=== PATIENT | female | born 1960 ===

== ENCOUNTER 2020-08-15 14:47 | Outpatient (REF) | payer MEDICAID, SELFPAY ==
--- NOTE | 2020-08-15 14:58 | XR_ITS ---
EXAMINATION: RIGHT HAND AND WRIST CLINICAL INFORMATION: Pain COMPARISON: Right wrist x-ray September 2017 TECHNIQUE: 4 views of the right hand and wrist FINDINGS: Bone alignment is normal. No fracture or dislocation is seen. The joint spaces are normal. Soft tissues are normal. IMPRESSION: Unremarkable exam.
== END 2020-08-15 14:48 | disposition home or self-care (01) ==
LOC: HO.XRAY 14:47
PROVIDERS: PCP Family Medicine; Visit Provider Emergency Medicine
DX: M25.531 Pain in right wrist (principal); M79.644 Pain in right finger(s)
CPT/HCPCS: 73110; 73130

== ENCOUNTER 2020-12-31 13:24 | Outpatient (REF) | payer MEDICAID, SELFPAY ==
--- NOTE | ~2020-12-31 | MM_ITS ---
EXAMINATION: MM DIAGNOSTIC DIGITAL BREAST TOMOSYNTHESIS, RIGHT US DIAGNOSTIC ULTRASOUND BREAST, RIGHT CLINICAL INFORMATION: Tenderness right breast for 3 weeks posterior upper outer breast and axilla. No redness, palpable mass, or discharge. The lifetime risk of breast cancer based on the Tyrer-Cuzick Model is 7%. COMPARISON: Mammography: 06/11/2020, 12/29/2018, 01/09/2017 TECHNIQUE: Digital breast tomosynthesis is performed in both the craniocaudal and mediolateral oblique views along with computer-aided detection (CAD). Synthesized 2D images are generated from the tomosynthesis. Ultrasound right breast is targeted to the area of symptoms posterior upper outer quadrant and axilla. Grayscale imaging and color Doppler are performed without and with harmonics. FINDINGS: There are scattered areas of fibroglandular density (ACR BI-RADS breast composition Category b). There are no significant masses, abnormal calcifications, or other abnormalities. Parenchymal pattern is similar to prior studies. There is no developing density. No skin thickening or coarsening of the Ike's ligaments. Ultrasound right breast is unremarkable. There is no cystic or solid mass, architectural abnormality, or focal duct ectasia. There is no lymphadenopathy. No skin thickening or edema tracking in soft tissue planes. Results are discussed with the patient at time of visit. MM/MM tomosynthesis diagnostic RT IMPRESSION: 1. No mammographic evidence of malignancy or inflammatory changes. 2. Unremarkable targeted right breast ultrasound. ASSESSMENT: BI-RADS 1: Negative RECOMMENDATION: 1. Patient's right breast pain should be managed based on the clinical impression. 2. Otherwise, routine annual screening mammography. This patient's information was entered into a reminder system with a target due date for their next mammogram.
== END 2020-12-31 13:25 | disposition home or self-care (01) ==
LOC: HO.MAMMO 13:24
PROVIDERS: Visit Provider Internal Medicine
DX: N64.4 Mastodynia (principal)
CPT/HCPCS: 76642; 77061; 77065

== ENCOUNTER 2021-06-02 13:14 | Outpatient (REF) | payer MEDICAID, SELFPAY ==
--- NOTE | ~2021-06-02 | MM_ITS ---
EXAMINATION: MM DIAGNOSTIC DIGITAL BREAST TOMOSYNTHESIS, BILATERAL US DIAGNOSTIC ULTRASOUND BREAST, BILATERAL CLINICAL INFORMATION: Focal rash right breast 1 x 1 cm 9:00 position and focal rash 0.5 x 0.5 cm 3:00 left breast. Pain. Patient currently on topical ointment and improving. The lifetime risk of breast cancer based on the Tyrer-Cuzick Model is 8%. COMPARISON: Mammography: 06/11/2020, 12/29/2018, 01/09/2017 TECHNIQUE: Digital breast tomosynthesis is performed in both the craniocaudal and mediolateral oblique views along with computer-aided detection (CAD). Synthesized 2D images are generated from the tomosynthesis. Ultrasound ultrasound of each breast is targeted to the areas of clinical concern as noted by patient at time of imaging. Patient is able to point to the areas of. Grayscale imaging and color Doppler are performed without and with harmonics. FINDINGS: There are scattered areas of fibroglandular density (ACR BI-RADS breast composition Category b). Parenchymal pattern is similar to prior studies. There is no developing density or interval mass or architectural abnormality or focal duct ectasia. No skin thickening or coarsening of the Ike's ligaments. No abnormal calcifications. The axilla and skin contours are unremarkable. Ultrasound of each breast demonstrates no cystic or solid mass, architectural abnormality, or focal duct ectasia. There is no skin thickening or edema tracking in the soft tissue planes. Results are discussed with the patient at time of visit. MM/MM tomosynthesis diagnostic BI IMPRESSION: No mammographic evidence of malignancy. ASSESSMENT: BI-RADS 1: Negative RECOMMENDATION: 1. Patient to continue with topical ointment and follow up with her PCP as directed. Patient should be managed based on the clinical impression. 2. Otherwise, routine annual screening mammography. This patient's information was entered into a reminder system with a target due date for their next mammogram.
== END 2021-06-02 13:15 | disposition home or self-care (01) ==
LOC: HO.MAMMO 13:14
PROVIDERS: Visit Provider Nurse Practitioner Family
DX: N64.4 Mastodynia (principal); I10 Essential (primary) hypertension
CPT/HCPCS: 76642; 77062; 77066

== ENCOUNTER 2021-10-07 15:36 | Outpatient (REF) | payer MEDICAID, SELFPAY ==
--- NOTE | ~2021-10-07 | US_ITS ---
EXAMINATION: US PELVIS CLINICAL INFORMATION: Postmenopausal bleeding. COMPARISON: CT abdomen and pelvis 11/30/2006 TECHNIQUE: Ultrasound of the pelvis is performed using both transabdominal and transvaginal transducers along with Doppler. Transvaginal imaging is performed due to inadequate visualization transabdominally. FINDINGS: Uterus: The uterus is anteverted and measures 8.9 x 4.8 x 6.3 cm. Total uterine volume 141 mL. Endometrial thickness 0.4 cm. There are 2 uterine fibroids present. Both are in the left side. There is a myometrial fibroid near the fundus measuring 2 x 2.1 x 2 cm. There is a subserosal fibroid. At the proximal body measuring 1.4 x 1.3 x 1.5 cm. Multiple nabothian cysts at the cervix. Adnexa: Both ovaries are visualized. There is normal color flow to the adnexa. There is no ovarian torsion. There is no pelvic ascites or fluid collection. Right ovary measures 3.1 x 2.3 x 2.2 cm. 8.2 Left ovary: Not visualized. Cul-de-sac: No fluid in the cul-de-sac. US/US pelvic and transvaginal IMPRESSION: 1. 2 left-sided uterine fibroids. 2. Normal thickness of the endometrium. Endometrial thickness 0.4 cm. 3. Left ovary is not visualized. Right ovary is normal.
--- NOTE | ~2021-10-07 | US_ITS ---
EXAMINATION: US RETROPERITONEAL COMPLETE (RENAL) CLINICAL INFORMATION: Microscopic hematuria. COMPARISON: Ultrasound abdomen complete dated 10/06/2017 and 10/27/2016. CT of abdomen without and with contrast dated 11/30/2006. TECHNIQUE: Real-time imaging of the kidneys and bladder. Color Doppler exam was used. FINDINGS: RIGHT KIDNEY: 12.0 x 4.6 x 5.4 cm (SAG x AP x TRV). The kidney is normal in size, contour, and echogenicity. Renal cortical thickness is normal. No calculi or focal parenchymal lesions. No hydronephrosis. LEFT KIDNEY: 12.8 x 5.6 x 5.0 cm (SAG x AP x TRV). The kidney is normal in size, contour, and echogenicity. Renal cortical thickness is normal. No focal parenchymal lesions or hydronephrosis. At the lower pole of the left kidney there is an echogenic focus with posterior trickle sign consistent with a stone measuring 0.5 cm. BLADDER: Well distended and normal. Bilateral ureteral jets are demonstrated. Prevoid bladder volume is 140 mL. Postvoid bladder volume is 23.2 mL. US/US retroperitoneal comp IMPRESSION: No hydronephrosis. 5 mm nonobstructive stone lower pole left kidney..
== END 2021-10-07 15:37 | disposition home or self-care (01) ==
LOC: HO.US 15:36
PROVIDERS: PCP Family Medicine; Visit Provider Family Medicine
DX: N95.0 Postmenopausal bleeding (principal); R31.29 Other microscopic hematuria
CPT/HCPCS: 76770; 76830; 76856

== ENCOUNTER 2022-01-26 15:52 | Outpatient (REF) | payer MEDICAID, SELFPAY ==
--- NOTE | ~2022-01-26 | MM_ITS ---
EXAMINATION: MM SCREENING DIGITAL BREAST TOMOSYNTHESIS, BILATERAL CLINICAL INFORMATION: Screening. Asymptomatic. The lifetime risk of breast cancer based on the Tyrer-Cuzick Model is 7.5%. COMPARISON: Mammography: June 02, 2021 and studies dating back to October 31, 2014 TECHNIQUE: Digital breast tomosynthesis is performed in both the craniocaudal and mediolateral oblique views along with computer-aided detection (CAD). Synthesized 2D images are generated from the tomosynthesis. FINDINGS: There are scattered areas of fibroglandular density (ACR BI-RADS breast composition Category b). There are no significant masses, abnormal calcifications, or other abnormalities. MM/MM tomosynthesis screening BI IMPRESSION: There are no significant changes from prior study. ASSESSMENT: BI-RADS 1: Negative RECOMMENDATION: Routine annual mammography screening. This patient's information was entered into a reminder system with a target due date for their next mammogram.
== END 2022-01-26 15:53 | disposition home or self-care (01) ==
LOC: HO.MAMMO 15:52
PROVIDERS: PCP Family Medicine; Visit Provider Family Medicine
DX: Z12.31 Encounter for screening mammogram for malignant neoplasm of breast (principal)
CPT/HCPCS: 77063; 77067

== ENCOUNTER 2022-06-30 11:51 | Outpatient (REF) | payer MEDICAID, SELFPAY ==
--- NOTE | ~2022-06-30 | XR_ITS ---
EXAMINATION: XR LUMBOSACRAL SPINE CLINICAL INFORMATION: Lower back pain. COMPARISON: Lumbar spine radiographs dated 01/19/2018. TECHNIQUE: AP and lateral views of the lumbar spine and lateral view of the lumbosacral junction. FINDINGS: There is bony demineralization. The vertebral bodies and posterior elements are normal. The disc spaces are preserved, and the vertebral alignment is normal. There is multi-level mild lumbar spondylosis. The paraspinal soft tissues are normal. XR/XR lumbar spine 2-3V IMPRESSION: 1. No acute fracture or spondylolisthesis is seen. 2. The lumbar disc spaces are well-maintained. 3. There is multi-level mild lumbar spondylosis.
[2022-06-30 13:02] LABS: Hematocrit 41.2 % (37.0-47.0); Hemoglobin 13.2 g/dl (12.0-16.0); Mean Corpuscular Volume 93.6 fL (80.0-98.0); Mean Platelet Volume 9.8 fL (9.4-12.3); Platelet Count 240 X10*3/uL (160-400); Red Cell Distribution Width 13.4 % (11.0-16.0); White Blood Count 6.7 X10*3/uL (4.8-10.8)
[2022-06-30 13:14] LABS: Estimated Average Glucose 128 mg/dL; Hemoglobin A1c % 6.1 %
[2022-06-30 13:32] LABS: Alanine Aminotransferase 15 U/L (0-31); Albumin Level 4.4 g/dL (3.5-5.0); Alkaline Phosphatase 94 U/L (39-117); Anion Gap 14 (12-20); Aspartate Amino Transferase 14 U/L (5-31); Bilirubin Direct 0.2 mg/dL (0.0-0.5); Bilirubin Total 0.4 mg/dL (0.0-1.0); Blood Urea Nitrogen 21 mg/dL (9-16); Calcium 9.2 mg/dL (8.4-10.2); Carbon Dioxide 23 mmol/L (22-29); Chloride 107 mmol/L (96-108); Cholesterol 189 mg/dL; Estimated Glomerular Filt Rate > 60; Glucose Random 119 mg/dL (60-115); HDL Cholesterol 44 mg/dL; LDL Cholesterol Calculated 123 mg/dl; Potassium 4.3 mmol/L (3.3-5.1); Sodium 140 mmol/L (135-145); Total Protein 7.3 g/dL (6.5-8.0); Triglycerides 111 mg/dL
[2022-06-30 13:53] LABS: Free T4 (Free Thyroxine) 0.91 ng/dL (0.71-1.85); Thyroid Stimulating Hormone 2.39 uIU/mL (0.32-4.0); Vitamin D 25-OH Total 36.6 ng/mL (>30)
[2022-07-01 07:36] LABS: HIV AB/AG Nonreactive (Nonreactive); HIV Num 1 0.06 S/CO (0.00-0.99)
[2022-07-01 07:39] LABS: ~HepC Num1 0.12 S/CO (0.00-0.79); ~Hepatitis C Antibody Nonreactive (Nonreactive)
[2022-07-02 11:51] LABS: Alpha Fetoprotein 3.6 ng/mL
== END 2022-06-30 11:52 | disposition home or self-care (01) ==
LOC: HO.LAB 11:51
PROVIDERS: PCP Family Medicine; Visit Provider Family Medicine
DX: M54.50 Low back pain, unspecified (principal); Z11.3 Encounter for screening for infections with a predominantly sexual mode of transmission; Z13.228 Encounter for screening for other metabolic disorders; Z13.220 Encounter for screening for lipoid disorders
CPT/HCPCS: 36415; 72100; 80048; 80061; 80076; 82105; 82306; 83036; 84439; 84443; 85027; 86803; 87389

== ENCOUNTER 2022-11-26 07:12 | Outpatient (REF) | payer MEDICAID, SELFPAY ==
--- NOTE | 2022-11-26 08:00 | EMG_ITS ---
Right tibial and peroneal motor studies were performed. Right superficial peroneal, sural, and lateral femoral cutaneous sensory studies were performed. Tibial H-reflex was obtained. Needle examination was performed. 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 Otherwise, no significant abnormality was noted. MD CLAUDETTE Serra/DAVID / [id number]
[2022-11-26 08:37] LABS: Free T4 (Free Thyroxine) 0.99 ng/dL (0.71-1.85); Insulin 15 uU/mL (2-29)
== END 2022-11-26 07:13 | disposition home or self-care (01) ==
LOC: HO.NEURO 07:12
PROVIDERS: Absent Provider Family Medicine; PCP Family Medicine; Visit Provider Family Medicine
DX: Z13.89 Encounter for screening for other disorder (principal); R20.2 Paresthesia of skin
CPT/HCPCS: 36415; 83525; 84439; 95886; 95909

== ENCOUNTER 2023-03-10 14:37 | Outpatient (REF) | payer MEDICAID, SELFPAY ==
--- NOTE | ~2023-03-10 | MM_ITS ---
EXAMINATION: MM DIAGNOSTIC DIGITAL BREAST TOMOSYNTHESIS, BILATERAL US DIAGNOSTIC ULTRASOUND BREAST, LEFT CLINICAL INFORMATION: Left areola skin changes. No palpable mass or discharge. Patient has upcoming appointment with dermatology. Due for yearly. The lifetime risk of breast cancer based on the Tyrer-Cuzick Model is 6%. COMPARISON: Multiple prior breast imaging exams including most recent mammography 01/26/2022 and bilateral breast ultrasound 06/02/2021. TECHNIQUE: Digital breast tomosynthesis is performed in both the craniocaudal and mediolateral oblique views along with computer-aided detection (CAD). Synthesized 2D images are generated from the tomosynthesis. Ultrasound left breast is targeted to the areolar and periareolar region using grayscale imaging and color Doppler without and with harmonics. FINDINGS: There are scattered areas of fibroglandular density (ACR BI-RADS breast composition Category b). There are no significant masses, abnormal calcifications, or other abnormalities. Parenchymal pattern is similar to prior studies. There is no developing density or architectural abnormality. The axilla and skin contours are unremarkable. No significant changes. Ultrasound demonstrates no cystic or solid mass, architectural abnormality, or focal duct ectasia. No skin thickening or intradermal lesion or edema tracking in soft tissue planes. No hyperemia. Results are discussed with the patient at time of visit. MM/MM tomosynthesis diagnostic BI IMPRESSION: -No mammographic evidence of malignancy or inflammatory changes. -Unremarkable targeted left breast ultrasound. ASSESSMENT: BI-RADS 1: Negative RECOMMENDATION: 1. Patient should be managed based on the clinical impression. Patient has upcoming appointment with dermatology. 2. Otherwise, routine annual screening mammography. This patient's information was entered into a reminder system with a target due date for their next mammogram.
== END 2023-03-10 14:38 | disposition home or self-care (01) ==
LOC: HO.MAMMO 14:37
PROVIDERS: PCP Family Medicine; Visit Provider Nurse Practitioner Primary Care
DX: R23.4 Changes in skin texture (principal)
CPT/HCPCS: 76642; 77062; 77066

== ENCOUNTER 2023-03-24 06:02 | Outpatient (REF) | payer MEDICAID, SELFPAY ==
[2023-03-24 06:24] LABS: MANUAL DIFF FLAG NO
[2023-03-24 07:22] LABS: Basophils Percent Auto 0.3 % (0-2); Eosinophils Absolute Auto 0.1 X10*3/uL (0.0-0.4); Eosinophils Percent Auto 1.2 % (0-4); Hematocrit 39.7 % (37.0-47.0); Hemoglobin 12.8 g/dl (12.0-16.0); Imm Gran Abs Auto 0.02 X10*3/uL (0.00-0.03); Imm Gran Pct Auto 0.3 % (0.0-0.4); Lymphocytes Absolute Auto 2.5 X10*3/uL (1.2-4.9); Mean Corpuscular HGB Conc 32.2 g/dl (31.0-35.0); Mean Corpuscular Volume 93.2 fL (80.0-98.0); Mean Platelet Volume 9.6 fL (9.4-12.3); Monocytes Absolute Auto 0.5 X10*3/uL (0.1-1.2); Monocytes Percent Auto 6.8 % (2-11); Neutrophils Absolute Auto 3.6 x10*3/uL (2.0-8.3); Neutrophils Percent Auto 53.4 % (45-73); Platelet Count 246 X10*3/uL (160-400); Red Blood Count 4.26 X10*6/uL (4.20-5.50); Red Cell Distribution Width 13.7 % (11.0-16.0); White Blood Count 6.7 X10*3/uL (4.8-10.8)
[2023-03-24 07:54] LABS: Estimated Average Glucose 131 mg/dL; Hemoglobin A1c % 6.2 %
[2023-03-24 08:10] LABS: Alanine Aminotransferase 17 U/L (0-31); Albumin Level 4.3 g/dL (3.5-5.0); Alkaline Phosphatase 88 U/L (39-117); Anion Gap 11 (12-20); Aspartate Amino Transferase 17 U/L (5-31); Bilirubin Direct 0.1 mg/dL (0.0-0.5); Bilirubin Total 0.6 mg/dL (0.0-1.0); Blood Urea Nitrogen 14 mg/dL (9-16); Calcium 9.3 mg/dL (8.4-10.2); Carbon Dioxide 26 mmol/L (22-29); Chloride 108 mmol/L (96-108); Cholesterol 176 mg/dL; Estimated Glomerular Filt Rate > 60; Glucose Random 130 mg/dL (60-115); HDL Cholesterol 44 mg/dL; LDL Cholesterol Calculated 103 mg/dl; Potassium 4.2 mmol/L (3.3-5.1); Sodium 141 mmol/L (135-145); Total Protein 7.1 g/dL (6.5-8.0); Triglycerides 145 mg/dL
[2023-03-24 08:22] LABS: HBS Num1 22.57 mIU/mL (0-7.99); HIV AB/AG Nonreactive (Nonreactive); HIV Num 1 0.06 S/CO (0.00-0.99); Hepatitis B Surface Antigen Negative (Negative); ~Hepatitis B Surface Antibody REACTIVE (Nonreactive)
[2023-03-24 08:23] LABS: Syphilis Screen Nonreactive (Nonreactive); ~HepC Num1 0.19 S/CO (0.00-0.79); ~Hepatitis C Antibody Nonreactive (Nonreactive)
[2023-03-24 08:25] LABS: Free T4 (Free Thyroxine) 0.94 ng/dL (0.71-1.85); Thyroid Stimulating Hormone 2.22 uIU/mL (0.32-4.0); Vitamin D 25-OH Total 37.3 ng/mL (>30)
[2023-03-24 10:28] LABS: CT PCR NOT DETECTED (Not Detect.); NG PCR NOT DETECTED (Not Detect.)
[2023-03-26 13:03] LABS: Alpha Fetoprotein 2.8 ng/mL
== END 2023-03-24 06:03 | disposition home or self-care (01) ==
LOC: HO.LAB 06:02
PROVIDERS: PCP Family Medicine; Visit Provider Family Medicine
DX: Z11.4 Encounter for screening for human immunodeficiency virus [HIV] (principal); R73.03 Prediabetes
CPT/HCPCS: 0353U; 80048; 80061; 80076; 82105; 82306; 83036; 84439; 84443; 85025; 86706; 86780; 86803; 87340; 87389

== ENCOUNTER → 2023-04-02 14:02 | Outpatient (BNVA) | payer OTHER, SELFPAY | PROVIDERS: PCP Family Medicine; Visit Provider Physician Assistant | DX: S50.11XA Contusion of right forearm, initial encounter (principal); W20.8XXA Other cause of strike by thrown, projected or falling object, initial encounter | CPT/HCPCS: 73090; 99204 ==

== ENCOUNTER 2023-04-06 08:49 | Outpatient (REF) | payer MEDICAID, SELFPAY ==
--- NOTE | ~2023-04-06 | US_ITS ---
EXAMINATION: US ABDOMEN COMPLETE CLINICAL INFORMATION: Rule out recurrent kidney stone. Fatty liver. COMPARISON: Ultrasound kidneys and bladder 10/07/2021. Ultrasound abdomen complete with elastography 04/03/2020. TECHNIQUE: Real-time imaging of the abdominal viscera. FINDINGS: PANCREAS: The visualized pancreatic head and body are unremarkable. The tail is obscured by gas. ABDOMINAL AORTA: The proximal, mid, and distal segments are normal in caliber. INFERIOR VENA CAVA: Visualized portions are normal. LIVER: The liver is normal in size. The liver contour is normal. There is diffuse increased liver parenchymal echogenicity, consistent with hepatic steatosis. No focal hepatic lesion. There is no intrahepatic biliary duct dilatation seen. GALLBLADDER: Surgically absent. COMMON BILE DUCT: Normal in caliber measuring 0.5 cm in diameter. RIGHT KIDNEY: Normal. No hydronephrosis. No renal calculi or focal parenchymal lesions. The kidney measures 12.3 cm in maximum dimension. LEFT KIDNEY: No hydronephrosis or focal parenchymal lesions. The kidney measures 12.9 cm in maximum dimension. Lower pole 0.4 cm calculus. SPLEEN: Normal. The spleen measures 8.7 cm in maximum dimension. FREE FLUID: None. US/US abdomen complete IMPRESSION: 1. Nonobstructing left lower pole 0.4 cm calculus. No hydronephrosis. 2. Hepatic steatosis.
== END 2023-04-06 08:50 | disposition home or self-care (01) ==
LOC: HO.US 08:49
PROVIDERS: PCP Family Medicine; Visit Provider Family Medicine
DX: N20.0 Calculus of kidney (principal); K76.0 Fatty (change of) liver, not elsewhere classified
CPT/HCPCS: 76700

== ENCOUNTER → 2023-04-07 09:39 | Outpatient (BNVA) | payer OTHER, SELFPAY | PROVIDERS: PCP Family Medicine; Visit Provider Physician Assistant | DX: S50.11XA Contusion of right forearm, initial encounter (principal); W20.8XXA Other cause of strike by thrown, projected or falling object, initial encounter | CPT/HCPCS: 99213 ==

== ENCOUNTER 2023-04-12 15:00 | Outpatient (RCR) | payer MEDICAID, SELFPAY | END 2023-05-19 15:13 | disposition home or self-care (01) | LOC: HO.PT 15:00 | PROVIDERS: PCP Family Medicine; Visit Provider Nurse Practitioner Primary Care | DX: M25.511 Pain in right shoulder (principal) | CPT/HCPCS: 97110; 97140; 97161 ==

== ENCOUNTER → 2023-04-28 15:05 | Outpatient (BNVA) | payer OTHER, SELFPAY | PROVIDERS: PCP Family Medicine; Visit Provider Physician Assistant | DX: S50.11XD Contusion of right forearm, subsequent encounter (principal); W20.8XXD Other cause of strike by thrown, projected or falling object, subsequent encounter | CPT/HCPCS: 99213 ==

== ENCOUNTER 2023-06-14 14:30 | Outpatient (RCR) | payer OTHER, SELFPAY ==
--- NOTE | 2023-06-09 15:01 | MHC.OT.EP ---
[address] [phone] Occupational Therapy Plan of Care Patient Name: Ele Adan Date of Evaluation: 06/09/23 Diagnosis: Right forearm crush injury with hematoma Pain Location: 0-8 right proximal forearm Pain Score: 7 Pain Scale Used: Numeric (0 - 10) Aggravating Factors: Holding objects in hand, carrying, straight elbow Alleviating Factors: Motrin 800 mg, icy hot. Avoiding straightening elbow Assessment: Pt is a 62 yo female 9 wks , 2 days s/p right proximal forearm crush injury. There has been a 9 wk lapse in treatment due to pt putting on hold during PT appointments for unrelated shoulder pain and a 1 month vacation in [place] Today patient presents with complaint of high proximal forearm pain with right non dominant hand use with lifting , carrying, holding her cell phone, dressing , housework and full elbow extension. ROM is WNL , tender to light palpation at proximal forearm. 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 Pt is scheduled for CTR next week. Pt will benefit from OT to reduce right forearm pain for improved upper extremity function. I anticipate slow improvement in UE function due to unrelated shoulder pain and upcoming right CTR. Frequency and Duration: The patient will be seen 2 x wk x 3 wks Short Term Goals: Demo indep in use of thermal modalities and self massage to reduce forearm pain with daily activities Demo indep with HEP Demo indep with activity modification and AD with homemaking tasks as needed Dec right proximal forearm pain to low with light and occasional moderate heavy daily activities Retirement Goals: Same as above Treatment Plan: Therapeutic Exercise Therapeutic Activity Home Exercise Program Patient Education Desensitization/Sensory Re-ed ADL Training MHP Cold Packs Soft Tissue Mobilization Kinesiotaping Electronically Signed By: Lindsey Briggs OT CHT CLT Please Sign and return to therapist. Thank you once again for your referral.
--- NOTE | 2023-08-11 11:23 | MHC.OT.DC ---
[address] [phone] F: [phone] Occupational Therapy Discharge Note Patient Name: Ele Adan Provider: Serena Sharma Diagnosis: Right forearm crush injury with hematoma Date of Surgery: Date of Evaluation: 06/09/23 Date of Discharge: 08/11/23 Treatments to Date: 2 Cancellations to Date: No Shows to Date: Discharge Status: Patient Elected to Stop Physician Discontinued Tx Discharge Summary: Con't complaint of pain at distal forearm with light palpation and gentle ROM Pt scheduled for CTR and has not rescheduled OT Pt reports some improvement in night pain and paresthesia with custom wrist orthosis She is indep with AROM , tendon glides and median nerve glides Electronically Signed By: Lindsey Briggs OT CHT CLT Reviewed/agree with student documentation: Therapist: Please Sign and return to therapist, thank you for your referral.
== END 2023-08-11 11:23 | disposition home or self-care (01) ==
LOC: HO.OT 14:30
PROVIDERS: PCP Family Medicine; Visit Provider Physician Assistant
DX: S50.11XD Contusion of right forearm, subsequent encounter (principal)
CPT/HCPCS: 97110; 97140; 97166

== ENCOUNTER 2023-07-05 11:11 | Emergency (ER) | payer MEDICAID, SELFPAY ==
--- NOTE | ~2023-07-05 | XR_ITS ---
EXAMINATION: XR CHEST CLINICAL INFORMATION: Chest pain COMPARISON: 04/06/2019 TECHNIQUE: Frontal view of the chest was obtained. FINDINGS: No significant abnormality is noted involving the heart, lungs, mediastinum, bony thorax or soft tissues. XR/XR chest 1V IMPRESSION: Unremarkable examination, without interval change.
--- NOTE | 2023-07-05 11:12 | ECG_ITS ---
Test Reason : chest pain Blood Pressure : / mmHG Vent. Rate : 077 BPM Atrial Rate : 077 BPM P-R Int : 152 ms QRS Dur : 090 ms QT Int : 414 ms P-R-T Axes : 045 009 006 degrees QTc Int : 468 ms Normal sinus rhythm T wave abnormality, consider anterior ischemia Prolonged QT Abnormal ECG When compared with ECG of 18-APR-2009 08:46, Non-specific change in ST segment in Anterior leads T wave inversion now evident in Anterior leads Referred By: Emmanuel Bolivar Electronically Signed By:KELIN HANNA
--- NOTE | 2023-07-05 11:15 | ED.GENADULT ---
HPI - General Adult General Chief complaint: Chest Pain Stated complaint: Chest Pain Time Seen by Provider: 07/05/23 13:00 Source: patient Mode of arrival: ambulatory History of Present Illness HPI narrative: 62-year-old female who has complaints of dysuria, back pain and some mild nausea with chills and was evaluated at urgent care. Patient states that she was started on Macrobid and Pyridium but is not had any improvement then complains of epigastric discomfort without dizziness/diaphoresis. Related Data Previous Rx's Medication Instructions Recorded cefdinir 300 mg capsule 300 mg PO BID 7 days #14 caps 07/05/23 ondansetron 4 mg disintegrating 4 mg PO Q8H PRN nausea and 07/05/23 tablet vomiting #7 tabs Allergies Allergy/AdvReac Type Severity Reaction Status Date / Time No Known Allergies Allergy Unverified 07/05/23 11:18 Review of Systems Review of Systems: Pertinent positives and negatives as stated in HPI PMF Past Medical History Source: nursing notes reviewed Social History Social History Advance Directives: Yes Advance Directives Information Provided: No Advance Directives on File: No Physical Exam ED Vital Signs: Vital Signs - 24 hr 07/05/23 11:18 Temperature 97.9 F Pulse Rate 80 Respiratory Rate 16 Blood Pressure 149/80 H Pulse Oximetry 98 Oxygen Delivery Method Room Air BMI result Body Mass Index 35.8 VITAL SIGNS: Reviewed. GENERAL: Elevated BMI, Well developed, well nourished, in no acute distress. HEAD: Normocephalic/atraumatic EYES: PERRLA, EOMI EARS: Ext canals without abnormality NOSE: Nares patent bilateral OROPHARYNX: no oral lesions noted, posterior pharynx clear NECK: Supple, no adenopathy LUNGS: Normal breath sounds. No adventitious sounds or accessory muscle use. SpO2<98> CARDIOVASCULAR: Regular rate and rhythm without noted murmurs ABDOMEN: Soft, non-tender, non-distended with bowel sounds, CVA tenderness+ MUSCULOSKELETAL: No tenderness, deformities, or effusions noted on gross inspection. EXTREMITIES: No cyanosis, clubbing or edema. SKIN: Inspection of the skin reveals no rashes, NEUROLOGIC: Alert and oriented x 4. Strength and sensation to light touch were grossly intact x 4. Course Course Course Narrative: This is an RME: Additional HPI, ROS, PE not included below will be deferred to primary provider. Patient is a 62 year old female presenting from [facility] for substernal non radiating chest pain that started Wednesday. She received aspirin from the [facility] and was told to be seen at the ED for an ECHO. Patient denies shortness of breath but notes she has some difficulty with breathing. Medical Decision Making Medical Decision Making [facility] Narrative: 62-year-old female with history and clinical presentation after review of all investigations highly suspicious for a pyelonephritis as opposed to any pneumonia, renal colic. I reviewed all investigations which is negative for systemic evidence of infection, there is no leukocytosis or left shift, no anemia or thrombocytopenia and patient has remained afebrile. Chemistry indices are negative for acute electrolyte or liver enzyme abnormalities and there is no GELACIO, troponin is undetectable and was ordered due to patient's atypical chest pain and in conjunction with EKG there is no suspicion for for cardiac etiology. Chest x-ray is without infiltrate and otherwise my interpretation is in agreement with radiology's impression. On the other hand, urinalysis is grossly indicative of UTI and given remaining symptoms of back pain and CVA tenderness with nausea and chills clinically my interpretation is patient has pyelonephritis. All results and findings were discussed with patient at bedside, she was instructed to stop taking the Macrobid and she has been prescribed a week-long course of cefdinir and was informed that she could continue to take the pyridium as well as increasing water intake and using [id number] analgesics. Differential Diagnosis Differential Diagnoses: The differential diagnosis associated with the presentation includes Please see the discussion above Admission/Observation Consideration of admission/observation: Escalation of care including admission/observation considered Please see the discussion above Lab Data [facility] Lab Attestation statement: I reviewed the patient's lab results. Please see the discussion above 07/05/23 11:45 07/05/23 11:45 Labs: Lab Results 07/05/23 07/05/23 07/05/23 Range/Units 11:45 11:45 11:45 WBC 7.7 (4.8-10.8) X10*3/uL RBC 4.19 L (4.20-5.50) X10*6/uL Hgb 12.9 (12.0-16.0) g/dl Hct 38.9 (37.0-47.0) % MCV 92.8 (80.0-98.0) fL MCH 30.8 (27.0-33.0) pg MCHC 33.2 (31.0-35.0) g/dl RDW 13.2 (11.0-16.0) % Plt Count 233 (160-400) X10*3/uL MPV 9.6 (9.4-12.3) fL Immature Gran % (Auto) 0.3 (0.0-0.4) % Neut % (Auto) 64.5 (45-73) % Lymph % (Auto) 28.4 (20-40) % Jones % (Auto) 5.5 (2-11) % Eos % (Auto) 1.0 (0-4) % Baso % (Auto) 0.3 (0-2) % Lymph # (Auto) 2.2 (1.2-4.9) X10*3/uL Jones # (Auto) 0.4 (0.1-1.2) X10*3/uL Eos # (Auto) 0.1 (0.0-0.4) X10*3/uL Baso # (Auto) 0.0 (0.0-0.2) X10*3/uL Abs Immat Gran (auto) 0.02 (0.00-0.03) X10*3/uL Absolute Neuts (auto) 5.0 (2.0-8.3) x10*3/uL Absolute Nucleated RBC 0.000 (0.0-0.012) X10*3/uL Nucleated RBC % (auto) 0.0 (0.0-0.2) /100WBC Sodium 138 (135-145) mmol/L Potassium 3.6 (3.3-5.1) mmol/L Chloride 106 (96-108) mmol/L Carbon Dioxide 23 (22-29) mmol/L Anion Gap 13 (12-20) BUN 13 (9-16) mg/dL Creatinine 0.76 (0.5-1.4) mg/dL Estim Creat Clear Calc 87.7 Estimated GFR > 60 Random Glucose 247 H (60-115) mg/dL Calcium 9.2 (8.4-10.2) mg/dL Magnesium 2.0 (1.6-2.6) mg/dL Total Bilirubin 0.6 (0.0-1.0) mg/dL AST 17 (5-31) U/L ALT 14 (0-31) U/L Alkaline Phosphatase 81 (39-117) U/L Troponin I High Sens < 2.7 (<3.5-17.0) ng/L B-Natriuretic Peptide (<100) pg/mL Total Protein 7.2 (6.5-8.0) g/dL Albumin 4.1 (3.5-5.0) g/dL Urine Color Urine Appearance Urine pH (5.0-9.0) Ur Specific [place] (1.005-1.025) Urine Protein (Neg-Trace) mg/dL Urine Glucose (UA) (Negative) mg/dL Urine Ketones (Negative) mg/dL Urine Blood (Negative) Urine Nitrite (Negative) Ur Leukocyte Esterase (Negative) Urine RBC (0-2) /HPF Urine WBC (0-5) /HPF Ur Squamous Epith Cells (0-2) /HPF Urine Bacteria (None Seen) Hyaline Casts (0-2) /LPF 07/05/23 07/05/23 Range/Units 11:45 12:18 WBC (4.8-10.8) X10*3/uL RBC (4.20-5.50) X10*6/uL Hgb (12.0-16.0) g/dl Hct (37.0-47.0) % MCV (80.0-98.0) fL MCH (27.0-33.0) pg MCHC (31.0-35.0) g/dl RDW (11.0-16.0) % Plt Count (160-400) X10*3/uL MPV (9.4-12.3) fL Immature Gran % (Auto) (0.0-0.4) % Neut % (Auto) (45-73) % Lymph % (Auto) (20-40) % Jones % (Auto) (2-11) % Eos % (Auto) (0-4) % Baso % (Auto) (0-2) % Lymph # (Auto) (1.2-4.9) X10*3/uL Jones # (Auto) (0.1-1.2) X10*3/uL Eos # (Auto) (0.0-0.4) X10*3/uL Baso # (Auto) (0.0-0.2) X10*3/uL Abs Immat Gran (auto) (0.00-0.03) X10*3/uL Absolute Neuts (auto) (2.0-8.3) x10*3/uL Absolute Nucleated RBC (0.0-0.012) X10*3/uL Nucleated RBC % (auto) (0.0-0.2) /100WBC Sodium (135-145) mmol/L Potassium (3.3-5.1) mmol/L Chloride (96-108) mmol/L Carbon Dioxide (22-29) mmol/L Anion Gap (12-20) BUN (9-16) mg/dL Creatinine (0.5-1.4) mg/dL Estim Creat Clear Calc Estimated GFR Random Glucose (60-115) mg/dL Calcium (8.4-10.2) mg/dL Magnesium (1.6-2.6) mg/dL Total Bilirubin (0.0-1.0) mg/dL AST (5-31) U/L ALT (0-31) U/L Alkaline Phosphatase (39-117) U/L Troponin I High Sens (<3.5-17.0) ng/L B-Natriuretic Peptide 20 (<100) pg/mL Total Protein (6.5-8.0) g/dL Albumin (3.5-5.0) g/dL Urine Color Dark Yellow Urine Appearance Clear Urine pH 5.5 (5.0-9.0) Ur Specific [place] 1.015 (1.005-1.025) Urine Protein Negative (Neg-Trace) mg/dL Urine Glucose (UA) 500 H (Negative) mg/dL Urine Ketones Negative (Negative) mg/dL Urine Blood Small (1+) H (Negative) Urine Nitrite Positive H (Negative) Ur Leukocyte Esterase Moderate (2+) H (Negative) Urine RBC 11-20 H (0-2) /HPF Urine WBC >50 H (0-5) /HPF Ur Squamous Epith Cells 0-2 (0-2) /HPF Urine Bacteria 2+ (None Seen) Hyaline Casts 0-2 (0-2) /LPF Independent Interpretation I performed an independent interpretation of an: EKG Interpretation: Normal sinus rhythm, HR-77, no STEMI, [place]/QRS/QTC is within normal limits. Radiology Impression Radiologist Impression: Please see the discussion above External Record Review External record reviewed: Outpatient record, Prior outpatient labs and Prior outpatient radiology Discharge Plan Discharge Clinical Impression: Atypical chest pain, Pyelonephritis Patient Disposition: Home, Self-Care Instructions: Kidney Infection (ED) Additional Instructions: 1. Resume all home medications as prescribed except the nitrofurantoin (Macrobid). A different antibiotic has been sent to your pharmacy you should take the 1st dose as soon as you pick it up this afternoon. 2. I recommend [id number] Tylenol/ibuprofen as needed for pain control, increase the amount of water that you are drinking. Return to the ER for any worsening symptoms. Prescriptions: New cefdinir 300 mg capsule 300 mg PO BID 7 Days Qty: 14 0RF ondansetron 4 mg tablet,disintegrating 4 mg PO Q8H PRN (Reason: nausea and vomiting) Qty: 7 0RF Referrals: Lorrie Reyes DO [Primary Care Provider] -
[2023-07-05 11:18] VITALS: BP 149/80; PULSE 80; RESP 16; TEMP 36.6; O2SAT 98; BMI 35.8
[2023-07-05 11:50] LABS: MANUAL DIFF FLAG NO
[2023-07-05 11:57] LABS: Basophils Percent Auto 0.3 % (0-2); Eosinophils Absolute Auto 0.1 X10*3/uL (0.0-0.4); Hematocrit 38.9 % (37.0-47.0); Hemoglobin 12.9 g/dl (12.0-16.0); Imm Gran Abs Auto 0.02 X10*3/uL (0.00-0.03); Imm Gran Pct Auto 0.3 % (0.0-0.4); Lymphocytes Absolute Auto 2.2 X10*3/uL (1.2-4.9); Lymphocytes Percent Auto 28.4 % (20-40); Mean Corpuscular HGB Conc 33.2 g/dl (31.0-35.0); Mean Corpuscular Hemoglobin 30.8 pg (27.0-33.0); Mean Corpuscular Volume 92.8 fL (80.0-98.0); Mean Platelet Volume 9.6 fL (9.4-12.3); Monocytes Absolute Auto 0.4 X10*3/uL (0.1-1.2); Monocytes Percent Auto 5.5 % (2-11); Neutrophils Percent Auto 64.5 % (45-73); Platelet Count 233 X10*3/uL (160-400); Red Blood Count 4.19 X10*6/uL (4.20-5.50); Red Cell Distribution Width 13.2 % (11.0-16.0); White Blood Count 7.7 X10*3/uL (4.8-10.8)
[2023-07-05 12:12] LABS: Alanine Aminotransferase 14 U/L (0-31); Albumin Level 4.1 g/dL (3.5-5.0); Alkaline Phosphatase 81 U/L (39-117); Anion Gap 13 (12-20); Aspartate Amino Transferase 17 U/L (5-31); Bilirubin Total 0.6 mg/dL (0.0-1.0); Blood Urea Nitrogen 13 mg/dL (9-16); Calcium 9.2 mg/dL (8.4-10.2); Carbon Dioxide 23 mmol/L (22-29); Chloride 106 mmol/L (96-108); Creatinine Clr Calc Pharmacy 87.7; Estimated Glomerular Filt Rate > 60; Glucose Random 247 mg/dL (60-115); Potassium 3.6 mmol/L (3.3-5.1); Sodium 138 mmol/L (135-145); Total Protein 7.2 g/dL (6.5-8.0)
[2023-07-05 12:17] LABS: B Type Natriuretic Peptide 20 pg/mL (<100)
[2023-07-05 12:25] LABS: Troponin-I High Sensitivity < 2.7 ng/L (<3.5-17.0)
[2023-07-05 12:27] LABS: Appearance Urine Clear; Color Urine Dark Yellow; Glucose Urine UA 500 mg/dL (Negative); Leukocyte Esterase Urine Moderate (2+) (Negative); Nitrite Urine Positive (Negative); PH 5.5 (5.0-9.0); Specific Gravity - Urine 1.015 (1.005-1.025); UMIC TRIGGER UACC YES; Urine Blood Small (1+) (Negative); Urine Ketones Negative (Negative); Urine Protein Negative (Neg-Trace)
[2023-07-05 12:29] LABS: Bacteria Urine 2+ (None Seen); Hyaline Casts Urine 0-2 /LPF (0-2); Squamous Epithelial Cell Urine 0-2 /HPF (0-2); UACC Culture Trigger YES; WBC Urine >50 /HPF (0-5)
== END 2023-07-05 13:41 | disposition home or self-care (01) ==
PROVIDERS: Physician Assistant; Emergency Provider Student in an Organized Health Care Education/Training Program; PCP Family Medicine
DX: R07.89 Other chest pain (principal); N12 Tubulo-interstitial nephritis, not specified as acute or chronic; B96.20 Unspecified Escherichia coli [E. coli] as the cause of diseases classified elsewhere; R06.00 Dyspnea, unspecified
CPT/HCPCS: 36415; 71045; 80053; 81001; 83735; 83880; 84484; 85025; 87086; 87088; 87186; 93005; 99284

== ENCOUNTER 2023-07-09 18:09 | Outpatient (REF) | payer MEDICAID, SELFPAY | END 2023-07-09 18:10 | disposition home or self-care (01) | LOC: HO.LNP 18:09 | PROVIDERS: Visit Provider General Practice | DX: R30.9 Painful micturition, unspecified (principal) | CPT/HCPCS: 87086 ==

== ENCOUNTER 2023-08-04 09:20 | Emergency (ER) | payer MEDICAID, SELFPAY ==
--- NOTE | ~2023-08-04 | XR_ITS ---
EXAMINATION: XR LUMBOSACRAL SPINE CLINICAL INFORMATION: Fall. Pain. COMPARISON: None available. TECHNIQUE: Three views of the lumbosacral spine. FINDINGS: Normal vertebral body alignment. The lumbar lordosis is maintained. No acute fracture or subluxation. No loss of vertebral body height. Mild multilevel loss of intervertebral disc height with tiny anterior endplate osteophytes. Mild bilateral facet arthropathy at L5-S1. No concerning lytic or blastic osseous lesion. Right upper quadrant surgical clips. XR/XR lumbar spine 2-3V IMPRESSION: Mild multilevel degenerative disc disease. Mild bilateral facet arthropathy at L5-S1.
--- NOTE | ~2023-08-04 | XR_ITS ---
EXAMINATION: XR ELBOW, LEFT CLINICAL INFORMATION: Left elbow pain. Fall. COMPARISON: None available. TECHNIQUE: AP, lateral, and bilateral oblique views of the left elbow. FINDINGS: No acute fracture or dislocation. Mild ulnotrochlear joint space narrowing with tiny marginal osteophytes. Mild enthesopathic spurring at the medial epicondyle. No significant joint effusion. XR/XR elbow LT min 3V IMPRESSION: 1. No acute fracture or dislocation. 2. Mild ulnotrochlear osteoarthritis. 3. Mild enthesopathic spurring at the medial epicondyle.
--- NOTE | ~2023-08-04 | XR_ITS ---
EXAMINATION: XR FOOT, LEFT CLINICAL INFORMATION: Left foot pain. Fall. COMPARISON: None available. TECHNIQUE: AP, lateral, and oblique views of the left foot. FINDINGS: No acute fracture or dislocation. No joint space narrowing or marginal osteophytes. No osseous erosion. Plantar and dorsal calcaneal spurs. XR/XR foot LT min 3V IMPRESSION: 1. No acute fracture or dislocation. 2. Plantar and dorsal calcaneal spurs.
[2023-08-04 09:45] VITALS: BP 135/78; PULSE 68; RESP 16; TEMP 37; O2SAT 97; BMI 34.3
--- NOTE | 2023-08-04 10:08 | ED_ITS ---
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 Patient states that her left foot got caught under her while she was walking down some steps and fell down the last 2 stairs. Patient denies hitting her head or having any loss of consciousness. Patient denies any dizziness, lightheadedness, abdominal pain, nausea, vomiting, fever, chills, blurry vision, double vision, loss of vision, c hest pain, difficulty breathing, shortness of breath, night sweats, pain with urination, increased urinary frequency, increased urinary urgency, blood in her urine or stool, syncope or a near syncopal episode, bowel incontinence, bladder incontinence, bowel retention, bladder retention, or any other complaints at this time. Onset (ago): hour(s) Location: back and left (foot, elbow) Severity: mild Severity scale (1-10): 4 Quality: aching and dull Pain Consistency: constant Relieving factors: none Exacerbating factors: none Associated symptoms: denies other symptoms Treatments prior to arrival: none Related Data Previous Rx's Medication Instructions Recorded cefdinir 300 mg capsule 300 mg PO BID 7 days #14 caps 07/05/23 ondansetron 4 mg disintegrating 4 mg PO Q8H PRN nausea and 07/05/23 tablet vomiting #7 tabs Allergies Allergy/AdvReac Type Severity Reaction Status Date / Time No Known Allergies Allergy Unverified 07/05/23 11:18 Review of Systems Constitutional: Constitutional: Reports no additional constitutional complaints, Denies chills, Denies fever(s) and Denies night sweats Eyes: Eyes: Reports no additional eye complaints, Denies blurry vision, Denies change in vision, Denies diplopia, Denies eye discharge, Denies loss of vision and Denies eye pain ENT: Denies dizziness Cardiovascular: Cardiovascular: Reports no additional cardiovascular complaints, Denies chest pain, Denies lightheadedness, Denies Loss of Consciousness and Denies dyspnea Respiratory: Respiratory: Reports no additional respiratory complaints and Denies dyspnea Gastrointestinal: Gastrointestinal: Reports no additional gastrointestinal complaints, Denies abdominal pain, Denies melena, Denies hematochezia, Denies change in bowel habits and Denies change in stool character Genitourinary: Genitourinary: Denies hematuria, Denies urinary frequency, Denies dysuria, Denies urinary incontinence, Denies urinary hesitancy and Denies urinary urgency Musculoskeletal: Musculoskeletal: Reports no additional musculoskeletal complaints, Reports back pain, Denies numbness and Denies tingling Comments: left elbow pain, left foot pain Neurologic: Denies dizziness, Denies loss of vision, Denies numbness and Denies tingling Psychiatric: Psychiatric: Reports no additional psychiatric complaints Endocrine: Endocrine: Reports no additional endocrine complaints Hematologic/Lymphatic: Hematologic/Lymphatic: Reports no additional hematologic/lymphatic complaints Allergic/Immunologic: Allergic/Immunologic: Reports no additional allergic/immunologic complaints [facility] Past Medical History Attestation statement: The following information was validated with the patient. Source: old records reviewed and nursing notes reviewed Social History Social History Advance Directives: No Advance Directives Information Provided: Yes Physical Exam ED Vital Signs: Vital Signs - 24 hr 08/04/23 09:45 08/04/23 11:21 Temperature 98.6 F Pulse Rate 68 63 Respiratory Rate 16 18 Blood Pressure 135/78 127/67 Pulse Oximetry 97 97 Oxygen Delivery Method Room Air Room Air BMI result Body Mass Index 34.3 Medical Decision Making Medical Decision Making MDM Narrative: Patient is a 62 year old assigned female at with no reported medical history presenting to the emergency department today with left elbow pain, left foot pain, and low back pain after a fall. Patient's physical exam was unremarkable. Patient's left foot, left elbow, and lumbar spine x-rays showed no acute process. I explained my physical exam findings as well as all test results to the patient. I answered all questions asked by the patient. I stressed the importance of the patient taking her medication as prescribed. I stressed the importance of the patient following up with her primary care provider. I stressed the importance of the patient returning to the emergency department immediately if her symptoms were to worsen or if she were to develop any dizziness, shortness of breath, difficulty breathing, chest pain, blurry vision, loss of vision, nausea, vomiting, abdominal pain, fever, chills, back pain, or any other complaints. Patient verbalized agreement and understanding with this treatment plan and discharge. Differential Diagnosis Differential Diagnoses: The differential diagnosis associated with the presentation includes Left elbow pain Left foot pain Lumbar spine pain Mechanical fall Left elbow contusion Left foot contusion Independent Interpretation I performed an independent interpretation of an: Plain X-Ray Interpretation: My interpretation is in agreement with the radiologist's impression of these imaging studies. EXAMINATION: XR ELBOW, LEFT CLINICAL INFORMATION: Left elbow pain. Fall. COMPARISON: None available. TECHNIQUE: AP, lateral, and bilateral oblique views of the left elbow. FINDINGS: No acute fracture or dislocation. Mild ulnotrochlear joint space narrowing with tiny marginal osteophytes. Mild enthesopathic spurring at the medial epicondyle. No significant joint effusion. XR/XR elbow LT min 3V IMPRESSION: 1. No acute fracture or dislocation. 2. Mild ulnotrochlear osteoarthritis. 3. Mild enthesopathic spurring at the medial epicondyle. Dictated By: Ildefonso Rose MD Signed By: Electronically signed by Ildefonso Rose MD 08/04/23 1205 EXAMINATION: XR FOOT, LEFT CLINICAL INFORMATION: Left foot pain. Fall. COMPARISON: None available. TECHNIQUE: AP, lateral, and oblique views of the left foot. FINDINGS: No acute fracture or dislocation. No joint space narrowing or marginal osteophytes. No osseous erosion. Plantar and dorsal calcaneal spurs. XR/XR foot LT min 3V IMPRESSION: 1. No acute fracture or dislocation. 2. Plantar and dorsal calcaneal spurs. Dictated By: Ildefonso Rose MD Signed By: Electronically signed by Ildefonso Rose MD 08/04/23 1158 EXAMINATION: XR LUMBOSACRAL SPINE CLINICAL INFORMATION: Fall. Pain. COMPARISON: None available. TECHNIQUE: Three views of the lumbosacral spine. FINDINGS: Normal vertebral body alignment. The lumbar lordosis is maintained. No acute fracture or subluxation. No loss of vertebral body height. Mild multilevel loss of intervertebral disc height with tiny anterior endplate osteophytes. Mild bilateral facet arthropathy at L5-S1. No concerning lytic or blastic osseous lesion. Right upper quadrant surgical clips. XR/XR lumbar spine 2-3V IMPRESSION: Mild multilevel degenerative disc disease. Mild bilateral facet arthropathy at L5-S1. Dictated By: Ildefonso Rose MD Signed By: Electronically signed by Ildefonso Rose MD 08/04/23 1200 Radiology Impression Discussion of test interpretation with radiology: I have reviewed the radiologist's reading. Discharge Plan Discharge Clinical Impression: Fall, Back pain, Acute foot pain, Elbow pain Patient Disposition: Home, Self-Care Instructions: Back Pain (ED), Fall Prevention (ED) Additional Instructions: Follow up with your primary care provider. Return to the emergency department immediately if your symptoms worsen or if you develop any dizziness, shortness of breath, difficulty breathing, chest pain, blurry vision, loss of vision, nausea, vomiting, abdominal pain, fever, chills, back pain, or any other complaints. Justin un seguimiento con guzman proveedor de atenci?n primaria. Regrese al departamento de emergencias inmediatamente si howard s?ntomas empeoran o si presenta mareos, dificultad para respirar, dificultad para respirar, dolor en el pecho, visi?n borrosa, p?rdida de la visi?n, n?useas, v?mitos, dolor abdominal, fiebre, escalofr?os, dolor de espalda o cualquier otras quejas. Prescriptions: No Action cefdinir 300 mg capsule 300 mg PO BID 7 Days Qty: 14 0RF ondansetron 4 mg tablet,disintegrating 4 mg PO Q8H PRN (Reason: nausea and vomiting) Qty: 7 0RF Referrals: Lorrie Reyes DO [Primary Care Provider] - Stand Alone Forms: Work/School Release Interventions: ED Discharge Assessment Last Done: 08/04/23 12:13 Print Language: Lithuanian
[2023-08-04 11:21] VITALS: BP 127/67; PULSE 63; RESP 18; O2SAT 97
== END 2023-08-04 12:14 | disposition home or self-care (01) ==
PROVIDERS: Emergency Provider Emergency Medicine; PCP Family Medicine
DX: M54.50 Low back pain, unspecified (principal); M79.672 Pain in left foot; M25.522 Pain in left elbow; Z91.81 History of falling
CPT/HCPCS: 72100; 73080; 73630; 99283

== ENCOUNTER 2023-10-08 13:59 | Outpatient (REF) | payer MEDICAID, SELFPAY ==
[2023-10-08 14:48] LABS: Influenza A PCR NEGATIVE (Negative); Influenza B PCR NEGATIVE (Negative); Resp Syncy Virus RNA Qual PCR NEGATIVE (Negative); SARS COV2 PCR INHOUSE NEGATIVE (Negative)
[2023-10-09 13:58] LABS: C. trachomatis RNA TMA NOT DETECTED (NOT DETECTED); N. gonorrhoeae RNA TMA NOT DETECTED (NOT DETECTED)
== END 2023-10-08 14:00 | disposition home or self-care (01) ==
LOC: HO.HHCLNP 13:59
PROVIDERS: Visit Provider Emergency Medicine
DX: Z11.52 Encounter for screening for COVID-19 (principal); Z11.3 Encounter for screening for infections with a predominantly sexual mode of transmission; J02.9 Acute pharyngitis, unspecified; R30.0 Dysuria
CPT/HCPCS: 0241U; 81513; 87070; 87086; 87491; 87591

== ENCOUNTER 2023-11-08 14:13 | Emergency (ER) | payer MEDICAID, SELFPAY ==
--- NOTE | ~2023-11-08 | XR_ITS ---
EXAMINATION: XR CHEST CLINICAL INFORMATION: Cough. Chest discomfort with coughing. COMPARISON: Chest x-ray of 07/05/2023, 04/06/2019, 11/29/2018 TECHNIQUE: 2 views of the chest were obtained. FINDINGS: Cardiac mediastinal silhouette is stable and normal. No abnormal tracheal deviation. Lungs are symmetrically well expanded. No focal consolidation, changes of congestion, pleural effusions or pneumothorax are seen. No evidence of displaced rib fractures. Regional skeleton appears intact. Visualized upper abdomen is unremarkable. XR/XR chest 2V IMPRESSION: No radiographic evidence of pneumonia. No acute pulmonary process.
--- NOTE | 2023-11-08 14:33 | ED_ITS ---
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 Patient states that since 10/27/23 she has been coughing with a headache and fatigue. Patient states that she was on prednisone which helped but now isn't. Patient denies any dizziness, lightheadedness, abdominal pain, nausea, vomiting, fever, chills, blurry vision, double vision, loss of vision, chest pain, difficulty breathing, shortness of breath, back pain, night sweats, pain with urination, increased urinary frequency, increased urinary urgency, blood in her urine or stool, syncope or a near syncopal episode, recent trauma or falls, bowel incontinence, bladder incontinence, bowel retention, bladder retention, or any other complaints at this time. MD elicited complaint: cough Onset (ago): day(s) () Consistency: constant Severity: mild Associated symptoms: headache and cough Treatments prior to arrival: other (prednisone but has been off awhile ) Related Data Previous Rx's Medication Instructions Recorded cefdinir 300 mg capsule 300 mg PO BID 7 days #14 caps 07/05/23 ondansetron 4 mg disintegrating 4 mg PO Q8H PRN nausea and 07/05/23 tablet vomiting #7 tabs benzonatate 100 mg capsule 100 mg PO BID PRN cough 7 days #14 11/08/23 caps doxycycline hyclate 100 mg tablet 100 mg PO BID 7 days #14 tabs 11/08/23 prednisone 20 mg tablet 20 mg PO DAILY 7 days #7 tabs 11/08/23 Allergies Allergy/AdvReac Type Severity Reaction Status Date / Time No Known Allergies Allergy Verified 11/08/23 14:34 Review of Systems Constitutional: Constitutional: Reports no additional constitutional complaints, Denies chills, Denies fever(s), Reports headache(s) and Denies night sweats Eyes: Eyes: Reports no additional eye complaints, Denies blurry vision, Denies change in vision, Denies diplopia, Denies eye discharge, Denies loss of vision and Denies eye pain ENT: Denies dizziness and Reports headache(s) Cardiovascular: Cardiovascular: Reports no additional cardiovascular complaints, Denies chest pain, Denies lightheadedness, Denies Loss of Consciousness and Denies dyspnea Respiratory: Respiratory: Reports no additional respiratory complaints, Reports cough and Denies dyspnea Gastrointestinal: Gastrointestinal: Reports no additional gastrointestinal c omplaints, Denies abdominal pain, Denies melena, Denies hematochezia, Denies change in bowel habits and Denies change in stool character Genitourinary: Genitourinary: Denies hematuria, Denies urinary frequency, Denies dysuria, Denies urinary incontinence, Denies urinary hesitancy and Denies urinary urgency Musculoskeletal: Musculoskeletal: Reports no additional musculoskeletal complaints, Denies numbness and Denies tingling Neurologic: Denies dizziness, Reports headache(s), Denies loss of vision, Denies numbness and Denies tingling Psychiatric: Psychiatric: Reports no additional psychiatric complaints Endocrine: Endocrine: Reports no additional endocrine complaints Hematologic/Lymphatic: Hematologic/Lymphatic: Reports no additional hematologic/lymphatic complaints Allergic/Immunologic: Allergic/Immunologic: Reports no additional aller gic/immunologic complaints PMFSH Past Medical History Attestation statement: The following information was validated with the patient. Source: old records reviewed and nursing notes reviewed Onset Date is defined in the Problem List Problems that require an onset date and time if occurred within 24 hrs of arrival to the ED Aortic Dissection and Rupture; Neurologic impairment; Cardiopulmonary Arrest; Endotracheal Intubation; Insertion or Replacement of Mechanical Circulatory Assist Device Social History Social History Advance Directives: No Advance Directives Information Provided: No Physical Exam Vital Signs: Vital Signs: Last Vital Signs Temp 98.3 F 11/08/23 17:56 Pulse 98 11/08/23 18:18 Resp 20 11/08/23 18:18 BP 142/73 H 11/08/23 17:56 Pulse Ox 97 11/08/23 17:56 O2 Del Method Room Air 11/08/23 17:56 BMI result Body Mass Index 34.3 Const: General: cooperative, no acute distress, alert and awake Nutritional Appearance: well nourished Orientation/consciousness: patient oriented x3 Limitations: no limitations HEENT: Head: Yes normal to inspection and Yes atraumatic Ears: hearing grossly normal bilaterally and external ears normal General nose exam: Normal external nose present, no nasal discharge noted and no epistaxis Face and sinus: Yes normal facial exam, No abrasion and No laceration Mouth: Normal oral and palatal mucosa present, no drooling and no muffled voice Eyes: General: appearance normal, both eyes and all related structures Periorbital: periorbital findings normal Eyelids: Yes eyelids normal Conjunctivae: conjunctivae normal Pupils: Equal, round and reactive pupils present EOM: EOMs intact bilaterally Neck: Neck: Yes normal visual inspection, Yes full ROM and Yes no lymphadenopathy Chest: Chest palpation & inspection: normal inspection of the chest Resp: Effort & Inspection: normal respiratory effort and able to speak in complete sentences Auscultation: clear to auscultation bilaterally GI: Inspection: Yes normal to inspection Neuro: General: patient oriented x3 and moves all extremities Cranial nerves: Yes Equal, round and reactive pupils present Cognition (Neuro): normal cognition Motor exam (neuro): 5/5 motor strength present throughout Sensory Exam: Normal double simultaneous stimulation for sensation Coordination: [id number] test normal Extrem: General: Yes normal to inspection, Yes full ROM and Yes capillary refill normal Psych: Appearance: grossly normal Mental Status: mental status grossly normal Affect: normal affect Attitude: cooperative Thought process: Normal thought process present Thought content: Normal thought content present Insight: Good insight present (Psych) Course Course Course Narrative: This is a rapid medical exam. Deferred additional HPI, ROS, PE to primary provider. 62 yo female with no known medical history here with complaints of cough, chest discomfort with coughing, MARSH since 10/27 Took zofran, prednisone, albuterol with continued symptoms. Will obtain CXR, viral testing VSS Medications Administered Discontinued Medications Generic Name Dose Route Start Last Admin Trade Name Freq PRN Reason Stop Dose Admin Albuterol Sulfate 2.5 mg/ 5 mg 11/08/23 18:09 11/08/23 18:13 Albuterol Sulfate 2.5 mg INHALE 11/08/23 18:10 Not Given ONCE ONE Albuterol Sulfate 2.5 mg 11/08/23 18:09 11/08/23 18:13 Albuterol Sulfate (0.083%) 2.5 Mg/3 Ml Vial.Neb INHALE 11/08/23 18:10 Not Given ONCE ONE Albuterol/Ipratropium 3 ml 11/08/23 18:13 11/08/23 18:17 Albuterol/Iprat 2.5/0.5mg 3 Ml Ampul.Neb INHALE 11/08/23 18:14 3 ml ONCE ONE Administration Medical Decision Making Medical Decision Making [facility] Narrative: Patient is a 62 year old assigned female at with no reported medical history presenting to the emergency department today with a cough, headache, and fatigue. Patient's physical exam was unremarkable. Patient's COVID-19, influenza, and RSV test was negative. Patient's chest x-ray showed no acute process. I explained my physical exam findings as well as all test results to the patient. I answered all questions asked by the patient. I stressed the importance of the patient taking her medication as prescribed. I stressed the importance of the patient following up with her primary care provider. I stressed the importance of the patient returning to the emergency department immediately if her symptoms were to worsen or if she were to develop any dizziness, shortness of breath, difficulty breathing, chest pain, blurry vision, loss of vision, nausea, vomiting, abdominal pain, fever, chills, back pain, or any other complaints. Patient verbalized agreement and understanding with this treatment plan and discharge. Differential Diagnosis Differential Diagnoses: The differential diagnosis associated with the presentation includes Bronchitis COVID-19 Influenza RSV PNA Admission/Observation Consideration of admission/observation: Escalation of care including admission/observation considered Patient would have been admitted to the hospital had her work up had any findings where hospital admission was appropriate and her clinical presentation warranted hospital admission. Lab Data MDM Lab Attestation statement: I reviewed the patient's lab results. My interpretation of these studies and their corresponding values is that they are grossly normal. Labs: Lab Results 11/08/23 Range/Units 14:53 Influenza Type A (PCR) NEGATIVE (Negative) Influenza Type B (PCR) NEGATIVE (Negative) RSV RNA Qual (PCR) NEGATIVE (Negative) SARS-CoV-2 RNA (RT-PCR) NEGATIVE (Negative) Independent Interpretation I performed an independent interpretation of an: Plain X-Ray Interpretation: My interpretation is in agreement with the radiologist's impression of this imaging study. EXAMINATION: XR CHEST CLINICAL INFORMATION: Cough. Chest discomfort with coughing. COMPARISON: Chest x-ray of 07/05/2023, 04/06/2019, 11/29/2018 TECHNIQUE: 2 views of the chest were obtained. FINDINGS: Cardiac mediastinal silhouette is stable and normal. No abnormal tracheal deviation. Lungs are symmetrically well expanded. No focal consolidation, changes of congestion, pleural effusions or pneumothorax are seen. No evidence of displaced rib fractures. Regional skeleton appears intact. Visualized upper abdomen is unremarkable. XR/XR chest 2V IMPRESSION: No radiographic evidence of pneumonia. No acute pulmonary process. Dictated By: Heydi Umana MD Signed By: Electronically signed by Heydi Umana MD 11/08/23 6507 Radiology Impression Discussion of test interpretation with radiology: I have reviewed the radiologist's reading. Prescription Management I considered prescription management with: Antibiotic (given length of patient's symptoms, patient prescribed an antibiotic.) Discharge Plan Discharge Clinical Impression: Bronchitis Patient Disposition: Home, Self-Care Instructions: Acute Bronchitis (ED) Additional Instructions: Follow up with your primary care provider. Return to the emergency department immediately if your symptoms worsen or if you develop any dizziness, shortness of breath, difficulty breathing, chest pain, blurry vision, loss of vision, nausea, vomiting, abdominal pain, fever, chills, back pain, or any other complaints. Justin un seguimiento con guzman proveedor de atenci?n primaria. Regrese al departamento de emergencias inmediatamente si howard s?ntomas empeoran o si presenta mareos, dificultad para respirar, dificultad para respirar, dolor en el pecho, visi?n borrosa, p?rdida de la visi?n, n?useas, v?mitos, dolor abdominal, fiebre, escalofr?os, dolor de espalda o cualquier otras quejas. Prescriptions: New prednisone 20 mg tablet 20 mg PO DAILY 7 Days Qty: 7 0RF benzonatate 100 mg capsule 100 mg PO BID PRN (Reason: cough) 7 Days Qty: 14 0RF doxycycline hyclate 100 mg tablet 100 mg PO BID 7 Days Qty: 14 0RF No Action cefdinir 300 mg capsule 300 mg PO BID 7 Days Qty: 14 0RF ondansetron 4 mg tablet,disintegrating 4 mg PO Q8H PRN (Reason: nausea and vomiting) Qty: 7 0RF Referrals: Lorrie Reyes DO [Primary Care Provider] - Stand Alone Forms: Work/School Release Print Language: Tristanian
[2023-11-08 14:34] VITALS: BP 168/72; PULSE 74; RESP 16; TEMP 36.2; O2SAT 97; BMI 34.3
[2023-11-08 16:04] LABS: Influenza A PCR NEGATIVE (Negative); Influenza B PCR NEGATIVE (Negative); Resp Syncy Virus RNA Qual PCR NEGATIVE (Negative); SARS COV2 PCR INHOUSE NEGATIVE (Negative)
[2023-11-08 17:56] VITALS: BP 142/73; PULSE 71; RESP 16; TEMP 36.8; O2SAT 97
[2023-11-08] MEDS: Albuterol/Iprat 2.5/0.5MG 3 ML AMPUL.NEB INHALE (18:17)
[2023-11-08 18:18] VITALS: PULSE 98; RESP 20; O2SAT 97
--- NOTE | 2023-11-08 19:24 | PC.NURSE ---
This RN took over pt assignment @ 1911. Pt already set for d/c.
== END 2023-11-08 19:27 | disposition home or self-care (01) ==
PROVIDERS: Nurse Practitioner Family; Emergency Provider Emergency Medicine; PCP Family Medicine
DX: J40 Bronchitis, not specified as acute or chronic (principal); Z20.822 Contact with and (suspected) exposure to COVID-19; Z20.828 Contact with and (suspected) exposure to other viral communicable diseases
CPT/HCPCS: 0241U; 71046; 94640; 94664; 99284

== ENCOUNTER 2023-11-23 13:22 | Outpatient (REF) | payer MEDICAID, SELFPAY ==
[2023-11-23 16:03] LABS: Hematocrit 44.1 % (37.0-47.0); Hemoglobin 14.4 g/dl (12.0-16.0); Mean Corpuscular HGB Conc 32.7 g/dl (31.0-35.0); Mean Corpuscular Hemoglobin 30.6 pg (27.0-33.0); Mean Corpuscular Volume 93.8 fL (80.0-98.0); Mean Platelet Volume 9.9 fL (9.4-12.3); Platelet Count 289 X10*3/uL (160-400); Red Cell Distribution Width 14.4 % (11.0-16.0); White Blood Count 12.5 X10*3/uL (4.8-10.8)
[2023-11-23 16:28] LABS: Alanine Aminotransferase 21 U/L (0-31); Albumin Level 4.3 g/dL (3.5-5.0); Alkaline Phosphatase 78 U/L (39-117); Anion Gap 14 (12-20); Aspartate Amino Transferase 15 U/L (5-31); Bilirubin Direct 0.2 mg/dL (0.0-0.5); Bilirubin Total 0.7 mg/dL (0.0-1.0); Blood Urea Nitrogen 19 mg/dL (9-16); Calcium 9.5 mg/dL (8.4-10.2); Carbon Dioxide 23 mmol/L (22-29); Chloride 105 mmol/L (96-108); Cholesterol 187 mg/dL (<200); Estimated Glomerular Filt Rate > 60; Glucose Random 85 mg/dL (60-115); HDL Cholesterol 67 mg/dL (>40); LDL Cholesterol Calculated 90 mg/dL (<100); Potassium 3.5 mmol/L (3.3-5.1); Sodium 138 mmol/L (135-145); Total Protein 7.4 g/dL (6.5-8.0); Triglycerides 154 mg/dL (<150)
[2023-11-23 16:38] LABS: Estimated Average Glucose 140 mg/dL; Hemoglobin A1c % 6.5 % (<6.0)
[2023-11-23 16:47] LABS: Free T4 (Free Thyroxine) 0.99 ng/dL (0.71-1.85); Thyroid Stimulating Hormone 1.52 uIU/mL (0.32-4.0); Vitamin D 25-OH Total 98.3 ng/mL (>30)
[2023-11-23 17:28] LABS: Creatinine Urine 214.71 mg/dL; Microalbum/Creatinine Ratio Ur 6.9 ug/mg cr (<30)
[2023-11-23 17:35] LABS: CT PCR NOT DETECTED (Not Detect.); NG PCR NOT DETECTED (Not Detect.)
[2023-11-24 08:26] LABS: HBS Num1 24.78 mIU/mL (0-7.99); HBsAGNum1 0.35 S/CO (0.00-0.99); HIV AB/AG Nonreactive (Nonreactive); HIV Num 1 0.05 S/CO (0.00-0.99); Hepatitis B Surface Antigen Negative (Negative); ~HepC Num1 0.15 S/CO (0.00-0.79); ~Hepatitis B Surface Antibody REACTIVE (Nonreactive); ~Hepatitis C Antibody Nonreactive (Nonreactive)
[2023-11-24 10:23] LABS: RPR Rapid Plasma Reagin NON-REACTIVE (NON-REACTIVE)
[2023-11-24 13:38] LABS: Alpha Fetoprotein 2.6 ng/mL
== END 2023-11-23 13:23 | disposition home or self-care (01) ==
LOC: HO.HHCL 13:22
PROVIDERS: Visit Provider Family Medicine
DX: Z00.00 Encounter for general adult medical examination without abnormal findings (principal); Z11.4 Encounter for screening for human immunodeficiency virus [HIV]; K76.0 Fatty (change of) liver, not elsewhere classified; R73.03 Prediabetes; G47.33 Obstructive sleep apnea (adult) (pediatric); N20.0 Calculus of kidney; J45.20 Mild intermittent asthma, uncomplicated; J30.9 Allergic rhinitis, unspecified; R31.29 Other microscopic hematuria; K21.9 Gastro-esophageal reflux disease without esophagitis; J40 Bronchitis, not specified as acute or chronic; R30.9 Painful micturition, unspecified
CPT/HCPCS: 0353U; 36415; 80048; 80061; 80076; 82043; 82105; 82306; 82570; 83036; 84439; 84443; 85027; 86592; 86706; 86803; 87086; 87340; 87389

== ENCOUNTER 2024-01-24 18:35 | Outpatient (REF) | payer MEDICAID, SELFPAY | END 2024-01-24 18:36 | disposition home or self-care (01) | LOC: HO.CHCLNP 18:35 | PROVIDERS: Visit Provider Internal Medicine | DX: R10.2 Pelvic and perineal pain (principal) | CPT/HCPCS: 87086 ==

== ENCOUNTER 2024-01-28 13:19 | Outpatient (REF) | payer MEDICAID, SELFPAY ==
[2024-01-28 16:15] LABS: Hematocrit 39.8 % (37.0-47.0); Hemoglobin 13.1 g/dl (12.0-16.0); Mean Corpuscular HGB Conc 32.9 g/dl (31.0-35.0); Mean Corpuscular Hemoglobin 31.3 pg (27.0-33.0); Mean Platelet Volume 10.2 fL (9.4-12.3); Platelet Count 245 X10*3/uL (160-400); Red Blood Count 4.19 X10*6/uL (4.20-5.50); Red Cell Distribution Width 13.7 % (11.0-16.0); White Blood Count 6.4 X10*3/uL (4.8-10.8)
[2024-01-28 16:34] LABS: Estimated Average Glucose 128 mg/dL; Hemoglobin A1c % 6.1 % (<6.0)
[2024-01-28 16:40] LABS: Alanine Aminotransferase 22 U/L (0-31); Albumin Level 4.4 g/dL (3.5-5.0); Alkaline Phosphatase 90 U/L (39-117); Anion Gap 14 (12-20); Aspartate Amino Transferase 21 U/L (5-31); Bilirubin Direct 0.1 mg/dL (0.0-0.5); Bilirubin Total 0.7 mg/dL (0.0-1.0); Blood Urea Nitrogen 10 mg/dL (9-16); Calcium 9.3 mg/dL (8.4-10.2); Carbon Dioxide 22 mmol/L (22-29); Chloride 108 mmol/L (96-108); Cholesterol 156 mg/dL (<200); Estimated Glomerular Filt Rate > 60; Glucose Random 90 mg/dL (60-115); HDL Cholesterol 42 mg/dL (>40); LDL Cholesterol Calculated 91 mg/dL (<100); Potassium 3.7 mmol/L (3.3-5.1); Sodium 140 mmol/L (135-145); Total Protein 7.5 g/dL (6.5-8.0); Triglycerides 119 mg/dL (<150)
[2024-01-28 16:48] LABS: Free T4 (Free Thyroxine) 0.89 ng/dL (0.71-1.85); Thyroid Stimulating Hormone 0.07 uIU/mL (0.32-4.0); Vitamin D 25-OH Total 80.3 ng/mL (>30)
[2024-01-28 17:08] LABS: Creatinine Urine 106.88 mg/dL; Microalbum/Creatinine Ratio Ur 9.3 ug/mg cr (<30)
== END 2024-01-28 13:20 | disposition home or self-care (01) ==
LOC: HO.HHCL 13:19
PROVIDERS: Visit Provider Family Medicine
DX: R73.03 Prediabetes (principal)
CPT/HCPCS: 36415; 80048; 80061; 80076; 82043; 82306; 82570; 83036; 84439; 84443; 85027

== ENCOUNTER 2024-02-04 14:37 | Outpatient (REF) | payer MEDICAID, SELFPAY ==
--- NOTE | ~2024-02-04 | CT_ITS ---
EXAMINATION: CT CHEST WITHOUT CONTRAST CLINICAL INFORMATION: Persistent cough, 3 months after bronchitis COMPARISON: 11/08/2023 chest radiograph TECHNIQUE: Multidetector volumetric CT imaging of the chest was done. Axial MIP volume rendering provided. Sagittal and coronal reformatted images were obtained. This CT examination was performed using dose optimization techniques as appropriate, variously including the following: *Automated exposure control *Adjustment of mA and/or kV according to patient size (this includes techniques or standardized protocols for targeted exams where dose is matched to indication/reason for exam; i.e. 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 LUNGS: Trachea and bronchi are patent. Mild mosaic attenuation right upper lobe. Scattered atelectasis. No consolidations, groundglass opacities or lung nodules. MEDIASTINUM: Unremarkable thyroid. No pathologic lymphadenopathy. Borderline heart size. No pericardial effusion. Minimal atherosclerotic calcifications nonaneurysmal aorta. Nonenlarged pulmonary arteries. CORONARY ARTERY CALCIFICATION: None visualized on this study. PLEURA: There is no pleural effusion. No pleural mass or thickening. AXILLA: Soft tissue stranding right axilla with multiple mildly prominent lymph nodes. 1.6 cm left axillary lymph node is seen without axillary soft tissue stranding. UPPER ABDOMEN: Unremarkable. OSSEOUS STRUCTURES: Unremarkable. CT/CT chest wo IV con IMPRESSION: Question mild mosaic attenuation right upper lobe which may indicate underlying small airway disease, otherwise no intrathoracic pathology. Abnormal right axilla with stranding Fleischner guidelines were followed.
== END 2024-02-04 14:38 | disposition home or self-care (01) ==
LOC: HO.CT 14:37
PROVIDERS: PCP Family Medicine; Visit Provider Family Medicine
DX: R05.3 Chronic cough (principal)
CPT/HCPCS: 71250

== ENCOUNTER 2024-03-15 13:15 | Outpatient (REF) | payer MEDICAID, SELFPAY ==
--- NOTE | ~2024-03-15 | MM_ITS ---
EXAMINATION: MM DIAGNOSTIC DIGITAL BREAST TOMOSYNTHESIS, BILATERAL US BREAST LIMITED, RIGHT MAMMOGRAPHY: CLINICAL INFORMATION: Patient due for routine bilateral screening. Also, somewhat hazy nonenlarged lymph nodes noted on recent CT chest examination from 02/04/2024. Patient does report a recent RSV vaccine 3 months prior to today's exam. COMPARISON: Multiple prior breast imaging exams including most recent mammography 03/10/2023, 01/26/2022 and bilateral breast ultrasound 06/02/2021. Exams dating back to 2015. CT chest examination 02/04/2024. TECHNIQUE: Digital breast tomosynthesis is performed in both the craniocaudal and mediolateral oblique views along with computer-aided detection (CAD). Synthesized 2D images are generated from the tomosynthesis. This was followed by targeted ultrasound of the right axilla. FINDINGS: There are scattered areas of fibroglandular density (ACR BI-RADS breast composition Category b). There are no suspicious masses, suspicious grouped calcifications, or areas of architectural distortion in either breast. The parenchymal pattern is stable from prior exams. No skin or axillary abnormalities. Imaged axillary lymph nodes appear normal. ULTRASOUND: CLINICAL INFORMATION: As above. COMPARISON: 03/10/2023 left, 06/02/2021 bilateral, 12/31/[address] examination chest 02/04/2024. TECHNIQUE: Targeted sonographic evaluation was performed using a high frequency linear transducer. The right axillary region was targeted to evaluate the hazy lymph nodes seen on the recent CT examination. Selected archived documentation. FINDINGS: RIGHT AXILLA: -No abnormal right axillary lymph nodes are identified. There are several normal-appearing lymph nodes present in the right axilla, all demonstrating normal cortex, normal fatty yuri, and normal morphology. No hyperemia on color Doppler imaging. Findings are normal. No additional abnormality identified. MM/MM tomosynthesis diagnostic BI IMPRESSION: There are no findings in either breast suspicious for malignancy. There are no findings of abnormal lymphadenopathy in the right axilla on sonography. Only normal lymph nodes are imaged. Recommend the patient return to routine annual screening. OVERALL ASSESSMENT: Mammography: BI-RADS 2 - Benign Findings Ultrasound: BI-RADS 2 - Benign Findings RECOMMENDATION: 1 year F/U This patient's information was entered into a reminder system with a target due date for their next mammogram.
== END 2024-03-15 13:16 | disposition home or self-care (01) ==
LOC: HO.MAMMO 13:15
PROVIDERS: PCP Family Medicine; Visit Provider Family Medicine
DX: N64.89 Other specified disorders of breast (principal); R93.89 Abnormal findings on diagnostic imaging of other specified body structures
CPT/HCPCS: 76642; 77062; 77066

== ENCOUNTER → 2024-03-15 13:30 | Outpatient (BNV) | payer MEDICAID, SELFPAY | PROVIDERS: PCP Family Medicine; Visit Provider Radiology Diagnostic Radiology | DX: R92.8 Other abnormal and inconclusive findings on diagnostic imaging of breast (principal) | CPT/HCPCS: 76642; 77062; 77066 ==

== ENCOUNTER 2024-04-18 18:57 | Outpatient (REF) | payer MEDICAID, SELFPAY | END 2024-04-18 18:58 | disposition home or self-care (01) | LOC: HO.HHCLNP 18:57 | PROVIDERS: Visit Provider Emergency Medicine | DX: R30.0 Dysuria (principal) | CPT/HCPCS: 87086 ==

== ENCOUNTER 2024-05-01 09:20 | Outpatient (REF) | payer MEDICAID, SELFPAY ==
--- NOTE | ~2024-05-01 | XR_ITS ---
EXAMINATION: XR LUMBOSACRAL SPINE CLINICAL INFORMATION: Reason for Exam M53.3 - Sacrococcygeal disorders, not elsewhere classified COMPARISON: Lumbar spine radiographs 08/04/2023 TECHNIQUE: 5 views of the lumbar spine FINDINGS: 5 nonrib-bearing lumbar-type vertebral bodies. Vertebral body heights are maintained. Alignment is maintained. No pars defects. Mild multilevel degenerative disc disease with mild loss of disc space height at L5-S1, small disc osteophyte complexes and facet arthropathy. Surgical clips in the upper abdomen. Sacroiliac joint spaces are maintained. XR/XR lumbar spine 4V min IMPRESSION: Mild multilevel degenerative disc disease.
== END 2024-05-01 09:21 | disposition home or self-care (01) ==
LOC: HO.XRAY 09:20
PROVIDERS: PCP Family Medicine; Referring Provider Family Medicine; Visit Provider Nurse Practitioner Family
DX: M53.3 Sacrococcygeal disorders, not elsewhere classified (principal); M47.817 Spondylosis without myelopathy or radiculopathy, lumbosacral region; M54.16 Radiculopathy, lumbar region
CPT/HCPCS: 72110; 99212

== ENCOUNTER 2024-05-01 09:20 | Outpatient (AMB) | payer MEDICAID, SELFPAY ==
--- NOTE | 2024-05-01 09:22 | A.OFFVIS_ITS ---
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 Accompanied by: Self / Same As Patient Allergies No Known Allergies Allergy (Verified 11/08/23 14:34) Medication List - Last Reconciled 05/01/24 by EDMUNDO Jeffers baclofen 10 mg PO DAILY cholecalciferol (vitamin D3) (Vitamin D3) 50 mcg PO QAM citalopram 10 mg PO DAILY diclofenac sodium 1% 2 grams topical DAILY PRN dulaglutide (Trulicity) 0.75 mg subcut QWEEK estradiol 0.01%(0.1mg/gram) 1 g vaginal 3XW fexofenadine 180 mg PO QAM lidocaine 5% 1 patch topical DAILY loratadine 10 mg PO QAM mirabegron ER (Myrbetriq) 50 mg PO DAILY mometasone 200 mcg/actuation (Asmanex HFA) 1 puff inhalation BID HPI HPI left sided low back pain w/bilateral sciatica: Details: Patient is a pleasant 63-year-old female with prior history of lumbar degenerative disc disease, obesity, osteoarthritis, diabetes (A1C=6.1 on Trulicity), chronic back pain, presents today with acute on chronic left-sided low back pain with bilateral sciatica. Patient reports she woke up in significant left sided low back and left leg pain in 1st week of April. The day before symptoms started, she was cleaning and completing house chores which aggravated her chronic low back symptoms. Pain since then has been constant and gradually worsening. Pain is localized to low back, extending to both sacral areas, worse on the right, and bilateral posterior thighs and lateral hips. Movements, bending, standing, prolonging walking, pulling or lifting exacerbate her symptoms. She also reports chronic neck and bilateral knee pain. She receives regular cortisone injections at [facility] with short term pain relief. Pain affects her daily activities, mobility, mood, sleep and social interactions. 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 To this point, she has not tried any dedicated conservative treatment in the forms of physical therapy, chiropractic, acupuncture or injections. She is planning to go for massage for neck and low back muscle spasms. Reports remote history of chiropractic adjustments for hips with good results. Denies any fever, chills, abdominal or groin pain, headache, dizziness, chest pain, shortness of breaths, bladder or bowel dysfunction or saddle anesthesia. Location: Lower back pain radiates down bilateral thighs and hips, knee and neck pain Duration: Chronic pain for many years, worse for the last 3-4 weeks Characteristics of symptom or complaint: Aching, tightness, squeezing, radiating, cramping Aggravating or associated factors: Standing, bending, movements, walking, lifting, pulling, house chores Relieving factors: Rest, sitting, activity modifications, heat/ice therapy Treatment: Ibuprofen, baclofen, lidocaine patch, diclofenac topical, knee injections [facility] Medical History (Updated 05/01/24 @ 10:14 by EDMUNDO Jeffers) Bilateral knee pain Acute left-sided low back pain with bilateral sciatica Frequent UTI Chronic cough Microscopic hematuria Mild intermittent asthma Chronic back pain Chronic GERD Fatty liver Nephrolithiasis Osteoarthritis Prediabetes Obstructive sleep apnea Degenerative disc disease, lumbar Chronic allergic rhinitis Surgical History (Updated 05/01/24 @ 10:14 by EDMUNDO Jeffers) History of carpal tunnel release History of cholecystectomy Social History Alcohol intake: current Alcohol intake frequency: holidays/special occasions only Patient Tobacco Use Status: Former Tobacco user Tobacco use type: Cigarette Review of Systems Const All systems reviewed & are unremarkable except as noted in HPI and below Physical Exam General: Appears afebrile. Alert and oriented. Mood and affect appropriate. Follows and participates in conversation appropriately. Respiratory effort is unlabored. No cough. Able to transition from sit to stand unassisted. Ambulates with bilaterally normal heel strike and toe off. General: Yes no CVA tenderness Back/Spine/Pelvis Other: Patient is able to walk and stand on heels and tip toes with mild difficulty on the left due to pain otherwise demonstrating good motor tone. Normal gait, no limping. Can flex forward to 65-70 degrees and extend to 5-10 degrees before experiencing lumbar pain. Demonstrates 5/5 strength of quadriceps bilaterally as well as flexion/dorsiflexion of bilateral feet against resistance. 2+ pedal pulses bilaterally. Seated straight leg rise with dorsiflexion negative bilaterally. +2 right +1 left patellar and +1 achilles reflexes bilaterally. F acet loading test positive bilaterally. Richard sign, Aamir?s, Pelvic compression and Stinchfield tests are positive bilaterally, right>left. No groin pain with I/E hip rotations. Significant paraspinals tenderness neck and lower back bilaterally. Valsalva maneuver negative. Back: no CVA tenderness Cervical Spine: cervical ROM normal, cervical muscular tenderness, pain with cervical ROM, cervical spasm and No Cervical spine tenderness Thoracic/Lumbar Spine: thoracic and lumbar spine normal to inspection, No T horacic/lumbar spine scar(s), Lasegue's sign negative, straight leg raise negative bilaterally, pain with thoraco-lumbar ROM, paraspinal muscle tenderness, thoraco-lumbar ROM limited, No thoracic spinal tenderness, lumbar spinal tenderness (L4-S1) and No straight leg raise positive Pelvis: buttock tenderness on the left Sacroiliac joints: bilaterally Extrem General: Yes capillary refill normal, Yes no clubbing, cyanosis or edema and Yes no calf tenderness Right lower extremity: knee Details: normal to inspection, tenderness Location: of the medial joint line and of the lateral joint line, normal ROM and crepitus; no swelling, no ecchymosis, no deformity and no unusual warmth Left lower extremity: knee Details: normal to inspection, tenderness Location: of the lateral joint line and of the infrapatellar area, normal ROM and crepitus; no swelling, no ecchymosis, no deformity and no unusual warmth Results Reviewed Results Reviewed: XR LUMBOSACRAL SPINE 08/04/23 CLINICAL INFORMATION: Fall. Pain. COMPARISON: None available. TECHNIQUE: Three views of the lumbosacral spine. FINDINGS: Normal vertebral body alignment. The lumbar lordosis is maintained. No acute fracture or subluxation. No loss of vertebral body height. Mild multilevel loss of intervertebral disc height with tiny anterior endplate osteophytes. Mild bilateral facet arthropathy at L5-S1. No concerning lytic or blastic osseous lesion. Right upper quadrant surgical clips. IMPRESSION: Mild multilevel degenerative disc disease. Mild bilateral facet arthropathy at L5-S1. Assessment & Plan Assessment & Plan (1) Sacroiliac joint pain: Code(s): M53.3 - Sacrococcygeal disorders, not elsewhere classified Category: Medical (2) Lumbosacral spondylosis: Code(s): M47.817 - Spondylosis without myelopathy or radiculopathy, lumbosacral region Category: Medical (3) Lumbar radiculopathy: Code(s): M54.16 - Radiculopathy, lumbar region Category: Medical (4) Bilateral knee pain: Code(s): M25.561 - Pain in right knee; M25.562 - Pain in left knee Category: Medical (5) Cervicalgia: Code(s): M54.2 - Cervicalgia Category: Medical (6) Muscle spasm: Code(s): M62.838 - Other muscle spasm Category: Medical (7) Degenerative disc disease, lumbar: Code(s): M51.36 - Other intervertebral disc degeneration, lumbar region Category: Medical Plan Recommend patient to start formal physical therapy and establish home exercise program for neck, low back and knee pain. Script provided for PT at [facility] per patient's request. She has previously underwent PT for carpal tunnel syndrome and would like to continue care with established PT provider. Lumbar spine imaging to assess degree of degenerative changes, any subluxation, listhesis, compression fractures or pars defects. Script provided for celecoxib for low back and knee pain. Side effects and precautions were discussed with patient. She will stop Ibuprofen. Continue baclofen prn for muscle spasms. Continues daily physical activity as tolerated, avoid pain producing activities, adequate daily hydration, weight optimization and good posture. All questions and concerns have been answered and patient agreed with the plan. Follow up after PT/xray results and sooner as needed. Orders: Orders PT Evaluation and Treatment Today M25.561 - Pain in right knee, M25.562 - Pain in left knee, M47.817 - Spondylosis without myelopathy or radiculopathy, lumbosacral region, M53.3 - Sacrococcygeal disorders, not elsewhere classified, M54.16 - Radiculopathy, lumbar region, M54.2 - Cervicalgia, M62.838 - Other muscle spasm XR lumbar spine 4V min Today M47.817 - Spondylosis without myelopathy or radiculopathy, lumbosacral region, M53.3 - Sacrococcygeal disorders, not elsewhere classified, M54.16 - Radiculopathy, lumbar region Medications: New celecoxib Take it with food and full glass of water. 200 mg PO BID PRN 60 caps 0RF pain M25.561 - Pain in right knee, M25.562 - Pain in left knee, M47.817 - Spondylosis without myelopathy or radiculopathy, lumbosacral region, M53.3 - Sacrococcygeal disorders, not elsewhere classified Coding Level of Care Code New Pt Level 4 (50799) Diagnoses Sacroiliac joint pain M53.3 Lumbosacral spondylosis M47.817 Lumbar radiculopathy M54.16 Bilateral knee pain M25.561; M25.562 Cervicalgia M54.2 Muscle spasm M62.838 Degenerative disc disease, lumbar M51.36
[2024-05-01 09:28] VITALS: BP 130/72; PULSE 72; O2SAT 98; BMI 34.3
== END 2024-05-01 09:50 | disposition home or self-care (01) ==
PROVIDERS: PCP Family Medicine; Referring Provider Family Medicine; Visit Provider Nurse Practitioner Family
DX: M53.3 Sacrococcygeal disorders, not elsewhere classified (principal); M47.817 Spondylosis without myelopathy or radiculopathy, lumbosacral region; M54.16 Radiculopathy, lumbar region; M25.561 Pain in right knee; M25.562 Pain in left knee; M54.2 Cervicalgia; M62.838 Other muscle spasm; M51.36 Other intervertebral disc degeneration, lumbar region
CPT/HCPCS: 99204

== ENCOUNTER 2024-05-02 13:31 | Outpatient (AMB) | payer MEDICAID, SELFPAY ==
[2024-05-02 13:38] VITALS: BP 109/67; PULSE 87; O2SAT 96; BMI 34.7
--- NOTE | 2024-05-02 13:38 | A.OFFVIS_ITS ---
Vital Signs 05/02/24 13:38 Height 5 ft 4 in Weight 202 lb BMI 34.7 BP 109/67 Blood Pressure Location Lt brachial Position Sitting Pulse 87 Pulse Source Doppler Pulse Oximetry (%) 96 Oxygen Delivery Method Room Air Intake Visit Reasons: chronic cough Information Services Tech Required: Yes Information Services Tech Name: Lorrie Byrnes Allergies No Known Allergies Allergy (Verified 05/02/24 13:46) HPI HPI chronic cough: Details: 63-year-old lady, nonsmoker with underlying obesity and KIMMY on CPAP referred after recent urgent care clinic visit where patient was diagnosed with asthma and started on Asmanex. She has been using it intermittently with suboptimal sy mptom control. Patient does have recent pulmonary function test at [facility] from February of 2024 showing underlying asthma with bronchodilator response. She does complain of significant nasal congestion when using her CPAP. She denies family history of lung disease. Patient also has recent allergy testing at [facility]. [facility] Medical History (Updated 05/02/24 @ 15:12 by Maciel Izaguirre MD) Bilateral knee pain Acute left-sided low back pain with bilateral sciatica Frequent UTI Chronic cough Microscopic hematuria Mild intermittent asthma Chronic back pain Chronic GERD Fatty liver Nephrolithiasis Osteoarthritis Prediabetes Obstructive sleep apnea Degenerative disc disease, lumbar Chronic allergic rhinitis Surgical History (Updated 05/01/24 @ 10:14 by EDMUNDO Jeffers) History of carpal tunnel release History of cholecystectomy Social History Alcohol intake: current Alcohol intake frequency: holidays/special occasions only Patient Tobacco Use Status: Former Tobacco user Tobacco use type: Cigarette Review of Systems Const Denies daytime sleepiness, Denies excessive sweating, Denies fatigue, Denies fever(s), Denies lethargy, Denies malaise, Denies night sweats, Denies snoring and Denies weight loss Eyes Denies blurry vision and Denies itchy eyes ENT Denies nasal congestion, Denies post nasal drip, Denies sinus pain, Denies sinus pressure and Denies other ( Thrush) Card Denies chest pain, Denies pedal edema, Denies dyspnea, Denies orthopnea and Denies paroxysmal nocturnal dyspnea Resp Denies cough, Denies hemoptysis, Denies excessive phlegm production, Denies dyspnea, Denies snoring and Reports wheezing GI Denies abdominal pain and Denies heartburn Musc Denies myalgias, Denies arthralgias and Denies joint swelling Skin/Breast Denies rash Neuro Denies memory loss and Denies seizure-like activity Psych Denies abnormal sleep pattern, Denies anxiety and Denies memory loss Endo Denies excessive sweating, Denies fatigue and Denies heat intolerance Simone/Lymph Denies easy bruising Aller/Immun Denies itchy eyes, Denies seasonal rhinorrhea and Reports wheezing Physical Exam Vital Signs: Last Vital Signs Pulse 87 05/02/24 13:38 BP 109/67 05/02/24 13:38 Pulse Ox 96 05/02/24 13:38 Oxygen Delivery Method Room Air 05/02/24 13:38 BMI result Body Mass Index 34.7 Const General: no acute distress and alert Nutritional Appearance: obese Orientation/consciousness: Other orientation findings ( oriented) HEENT Head: Yes atraumatic Eyes General: appearance normal, both eyes and all related structures Sclerae: sclerae normal EOM: EOMs intact bilaterally Neck Neck: Yes supple Lymphatic: no lymphadenopathy noted Resp Effort & Inspection: normal respiratory effort and no use of accessory muscles Auscultation: clear to auscultation bilaterally Cardio Rate: regular rate Rhythm: regular rhythm Heart sounds: no gallops, no murmurs and no rubs Skin General skin exam: other ( warm) Extrem General: No clubbing, No cyanosis and No edema Assessment & Plan Assessment & Plan (1) Asthma: Code(s): J45.909 - Unspecified asthma, uncomplicated Category: Medical Plan: Results of pulmonary function test reviewed. Underlying asthma suboptimally controlled on Asmanex at as patient has not been using it consistently. Patient has been advised to use her Asmanex consistently. Continue albuterol MDI. Symptom checking 3-4 weeks. (2) Obstructive sleep apnea: Code(s): G47.33 - Obstructive sleep apnea (adult) (pediatric) Category: Medical Plan: Therapy and compliance report reviewed - patient is benefitting from and is compliant with noninvasive positive pressure ventilation treatment, using it greater than 70% of the time, more than 4 hours per night. (3) Rhinitis: Code(s): J31.0 - Chronic rhinitis Category: Medical Plan: Will start on nasal ipratropium. Medications: New ipratropium bromide administer into each nostril 2 sprays intranasal TID-QID PRN 15 mL 2RF allergy symptoms Coding Level of Care Code New Pt Level 4 (60942) Diagnoses Asthma J45.909 Obstructive sleep apnea G47.33 Rhinitis J31.0
== END 2024-05-02 14:09 | disposition home or self-care (01) ==
PROVIDERS: PCP Family Medicine; Referring Provider Family Medicine; Visit Provider Internal Medicine Pulmonary Disease
DX: J45.909 Unspecified asthma, uncomplicated (principal); G47.33 Obstructive sleep apnea (adult) (pediatric); J31.0 Chronic rhinitis
CPT/HCPCS: 99204

== ENCOUNTER → 2024-05-02 13:31 | Outpatient (BNVA) | payer MEDICAID, SELFPAY | PROVIDERS: PCP Family Medicine; Referring Provider Family Medicine; Visit Provider Internal Medicine Pulmonary Disease | DX: J45.909 Unspecified asthma, uncomplicated (principal); J31.0 Chronic rhinitis; G47.33 Obstructive sleep apnea (adult) (pediatric); Z99.89 Dependence on other enabling machines and devices | CPT/HCPCS: 99202 ==

== ENCOUNTER 2024-05-08 09:45 | Outpatient (REF) | payer MEDICAID, SELFPAY ==
[2024-05-08 09:57] LABS: MANUAL DIFF FLAG NO
[2024-05-08 10:30] LABS: Basophils Percent Auto 0.5 % (0-2); Eosinophils Absolute Auto 0.1 X10*3/uL (0.0-0.4); Eosinophils Percent Auto 1.4 % (0-4); Hematocrit 40.1 % (37.0-47.0); Imm Gran Abs Auto 0.01 X10*3/uL (0.00-0.03); Imm Gran Pct Auto 0.2 % (0.0-0.4); Lymphocytes Absolute Auto 2.4 X10*3/uL (1.2-4.9); Lymphocytes Percent Auto 37.3 % (20-40); Mean Corpuscular HGB Conc 32.4 g/dl (31.0-35.0); Mean Corpuscular Hemoglobin 30.3 pg (27.0-33.0); Mean Corpuscular Volume 93.5 fL (80.0-98.0); Mean Platelet Volume 9.8 fL (9.4-12.3); Monocytes Absolute Auto 0.4 X10*3/uL (0.1-1.2); Monocytes Percent Auto 6.1 % (2-11); Neutrophils Absolute Auto 3.5 x10*3/uL (2.0-8.3); Neutrophils Percent Auto 54.5 % (45-73); Platelet Count 250 X10*3/uL (160-400); Red Blood Count 4.29 X10*6/uL (4.20-5.50); Red Cell Distribution Width 13.8 % (11.0-16.0); White Blood Count 6.4 X10*3/uL (4.8-10.8)
[2024-05-09 23:08] LABS: Class Alternaria alternata 0; Class Aspergillus fumigatus 0; Class Bermuda Grass 0; Class Birch 0; Class Cat Dander 0; Class Cladosporium herbarum 0; Class Cockroach 0; Class Common Ragweed 0; Class Cottonwood 0; Class Derm. pterony 0; Class Dermatophagoides farinae 0; Class Dog Dander 0; Class Elm 0; Class Maple Box Elder 0; Class Mountain Cedar 0; Class Mouse Urine Protein 0; Class Mugwort 0; Class Oak 0; Class Penicillium crysogenum 0; Class Rough Pigweed 0; Class Sheep Sorrel 0; Class Sycamore 0; Class Timothy Grass 0; Class Walnut Tree 0; Class White Ash 0; Class White Mulberry 0; D001 IgE D pteronyssinus <0.10 kU/L; D002 - IgE D farinae <0.10 kU/L; E001 - IgE Cat Dander <0.10 kU/L; E005 - IgE Dog Dander <0.10 kU/L; E072-IgE Mouse Urine <0.10 kU/L; G002 IgE Bermuda Grass <0.10 kU/L; G006 - IgE Timothy Grass <0.10 kU/L; I006-IgE Cockroach, German <0.10 kU/L; Immunoglobulin E <2 kU/L (<OR=114); M001 IgE Penicillium chrysogen <0.10 kU/L; M002 - IgE Cladosporium herbar <0.10 kU/L; M003 - IgE Aspergillus fumigat <0.10 kU/L; M006 - IgE Alternaria alternat <0.10 kU/L; T001 IgE Maple/Box Elder <0.10 kU/L; T003 IgE Common Silver Birch <0.10 kU/L; T006 - IgE Cedar, Mountain <0.10 kU/L; T007 - IgE Oak, White <0.10 kU/L; T008 IgE Elm, American <0.10 kU/L; T010 - IgE Walnut <0.10 kU/L; T011 - IgE Maple Leaf Sycamore <0.10 kU/L; T014 - IgE Cottonwood <0.10 kU/L; T015 - IgE Ash, White <0.10 kU/L; T070 - IgE White Mulberry <0.10 kU/L; W001 - IgE Ragweed, Short <0.10 kU/L; W006 - IgE Mugwort <0.10 kU/L; W014 IgE Pigweed, Common <0.10 kU/L; W018 IgE Sheep Sorrel <0.10 kU/L
== END 2024-05-08 09:46 | disposition home or self-care (01) ==
LOC: HO.LAB 09:45
PROVIDERS: PCP Family Medicine; Visit Provider Internal Medicine Pulmonary Disease
DX: J45.909 Unspecified asthma, uncomplicated (principal)
CPT/HCPCS: 36415; 82785; 85025; 86003

== ENCOUNTER 2024-05-16 16:33 | Outpatient (REF) | payer MEDICAID, SELFPAY | END 2024-05-16 16:34 | disposition home or self-care (01) | LOC: HO.HHCLNP 16:33 | PROVIDERS: Visit Provider Family Medicine | DX: R39.9 Unspecified symptoms and signs involving the genitourinary system (principal) | CPT/HCPCS: 87086 ==

== ENCOUNTER 2024-05-17 13:59 | Outpatient (AMB) | payer MEDICAID, SELFPAY ==
[2024-05-17 14:02] VITALS: BP 118/68; PULSE 89; O2SAT 97; BMI 34.5
--- NOTE | 2024-05-17 14:02 | MHC.OFFVIS ---
Vital Signs 05/17/24 14:02 Height 5 ft 4 in Weight 201 lb BMI 34.5 BP 118/68 Blood Pressure Location Rt brachial Position Sitting Pulse 89 Pulse Source Doppler Pulse Oximetry (%) 97 Oxygen Delivery Method Room Air Intake Visit Reasons: Cough Supervisor Chlorine Liquefaction Required: Yes Supervisor Chlorine Liquefaction Name: Lorrie Gian Byrnes Allergies No Known Allergies Allergy (Verified 05/17/24 14:14) HPI HPI Cough: Details: 63-year-old lady, nonsmoker with underlying obesity and KIMMY on CPAP referred after recent urgent care clinic visit where patient was diagnosed with asthma and started on Asmanex. She has been using it intermittently with suboptimal symptom control. Patient does have recent pulmonary function test at [facility] from February of 2024 showing underlying asthma with bronchodilator response. She does complain of significant nasal congestion when using her CPAP. She denies family history of lung disease. Patient also has recent allergy testing at [facility]. After the last office visit patient has been using her Asmanex more regularly with improved, however still with suboptimal control of her symptoms. She is also continue on CPAP with reasonable control of her underlying sleep apnea. She denies recent exacerbations. [facility] Medical History (Updated 05/02/24 @ 15:12 by Maciel Izaguirre MD) Bilateral knee pain Acute left-sided low back pain with bilateral sciatica Frequent UTI Chronic cough Microscopic hematuria Mild intermittent asthma Chronic back pain Chronic GERD Fatty liver Nephrolithiasis Osteoarthritis Prediabetes Obstructive sleep apnea Degenerative disc disease, lumbar Chronic allergic rhinitis Surgical History (Updated 05/01/24 @ 10:14 by EDMUNDO Jeffers) History of carpal tunnel release History of cholecystectomy Social History (Reviewed 05/02/24 @ 13:47 by Lorrie Teixeira COUNT INCLUDES THE [facility]) Alcohol intake: current Alcohol intake frequency: holidays/special occasions only Patient Tobacco Use Status: Former Tobacco user Tobacco use type: Cigarette Review of Systems Const Denies daytime sleepiness, Denies excessive sweating, Denies fatigue, Denies fever(s), Denies lethargy, Denies malaise, Denies night sweats, Denies snoring and Denies weight loss Eyes Denies blurry vision and Denies itchy eyes ENT Denies nasal congestion, Denies post nasal drip, Denies sinus pain, Denies sinus pressure and Denies other ( Thrush) Card Denies chest pain, Denies pedal edema, Denies dyspnea, Denies orthopnea and Denies paroxysmal nocturnal dyspnea Resp Denies cough, Denies hemoptysis, Denies excessive phlegm production, Denies dyspnea, Denies snoring and Denies wheezing GI Denies abdominal pain and Denies heartburn Musc Denies myalgias, Denies arthralgias and Denies joint swelling Skin/Breast Denies rash Neuro Denies memory loss and Denies seizure-like activity Psych Denies abnormal sleep pattern, Denies anxiety and Denies memory loss Endo Denies excessive sweating, Denies fatigue and Denies heat intolerance Simone/Lymph Denies easy bruising Aller/Immun Denies itchy eyes, Denies seasonal rhinorrhea and Denies wheezing Physical Exam Vital Signs: Last Vital Signs Pulse 89 05/17/24 14:02 BP 118/68 05/17/24 14:02 Pulse Ox 97 05/17/24 14:02 Oxygen Delivery Method Room Air 05/17/24 14:02 BMI result Body Mass Index 34.5 Const General: no acute distress and alert Nutritional Appearance: not obese Orientation/consciousness: Other orientation findings ( oriented) HEENT Head: Yes atraumatic Eyes General: appearance normal, both eyes and all related structures Sclerae: sclerae normal EOM: EOMs intact bilaterally Neck Neck: Yes supple Lymphatic: no lymphadenopathy noted Resp Effort & Inspection: normal respiratory effort and no use of accessory muscles Auscultation: clear to auscultation bilaterally Cardio Rate: regular rate Rhythm: regular rhythm Heart sounds: no gallops, no murmurs and no rubs Skin General skin exam: other ( warm) Extrem General: No clubbing, No cyanosis and No edema Assessment & Plan Assessment & Plan (1) Asthma: Code(s): J45.909 - Unspecified asthma, uncomplicated Category: Medical Plan: Improved, but still suboptimal control on scheduled use of Asmanex. Will change Asmanex to Breo. Continue albuterol MDI. (2) Obstructive sleep apnea: Code(s): G47.33 - Obstructive sleep apnea (adult) (pediatric) Category: Medical Plan: Well controlled on current CPAP therapy. Continue CPAP therapy. Medications: New fluticasone furoate-vilanterol 200-25 mcg/dose (Breo Ellipta) 1 inh inhalation DAILY 1 ea 6RF Coding Level of Care Code Est Pt Level 4 (78138) Diagnoses Asthma J45.909 Obstructive sleep apnea G47.33
== END 2024-05-17 14:39 | disposition home or self-care (01) ==
PROVIDERS: PCP Family Medicine; Referring Provider Family Medicine; Visit Provider Internal Medicine Pulmonary Disease
DX: J45.909 Unspecified asthma, uncomplicated (principal); G47.33 Obstructive sleep apnea (adult) (pediatric)
CPT/HCPCS: 99214

== ENCOUNTER → 2024-05-17 13:59 | Outpatient (BNVA) | payer MEDICAID, SELFPAY | PROVIDERS: PCP Family Medicine; Visit Provider Internal Medicine Pulmonary Disease | DX: J45.909 Unspecified asthma, uncomplicated (principal); G47.33 Obstructive sleep apnea (adult) (pediatric); Z99.89 Dependence on other enabling machines and devices | CPT/HCPCS: 99212 ==

== ENCOUNTER 2024-06-20 13:06 | Outpatient (AMB) | payer MEDICAID, SELFPAY ==
--- NOTE | 2024-06-20 13:09 | MHC.OFFVIS ---
Vital Signs 06/20/24 13:13 Height 5 ft 4 in Weight 189 lb BMI 32.4 BP 135/65 Blood Pressure Location Lt brachial Position Sitting Pulse 75 Pulse Source Pulse Oximeter Pulse Oximetry (%) 100 Oxygen Delivery Method Room Air Intake Visit Reasons: Follow up xray results Intake Note: Pain today 3/10 Lapel Padder Blindstitch Required: Yes Lapel Padder Blindstitch Language: Food Service Services: Lapel Padder Blindstitch Present Lapel Padder Blindstitch Name: Keyon Accompanied by: Self / Same As Patient Allergies No Known Allergies Allergy (Verified 06/20/24 13:13) HPI Comments Details: Patient presents today for follow-up to review recent lumbar spine x-ray results. Patient reports her pain has been mild and she was not able to [facility] due to work obligations. She continues to endorse axial low back pain without significant radicular symptoms today. She reports increased symptoms with house cleaning and bending. Today she rates her pain 3/10. Patient has tried Celebrex but reports Ibuprofen is providing her better pain relief. She takes it on as needed basis. Denies any recent cough, cold, infection, fever, any significant changes in her medical history, medications or recent hospitalizations. PRIOR: Patient is a pleasant 63-year-old female with prior history of lumbar degenerative disc disease, obesity, osteoarthritis, diabetes (A1C=6.1 on Trulicity), chronic back pain, presents today with acute on chronic left-sided low back pain with bilateral sciatica. Patient reports she woke up in significant left sided low back and left leg pain in 1st week of April. The day before symptoms started, she was cleaning and completing house chores which aggravated her chronic low back symptoms. Pain since then has been constant and gradually worsening. Pain is localized to low back, extending to both sacral areas, worse on the right, and bilateral posterior thighs and lateral hips. Movements, bending, standing, prolonging walking, pulling or lifting exacerbate her symptoms. She also reports chronic neck and bilateral knee pain. She receives regular cortisone injections at [facility] with short term pain relief. Pain affects her daily activities, mobility, mood, sleep and social interactions. 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 To this point, she has not tried any dedicated conservative treatment in the forms of physical therapy, chiropractic, acupuncture or injections. She is planning to go for massage for neck and low back muscle spasms. Reports remote history of chiropractic adjustments for hips with good results. Denies any fever, chills, abdominal or groin pain, headache, dizziness, chest pain, shortness of breaths, bladder or bowel dysfunction or saddle anesthesia. Location: Lower back pain radiates down bilateral thighs and hips, knee and neck pain Duration: Chronic pain for many years, worse for the last 3-4 weeks Characteristics of symptom or complaint: Aching, tightness, squeezing, radiating, cramping Aggravating or associated factors: Standing, bending, movements, walking, lifting, pulling, house chores Relieving factors: Rest, sitting, activity modifications, heat/ice therapy Treatment: Ibuprofen, baclofen, lidocaine patch, diclofenac topical, knee injections [facility] Medical History Bilateral knee pain Acute left-sided low back pain with bilateral sciatica Frequent UTI Chronic cough Microscopic hematuria Mild intermittent asthma Chronic back pain Chronic GERD Fatty liver Nephrolithiasis Osteoarthritis Prediabetes Obstructive sleep apnea Degenerative disc disease, lumbar Chronic allergic rhinitis Surgical History History of carpal tunnel release History of cholecystectomy Social History Alcohol intake: current Alcohol intake frequency: holidays/special occasions only Patient Tobacco Use Status: Former Tobacco user Tobacco use type: Cigarette Review of Systems Const All systems reviewed & are unremarkable except as noted in HPI and below Physical Exam Vital Signs: Last Vital Signs Pulse 75 06/20/24 13:13 BP 135/65 06/20/24 13:13 Pulse Ox 100 06/20/24 13:13 Oxygen Delivery Method Room Air 06/20/24 13:13 BMI result Body Mass Index 32.4 General: Appears afebrile. Alert and oriented. Mood and affect appropriate. Follows and participates in conversation appropriately. Respiratory effort is unlabored. No cough. Able to transition from sit to stand unassisted. Ambulates with bilaterally normal heel strike and toe off. Back/Spine/Pelvis Cervical Spine: cervical ROM normal, cervical muscular tenderness, pain with cervical ROM, cervical spasm and No Cervical spine tenderness Thoracic/Lumbar Spine: thoracic and lumbar spine normal to inspection, No Thoracic/lumbar spine scar(s), Lasegue's sign negative, straight leg raise negative bilaterally, pain with thoraco-lumbar ROM, paraspinal muscle tenderness, thoraco-lumbar ROM limited, No thoracic spinal tenderness and lumbar spinal tenderness (L4-S1) Pelvis: buttock tenderness on the left (+Aamir's) Sacroiliac joints: bilaterally Extrem General: Yes capillary refill normal, Yes no clubbing, cyanosis or edema and Yes no calf tenderness Results Reviewed Results Reviewed: XR LUMBOSACRAL SPINE 05/01/24 CLINICAL INFORMATION: Reason for Exam M53.3 - Sacrococcygeal disorders, not elsewhere classified COMPARISON: Lumbar spine radiographs 08/04/2023 FINDINGS: 5 nonrib-bearing lumbar-type vertebral bodies. Vertebral body heights are maintained. Alignment is maintained. No pars defects. Mild multilevel degenerative disc disease with mild loss of disc space height at L5-S1, small disc osteophyte complexes and facet arthropathy. Surgical clips in the upper abdomen. Sacroiliac joint spaces are maintained. IMPRESSION: Mild multilevel degenerative disc disease. Assessment & Plan Assessment & Plan (1) Sacroiliac joint pain: Code(s): M53.3 - Sacrococcygeal disorders, not elsewhere classified Category: Medical (2) Lumbosacral spondylosis: Code(s): M47.817 - Spondylosis without myelopathy or radiculopathy, lumbosacral region Category: Medical (3) Cervicalgia: Code(s): M54.2 - Cervicalgia Category: Medical (4) Muscle spasm: Code(s): M62.838 - Other muscle spasm Category: Medical (5) Degenerative disc disease, lumbar: Code(s): M51.36 - Other intervertebral disc degeneration, lumbar region Category: Medical Plan Lumbar spine x-ray results were reviewed with patient today. Discussed interventional treatments for axial low back pain. However, I really encourage patient to start dedicated formal PT for low back pain as well as her current pain generators of neck and bilateral knees. Patient will start PT in early July. Script was provided to patient for PT again today. She would like to complete [facility] per patient's request. Continues daily physical activity as tolerated, avoid pain producing activities, adequate daily hydration, weight optimization and good posture. All questions and concerns have been answered and patient agreed with the plan. Follow up after PT and sooner as needed. Medications: Discontinued celecoxib Discontinued Reason: Patient no longer taking 200 mg PO BID PRN 60 caps 0RF for pain M25.561 - Pain in right knee, M25.562 - Pain in left knee, M47.817 - Spondylosis without myelopathy or radiculopathy, lumbosacral region, M53.3 - Sacrococcygeal disorders, not elsewhere classified Coding Level of Care Code Est Pt Level 4 (92247) Diagnoses Sacroiliac joint pain M53.3 Lumbosacral spondylosis M47.817 Cervicalgia M54.2 Muscle spasm M62.838 Degenerative disc disease, lumbar M51.36
[2024-06-20 13:13] VITALS: BP 135/65; PULSE 75; O2SAT 100; BMI 32.4
== END 2024-06-20 13:28 | disposition home or self-care (01) ==
PROVIDERS: PCP Family Medicine; Visit Provider Nurse Practitioner Family
DX: M53.3 Sacrococcygeal disorders, not elsewhere classified (principal); M47.817 Spondylosis without myelopathy or radiculopathy, lumbosacral region; M54.2 Cervicalgia; M62.838 Other muscle spasm; M51.36 Other intervertebral disc degeneration, lumbar region
CPT/HCPCS: 99214

== ENCOUNTER → 2024-06-20 13:06 | Outpatient (BNVA) | payer MEDICAID, SELFPAY | PROVIDERS: PCP Family Medicine; Visit Provider Nurse Practitioner Family | DX: M51.36 Other intervertebral disc degeneration, lumbar region (principal); M47.817 Spondylosis without myelopathy or radiculopathy, lumbosacral region; M53.3 Sacrococcygeal disorders, not elsewhere classified; M54.2 Cervicalgia; M62.838 Other muscle spasm | CPT/HCPCS: 99212 ==

== ENCOUNTER 2024-08-16 09:48 | Outpatient (REF) | payer MEDICAID, SELFPAY ==
[2024-08-16 11:55] LABS: Hematocrit 41.6 % (37.0-47.0); Hemoglobin 13.3 g/dl (12.0-16.0); Mean Corpuscular Hemoglobin 30.4 pg (27.0-33.0); Mean Corpuscular Volume 95.2 fL (80.0-98.0); Mean Platelet Volume 10.1 fL (9.4-12.3); Platelet Count 253 X10*3/uL (160-400); Red Blood Count 4.37 X10*6/uL (4.20-5.50); Red Cell Distribution Width 13.8 % (11.0-16.0)
[2024-08-16 12:13] LABS: Estimated Average Glucose 117 mg/dL; Hemoglobin A1C 123.8506 umol/L; Hemoglobin A1c % 5.7 % (<6.0)
[2024-08-16 12:27] LABS: Alanine Aminotransferase 17 U/L (0-31); Albumin Level 4.3 g/dL (3.5-5.0); Alkaline Phosphatase 80 U/L (39-117); Anion Gap 13 (12-20); Aspartate Amino Transferase 17 U/L (5-31); Bilirubin Direct 0.1 mg/dL (0.0-0.5); Bilirubin Total 0.4 mg/dL (0.0-1.0); Blood Urea Nitrogen 18 mg/dL (9-16); Calcium 9.6 mg/dL (8.4-10.2); Carbon Dioxide 23 mmol/L (22-29); Chloride 110 mmol/L (96-108); Cholesterol 168 mg/dL (<200); Estimated Glomerular Filt Rate > 60; Glucose Random 91 mg/dL (60-115); HDL Cholesterol 50 mg/dL (>40); LDL Cholesterol Calculated 99 mg/dL (<100); Potassium 3.8 mmol/L (3.3-5.1); Sodium 142 mmol/L (135-145); Total Protein 7.5 g/dL (6.5-8.0); Triglycerides 99 mg/dL (<150)
[2024-08-16 12:50] LABS: Free T4 (Free Thyroxine) 0.96 ng/dL (0.71-1.85); Thyroid Stimulating Hormone 2.36 uIU/mL (0.32-4.0); Vitamin D 25-OH Total 45.9 ng/mL (>30)
[2024-08-18 13:13] LABS: Alpha Fetoprotein 2.5 ng/mL
== END 2024-08-16 09:49 | disposition home or self-care (01) ==
LOC: HO.HHCL 09:48
PROVIDERS: PCP Family Medicine; Visit Provider Family Medicine
DX: R79.89 Other specified abnormal findings of blood chemistry (principal); K76.0 Fatty (change of) liver, not elsewhere classified; R73.03 Prediabetes; R07.89 Other chest pain
CPT/HCPCS: 36415; 71120; 80048; 80061; 80076; 82105; 82306; 83036; 84439; 84443; 85027

== ENCOUNTER 2024-10-12 13:50 | Outpatient (AMB) | payer MEDICAID, SELFPAY ==
--- NOTE | 2024-10-12 13:52 | MHC.OFFVIS ---
Vital Signs 10/12/24 14:03 Height 5 ft 4 in Weight 198 lb 2 oz BMI 34.0 BP 142/69 H Blood Pressure Location Lt brachial Position Sitting Pulse 77 Intake Visit Reasons: subcutaneous nodule Intake Note: Patient is seen in office for evaluation of a subcutaneous nodule behind the neck. Pt c/o: onset yrs has a lump behind the neck, foul odor when squeezing, liquid and white discharge, has another lesion behind the left knee that would like to have evaluated ref Dr Reyes Freelance Court Reporter Required: Yes Freelance Court Reporter Language: Machine Quilt Stuffer Services: Freelance Court Reporter Present Freelance Court Reporter Name: Brea PORTER Information Interpreted: non-clinical & clinical Accompanied by: Self / Same As Patient Allergies No Known Allergies Allergy (Verified 10/12/24 14:04) Medication List - Last Reconciled 10/12/24 by Bryan Danielle MD baclofen 10 mg PO DAILY cholecalciferol (vitamin D3) (Vitamin D3) 50 mcg PO QAM citalopram 10 mg PO DAILY diclofenac sodium 1% 2 grams topical DAILY PRN dulaglutide (Trulicity) 0.75 mg subcut QWEEK fexofenadine 180 mg PO QAM ipratropium bromide 2 sprays intranasal TID-QID PRN lidocaine 5% 1 patch topical DAILY loratadine 10 mg PO QAM mirabegron ER (Myrbetriq) 50 mg PO DAILY HPI Comments Details: 63-year-old female patient presenting for evaluation of a subcutaneous cyst located at the back of her neck. This was gradually increasing in size and occasionally produces some white thick fluid which has a foul smell. She is requesting excision. She denies a previous history of excisions in this location. She also has a hard skin lesion located behind the left calf on the posterolateral surface which also is increasing in size and occasionally causes bleeding. She would also like to have this skin lesion removed. [facility] Medical History Bilateral knee pain Acute left-sided low back pain with bilateral sciatica Frequent UTI Chronic cough Microscopic hematuria Mild intermittent asthma Chronic back pain Chronic GERD Fatty liver Nephrolithiasis Osteoarthritis Prediabetes Obstructive sleep apnea Degenerative disc disease, lumbar Chronic allergic rhinitis Surgical History History of carpal tunnel release History of cholecystectomy Social History Alcohol intake: current Alcohol intake frequency: holidays/special occasions only Patient Tobacco Use Status: Former Tobacco user Tobacco use type: Cigarette Review of Systems Const All systems reviewed & are unremarkable except as noted in HPI and below Denies chills, Denies fever(s), Denies headache(s), Denies poor appetite and Denies weakness ENT Denies headache(s) Card Denies chest pain, Denies irregular heart rhythm, Denies palpitations and Denies dyspnea Resp Denies cough, Denies excessive phlegm production and Denies dyspnea GI Denies abdominal pain, Denies bloating, Denies change in bowel habits, Denies constipation, Denies heartburn, Denies diarrhea, Denies nausea and Denies vomiting Denies urinary frequency Musc Denies back pain, Denies muscle weakness and Denies numbness Skin/Breast Denies changing lesions and Denies unusual bruising Neuro Denies headache(s), Denies numbness, Denies paresthesias and Denies weakness Psych Denies anxiety and Denies depression Endo Denies palpitations Simone/Lymph Denies lymphadenopathy Physical Exam Vital Signs: Last Vital Signs Pulse 77 10/12/24 14:03 BP 142/69 H 10/12/24 14:03 BMI result Body Mass Index 34.0 Const General: cooperative and no acute distress Nutritional Appearance: well nourished Orientation/consciousness: patient oriented x3 Limitations: no limitations HEENT Head: Yes normocephalic and Yes atraumatic Ears: hearing grossly normal bilaterally Neck Neck images: 1. 5 mm subcutaneous epidermal inclusion cyst with no evidence of infection and no tenderness to palpation. Resp Effort & Inspection: normal respiratory effort, no audible wheezes, no cough and no respiratory distress Cardio Jugular venous distension: no JVD GI Inspection: Yes normal to inspection Skin Other: Warm, dry, no rash Neuro General: patient oriented x3 Extrem General: Yes no clubbing, cyanosis or edema Knee images: 1. 2-3 mm round hard crusted lesion, possible skin neoplasm located below the knee over the calf. Assessment & Plan Assessment & Plan (1) Epidermal inclusion cyst: Code(s): L72.0 - Epidermal cyst Category: Medical (2) Skin lesion of left leg: Code(s): L98.9 - Disorder of the skin and subcutaneous tissue, unspecified Category: Medical Plan 63-year-old female patient presenting with an epidermal inclusion cyst of the posterior neck and skin lesion in the left leg which are causing irritation to the patient. Patient has requested excision of both lesions. I recommended an excision under local anesthesia as an office based procedure. After discussion of the procedure, risks, and alternatives, she consents to the procedure. Coding Level of Care Code New Pt Level 4 (42633) Diagnoses Epidermal inclusion cyst L72.0 Skin lesion of left leg L98.9
[2024-10-12 14:03] VITALS: BP 142/69; PULSE 77; BMI 34.0
== END 2024-10-12 14:16 | disposition home or self-care (01) ==
PROVIDERS: PCP Family Medicine; Visit Provider Surgery
DX: L72.0 Epidermal cyst (principal); L98.9 Disorder of the skin and subcutaneous tissue, unspecified
CPT/HCPCS: 99204

== ENCOUNTER → 2024-10-12 13:50 | Outpatient (BNVA) | payer MEDICAID, SELFPAY | PROVIDERS: PCP Family Medicine; Visit Provider Surgery | DX: L72.0 Epidermal cyst (principal); L98.9 Disorder of the skin and subcutaneous tissue, unspecified | CPT/HCPCS: 99202 ==

== ENCOUNTER 2024-10-24 10:07 | Outpatient (REF) | payer MEDICAID, SELFPAY | END 2024-10-24 10:08 | disposition home or self-care (01) | LOC: HO.LNP 10:07 | PROVIDERS: PCP Family Medicine; Visit Provider Surgery | DX: L72.0 Epidermal cyst (principal); L98.9 Disorder of the skin and subcutaneous tissue, unspecified | CPT/HCPCS: 11400; 11421; 88304; 88305 ==

== ENCOUNTER 2024-10-24 10:07 | Outpatient (AMB) | payer MEDICAID, SELFPAY ==
--- NOTE | 2024-10-24 10:24 | A.OFFVIS_ITS ---
Vital Signs 10/24/24 10:31 Height 54 ft Weight 200 lb 8 oz BMI 0.3 BP 149/67 H Blood Pressure Location Lt brachial Position Sitting Pulse 69 Intake Visit Reasons: excision Epidermal inclusion cyst Intake Note: Patient is seen for office procedure, excision of epidermal inclusion cyst of the posterior neck and the left leg. Pt c/o: here for office proc, denies any changes s/p: 10/31/24 @ 9:45 am Animal Hospital Clerk Required: Yes Animal Hospital Clerk Language: Flamer After Lasting Services: Animal Hospital Clerk Present Animal Hospital Clerk Name: Brea GERMAN Information Interpreted: non-clinical & clinical Desulphurizer Operator: Desulphurizer Operator Present Accompanied by: Self / Same As Patient Allergies No Known Allergies Allergy (Verified 10/24/24 10:24) HPI Comments Details: Patient returns today for excision of a an epidermal inclusion cyst of the posterior neck and skin lesion of the posterior left lateral calf as previously noted. [facility] Medical History Bilateral knee pain Acute left-sided low back pain with bilateral sciatica Frequent UTI Chronic cough Microscopic hematuria Mild intermittent asthma Chronic back pain Chronic GERD Fatty liver Nephrolithiasis Osteoarthritis Prediabetes Obstructive sleep apnea Degenerative disc disease, lumbar Chronic allergic rhinitis Surgical History History of carpal tunnel release History of cholecystectomy Social History Alcohol intake: current Alcohol intake frequency: holidays/special occasions only Patient Tobacco Use Status: Former Tobacco user Tobacco use type: Cigarette Physical Exam Vital Signs: Last Vital Signs Pulse 69 10/24/24 10:31 BP 149/67 H 10/24/24 10:31 BMI result Body Mass Index 0.3 Office Procedures Excision [id number] scalp/neck/hands/feet/genitalia 0.6cm-1cm Details: Preoperative diagnosis: Epidermal inclusion cyst posterior neck, skin lesion left posterior calf Postoperative diagnosis: Same Procedure: Excision of epidermal inclusion cyst posterior neck and skin lesion posterior left calf Surgeon: Bryan Danielle MD Newspaper Correspondent: None Anesthesia: Lidocaine 1% with epinephrine Indications for procedure: 63-year-old female patient presenting with a previously infected epidermal inclusion cyst of the posterior neck which occasionally produces discharge. The cyst measures approximately 1 cm in diameter. A 2nd skin lesion is noted in the posterior left calf measuring approximately 3 mm in diameter. Operative findings: Epidermal inclusion cyst posterior neck, skin lesion posterior left calf Specimen:Epidermal inclusion cyst posterior neck, skin lesion posterior left calf Estimated blood loss: 1 mL Complications: None Procedure details: Patient was brought to the procedure room and placed in a supine position. After assuring informed consent and confirming the site of surgery in the left posterior calf and posterior neck patient was placed in a right lateral decubitus position. Beginning in the left leg the skin was prepped with Betadine and draped in a sterile fashion. A 4 mm punch biopsy was then performed of the lesion down into the subcutaneous tissue. This was then excised with the Metzenbaum scissors. The specimen was passed off the table and sent to pathology for further examination. Skin was closed using a 3-0 nylon suture. Attention was then directed to the posterior neck. The skin was also prepped with Betadine and draped in a sterile fashion. Local anesthesia was infiltrated around the lesion. An elliptical incision was then created with a scalpel carried out through subcutaneous tissue and around the cyst wall. Hemostasis was assured using light pressure. Skin was then closed using interrupted 3-0 nylon sutures. Sterile dressings were then applied including 2 x 2 gauze and Tegaderm. The patient tolerated the procedure well. She was discharged in stable condition. [id number]/arms/legs < 0.5cm Procedure code (CPT) selection complete Assessment & Plan Assessment & Plan (1) Epidermal inclusion cyst: Code(s): L72.0 - Epidermal cyst Category: Medical (2) Skin lesion of left leg: Code(s): L98.9 - Disorder of the skin and subcutaneous tissue, unspecified Category: Medical Plan Patient will return in 1 week for suture removal Orders: Orders Surgical Today L72.0 - Epidermal cyst, L98.9 - Disorder of the skin and subcutaneous tissue, unspecified Coding Level of Care Code Procedure Only Diagnoses Epidermal inclusion cyst L72.0 Skin lesion of left leg L98.9 CPT Codes Trunk/Arms/Legs - CPT: 96300-hvhdy/arms/legs < 0.5cm ([id number]) Scalp/Neck/Hands/Feet/Genetalia - CPT: 46479-Hdhyofke scalp/neck/hands/feet/genitalia 0.6cm-1cm ([id number])
[2024-10-24 10:31] VITALS: BP 149/67; PULSE 69
== END 2024-10-24 11:02 | disposition home or self-care (01) ==
PROVIDERS: PCP Family Medicine; Visit Provider Surgery
DX: L72.0 Epidermal cyst (principal); L82.0 Inflamed seborrheic keratosis
CPT/HCPCS: 11400; 11421

== ENCOUNTER 2024-10-31 09:21 | Outpatient (AMB) | payer MEDICAID, SELFPAY ==
--- NOTE | 2024-10-31 09:31 | A.OFFVIS_ITS ---
Vital Signs 10/31/24 09:37 Height 5 ft 4 in Weight 198 lb 6.656 oz BMI 34.1 BP 120/82 Blood Pressure Location Lt brachial Position Sitting Intake Visit Reasons: s/p excision Epidermal inclusion cyst Intake Note: Patient is seen in office for post op assessment post excision of epidermal inclusion cyst. Pt c/o: denies any concerns at the time of visit, sutures removed at visit off proc Summer School Coordinator Required: No Accompanied by: Self / Same As Patient Allergies No Known Allergies Allergy (Verified 10/24/24 10:24) HPI Comments Details: Patient returns 1 week following excision of a skin cyst of the posterior neck and skin lesion of the left posterior calf. She tolerated the procedure well returns today for suture removal. She reports that the suture in the posterior calf lesion fell out several days after the surgery. She denies any problems in either incision. [facility], [facility] Medical History Bilateral knee pain Acute left-sided low back pain with bilateral sciatica Frequent UTI Chronic cough Microscopic hematuria Mild intermittent asthma Chronic back pain Chronic GERD Fatty liver Nephrolithiasis Osteoarthritis Prediabetes Obstructive sleep apnea Degenerative disc disease, lumbar Chronic allergic rhinitis Surgical History History of carpal tunnel release History of cholecystectomy Social History Alcohol intake: current Alcohol intake frequency: holidays/special occasions only Patient Tobacco Use Status: Former Tobacco user Tobacco use type: Cigarette Physical Exam Neck Other: Posterior neck incision show some redness were the sutures are placed otherwise the wounds are well healed. Sutures removed and the wounds found to be well healed. Extrem Other: Wounds in the left posterior calf is clean, dry and intact. Assessment & Plan Assessment & Plan (1) Epidermal inclusion cyst: Code(s): L72.0 - Epidermal cyst Category: Medical (2) Skin lesion of left leg: Code(s): L98.9 - Disorder of the skin and subcutaneous tissue, unspecified Category: Medical Plan Patient is status post excision of an epidermal inclusion cyst of the posterior neck and keratosis of the posterior left calf. She tolerated the procedure well the wounds are healing nicely. She should follow up as needed. Coding Level of Care Code Global (20653) Diagnoses Epidermal inclusion cyst L72.0 Skin lesion of left leg L98.9
[2024-10-31 09:37] VITALS: BP 120/82; BMI 34.1
== END 2024-10-31 09:41 | disposition home or self-care (01) ==
PROVIDERS: PCP Family Medicine; Visit Provider Surgery
DX: L72.0 Epidermal cyst (principal); L98.9 Disorder of the skin and subcutaneous tissue, unspecified
CPT/HCPCS: 99024

== ENCOUNTER → 2024-10-31 09:21 | Outpatient (BNVA) | payer MEDICAID, SELFPAY | PROVIDERS: PCP Family Medicine; Visit Provider Surgery | DX: Z48.817 Encounter for surgical aftercare following surgery on the skin and subcutaneous tissue (principal); Z98.890 Other specified postprocedural states | CPT/HCPCS: 99212 ==

== ENCOUNTER 2024-11-14 13:40 | Outpatient (AMB) | payer MEDICAID, SELFPAY ==
[2024-11-14 13:46] VITALS: BP 126/70; PULSE 84; O2SAT 98
--- NOTE | 2024-11-14 13:46 | A.OFFVIS_ITS ---
Vital Signs 11/14/24 13:46 Weight 200 lb 9.93 oz BP 126/70 Blood Pressure Location Lt brachial Position Sitting Pulse 84 Pulse Source Pulse Oximeter Pulse Oximetry (%) 98 Oxygen Delivery Method Room Air Intake Visit Reasons: Cough Allergies No Known Allergies Allergy (Verified 11/14/24 13:50) Medication List - Last Reconciled 11/14/24 by Nicky Fry LPN baclofen 10 mg PO DAILY cholecalciferol (vitamin D3) (Vitamin D3) 50 mcg PO QAM citalopram 10 mg PO DAILY diclofenac sodium 1% 2 grams topical DAILY PRN dulaglutide (Trulicity) 0.75 mg subcut QWEEK fexofenadine 180 mg PO QAM ipratropium bromide 2 sprays intranasal TID-QID PRN lidocaine 5% 1 patch topical DAILY loratadine 10 mg PO QAM mirabegron ER (Myrbetriq) 50 mg PO DAILY HPI HPI Cough: Details: 3-year-old lady, nonsmoker with underlying obesity and KIMMY on CPAP referred after recent urgent care clinic visit where patient was diagnosed with asthma and started on Asmanex. She has been using it intermittently with suboptimal symptom control. Patient does have recent pulmonary function test at [facility] from February of 2024 showing underlying asthma with bronchodilator response. She does complain of significant nasal congestion when using her CPAP. She denies family history of lung disease. Patient also has recent allergy testing at [facility]. After the last office visit patient was switched from Asmanex to Breo, however she was not able to tolerate powder inhaler and was switched to Symbicort by her primary care provider, now with improved symptom control. [facility] Medical History Bilateral knee pain Acute left-sided low back pain with bilateral sciatica Frequent UTI Chronic cough Microscopic hematuria Mild intermittent asthma Chronic back pain Chronic GERD Fatty liver Nephrolithiasis Osteoarthritis Prediabetes Obstructive sleep apnea Degenerative disc disease, lumbar Chronic allergic rhinitis Surgical History History of carpal tunnel release History of cholecystectomy Social History Alcohol intake: current Alcohol intake frequency: holidays/special occasions only Patient Tobacco Use Status: Former Tobacco user Tobacco use type: Cigarette Review of Systems Const Denies daytime sleepiness, Denies excessive sweating, Denies fatigue, Denies fever(s), Denies lethargy, Denies malaise, Denies night sweats, Denies snoring and Denies weight loss Eyes Denies blurry vision and Denies itchy eyes ENT Denies nasal congestion, Denies post nasal drip, Denies sinus pain, Denies sinus pressure and Denies other ( Thrush) Card Denies chest pain, Denies pedal edema, Denies dyspnea, Denies orthopnea and Denies paroxysmal nocturnal dyspnea Resp Denies cough, Denies hemoptysis, Denies excessive phlegm production, Denies dyspnea, Denies snoring and Denies wheezing GI Denies abdominal pain and Denies heartburn Musc Denies myalgias, Denies arthralgias and Denies joint swelling Skin/Breast Denies rash Neuro Denies memory loss and Denies seizure-like activity Psych Denies abnormal sleep pattern, Denies anxiety and Denies memory loss Endo Denies excessive sweating, Denies fatigue and Denies heat intolerance Simone/Lymph Denies easy bruising Aller/Immun Denies itchy eyes, Denies seasonal rhinorrhea and Denies wheezing Physical Exam Vital Signs: Last Vital Signs Pulse 84 11/14/24 13:46 BP 126/70 11/14/24 13:46 Pulse Ox 98 11/14/24 13:46 Oxygen Delivery Method Room Air 11/14/24 13:46 Const General: no acute distress and alert Nutritional Appearance: not obese Orientation/consciousness: Other orientation findings ( oriented) HEENT Head: Yes atraumatic Eyes General: appearance normal, both eyes and all related structures Sclerae: sclerae normal EOM: EOMs intact bilaterally Neck Neck: Yes supple Lymphatic: no lymphadenopathy noted Resp Effort & Inspection: normal respiratory effort and no use of accessory muscles Auscultation: clear to auscultation bilaterally Cardio Rate: regular rate Rhythm: regular rhythm Heart sounds: no gallops, no murmurs and no rubs Skin General skin exam: other ( warm) Extrem General: No clubbing, No cyanosis and No edema Assessment & Plan Assessment & Plan (1) Asthma: Code(s): J45.909 - Unspecified asthma, uncomplicated Category: Medical Plan: Well controlled on current regimen of Symbicort 116 albuterol MDI. Continue current regimen. (2) Obstructive sleep apnea: Code(s): G47.33 - Obstructive sleep apnea (adult) (pediatric) Category: Medical Plan: Well controlled on CPAP therapy. Continue CPAP therapy. Coding Level of Care Code Est Pt Level 4 (45391) Diagnoses Asthma J45.909 Obstructive sleep apnea G47.33
== END 2024-11-14 14:13 | disposition home or self-care (01) ==
PROVIDERS: PCP Family Medicine; Visit Provider Internal Medicine Pulmonary Disease
DX: J45.909 Unspecified asthma, uncomplicated (principal); G47.33 Obstructive sleep apnea (adult) (pediatric)
CPT/HCPCS: 99214

== ENCOUNTER → 2024-11-14 13:40 | Outpatient (BNVA) | payer MEDICAID, SELFPAY | PROVIDERS: PCP Family Medicine; Visit Provider Internal Medicine Pulmonary Disease | DX: J45.909 Unspecified asthma, uncomplicated (principal); G47.33 Obstructive sleep apnea (adult) (pediatric) | CPT/HCPCS: 99212 ==

== ENCOUNTER 2024-12-12 13:50 | Outpatient (REF) | payer MEDICAID, SELFPAY ==
--- NOTE | ~2024-12-12 | MM_ITS ---
EXAMINATION: MM DIAGNOSTIC DIGITAL BREAST TOMOSYNTHESIS, BILATERAL Limited left breast ultrasound. CLINICAL INFORMATION: Right breast fracture which is improving with cream. Bilateral itchy and burning nipples. COMPARISON: Mammography: Comparison is made with relevant prior exams. TECHNIQUE: Digital breast mammography with tomosynthesis is performed in both the craniocaudal and mediolateral oblique views along with computer-aided detection (CAD). Limited left breast ultrasound. FINDINGS: There are scattered areas of fibroglandular density (ACR BI-RADS breast composition Category b). There are no significant masses, abnormal calcifications, or other abnormalities. Targeted color Doppler ultrasound scanning in the bilateral retroareolar regions demonstrates normal fibronodular breast tissue. There is no sonographic abnormality. Results are provided to the patient at time of visit by the technologist. MM/MM tomosynthesis diagnostic BI IMPRESSION: No mammographic or sonographic abnormality to account for the bilateral retroareolar pain and symptoms. Recommend clinical evaluation and follow-up. Patient describes a right breast rash. If rash does not resolve recommend breast surgical consultation for further evaluation and potential punch biopsy. ASSESSMENT: BI-RADS BI-RADS 1 - Negative RECOMMENDATION: 1 year F/U This patient's information was entered into a reminder system with a target due date for their next mammogram. Electronically signed by: Latasha Julio DO 12/12/2024 03:21 PM DEB
--- OUTSIDE RECORDS SUMMARY | 2024-12-12 13:57 | XMS_ITS | Encounter Summary ---
Author Organization [employer] Address [address] [facility] [address] [place] [address] Care Team Providers Care Fish Rod Maker Name Role Phone Lorrie Reyes DO Primary Care Provider + [phone] Reason for Visit * Reason Onset Date Comments Durable Medical Equipment 11/15/2024 Encounter Details Date Type Department Care Team ([facility] st Contact Info) Description 11/15/2024 Telephone [facility] MEDICINE [address] [place] [address] Lorrie Reyes DO [address] [place], [place] [phone] Durable Medical Equipment Social History Tobacco Use Types Packs/Day Years Used Date Smoking Tobacco: Never Passive Smoke Exposure: Never Smokeless Tobacco: Never Alcohol Use Standard Drinks/Week Comments Never 0 (1 standard drink = 0.6 oz pur e alcohol) Alcohol Answer Date Recorded Frequency of Alcohol Consumption Not on file 01/28/2024 Average Number of Drinks Not on file 024 Frequency of Binge Drinking Not on file 01/07 Score 0 01/28/2024 Depression Answer Date Recorded Patient Health Questionnaire-9 Score 0 11/12/2023 Patient Health Questionnaire-9 Score 0 11/12/2023 Last PHQ-9: Questionnaire Data Not on file 0 11/12/2023 Housing Stability Answer Date Recorded What is your housing situation today? I have [employer] 08/23/[address] you li ve. Do you have problems with any of the following? None of the above 08/23/2023 Food Insecurity Answer Date Recorded Within the past 12 months, y ou worried that your food would run out before you got money to buy more: Never True 08/23/2023 Within the past 12 months,th e food you bought just didn't last and you didn't have enough money to get more: Never True Transportation Answer Date Recorded In the past 12 months, has l ack of transportation kept you from medical appts, meetings, work or from getting things needed for daily living? No 02/11/2024 Utilities Answer Date Recorded In the past 12 months, has t he [employer], gas, oil or water [employer] threatened to shut off services in your home? No 08/23/2023 Depression Answer Date Recorded Patient Health Questionnaire-2 Score 0 11/12/2023 Comments Unknown Sex and Gender Information Value Date Recorded Sex Assigned at Female 09/07/2022 10:14 AM EDT Legal Sex Female 10:14 AM EDT Gender Identity Female 09/07/2022 10:14 AM EDT Sexual Orientation Straight 09/07/2022 10 :14 AM EDT documented as of this encounter Miscellaneous Notes * Telephone Encounter - Vincent Allen - 11/22/2024 12:03 PM EST Tc from pt requesting C PAP machine. Order can be placed. * Telephone Encounter - Dixon Hannah - 11/15/2024 2:48 PM EST Tc from pt stating she has been having issues with C PAP machine and due to it being 5 years since she received prescription pt was advised to request a new script. Please contact pt at [phone]. (Estonian Speaker) documented in this encounter Plan of Treatment Not on file documented as of this encounter Visit Diagnoses Not on filedocumented in this encounter Additional Health Concerns Assessment Noted Time PHQ-9 Depression Total Score: 0 11/12/19 24 11:26 AM EST documented as of this encounter Care Teams Fish Rod Maker Relationship Specialty Start Date End Date Lorrie Reyes DO [address] [place] [address] PCP - General Family Medicine 07/19/15 Michi Mahan Asset Protection ManagerIntegration Lead 04/17/24 documented as of this encounter
--- OUTSIDE RECORDS SUMMARY | 2024-12-12 13:57 | XMS_ITS | Encounter Summary ---
Author Organization [employer] Address [address] [facility] [address] [place] [address] Care Team Providers Care Film Maker Name Role Phone Lorrie Reyes DO Primary Care Provider + [phone] Encounter Details Date Type Department Care Team (Late st Contact Info) Description 08/30/2023 Abstract [facility] MEDICINE [address] [place] [address] Lorrie Reyes DO [address] [place] [address] Social History Tobacco Use Types Packs/Day Years Used Date Smoking Tobacco: Never Passive Smoke Exposure: Never Smokeless Tobacco: Never Alcohol Use Standard Drinks/Week Comments Never 0 (1 standard drink = 0.6 oz pur e alcohol) Housing Stability Answer Date Recorded What is [...] getting things needed for daily living? No 08/23/2023 Utilities Answer Date Recorded In the past 12 months, has t he [employer], oil or water company threatened to shut off services in your home? No 08/23/2023 Comments Unknown Sex and Gender Information Value Date Recorded Sex Assigned at Female 09/07/2022 10:14 AM EDT Legal Sex Female 10:14 AM EDT Gender Identity Female 09/07/2022 10:14 AM EDT Sexual Orientation Straight 09/07/2022 10 :14 AM EDT documented as of this encounter Plan of Treatment Not on file documented as of this encounter Visit Diagnoses Not on filedocumented in this encounter Care Teams Film Maker Relationship Specialty Start Date End Date Lorrie Reyes DO [address] [place] [id number] PCP - General Family Medicine 07/19/15 Michi Mahan Foundation Stage TeacherConservation Officer 04/17/24 documented as of this encounter
--- OUTSIDE RECORDS SUMMARY | 2024-12-12 13:57 | XMS_ITS | Encounter Summary ---
Author Organization [employer] Address [address] [facility] [address] [place] [address] Care Team Providers Care Stereo Equipment Installer Name Role Phone Lorrie Reyes DO Primary Care Provider + [phone] Reason for Visit * Reason Onset Date Comments Nurse Triage 11/22/2024 Encounter Details Date Type Department Care Team ([facility] st Contact Info) Description 11/22/2024 Telephone [facility] MEDICINE [address] [place] [address] Lorrie Reyes DO [address] [place], [place] [phone] Nurse Triage (/) Social History Tobacco Use Types Packs/Day Years [...] the past 12 months, has t he [employer], gas, oil or water [employer] threatened to shut off services in your [...] encounter Miscellaneous Notes * Telephone Encounter - Margo Lagos RN - 11/22/2024 12:43 PM EST RN discussed below with PCP. Patient should be re-evaluated at clinic to determine best POC for continued back pain. TC placed to patient [phone] in regards to below message. Patient advised of PCP recommendation. Patient agreed to appointment with COMPUTER APPLICATIONS ENGINEER on 11/24/24 at 9:15am. Patient to f/u PRN. * Telephone Encounter - Jonelle Mendoza RN - 11/22/2024 12:15 PM EST Pt seen at [facility] on 11/20/24 by Jessica worthington NP Low back pain, unspecified back pain laterality, unspecified chronicity, unspecified whether sciatica present UA had some trace blood. Recommend she push fluids, take ibuprofen 800 mg 3 times daily for the next 5 days and use baclofen if needed. Patient follows with urology though I am not sure when her lastvisit was. Suspect today's back pain is related to musculoskeletal cause and not kidney stones. Patient has small amount of blood on urine dip here but has history of microscopic hematuria. - POCT urinalysis dipstick manually resulted Breast pain Left inner lower quadrant Other orders - ibuprofen 800 MG tablet; TOME LAYO TABLETA KALEB VECES AL NEREIDA CON ALIMENTO CUANDO SEA NECESARIO PARA EL DOLOR Pt using ibuprofen and diclofenac as instructed. Pt states pain is not any worse. Pt just looking for follow up appt. No OV slots with PCP within 3 weeks. Unable to book into sick on site slots > 24-48 hours in advance. Pt advised will forward note to PCP to review and further advise RED Team primary care team nurses for any other plan of care for acute on chronic back pain. Reviewed [facility] operating hours and that wait times vary. Reviewed home care advise, ER precautions and reasons to call back. Protocol Used: Back Pain (Adult) Protocol-Based Disposition: See in Office or Video Visit within 3 Days Override (Final) Disposition: Discuss with PCP and Callback by Nurse Today Override Reason: Already seen and questions Video visit offer not recorded Positive Triage Question: * Moderate back pain (e.g., interferes with normal activities) and present > 3 days * All higher-acuity triage questions were negative Care Advice Discussed: * Reasons To Call Back - Numbness or weakness occurs - Severe pain not better after taking pain medicines - You become worse * Telephone Encounter - Vincent Allen - 11/22/2024 12:08 PM EST Symptom: Back Pain - Not From Injury Outcome: Transfer to a nurse or provider NOW! Reason: Age over 30: sudden AND severe upper back pain The caller accepted this outcome. documented in this encounter Plan of Treatment Not on file documented as of this encounter Visit Diagnoses Not on filedocumented in this encounter Additional Health Concerns Assessment Noted Time PHQ-9 Depression Total Score: 0 11/12/19 24 11:26 AM EST documented as of this encounter Care Teams Stereo Equipment Installer Relationship Specialty Start Date End Date Lorrie Reyes DO [address] [place] [address] PCP - General Family Medicine 07/19/15 Michi Mahan Manager FireTrip Motor Operator 04/17/24 documented as of this encounter
--- OUTSIDE RECORDS SUMMARY | 2024-12-12 13:57 | XMS_ITS | Encounter Summary ---
Author Organization [employer] Address [address] [facility] [address], [place] [address] Care Team Providers Care Senior Auditor Name Role Phone Lorrie Reyes DO Primary Care Provider + [phone] Reason for Visit * Reason Onset Date Comments Chart Prep 11/23/2024 Encounter Details Date Type Department Care Team ([facility] st Contact Info) Description 11/23/2024 Telephone [facility] MEDICINE [address] [place] [address] Lorrie Reyes DO [address] [place], [place] [phone] Chart Prep Social History Tobacco Use Types Packs/Day Years [...] the past 12 months, has t he [employer], gas, oil or water company threatened to shut [...] encounter Miscellaneous Notes * Telephone Encounter - Jarret Springer MA - 11/23/2024 9:11 AM EST Chart Prep Labs: done Images: not done Vaccines due: yes Covid Flu Referrals: pending appt Screenings: colonoscopy Cervical Cancer Depression Overdue care gaps: PHQ-9 documented in this encounter Plan of Treatment Not on file documented as of this encounter Visit Diagnoses Not on filedocumented in this encounter Additional Health Concerns Assessment Noted Time PHQ-9 Depression Total Score: 0 11/12/19 24 11:26 AM EST documented as of this encounter Care Teams Senior Auditor Relationship Specialty Start Date End Date Lorrie Reyes DO [address] [place] [address] PCP - General Family Medicine 07/19/15 Michi Mahan Grants And Contracts AssistantTherapy Technician 04/17/24 documented as of this encounter
--- OUTSIDE RECORDS SUMMARY | 2024-12-12 13:57 | XMS_ITS | Encounter Summary ---
Author Organization [employer] Address [address] [facility] 7t [place] [address] Care Team Providers Care Zinc Miner Blasting Name Role Phone Lorrie Reyes DO Primary Care Provider + [phone] Encounter Details Date Type Department Care Team ([facility] st Contact Info) Description 02/18/2024 Orders Only [facility] MEDICINE [address] [place] [address] ProviderAbraham MD Social History Tobacco Use Types Packs/Day Years [...] the past 12 months, has t he electric, gas, oil or water company threatened to [...] on file documented as of this encounter Procedures Procedure Name Priority Date/Time Associated Diagnosis Comments HM COLONOSCOPY Routine 02/23/2017 9:54 AM EDT documented in this encounter Results * Hm Colonoscopy (02/23/2017 9:54 AM EDT) Historical Provider HEALTH MAINTENANCE Final Result documented in this encounter Visit Diagnoses Not on filedocumented in this encounter Additional Health Concerns Assessment Noted Time PHQ-9 Depression Total Score: 0 11/12/19 24 11:26 AM EST documented as of this encounter Care Teams Zinc Miner Blasting Relationship Specialty Start Date End Date Lorrie Reyes DO [address] [place] [address] PCP - General Family Medicine 07/19/15 Michi Mahan Service Desk Team LeadElectric Train Driver 04/17/24 documented as of this encounter
--- OUTSIDE RECORDS SUMMARY | 2024-12-12 13:58 | XMS_ITS | Clinical Summary ---
Author Organization [employer] Address [address] [place] [address] 7 [place] [address] Care Team Providers Care Frame Operator Name Role Phone AmyMarisolLorrie Primary Care Provider + [phone] Allergies Active Allergy Reactions Criticality Noted Date Comments Gramineae Pollens 11/11/2022 Other reaction(s): congestion Medications Elastic Bandages & Supports (Wrist Splint) misc UAD-LEFT 017 Active Elastic Bandages & Supports (Wrist Splint) misc UAD-RIGHT 017 Active melatonin 5 MG tablet TAKE 1-2 TABLETS BY ORAL ROUTE AT BEDTIME PRN INSOMNIA Active Denta 5000 Plus 1.1 % cream BRUSH KALEB VECES AL D A DO NOT RINSE 023 Active Blood Glucose Monitoring Suppl (FreeStyle Lite) w/Device kit 1 each 2 times daily. 1 kit 023 Active Alcohol Swabs (Alcohol Prep) pads 1 each 2 times daily. 60 each 1 023 Active Lancets Ultra Thin 30G misc 1 each 3 times daily. 100 each 1 023 Active glucose blood (FREESTYLE LITE) test strip Use 2x/day 100 strip 1 023 Active albuterol (Ventolin HFA) 108 (90 Base) MCG/ACT inhalerIndicati ons:Mild intermittent asthma, unspecified whether complicated INHALE 2 PUFFS EVERY 4 TO 6 HOURS NEEDED FOR COUGH, WHEEZE, SHORTNESS OF BREATH 18 g 1 023 Active albuterol (2.5 MG/3ML) 0.083% nebulizer solution Take 3 mL (2.5 mg) by nebulization every 4 (four) hours if needed for wheezing or shortness of breath. 75 mL 1 Active Asmanex HFA 200 MCG/ACT aerosol INHALE 1 PUFF POR VIA ORAL 2 TIMES DAILY 13 g 11 Active estradiol (Estrace) 0.1 MG/GM vaginal cream Insert 1 g into the vagina 3 (three) times a week. 42.5 g 024 2024 Active citalopram (CeleXA) 10 MG tablet TAKE 1 TABLET BY ORAL ROUTE EVERY DAY 90 tablet 1 Active D3 50 MCG (2000 UT) tablet TAKE 1 TABLET BY MOUTH IN THE MORNING 90 tablet 3 Active lidocaine (Lidoderm) 5 % patchIndication s:Acute left-sided low back pain with bilateral sciatica Apply 1 patch topically Once per day. Remove & discard patch within 12 hours or as directed by MD. 30 patch 2 Active loratadine (Claritin) 10 MG tabletIndicatio ns:Seasonal allergic rhinitis, unspecified trigger TOME LAYO TABLETA TODOS LOS HALE EN LA DYERSBURGANA 90 tablet 3 Active Diclofenac Sodium 1 % gelIndications: Acute left-sided low back pain with bilateral sciatica Apply 2 g topically if needed in the morning, at noon, in the evening, and at bedtime (pain). 100 g 3 024 2024 Active dulaglutide (Trulicity) 1.5 MG/0.5ML solution pen-injector Inject 1.5 mg under the skin 1 (one) time per week. 4 each 11 Active Myrbetriq 50 MG 24 hr tablet TOME 1 TABLETA POR V A ORAL TODOS LOS D ONCE A DAY, SAME TIME DAILY Active omeprazole (PriLOSEC) [address] capsule Take 1 capsule (20 mg) by mouth before breakfast. TAKE 1 CAPSULE BY ORAL ROUTE DAILY BEFORE A MEAL 90 capsule 3 024 2024 Active budesonide-form oterol (Symbicort) 160-4.5 MCG/ACT inhaler Inhale 2 puffs in the morning and at bedtime. Rinse mouth with water after use to reduce aftertaste and incidence of candidiasis. Do not swallow. 1 each 11 024 2024 Active baclofen (Lioresal) 10 MG tablet TAKE 1 TABLET BY MOUTH TWICE A DAY NEEDED MM SPASM/PAIN 60 tablet 3 024 Active pseudoephedrine (Sudafed) 30 MG tabletIndicatio ns:Nasal congestion Take 1 tablet (30 mg) by mouth every 4 (four) hours if needed for congestion for up to 10 days. 30 tablet 024 Active ibuprofen 800 MG tablet TOME LAYO TABLETA KALEB VECES AL NEREIDA CON ALIMENTO CUANDO SEA NECESARIO PARA EL DOLOR 60 tablet 1 025 Active triamcinolone (Kenalog) 0.1 % creamIndication s:Rash Apply topically if needed in the morning and at bedtime for rash. 45 g 025 Active ibuprofen 800 MG tablet TOME LAYO TABLETA KALEB VECES AL NEREIDA CON ALIMENTO CUANDO SEA NECESARIO PARA EL DOLOR 30 tablet 1 023 2024 Discontinued(R eorder (will not trigger notification to Pharmacy)) Active Problems Problem Noted Date Diagnosed Date Seasonal allergic rhinitis 04/18/2024 Assessment & Plan (04/18/2024 12:15 PM EDT): -medication refilled per patient request -ENT referral placed for chronic congestion and anosmia Frequent UTI 01/28/2024 Assessment & Plan (01/28/2024 1:43 PM EDT): -encouraged re-trial vaginal estrogen cream -encouraged schedule f/u with urology Chronic back pain 11/12/2023 11/12/2023 Mild persistent asthma 11/12/2023 Assessment & Plan (04/18/2024 12:16 PM EDT): -mild inspiratory wheezing noted on auscultation -patient advised to use prescribed inhalers when she arrives home Microscopic hematuria 11/12/2023 Nephrolithiasis 02/08/2023 Chronic gastroesophageal reflux disease 04/03/20 23 Obstructive sleep apnea 11/04/2022 Prediabetes 11/04/2022 Assessment & Plan (01/28/2024 1:42 PM EDT): -continue trulicity weekly -repeat A1c with fasting labs Fatty liver 11/06/2016 History of cholecystectomy 10/23/2016 Chronic allergic rhinitis 10/28/2015 Assessment & Plan (01/28/2024 1:42 PM EDT): Sx uncontrolled -encouraged sirena daily -change flonase to nasacort daily -continue azelastine prn -consider addition of singulair -consider re-eval with die tester if no improvement Degenerative disc disease, lumbar 10/28/2015 BMI 33.0-33.9,adult 10/28/2015 Osteoarthritis 10/28/2015 Resolved Problems Problem Noted Date Diagnosed Date Resolved Date Acute left-sided low back pa in with bilateral sciatica 04/18/2024 05/16/2024 Assessment & Plan (04/18/2024 12:18 PM EDT): -likely a muscle strain -POCT urinalysis with trace leukocyte. Will send out for culture to rule out UTI -advised to take baclofen and apply diclofenac gel previously prescribed by PCP -lidocaine patch prescription sent to pharmacy -referral to pain management placed for imaging and further management -ED precautions reviewed -return to clinic if symptoms persist or worsen Chronic cough 11/23/2023 05/16/2024 Assessment & Plan (01/28/2024 1:42 PM EDT): Persistent sx with SOB, wheezing, and frequent albuterol use since bronchitis Dx, ?worsening asthma vs COPD -change asmanex twisthaler to asmanex HFA BID -continue albuterol prn -referred for PFTs -referred for CT chest -referred to pulm for eval as requested Assessment & Plan (11/23/2023 2:27 PM EST): Drink fluids and rest F/u with PCP UTI symptoms 11/23/2023 01/28/2024 Assessment & Plan (11/23/2023 2:28 PM EST): Drink plenty of water, do not hold urine UA and culture Acute foot pain 11/12/2023 11/12/2023 11/12/2023 Bronchitis 11/12/2023 11/12/2023 01/28/2024 Elbow pain 11/12/2023 11/12/2023 11/12/2023 Fall 11/12/2023 11/12/2023 11/12/2023 Respiratory infection 09/28/20232023 Assessment & Plan (09/28/2023 7:20 AM EST): Pt w 1 week of respiratory symptoms and dry cough and mild associated dyspnea Denies hx of asthma but states when has resp infection has similar symptoms for has albuterol pump that helps w symptoms Likely viral infection possible RSV? Here neg COVID/flu rapid tests Possible reactive BP here -albuterol prn -may need PFT if recurrent symptoms -states has w infec posisble reactive airway -benzonate -cepacol -[place] nasal spray -tylenol prn -Rest 48 h or longer if not feeling better ,advised mask use,hand hygiene -advised to f up w PCP elevated BP today ,likely reactive to infection but will need to monitor Dysuria 09/28/2023 11/12/2023 Assessment & Plan (09/28/2023 7:21 AM EST): Reports today dysuria w no other symptoms -urine dipstick nitr neg,LE small -urine U w reflex cx--- will call result Pyelonephritis 07/12/2023 11/12/2023 Assessment & Plan (07/12/2023 1:39 PM EDT): Unresolved dysuria despite appropriate antibiotic therapy (third generation cephalosporin to which the culture demonstrates sensitivity) - UA negative for blood, nitrites, LE today - will add pyridium 100mg up to TID - switch to Levofloxacin 250mg daily x 3-5 days, until resolution of symptoms - increase hydration, SG 1.030 Atypical chest pain 07/12/2023 01/28/20 24 Urination pain 07/12/2023 08/13/2023 Upper respiratory tract infe ction due to influenza 11/04/2022 02/08/2023 Encounters Date Type Department Care Team Description 12/06/[address] [address] Kaela Austin, LEE 11/23/[address] [address] Lorrie Reyes DO Chart Prep 11/22/[address] [address] Lorrie Reyes DO Nurse Triage (/) 11/20/2024 3:00 PM EST Office Visit [facility] [address] [address] Jessica Ortega ANP Rash (Primary Dx); Low back pain, unspecified back pain laterality, unspecified chronicity, unspecified whether sciatica present; Breast pain 11/15/[address] [address] Lorrie Reyes DO Durable Medical Equipment 11/03/2024 2:40 PM EST [facility] [address] [address] Alcira Hammond NP Nasal congestion (Primary Dx); Viral URI 10/25/[address] [address] Lorrie Reyse DO Stable Imaging Letter 10/24/2024 Orders Only GENERIC EXTERNAL DATA DEPARTMENT Provider, Generic External Data 10/09/[address] [address] William Ohara MA DME from Nebulizer 09/22/2024 Orders Only [address] [address] Lorrie Reyes DO Subcutaneous nodule (Primary Dx) 09/21/[address] [address] Lorrie Reyes DO callback requested 09/18/[address] [address] Lorrie Reeys DO from Last 3 Months Immunizations Name Administration Dates Next Due Hep A, Adult 09/17/2017,03/08/2017 Hep B, adult 07/27/1998,02/24/1998,01/24/1998 Influenza Injectable Quadriv alant Preservative Free IIV4 MDCK 08/04/2022,08/05/2021,07/19/2020 Influenza injectable quadriv alent IIV4 with preservative 07/24/2019,10/04/2018,07/30/2017,2015 Influenza injectable quadriv alent preservative free 07/29/2023,08/05/2015 Influenza, IIV3, injectable 09/04/2014 Influenza, Split (incl. giovanna fied surface antigen) 07/31/2013,11/21/2012 MMR 08/10/2003 Pneumococcal Conjugate PCV 20 02/03/2024 RSV Bivalent 02/03/2024 TD (adult), 2 Lf tetanus tox oid, preservative free, adsorbed 11/12/2023,04/08/1998 Tdap 05/03/2012 Zoster, Recombinant 03/18/2022,01/07/2022 Social History Tobacco Use Types Packs/Day Years Used Date Smoking Tobacco: Never Passive Smoke Exposure: Never Smokeless Tobacco: Never Tobacco Cessation:Counseling Given: Not Answered Alcohol Use Standard Drinks/Week Comments Never 0 [...] Orientation Straight 09/07/2022 10 :14 AM EDT Last Filed Vital Signs Vital Sign Reading Time Taken Comments Blood Pressure 130/72 11/20/2024 3:27 PM EST Pulse 80 11/20/2024 3:27 PM EST Temperature 36.7 ??C (98 ??F) 11/20/2024 3:27 PM EST Respiratory Rate 16 11/20/2024 3:27 PM EST Oxygen Saturation 100% 11/20/2024 3:27 PM EST Inhaled Oxygen Concentration - - Weight 90.7 kg (200 lb) 11/20/2024 3:27 PM EST Height 162.6 cm (5' 4 ) 08/16/2024 9:07 AM EDT Body Mass Index 34.33 08/16/2024 9:07 AM EDT Plan of Treatment Health Maintenance Due Date Last Done Comments CT Colonography 1960 FIT DNA/Cologuard 1960 FIT 1960 FOBT 1960 Sigmoidoscopy 1960 Pap Smear 1983 Colonoscopy 02/23/2022 02/23/2017 Colorectal Cancer Screening 02/23/2022 COVID-19 Vaccine ( season) 2024 11/28/2022 Influenza Vaccine (#1) 2024 3, 08/04/2022, 08/05/2021, Additional history exists Cervical Cancer Screening 07/24/2024 HPV/Cotest 07/24/2024 07/24/2019 Depression Screening 11/12/2024 11/12/2023, 11/12/19 24 Alcohol/Substance Use Screening 01/27/2025 01/28/2024 SDOH Screening 02/10/2025 02/11/2024 Diabetes: Hemoglobin A1C 08/16/2025 024, 01/28/2024, 11/23/2023, Additional history exists Tobacco Screening 11/20/2025 11/20/2024 Mammogram 03/15/2026 03/15/2024, 05/06/2024, 03/10/2023, Additional history exists DTaP/Tdap/Td Vaccines (3 - Td or Tdap) 11/12/2033 11/12/2023, 05/03/2012, 04/08/1998 Hepatitis B Vaccines Completed 07/27/1998, 02/24/1998, 01/24/1998 Hepatitis A Vaccines Completed 09/17/2017, 03/08/20 17 Zoster Vaccines Completed 03/18/2022, 01/07/2022 HIV Screening Completed 11/23/2023, 03/08, 06/30/2022, Additional history exists Hepatitis C Screening Completed 11/23/2023 , 03/24/2023, 06/30/2022, Additional history exists Pneumococcal Vaccine: 50+ Years Completed 02/03/2024 RSV Patients and Patients Aged 60 years or older Completed 02/03/2024 HIB Vaccines Aged Out No longer eligi ble based on patient's age to complete this topic HPV Vaccines Aged Out No longer eligi ble based on patient's age to complete this topic IPV Vaccines Aged Out No longer eligi ble based on patient's age to complete this topic Meningococcal Vaccine Aged Out No tiera celi eligible based on patient's age to complete this topic RSV under 20 months Aged Out No longe r eligible based on patient's age to complete this topic Rotavirus Vaccines Aged Out No longer eligible based on patient's age to complete this topic Procedures Procedure Name Priority Date/Time Associated Diagnosis Comments POCT URINALYSIS DIPSTICK Routine 11/20/2024 3:40 PM EST Low back pain, unspecified back pain laterality, unspecified chronicity, unspecified whether sciatica present POCT INFLUENZA B (ID NOW RAPID MOLECULAR) Routine 11/03/2024 2:36 PM EST Viral URI POCT INFLUENZA A (ID NOW RAPID MOLECULAR) Routine 11/03/2024 2:36 PM EST Viral URI POCT RAPID COVID ANTIGEN Routine 11/03/2024 2:36 PM EST Viral URI GROSS AND MICROSCOPIC LEVEL 3 Routine 10/24/2024 10:59 AM EST HEMOGLOBIN A1C Routine 08/16/2024 9:49 AM EDT Fatty liver Prediabetes BI MAMMOGRAM DIAGNOSTIC TOMOSYNTHESIS BILATERAL Routine 03/15/2024 1:[address] of the chest HEPATITIS C AB W/REFL TO HCV RNA, QN, PCR Routine 11/23/2023 1:26 PM EST Fatty liver Prediabetes Obstructive sleep apnea Nephrolithiasis Mild intermittent asthma, unspecified whether complicated Chronic allergic rhinitis Microscopic hematuria Chronic GERD Healthcare maintenance Bronchitis HIV 1/2 ANTIGEN/ANTIBODY, FOURTH GENERATION W/RFL Routine 11/23/2023 1:26 PM EST Fatty liver Prediabetes Obstructive sleep apnea Nephrolithiasis Mild intermittent asthma, unspecified whether complicated Chronic allergic rhinitis Microscopic hematuria Chronic GERD Healthcare maintenance Bronchitis ZZZ HISTORICAL HPV E6/E7 RFLX DARA 16 Routine 07/24/2019 10:55 AM EDT HM COLONOSCOPY Routine 02/23/2017 9:54 AM EDT from Last 3 Months or Most Recently Relevant to Health Maintenance Results * (ABNORMAL) POCT urinalysis dipstick manually resulted (11/20/2024 3:40 PM EST) Color, UA Yellow Clarity, UA Clear Glucose, UA Negative Bilirubin, UA Negative Ketones, UA Negative Spec Grav, UA 1.030 Blood, UA Positive(A) Negative, None Detected Comment:Trace pH, UA 5.5 Protein, UA Negative Urobilinogen, UA 0.2 Leukocytes, UA Negative Negative, Rare, Trace Nitrite, UA Negative Negative, None Detected Appearance, UA OK Urine 11/20/2024 3:40 PM EST [facility] ANP POINT OF CARE TEST ENTER/EDIT OR DERABLES Final Result * Influenza B (ID NOW Rapid Molecular) (11/03/2024 2:36 PM EST) Influenza B Negative Negative, Indeterminate [facility] Swab 11/03/2024 2:36 PM EST Alcira Hammond SALES DEVELOPMENT SPECIALIST POINT OF CARE TEST ENTER/EDIT O RDERABLES Final Result Performing Organization Address [facility]/ZIP Co de Phone Number [facility] [address] [place] [phone] * Influenza A (ID NOW Rapid Molecular) (11/03/2024 2:36 PM EST) Influenza A Negative Negative, Indeterminate [facility] Swab 11/03/2024 2:36 PM EST Alcira Blanco SALES DEVELOPMENT SPECIALIST POINT OF CARE TEST ENTER/EDIT O RDERABLES Final Result Performing Organization Address City/[facility]/ZIP Co de Phone Number [facility] [address] [place] [phone] * POCT Rapid COVID Ag (11/03/2024 2:36 PM EST) Rapid COVID Ag Negative [facility] Swab 11/03/2024 2:36 PM EST Alcira Blanco SALES DEVELOPMENT SPECIALIST POINT OF CARE TEST ENTER/EDIT O RDERABLES Final Result Performing Organization Address City/[facility]/ZIP Co de Phone Number [facility] [address] [place] [address] [phone] * Gross and Microscopic Level 3 (10/24/2024 10:59 AM EST) 10/24/2024 10:5 9 AM EST 10/24/2024 1:10 PM EST Narrative [facility] - 10/26/2024 10:29 AM EST ----- ------- Name: Ele Adan ?Age/Sex: 63/F ? : 1960 Unit#: [id number] ?? Attend Dr: Bryan Danielle MD ?Re10/24/24 ?Status: DEP REF ? Location: HO.LNP ?Disch: ? ----- ------- SPEC : [id number] ? RECD: 10/24/24-0 ? STATUS: ??SOUT ? REQ NUM: [id number] ? DANYELL: 10/24/24-1059 ? SUBM DR: Bryan Danielle MD ? ENTERED: ??10/24/24-1342 ?SP TYPE: Surgical ? OTHR DR: Lorrie Reyes DO ? ORDERED: ??Gross Micro L3/2 ? Diagnosis ?? A. ??Skin, posterior neck, excision: ??Epidermal inclusion cyst. ? B. ??Skin, left leg, excision: ??Hyperkeratotic seborrheic keratosis. ?Clinical History Epidermal inclusion cyst posterior neck, left leg ?Microscopic Description A, B. ??Microscopic sections reviewed. ? Material Received ?? A. Epidermal inclusion cyst posterior neck ?? B. Skin lesion left leg ? Gross Description Received in two parts. Part A: ??Received in formalin labeled ?epidermal inclusion cyst posterior neck? is a 1.0 x 0.4 cm ellipse of puckered and retracted campos skin and nodular subjacent fibrous dermal tissue excised to a maximum depth of 1.1 cm. ??The margins are inked and the specimen is serially sectioned to reveal a 0.6 x 0.5 x 0.4 cm campos-white cyst within the fibrous dermal tissue, entirely submitted in a cassette labeled A. Part B: ??Received in formalin labeled ?epidermal cyst (sic) posterior left leg? is a 0.4 cm in diameter campos papule of skin and subjacent fibrous dermal tissue excised to a maximum depth of 0.2 cm. ??The margins are inked and the specimen is bisected to reveal homogeneous gustafson-white fibrous dermal tissue, entirely submitted in a cassette labeled B. CEDS Copies To: ?? Lorrie Reyes DO ?? [facility] ?? [address] ?? [place] [address] ?? [phone] ? CONTINUED ON NEXT PAGE ----- ------- Name: Ele Adan ?Age/Sex: 63/F ? : 1960 Unit#: [id number] ?? Attend Dr: Bryan Danielle MD ?Re10/24/24 ?Status: DEP REF ? Location: HO.LNP ?Disch: ? ----- ------- SPEC : [id number] ? RECD: 10/24/24-1309 ? STATUS: ??SOUT ? REQ NUM: [id number] ? DANYELL: 10/24/24-105 ? SUBM DR: Bryan Danielle MD ? ENTERED: ??10/24/24-1341 ?SP TYPE: Surgical ? OTHR DR: Lorrie Reyes DO ? ORDERED: ??Gross Micro L3/2 ? Copies To: ??(Continued) ?? Bryan Danielle MD ?? [facility] [place] [place] [facility] ?? [address] ?? [place] [address] ?? [phone] ----- ------- Signed (signature on file) Flaco Amador MD 10/26/24 3453 ? ----- ------- ? END OF REPORT ? us Generic External Data Provider LAB CYTOLOGY ORDE RABLES Final Result Performing Organization Address [facility] Co de Phone Number [facility] [address] [place] [address] [phone] * Hemoglobin A1c (08/16/2024 9:49 AM EDT) Hemoglobin A1c 5.7 <6.0 % [facility] Comment:Hemoglobin A1C Refer ence Range Adults: 4.8 - 6.0 % Non diabetic: < 6.0 % Goal: < 7.0 %Additional Action Suggested: > 8.0 %Note: Hemoglobin A1c results are invalid for patients with abnormal amounts of HbF. Blood transfusions may impact the HbA1c concentration in the patient sample. Estimated Average Glucose 117 mg/dL [facility] Comment:eAG = Estimated ave rage glucose which is %A1C expressed asaverage glucose, using the formula of the [id number] Glucose study (ADAG), Diabetes Care, Vol.31,#8,Jun. 2007 Blood Venous blood specimen / Unknown 08/16/2024 9:49 AM EDT 08/16/2024 11:31 AM EDT Lorrie Reyes DO LAB BLOOD ORDERABLES Final R esult Performing Organization Address City/[facility]/ZIP Co de Phone Number [facility] [address] [place] [address] [phone] * BI Mammogram Diagnostic Tomosynthesis Bilateral (03/15/2024 1:45 PM EDT) Anatomical Region Laterality Modality Breast Bilateral Mammography 03/15/2024 1:45 PM EDT Narrative 03/15/2024 2:47 PM EDT ? [facility] [place] ? [address] ?[place] [address] ? Mammography Report ? Signed ? Patient: Adan,Ele ?MR#: [id number] ?? [id number] ? : 1960 ?Acct:[id number] ? Age/Sex: 63 / F ?ADM Date: 05/08/24 ? Loc: HO.MAMMO ? Attending Dr: Lorrie Reyes DO ? Ordering Physician: Lorrie Reyes DO ?Results: 1N ?? egative ? Date of Service: 03/15/24 ?Follow Up: 1 Year From Orig ?? inal Mammogram ? Procedure(s): MM tomosynthesis diagnostic BI ?? Accession Number(s): [id number] ? cc: Lorrie Reyes DO ? EXAMINATION: ?? MM DIAGNOSTIC DIGITAL BREAST TOMOSYNTHESIS, BILATERAL ?? US BREAST LIMITED, RIGHT ? MAMMOGRAPHY: ?? CLINICAL INFORMATION: ? Patient due for routine bilateral screening. Also, somewhat hazy ?? nonenlarged lymph nodes noted on recent CT chest examination from ?? 02/04/2024. Patient does report a recent RSV vaccine 3 months prior to ?? today's exam. ? COMPARISON: ?? Multiple prior breast imaging exams including most recent mammography ?? 03/10/2023, 01/26/2022 and bilateral breast ultrasound 06/02/2021. ?? Exams dating back to 2016. ?? CT chest examination 02/04/2024. ? TECHNIQUE: ?? Digital breast tomosynthesis is performed in both the craniocaudal and ?? mediolateral oblique views along with computer-aided detection (CAD). ?? Synthesized 2D images are generated from the tomosynthesis. This was ?? followed by targeted ultrasound of the right axilla. ? FINDINGS: ?? There are scattered areas of fibroglandular density (ACR BI-RADS breast ?? composition Category b). ? There are no suspicious masses, suspicious grouped calcifications, or ?? areas of architectural distortion in either breast. The parenchymal ?? pattern is stable from prior exams. ??No skin or axillary abnormalities. ?? Imaged axillary lymph nodes appear normal. ? ULTRASOUND: ?? CLINICAL INFORMATION: ?? As above. ? COMPARISON: ?? 03/10/2023 left, 06/02/2021 bilateral, 12/31/2020 right. ?? CT examination chest 02/04/2024. ? TECHNIQUE: ?? Targeted sonographic evaluation was performed using a high frequency ?? linear transducer. The right axillary region was targeted to evaluate ?? the hazy lymph nodes seen on the recent CT examination. Selected ?? archived documentation. ? FINDINGS: ? RIGHT AXILLA: ?? -No abnormal right axillary lymph nodes are identified. There are ?? several normal-appearing lymph nodes present in the right axilla, all ?? demonstrating normal cortex, normal fatty yuri, and normal morphology. ?? No hyperemia on color Doppler imaging. Findings are normal. ? No additional abnormality identified. ? MM/MM tomosynthesis diagnostic BI ?? IMPRESSION: ?? There are no findings in either breast suspicious for malignancy. ? There are no findings of abnormal lymphadenopathy in the right axilla ?? on sonography. Only normal lymph nodes are imaged. ? Recommend the patient return to routine annual screening. ? OVERALL ASSESSMENT: ?? Mammography: BI-RADS 2 - Benign Findings ?? Ultrasound: BI-RADS 2 - Benign Findings ? RECOMMENDATION: ?? 1 year F/U ? This patient's information was entered into a reminder system with a ?? target due date for their next mammogram. ? Dictated By: ?Hector Espinoza MD ? Signed By: ?<Electronically signed by Hector Espinoza MD in OV> ?03/15/24 1443 ? DD/ 1345 ? TD/TT: ? Senior Materials Planner: ? Procedure Note Kiran, Eduardo - 03/15/2024 [facility] [address] [place] [address] Dr. [place], [place] [address] Mammography Report Signed Patient: Ele AdanMR#: [id number] : 1960Acct:[id number] Age/Sex: 63 / FADM Date: 03/15/24 Loc: HO.MAMMO Attending Dr: Lorrie Reyes DO Ordering Physician: Lorrie Reyesults: 1N egative Date of Service: 03/15/24Follow Up: 1 Year From [facility] ina Mammogram Procedure(s): MM tomosynthesis diagnostic BI Accession Number(s): [id number] cc: Lorrie Reyes DO EXAMINATION: MM DIAGNOSTIC DIGITAL BREAST TOMOSYNTHESIS, BILATERAL US BREAST LIMITED, RIGHT MAMMOGRAPHY: CLINICAL INFORMATION: Patient due for routine bilateral screening. Also, somewhat hazy nonenlarged lymph nodes noted on recent CT chest examination from 02/04/2024. Patient does report a recent RSV vaccine 3 months prior to today's exam. COMPARISON: Multiple prior breast imaging exams including most recent mammography 03/10/2023, 01/26/2022 and bilateral breast ultrasound 06/02/2021. Exams dating back to 2015. CT chest examination 02/04/2024. TECHNIQUE: Digital breast tomosynthesis is performed in both the craniocaudal and mediolateral oblique views along with computer-aided detection (CAD). Synthesized 2D images are generated from the tomosynthesis. This was followed by targeted ultrasound of the right axilla. FINDINGS: There are scattered areas of fibroglandular density (ACR BI-RADS breast composition Category b). There are no suspicious masses, suspicious grouped calcifications, or areas of architectural distortion in either breast. The parenchymal pattern is stable from prior exams. No skin or axillary abnormalities. Imaged axillary lymph nodes appear normal. ULTRASOUND: CLINICAL INFORMATION: As above. COMPARISON: 03/10/2023 left, 06/02/2021 bilateral, 12/31/[address] examination chest 02/04/2024. TECHNIQUE: Targeted sonographic evaluation was performed using a high frequency linear transducer. The right axillary region was targeted to evaluate the hazy lymph nodes seen on the recent CT examination. Selected archived documentation. FINDINGS: RIGHT AXILLA: -No abnormal right axillary lymph nodes are identified. There are several normal-appearing lymph nodes present in the right axilla, all demonstrating normal cortex, normal fatty yuri, and normal morphology. No hyperemia on color Doppler imaging. Findings are normal. No additional abnormality identified. MM/MM tomosynthesis diagnostic BI IMPRESSION: There are no findings in either breast suspicious for malignancy. There are no findings of abnormal lymphadenopathy in the right axilla on sonography. Only normal lymph nodes are imaged. Recommend the patient return to routine annual screening. OVERALL ASSESSMENT: Mammography: BI-RADS 2 - Benign Findings Ultrasound: BI-RADS 2 - Benign Findings RECOMMENDATION: 1 year F/U This patient's information was entered into a reminder system with a target due date for their next mammogram. Dictated By: Hector Espinoza MD Signed By: <Electronically signed by Hector Espinoza MD in OV> 03/15/24 1443 DD/ 1345 TD/TT: Senior Materials Planner: Lorrie Reyes DO IMG BI PROCEDURES Final Resu lt * Hepatitis C Antibody with Reflex to HCV, RNA, Quantitative, Real-Time PCR (11/23/2023 1:26 PM EST) Hepatitis C Antibody Nonreactive Nonreactive [facility] Comment:Antibodies to HCV no t detected; does not exclude early acuteHCV infection. Blood Venous blood specimen / Unknown 11/23/2023 1:26 PM EST 11/23/2023 3:54 PM EST Lorire Reyes DO LAB BLOOD ORDERABLES Final R esult [facility] [address] [place] [phone] [phone] * HIV-1/2 Antigen and Antibodies, Fourth Generation, with Reflexes (11/23/2023 1:26 PM EST) HIV AB/AG Nonreactive Nonreactive [facility] Comment:HIV-1 p24 Ag and/or HIV-1/HIV-2 Ab not detected.A test result that is nonreactive does not exclude thepossibility of exposure to or infection with HIV-1 and/orHIV-2. Nonreactive results in this assay for individualswith prior exposure to HIV-1 and/or HIV-2 may be due toantigen and antibody levels that are below the limit ofdetection of this assay.The ieCrowdniFlash Valet HIV Ag/Ab Combo assay result andsupplemental assay results should be interpreted inconjunction with the patient's clinical presentation,history and other laboratory results. If the results areinconsistent with clinical evidence, additional testing issuggested to confirm the result. Blood Venous blood specimen / Unknown 11/23/2023 1:26 PM EST 11/23/2023 3:54 PM EST us Lorrie Reyes DO LAB BLOOD ORDERABLES Final R esult [facility] [address] [place] [phone] * HPV E6/E7 RFLX DARA 16 18/45 (07/24/2019 10:55 AM EDT) HPV mRNA E6/E7 Not Detected NOT DETECTED [facility] Comment: This test was performed using the APTIMA(R) HPV Assay ([employer] This assay detects E6/E7 viral messenger RNA (mRNA) from 14 high-risk HPV types (16,18,31,33,35,39,45,51, 52,56,58,59,66,68). For additional information please refer to: http://education.Pocket Video.VLinks Media/faq/BCI916w7 (This link is being provided for informational/ educational purposes only.) The analytical performance characteristics of this assay have been determined by [employer] [place], [place]. The modifications have not been cleared or approved by the FDA. This assay has been validated pursuant to the CLIA regulations and is used for clinical purposes. Please note: ??Effective 07/20/2016, HPV testing will be performed using [employer]'s APTIMA test which targets mRNA. Detecting mRNA instead of DNA, as in older methods, offers significant improvements in specificity. ADDITIONAL TESTING Not indicated () [facility] Comment: Test Performed by [employer], [employer] [facility], [address] [place] [address] Aamir Lerner M.D., Ph.D., Director of Laboratories , DOUGIA [id number] HPV 16 RNA Test not performed [facility] HPV 18/45 RNA Test not performed [facility] 07/24/2019 10:5 5 AM EDT Lorrie Reyes DO HISTORICAL/NON ORDERABLE LAB S Final Result [facility] [address] [place] [address], * Hm Colonoscopy (02/23/2017 9:54 AM EDT) Historical Provider MD HEALTH MAINTENANCE Final Result from Last 3 Months or Most Recently Relevant to Health Maintenance Insurance [address] [place], [place] [address] C3 Care Teams Frame Operator Relationship Specialty Start Date End Date Lorrie Reyes DO [address] [place] [phone] PCP - General Family Medicine 07/19/15 Michi Mahan River Transportation WorkerLehr Cutter 04/17/24
--- OUTSIDE RECORDS SUMMARY | 2024-12-12 13:58 | XMS_ITS | Encounter Summary ---
Author Organization [employer] Address [address] [place] [address], [place] [address] Care Team Providers Care Appliance Assembler Name Role Phone Lorrie Reyes DO Primary Care Provider [phone] Reason for Referral * Consultation (Urgent) - Authorized Specialty Diagnoses / Procedures Referred By Vic t Referred To Contact Dermatology Diagnoses Girish Brown ANP [address] [place] [address] Phone: tel: fax: Referral ID Status Reason Start Date Expiration Date Visits Requested Visits Authorized [id number] Authorized Specialty Services Required 12/04/2024 12/04/2025 1 1 * Imaging (Routine) - Authorized Specialty Diagnoses / Procedures Referred By Vci t Referred To Contact Radiology Diagnoses Breast pain Procedures BI US Breast Limited Left Girish Washburn ANP [address] [place] [address] Phone: tel: fax: [address] Phone: tel: fax: Referral ID Status Reason Start Date Expiration Date V isits Requested Visits Authorized [id number] Authorized 11/20/2024 11/20/2025 1 1 * Imaging (Routine) - Authorized Specialty Diagnoses / Procedures Referred By Vic t Referred To Contact Radiology Diagnoses Rash Breast pain Procedures BI DIG DIAGNOSTIC MAMMO BILATERAL Girish Washburn ANP [address] [place] [address] Phone: tel: fax: [address] Phone: tel: fax: Referral ID Status Reason Start Date Expiration Date V isits Requested Visits Authorized [id number] Authorized 11/20/2024 11/20/2025 1 1 Reason for Visit * Reason Comments Back Pain Encounter Details Date Type Department Care Team (Late st Contact Info) Description 11/20/2024 3:00 PM EST Office Visit [facility] [address] [place] [phone] Girish Washburn ANP [address] [place] [address] Rash (Primary Dx); Low back pain, unspecified back pain laterality, unspecified chronicity, unspecified whether sciatica present; Breast pain Social History Tobacco Use Types Packs/Day Years [...] AM EDT documented as of this encounter Last Filed Vital Signs Vital Sign Reading Time Taken Comments Blood Pressure 130/72 11/20/2024 3:27 PM EST Pulse 80 11/20/2024 3:27 PM EST Temperature 36.7 ??C (98 ??F) 11/20/2024 3:27 PM EST Respiratory Rate 16 11/20/2024 3:27 PM EST Oxygen Saturation 100% 11/20/2024 3:27 PM EST Inhaled Oxygen Concentration - - Weight 90.7 kg (200 lb) 11/20/2024 3:27 PM EST Height - - Body Mass Index 34.33 08/16/2024 9:07 AM EDT documented in this encounter Progress Notes * RAHUL Caldwell - 11/20/2024 3:00 PM EST Images from the original note were not included. Ele Adan is 63 y.o. patient here today for sick visit. HPI PMH incl chronic back pain, nephrolithiasis, KIMMY, preDM, fatty liver, microscopic hematuria, OA XR 04/2024 XR/XR lumbar spine 4V min IMPRESSION: Mild multilevel degenerative disc disease. On med list are diclofenac gel and lidocaine patch Ibu 800mg Baclofen 10mg Here today for evaluation of back pain as well as rash on her right breast. Symptoms started a few days ago. Rash is associated with burning and itching. Has used calendula topically with some reliefof the itching. Denies new lotions, soaps, detergents. Last mammo was in March: BI-RADS 2. Mammo was diagnostic - patient was due for routine screening and (from note on mammo from radiology) Also, somewhat hazy nonenlarged lymph nodes noted on recent CT chest examination from 02/04/2024. Patient does report a recent RSV vaccine 3 months prior to today's exam Acute on chronic right lower back pain radiates to her right lower extremity. Ibuprofen helped but the pain returned. She denies urinary symptoms, fever, chills. On exam she has no CVAT. There is paraspinal tenderness low back. Pain is reproducible with knee raise and when lying down. For her breast exam there are no masses palpable in either breast. Right breast has many small excoriated pinpoint lesions, macular, no surrounding erythema. Rash extends from top of right breast to just over the superior border of the areola. There is left breast tenderness inner lower quadrant with palpation. Turkmen interpretation by Homa Fierro, medical assistant cardiology. Review of Systems Constitutional: Negative for chills and fever. HENT: Negative for sore throat. Eyes: Negative for visual disturbance. Respiratory: Negative for cough and shortness of breath. Cardiovascular: Negative for chest pain. Gastrointestinal: Negative for constipation. Genitourinary: Negative for dysuria, flank pain, pelvic pain and urgency. Musculoskeletal: Positive for back pain. Skin: Positive for rash. Neurological: Negative for weakness. Patient Active Problem List Diagnosis Chronic allergic rhinitis Degenerative disc disease, lumbar History of cholecystectomy BMI 33.0-33.9,adult Obstructive sleep apnea Osteoarthritis Prediabetes Fatty liver Nephrolithiasis Chronic gastroesophageal reflux disease Chronic back pain Mild persistent asthma Microscopic hematuria Frequent UTI Seasonal allergic rhinitis Objective BP 130/72 (BP Location: Right arm, Patient Position: Sitting, BP Cuff Size: Adult) Pulse 80 Temp 98 ??F (36.7 ??C) (Temporal) Resp 16 Wt 200 lb (90.7 kg) SpO2 100% BMI 34.33 kg/m?? Physical Exam Constitutional: General: She is not in acute distress. Appearance: Normal appearance. She is not ill-appearing. HENT: Head: Normocephalic and atraumatic. Eyes: Extraocular Movements: Extraocular movements intact. Cardiovascular: Rate and Rhythm: Normal rate and regular rhythm. Pulmonary: Effort: Pulmonary effort is normal. No accessory muscle usage or respiratory distress. Chest: Comments: For her breast exam there are no masses palpable in either breast. Right breast has many small excoriated pinpoint lesions, macular, no surrounding erythema or distinct border to area. Rashextends from top of right breast to just over the superior border of the areola. There is left breast tenderness inner lower quadrant with palpation. Musculoskeletal: Right lower leg: No edema. Left lower leg: No edema. Comments: no CVAT. There is paraspinal tenderness low back. Pain is reproducible with knee raise and when lying down. Neurological: Mental Status: She is alert and oriented to person, place, and time. Psychiatric: Mood and Affect: Mood normal. Behavior: Behavior normal. Diagnoses and all orders for this visit: Rash ?etiology -eczema versus inflammatory malig (exam does not appear consistent with this), cellulitis, herpes zoster vs ? No erythematous base and no papules or vesicles to suggest VZV, no patches or plaques, does not appear consistent with atopic Derm. No erythema to suggest cellulitis. Recommend she use cool compresses. I will order mammo and inquire with PCP as to what she would recommend next. Low back pain, unspecified back pain laterality, [...] ALIMENTO CUANDO SEA NECESARIO PARA EL DOLOR documented in this encounter Miscellaneous Notes * Addendum Note - RAHUL Caldwell - 11/20/2024 3:00 PM ESTAddended by: GIRISH WASHBURN on: 12/04/2024 05:45 PM Modules accepted: Orders documented in this encounter Plan of Treatment Scheduled Orders Name Type Priority Associated Diagnoses Orde r Schedule BI DIG DIAGNOSTIC MAMMO BILATERAL Imaging Routine Rash Breast pain Expected: 11/20/2024, Expires: 01/18/2026 BI US Breast Limited Left Imaging Routine Breast pain Expected: 11/20/2024, Expires: 01/18/2026 Scheduled Referrals Name Type Priority Associated Diagnoses Order Schedule Referral to Dermatology Outpatient Referral Urgent Rash Expected: 12/04/2024 (Approximate), Expires: 12/04/2025 documented as of this encounter Procedures Procedure Name Priority Date/Time Associated Diagnosis Comments POCT URINALYSIS DIPSTICK Routine 11/20/2024 3:40 PM EST Low back pain, unspecified back pain laterality, unspecified chronicity, unspecified whether sciatica present documented in this encounter Results * (ABNORMAL) POCT urinalysis dipstick manually [...] UA OK Urine 11/20/2024 3:40 PM EST us Girish KAY POINT OF CARE TEST ENTER/EDIT OR DERABLES Final Result documented in this encounter Visit Diagnoses Diagnosis Rash- Primary Rash and other nonspecific skin eruption Low back pain, unspecified back pain laterality, unspecified chronicity, unspecified whether sciatica present Breast pain Mastodynia documented in this encounter Additional Health Concerns Assessment Noted Time PHQ-9 Depression Total Score: 0 11/12/19 24 11:26 AM EST documented as of this encounter Care Teams Appliance Assembler Relationship Specialty Start Date End Date Lorrie Reyes DO [address] [place] [phone] PCP - General Family Medicine 07/19/15 Michi Mahan Covering Machine OperatorManager Administrative Services 04/17/24 documented as of this encounter
--- OUTSIDE RECORDS SUMMARY | 2024-12-12 13:58 | XMS_ITS | Encounter Summary ---
Author Organization [employer] Address [address] [facility] [address] [place] [address] Care Team Providers Care Auto Damage Estimator Name Role Phone Lorrie Reyes DO Primary Care Provider + [phone] Encounter Details Date Type Department Care Team ([facility] st Contact Info) Description 12/06/2024 Telephone [facility] [address] [place] [address] Kaela Austin RN Social History Tobacco Use Types Packs/Day Years [...] encounter Miscellaneous Notes * Telephone Encounter - Kaela Austin RN - 12/06/2024 4:11 PM EST Tc to pt via bls id: [id number] to let them know per covering provider Please let patient know,I spoke with PCP as well as nurse potato chip frier regarding plan of care. I have sent her a cream to help with the pain and itching and I have placed a referral for dermatology. Hopefully by now she is gotten her mammogram scheduled but please assist if not. Pt verbalized understanding and reports they are scheduled to have their mammogram done on 12/12/24. Pt denies any further questions or concerns at this time. Pt advised to f/u with PCP as needed. documented in this encounter Plan of Treatment Not on file documented as of this encounter Visit Diagnoses Not on filedocumented in this encounter Additional Health Concerns Assessment Noted Time PHQ-9 Depression Total Score: 0 11/12/19 24 11:26 AM EST documented as of this encounter Care Teams Auto Damage Estimator Relationship Specialty Start Date End Date Lorrie Reyes DO [address] [place] [address] PCP - General Family Medicine 07/19/15 Michi Mahan Monument InstallerCarburetor Repairer 04/17/24 documented as of this encounter
== END 2024-12-12 13:51 | disposition home or self-care (01) ==
LOC: HO.MAMMO 13:50
PROVIDERS: PCP Family Medicine; Visit Provider Nurse Practitioner Primary Care
DX: R21 Rash and other nonspecific skin eruption (principal); N64.4 Mastodynia
CPT/HCPCS: 76642; 77062; 77066

== ENCOUNTER → 2024-12-12 14:15 | Outpatient (BNV) | payer MEDICAID, SELFPAY | PROVIDERS: PCP Family Medicine; Visit Provider Internal Medicine | DX: N64.59 Other signs and symptoms in breast (principal) | CPT/HCPCS: 76642; 77062; 77066 ==

== ENCOUNTER 2025-02-23 11:57 | Outpatient (REF) | payer MEDICAID, SELFPAY ==
--- OUTSIDE RECORDS SUMMARY | 2025-02-23 12:53 | XMS_ITS | Encounter Summary ---
Author Organization [email or web address] Address [address] [facility] 7[address] [place] [address] Care Team Providers Care School Cafeteria Cook Name Role Phone Lorrie Reyes DO Primary Care Provider + [phone] Encounter Details Date Type Department Care Team ([facility] st Contact Info) Description 02/18/2024 Orders Only [facility] [address] [place] [address] ProviderAbraham MD Social History Tobacco Use Types [...] documented as of this encounter Care Teams School Cafeteria Cook Relationship Specialty Start Date End Date Lorrie Reyes DO [address] [place] [address] PCP - General Family Medicine 07/19/15 Michi Mahan DehornerClinic Office Assistant 04/17/24 documented as of this encounter
--- OUTSIDE RECORDS SUMMARY | 2025-02-23 12:53 | XMS_ITS | Encounter Summary ---
Author Organization [employer] Address [address] [facility] [address] [place] [address] Care Team Providers Care Shoe Stainer Name Role Phone Amy Lorrie Primary Care Provider + [phone] Encounter Details Date Type Department Care Team (Latest Contact Info) Description 02/23/2025 Travel Social History Tobacco Use Types Packs/Day Years [...] Date Recorded Patient Health Questionnaire-9 Score 0 02/23/2025 Patient Health Questionnaire-9 Score 0 02/23/2025 Last PHQ-9: Questionnaire Data Not on file 0 02/23/2025 Housing Stability Answer Date Recorded What is your housing situation today? I have [employer] 02/23/[address] you li ve. Do you have problems with any of the following? None of the above 02/23/2025 Food Insecurity Answer Date Recorded Within the past 12 months, y ou worried that your food would run out before you got money to buy more: Never True 02/23/2025 Within the past 12 months,th e food you bought just didn't last and you didn't have enough money to get more: Never True Transportation Answer Date Recorded In the past 12 months, has l ack of transportation kept you from medical appts, meetings, work or from getting things needed for daily living? No 02/23/2025 Utilities Answer Date Recorded In the past 12 months, has t he electric, gas, oil or water company threatened to shut off services in your home? No 02/23/2025 Depression Answer Date Recorded Patient Health Questionnaire-2 Score 0 02/23/2025 Internet Access Answer Date Recorded Internet Access Q1 No 02/23/2025 Internet Access Q2 I do not want or need it 02/06 Comments Unknown Sex and Gender Information Value [...] Noted Time PHQ-9 Depression Total Score: 0 02/24/20 25 11:21 AM EDT documented as of this encounter Care Teams Shoe Stainer Relationship Specialty Start Date End Date Lorrie Reyes DO [address] [place] [address] PCP - General Family Medicine 07/19/15 Michi Mahan Mover HelperDisability Program Navigator 04/17/24 documented as of this encounter
--- OUTSIDE RECORDS SUMMARY | 2025-02-23 12:53 | XMS_ITS | Clinical Summary ---
Author Organization [employer] Address [address] [place] [address] 7 [place] [address] Care Team Providers Care Container Finishing Inspector Name Role Phone Amy Lorrie Primary Care Provider + [phone] Allergies Active Allergy Reactions Criticality Noted Date [...] D A DO NOT RINSE 023 Active Alcohol Swabs (Alcohol Prep) pads 1 each 2 times daily. 60 each 1 023 Active Lancets Ultra Thin 30G misc 1 each 3 times daily. 100 each 1 023 Active glucose blood (FREESTYLE LITE) test strip Use 2x/day 100 strip 1 023 Active albuterol (2.5 MG/3ML) 0.083% nebulizer solution Take 3 mL (2.5 mg) by nebulization every 4 (four) hours if needed for wheezing or shortness of breath. 75 mL 1 024 Active Asmanex HFA 200 MCG/ACT aerosol INHALE 1 PUFF POR VIA ORAL 2 TIMES DAILY 13 g 11 024 Active citalopram (CeleXA) 10 MG tablet TAKE 1 TABLET BY ORAL ROUTE EVERY DAY 90 tablet 1 Active D3 50 MCG (1999 UT) tablet TAKE 1 TABLET BY MOUTH [...] LAYO TABLETA TODOS [facility] 90 tablet 3 Active Diclofenac Sodium 1 % gelIndications: Acute left-sided low back pain with bilateral sciatica Apply 2 g topically if needed in the morning, at noon, in the evening, and at bedtime (pain). 100 g 3 024 2024 Active Myrbetriq 50 MG 24 hr tablet [...] of candidiasis. Do not swallow. 1 each 024 2024 Active baclofen (Lioresal) 10 MG [...] bedtime for rash. 45 g 025 Active Blood Glucose Monitoring Suppl (Dynamics ResearchStyle Lite) w/Device kit 1 each by Other route 2 times daily. USE TO TEST BLOOD SUGAR TWICE A DAY 1 kit 025 Active albuterol (Ventolin HFA) 108 (90 Base) MCG/ACT inhalerIndicati ons:Mild intermittent asthma, unspecified whether complicated INHALE 2 PUFFS EVERY 4 TO 6 HOURS NEEDED FOR COUGH, WHEEZE, SHORTNESS OF BREATH 18 g 1 025 Active Dulaglutide (Trulicity) 3 MG/0.5ML solution auto-injector Inject 3 mg under the skin 1 (one) time per week. 2 mL 3 025 Active mupirocin (Bactroban) 2 % ointment Apply topically 3 times daily for 10 days. 22 g 025 2024 Active estradiol (Estrace) 0.1 MG/GM vaginal cream Insert 1 g into the vagina 3 (three) times a week. 42.5 g 024 2024 dulaglutide (Trulicity) 1.5 MG/0.5ML solution pen-injector Inject 1.5 mg under the skin 1 (one) time per week. 4 each 11 024 2024 Discontinued(D ose adjustment) albuterol (Ventolin HFA) 108 (90 Base) MCG/ACT inhalerIndicati ons:Mild intermittent asthma, unspecified whether complicated INHALE 2 PUFFS EVERY 4 TO 6 HOURS NEEDED FOR COUGH, WHEEZE, SHORTNESS OF BREATH 18 g 1 025 2024 Discontinued Active Problems Problem Noted Date Diagnosed Date [...] 11/12/2023 Nephrolithiasis 02/08/2023 Chronic gastroesophageal reflux disease 02/09/20 23 Obstructive sleep apnea 11/04/2022 Prediabetes 11/04/2022 Assessment & Plan (01/28/2024 1:42 PM EDT): -continue trulicity weekly -repeat A1c with fasting labs Fatty liver 11/06/2016 History of cholecystectomy 10/23/2016 Chronic allergic rhinitis 10/28/2015 Assessment & Plan (01/28/2024 1:42 PM EDT): Sx uncontrolled -encouraged sirena daily -change flonase to nasacort daily -continue azelastine prn -consider addition of singulair -consider re-eval with assembler dc field ring if no improvement Degenerative disc disease, lumbar [...] w infec posisble reactive airway -benzonate -cepacol -[place] nasal spray -tylenol prn -Rest 48 h [...] Encounters Date Type Department Care Team Description 02/23/2025 11:00 AM EDT Office Visit [facility] [address] [place] [address] Lorrie Reyes DO Fatty liver (Primary Dx); Prediabetes; Moderate persistent asthma without complication; Chronic allergic rhinitis; Obstructive sleep apnea; Nephrolithiasis; Microscopic hematuria; Chronic GERD; Chronic bilateral low back pain without sciatica; Subcutaneous nodule; Sternum pain; Folliculitis; Healthcare maintenance 02/23/2025 Travel 02/13/2025 Refill [facility] [address] [place] [address] Lorrie Reyes DO Mild intermittent asthma, unspecified whether complicated 01/19/2025 Population Health Risk Score [facility] (C[facility]) Department [address] [place] [address] [phone] Provider, Population Health Generic 12/27/2024 Telephone [facility] [address] [place] [address] Lorrie Reyes DO Recall Appt. 12/27/2024 Travel 12/20/2024 Refill [facility] [address] [place] [address] Lorrie Reyes DO Mild intermittent asthma, unspecified whether complicated 12/12/2024 Telephone [facility] [address] [place] [address] Kaela Austin, LEE 12/12/2024 Orders Only [facility] [address] [place] [address] Girish Washburn ANP 12/06/2024 Telephone [facility] [address] [place] [address] Kaela Austin RN from Last 3 Months Immunizations Name Administration [...] Sign Reading Time Taken Comments Blood Pressure 141/79 02/23/2025 11:19 AM EDT Pulse 71 02/23/2025 11:19 AM EDT Temperature 36.4 ??C (97.6 ??F) 02/23/2025 11:19 AM E DT Respiratory Rate 16 02/23/2025 11:19 AM EDT Oxygen Saturation 96% 02/23/2025 11:19 AM EDT Inhaled Oxygen Concentration - - Weight 94 kg (207 lb 3.2 oz) 02/23/2025 11:19 AM EDT Height 162.6 cm (5' 4 ) 02/23/2025 11:19 AM EDT Body Mass Index 35.57 02/23/2025 11:19 AM EDT Plan of Treatment Health Maintenance Due Date Last Done Comments CT Colonography 1962 FIT DNA/Cologuard 1962 FIT 1962 FOBT 1960 Sigmoidoscopy 1962 Pap Smear 1983 Colonoscopy 02/23/2022 02/23/2017 Colorectal Cancer Screening 02/23/2022 COVID-19 Vaccine ( season) 2024 11/28/2022 Influenza Vaccine (#1) 2024 , 08/04/2022, 08/05/2021, Additional history exists Cervical Cancer Screening 07/24/2024 HPV/Cotest 07/24/2024 07/24/2019 Diabetes: Hemoglobin A1C 08/16/2025 024, 01/28/2024, 11/23/2023, Additional history exists Mammogram 12/12/2025 12/12/2024, 0202/2025, 03/15/2024, Additional history exists Alcohol/Substance Use Screening 02/23/2026 02/23/2025 Depression Screening 02/23/2026 02/23/2025, 02/24/20 25 SDOH Screening 02/23/2026 02/23/2025 Tobacco Screening 02/23/2026 02/23/2025 DTaP/Tdap/Td Vaccines (3 - Td or Tdap) [...] Procedure Name Priority Date/Time Associated Diagnosis Comments BI US BREAST LIMITED BILATERAL Routine 12/12/2024 2:45 PM EST BI MAMMOGRAM DIAGNOSTIC TOMOSYNTHESIS BILATERAL Routine 12/12/2024 2:00 PM EST HEMOGLOBIN A1C Routine 08/16/2024 9:49 AM EDT Fatty liver Prediabetes HEPATITIS C AB W/REFL TO HCV RNA, [...] ZZZ HISTORICAL HPV E6/E7 RFLX DARA 16 18/45 Routine 07/24/2019 10:55 AM EDT HM COLONOSCOPY Routine 02/23/2017 9:54 AM EDT from Last 3 Months or Most Recently Relevant to Health Maintenance Results * BI US Breast Limited Bilateral (12/12/2024 2:45 PM EST) Anatomical Region Laterality Modality Breast Bilateral Ultrasound 12/12/2024 2:45 PM EST Narrative 12/12/2024 3:24 PM EST ? [facility] [place] ? [address] ?[place] [address] ? Ultrasound Report ? Signed ? Patient: Adan,Ele ?MR#: [id number] ?? [id number] ? : 1960 ?Acct:[id number] ? Age/Sex: 63 / F ?ADM Date: 02/04/25 ? Loc: HO.MAMMO ? Attending Dr: Girish Washburn TELEVISION MAINTENANCE WORKER ? Ordering Physician: GIRISH WASHBURN NP ?? Date of Service: 12/12/24 ?? Procedure(s): US breast BI limited mamm only ?? Accession Number(s): [id number] ? cc: Lorrie Reyes DO; GIRISH WASHBURN NP ? EXAMINATION: ?? MM DIAGNOSTIC DIGITAL BREAST TOMOSYNTHESIS, BILATERAL ? Limited left breast ultrasound. ? CLINICAL INFORMATION: ? Right breast fracture which is improving with cream. ?? Bilateral itchy and burning nipples. ? COMPARISON: ?? Mammography: Comparison is made with relevant prior exams. ? TECHNIQUE: ?? Digital breast mammography with tomosynthesis is performed in both the ?? craniocaudal and mediolateral oblique views along with computer-aided ?? detection (CAD). ?? Limited left breast ultrasound. ? FINDINGS: ?? There are scattered areas of fibroglandular density (ACR BI-RADS breast ?? composition Category b). ? There are no significant masses, abnormal calcifications, or other ?? abnormalities. ? Targeted color Doppler ultrasound scanning in the bilateral ?? retroareolar regions demonstrates normal fibronodular breast tissue. ?? There is no sonographic abnormality. ? Results are provided to the patient at time of visit by the ?? technologist. ? US/US breast BI limited mamm only ?? IMPRESSION: ?? No mammographic or sonographic abnormality to account for the bilateral ?? retroareolar pain and symptoms. ?? Recommend clinical evaluation and follow-up. ? Patient describes a right breast rash. If rash does not resolve ?? recommend breast surgical consultation for further evaluation and ?? potential punch biopsy. ? ASSESSMENT: ? BI-RADS BI-RADS 1 - Negative ? RECOMMENDATION: ?? 1 year F/U ? This patient's information was entered into a reminder system with a ?? target due date for their next mammogram. ? Electronically signed by: ??Latasha Janetqueenie DO ??12/12/2024 03:21 PM EST ?? RP ? Dictated By: ?Latasha Julio DO ? Signed By: ?<Electronically signed by Latasha Julio, DO in OV> ? 12/12/24 1521 ? DD/ 1445 ? TD/TT: 12/12/24 1516 ? Factory Laborer: ? Procedure Note Kiran, Image - 12/12/2024 [place] [address] [place] [address] Ultrasound Report Signed Patient: Ele AdanMR#: [id number] : 1960Acct:[id number] Age/Sex: 63 / FADM Date: 12/12/24 Loc: HO.MAMMO Attending Dr: Girish Washburn NP Ordering Physician: GIRISH WASHBURN NP Date of Service: 12/12/24 Procedure(s): US breast BI limited mamm only Accession Number(s): [id number] cc: Lorrie Reyes DO; GIRISH WASHBURN NP EXAMINATION: MM DIAGNOSTIC DIGITAL BREAST TOMOSYNTHESIS, BILATERAL Limited left breast ultrasound. CLINICAL INFORMATION: Right breast fracture which is improving with cream. Bilateral itchy and burning nipples. COMPARISON: Mammography: Comparison is made with relevant prior exams. TECHNIQUE: Digital breast mammography with tomosynthesis is performed in both the craniocaudal and mediolateral oblique views along with computer-aided detection (CAD). Limited left breast ultrasound. FINDINGS: There are scattered areas of fibroglandular density (ACR BI-RADS breast composition Category b). There are no significant masses, abnormal calcifications, or other abnormalities. Targeted color Doppler ultrasound scanning in the bilateral retroareolar regions demonstrates normal fibronodular breast tissue. There is no sonographic abnormality. Results are provided to the patient at time of visit by the technologist. US/US breast BI limited mamm only IMPRESSION: No mammographic or sonographic abnormality to account for the bilateral retroareolar pain and symptoms. Recommend clinical evaluation and follow-up. Patient describes a right breast rash. If rash does not resolve recommend breast surgical consultation for further evaluation and potential punch biopsy. ASSESSMENT: BI-RADS BI-RADS 1 - Negative RECOMMENDATION: 1 year F/U This patient's information was entered into a reminder system with a target due date for their next mammogram. Electronically signed by: Latasha Julio DO 12/12/2024 03:21 PM [facility] [place] [place] Dictated By: Latasha Julio DO Signed By: <Electronically signed by Latasha Julio DO in OV> 12/12/24 1521 DD/ 1445 TD/TT: 12/12/24 1516 Factory Laborer: us Girish Washburn ANP IMG US PROCEDURES Final Result * BI Mammogram Diagnostic Tomosynthesis Bilateral (12/12/2024 2:00 PM EST) Anatomical Region Laterality Modality Breast Bilateral Mammography 12/12/2024 2:00 PM EST Narrative 12/12/2024 3:24 PM EST ? [facility] [place] ? [address] ?[place], [place] [address] ? Mammography Report ? Signed ? Patient: Adan,Ele ?MR#: [id number] ?? [id number] ? : 1960 ?Acct:[id number] ? Age/Sex: 63 / F ?ADM Date: 12/12/24 ? Loc: HO.MAMMO ? Attending Dr: Girish Washburn TELEVISION MAINTENANCE WORKER ? Ordering Physician: GIRISH WASHBURN NP ?Results: 1Negative ? Date of Service: 12/12/24 ?Follow Up: 1 Year From Orig ?? inal Mammogram ? Procedure(s): MM tomosynthesis diagnostic BI ?? Accession Number(s): [id number] ? cc: Lorrie Reyes DO; GIRISH WASHBURN NP ? EXAMINATION: ?? MM DIAGNOSTIC DIGITAL BREAST TOMOSYNTHESIS, BILATERAL ? Limited left breast ultrasound. ? CLINICAL INFORMATION: ? Right breast fracture which is improving with cream. ?? Bilateral itchy and burning nipples. ? COMPARISON: ?? Mammography: Comparison is made with relevant prior exams. ? TECHNIQUE: ?? Digital breast mammography with tomosynthesis is performed in both the ?? craniocaudal and mediolateral oblique views along with computer-aided ?? detection (CAD). ?? Limited left breast ultrasound. ? FINDINGS: ?? There are scattered areas of fibroglandular density (ACR BI-RADS breast ?? composition Category b). ? There are no significant masses, abnormal calcifications, or other ?? abnormalities. ? Targeted color Doppler ultrasound scanning in the bilateral ?? retroareolar regions demonstrates normal fibronodular breast tissue. ?? There is no sonographic abnormality. ? Results are provided to the patient at time of visit by the ?? technologist. ? MM/MM tomosynthesis diagnostic BI ?? IMPRESSION: ?? No mammographic or sonographic abnormality to account for the bilateral ?? retroareolar pain and symptoms. ?? Recommend clinical evaluation and follow-up. ? Patient describes a right breast rash. If rash does not resolve ?? recommend breast surgical consultation for further evaluation and ?? potential punch biopsy. ? ASSESSMENT: ? BI-RADS BI-RADS 1 - Negative ? RECOMMENDATION: ?? 1 year F/U ? This patient's information was entered into a reminder system with a ?? target due date for their next mammogram. ? Electronically signed by: ??Latasha Julio DO ??12/12/2024 03:21 PM EST ?? RP ? Dictated By: ?Sumanth,Latasha DO ? Signed By: ?<Electronically signed by Latasha Julio, DO in OV> ? 12/12/24 1521 ? DD/ 1400 ? TD/TT: 12/12/24 1420 ? Factory Laborer: ? Procedure Note Eduardo Beck - 12/12/2024 [facility] [address] [place], [place] [address] Mammography Report Signed Patient: Jaguar Adantess#: [id number] : 1960Acct:[id number] Age/Sex: 63 / FADM Date: 12/12/24 Loc: HO.MAMMO Attending Dr: Girish Washburn TELEVISION MAINTENANCE WORKER Ordering Physician: GIRISH WASHBURN NPResults: 1Negative Date of Service: 12/12/24Follow Up: 1 Year From Orig ina Mammogram Procedure(s): MM tomosynthesis diagnostic BI Accession Number(s): [id number] cc: Lorrie Reyes DO; GIRISH WASHBURN NP EXAMINATION: MM DIAGNOSTIC DIGITAL BREAST TOMOSYNTHESIS, BILATERAL Limited left breast ultrasound. CLINICAL INFORMATION: Right breast fracture which is improving with cream. Bilateral itchy and burning nipples. COMPARISON: Mammography: Comparison is made with relevant prior exams. TECHNIQUE: Digital breast mammography with tomosynthesis is performed in both the craniocaudal and mediolateral oblique views along with computer-aided detection (CAD). Limited left breast ultrasound. FINDINGS: There are scattered areas of fibroglandular density (ACR BI-RADS breast composition Category b). There are no significant masses, abnormal calcifications, or other abnormalities. Targeted color Doppler ultrasound scanning in the bilateral retroareolar regions demonstrates normal fibronodular breast tissue. There is no sonographic abnormality. Results are provided to the patient at time of visit by the technologist. MM/MM tomosynthesis diagnostic BI IMPRESSION: No mammographic or sonographic abnormality to account for the bilateral retroareolar pain and symptoms. Recommend clinical evaluation and follow-up. Patient describes a right breast rash. If rash does not resolve recommend breast surgical consultation for further evaluation and potential punch biopsy. ASSESSMENT: BI-RADS BI-RADS 1 - Negative RECOMMENDATION: 1 year F/U This patient's information was entered into a reminder system with a target due date for their next mammogram. Electronically signed by: Latasha Julio DO 12/12/2024 03:21 PM [facility] [place] [place] Dictated By: Latasha Julio DO Signed By: <Electronically signed by Latasha Julio DO in OV> 12/12/24 1521 DD/ 1400 TD/TT: 12/12/24 1420 Factory Laborer: Girish Washburn ANP IMG BI PROCEDURES Final Result * Hemoglobin A1c (08/16/2024 9:49 AM EDT) Hemoglobin A1c 5.7 <6.0 % [facility] Comment:Hemoglobin A1C Refer ence Range Adults: 4.8 - 6.0 % Non diabetic: < 6.0 % Goal: < 7.0 %Additional Action Suggested: > 8.0 %Note: Hemoglobin A1c results are invalid for patients with abnormal amounts of HbF. Blood transfusions may impact the HbA1c concentration in the patient sample. Estimated Average Glucose 117 mg/dL [facility] Comment:eAG = Estimated ave rage glucose which is %A1C expressed asaverage glucose, using the formula of the [id number] Glucose study (ADAG), Diabetes Care, Vol.31,#8,Jun. 2007 Blood Venous blood specimen / Unknown 08/16/2024 9:49 AM EDT 08/16/2024 11:31 AM EDT Lorrie Reyes LAB BLOOD ORDERABLES Final R esult Performing Organization Address City/[facility] Co de Phone Number [facility] [address] [place] [phone] * Hepatitis C Antibody with Reflex to HCV, RNA, Quantitative, Real-Time PCR (11/23/2023 1:26 PM EST) Pathologist [facility] Hepatitis C Antibody Nonreactive Nonreactive [facility] Comment:Antibodies to HCV no t detected; does not exclude early acuteHCV infection. Blood Venous blood specimen / Unknown 11/23/2023 1:26 PM EST 11/23/2023 3:54 PM EST Lorrie Reyes [employer] LAB BLOOD ORDERABLES Final R esult Performing Organization Address City/[facility] Co de Phone Number [facility] [address] [place] [phone] * HIV-1/2 Antigen and Antibodies, Fourth Generation, with Reflexes (11/23/2023 1:26 PM EST) Pathologist [facility] HIV AB/AG Nonreactive Nonreactive [facility] Comment:HIV-1 p24 Ag and/or HIV-1/HIV-2 Ab not detected.A test result that is nonreactive does not exclude thepossibility of exposure to or infection with HIV-1 and/orHIV-2. Nonreactive results in this assay for individualswith prior exposure to HIV-1 and/or HIV-2 may be due toantigen and antibody levels that are below the limit ofdetection of this assay.The [employer] HIV Ag/Ab Combo assay result andsupplemental assay results should be interpreted inconjunction with the patient's clinical presentation,history and other laboratory results. If the results areinconsistent with clinical evidence, additional testing issuggested to confirm the result. Blood Venous blood specimen / Unknown 11/23/2023 1:26 PM EST 11/23/2023 3:54 PM EST us Lorrie Reyes DO LAB BLOOD ORDERABLES Final R esult [facility] [address] [place] [phone] * HPV E6/E7 RFLX DARA 16 18/45 (07/24/2019 10:55 AM EDT) HPV mRNA E6/E7 Not Detected NOT DETECTED [facility] Comment: This test was performed using the APTIMA(R) HPV Assay ([employer] This assay detects E6/E7 viral messenger RNA (mRNA) from 14 high-risk HPV types (16,18,31,33,35,39,45,51, 52,56,58,59,66,68). For additional information please refer to: http://education.NetVision.CogniTens/faq/HVO201x1 (This link is being provided for informational/ educational purposes only.) The analytical performance characteristics of this assay have been determined by [employer] [place], [place]. The modifications have not been cleared or approved by the FDA. This assay has been validated pursuant to the CLIA regulations and is used for clinical purposes. Please note: ??Effective 07/20/2016, HPV testing will be performed using [employer]'s APTIMA test which targets mRNA. Detecting mRNA instead of DNA, as in older methods, offers significant improvements in specificity. ADDITIONAL TESTING Not indicated () [facility] Comment: Test Performed by Jaleesa Martin, [employer] [facility] [facility], [address] [place], [place] Aamir Lerner M.D., Ph.D., Director of Laboratories , [facility] [id number] HPV 16 RNA Test not performed [facility] HPV 18/45 RNA Test not performed [facility] 07/24/2019 10:5 5 AM EDT Lorrie Reyes DO HISTORICAL/NON ORDERABLE LAB S Final Result [facility] [address] [place] [address], * Hm Colonoscopy (02/23/2017 9:54 AM EDT) Historical Provider HEALTH MAINTENANCE Final Result from Last 3 Months or Most Recently Relevant to Health Maintenance Insurance [facility] C3 Care Teams Container Finishing Inspector Relationship Specialty Start Date End Date Lorrie Reyes DO [address] [place] [phone] PCP - General Family Medicine 07/19/15 Michi Mahan Rehabilitation SupervisorCaul Dresser 04/17/24
--- OUTSIDE RECORDS SUMMARY | 2025-02-23 12:53 | XMS_ITS | Encounter Summary ---
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
--- OUTSIDE RECORDS SUMMARY | 2025-02-23 12:53 | XMS_ITS | Data Portability ---
Author Organization [place] [facility], Allergy Address [address] [place] [id number] Care Team Providers Care Country Singer Name Role Phone ZHANNA MEZA Primary Care Provider [phone] Assessment Encounter Date Assessment Date Assessment LastModified by Organization Details LastModified Time 10/27/2024 10/27/2024 Hx of allergy an d sinus congestion. Hx of asthma on symbicort, Atrovent, loratadine and pseudoephedrine. Previously on Asmanex, Trouble with her CPAP machine. Sensitive to smells and perfumes Chronic eye and nasal irritation. Significant allergy hx.--grasses and dust No hx of ASA or NSAID allergy Examination shows moderate turbinate hypertrophy with polypoid degeneration of the middle turbinates. She has allergic rhinitis and moderate asthma. Suggest she stop the ipratropium and pseudoephedrine preparations and instead use topical eyedrops, Astelin and fluticasone. I will also add montelukast. Will arrange for IgE level, RAST panel and CBC with differential Consider CT scan if sx persist jacinda Not available 10/27/2024 13:38:33 Plan of Treatment Reminders Order Date Submit Date Provider Last Modified By Organization Details Last Modified Time Details Appointments None record ed. Lab unlist ed lab - allerg ens, zone 1 2023 024 FABIAN [facility] (Centralized Electronic Ordering - All Locations), Patient Can Go To The Location Of Their Choice, [id number] 18:16:16 nettle IgE Ab, serum 2023 024 [email or web address] [facility] (Centralized Electronic Ordering - All Locations), Patient Can Go To The Location Of Their Choice, 5 15:38:24 bahia grass IgE Ab, quanti tative , serum 2023 [address] [facility] ([facility] - All Locations), Patient Can Go To The Location Of Their Choice, 5 15:38:24 bermud a grass ige, serum 2023 024 [facility] - [facility]ations), Patient Can Go To The Location Of Their Choice, 5 15:38:24 englis h planta in ige, serum 2023 024 [facility] - [facility] Locations), Patient Can Go To The Location Of Their Choice, 5 15:38:24 ige, total, serum 2023 FABIAN [facility] (Centralized Electronic Ordering - All Locations), Patient Can Go To The Location Of Their Choice, [id number] 4 18:16:17 CBC w/ auto diff 2023 FABIAN [facility] (Centralized Electronic Ordering - All Locations), Patient Can Go To The Location Of Their Choice, [address] 18:16:16 Referral None record ed. Procedures None record ed. Surgeries None record ed. Imaging CT, sinuse s, w/o contra st 2024 025 ab[facility]kjohn [facility], [address] [place] [address], [phone], 5 15:15:31 Medication Orders olopat adine 0.2 % eye drops 2023 024 [facility]/Pharmacy #[id number], [address] [place], [address], 4 13:38:07 azelas roberto 137 mcg (0.1 %) nasal spray 2023 024 [facility]/Pharmacy #[id number], [address] [place], [address], 4 13:38:07 flutic asone propio tash 50 mcg/ac tuatio n nasal spray, suspen ho 2023 024 [facility]/Pharmacy #[id number], [address] [place], [address], 4 13:38:06 lazara ukast 10 mg tablet 2023 024 [facility]/Pharmacy #[id number], [address] [place], [address], 4 13:38:07 Patient TargetsNo targets recorded. Patient Instructions Encounter Date Encounter Id Patient Instructions Last Modified By Organization Details Last Modified Time 02/07/2025 [id number] Patient with diagnosis of allergic rhinitis, moderate persistent asthma and turbinate hypertrophy. RAST panel and IgE level were normal. However she seems to respond to nasal steroids and topical antihistamines. Nasal endoscopy unchanged. Suggest CT of sinuses to rule out chronic sinusitis. No evidence of sinusitis on CT scan. She can hold off on the loratadine but use the azelastine and fluticasone. Follow-up in 6 months. We can consider turbinate reduction at some point in the future if she has persistent obstruction [email or web address] Not available 02/07/2025 13:32:25 Reason for Referral None Reported. Results Created Date Observation Date Name Description Value Unit Range Abnormal Flag Note LastModifiedBy Organization Detail LastModifiedTime 10/27/20 24 10/28/2024 CBC WITH DIFFE RENTI AL/PL ATELE T WBC 7.4 x10e3 /uL 3.4-10 .8 normal Not Available [facility] ([facility]) [address] [facility], [place], [address], 10/29/2024 18:16:15 10/27/20 24 10/28/2024 CBC WITH DIFFE RENTI AL/PL ATELE T RBC 4.46 x10e6 /uL 3.77-5 .28 normal Not Available [facility] ([facility]) [address] [facility], [place], [address], 10/29/2024 18:16:15 10/27/20 24 10/28/2024 CBC WITH DIFFE RENTI AL/PL ATELE T hemoglobin 13.8 g/dL 11.1-1 5.9 normal Not Available [facility] ([facility]) [address] [facility], [place], [address], 10/29/2024 18:16:15 10/27/20 24 10/28/2024 CBC WITH DIFFE RENTI AL/PL ATELE T hematocrit 42.2 % 34.0-4 6.6 normal Not Available [facility] ([facility]) [address] [facility], [place], [address], 10/29/2024 18:16:15 10/27/20 24 10/28/2024 CBC WITH DIFFE RENTI AL/PL ATELE T MCV 95 fL 79-97 normal Not Available [facility] ([facility]) [address] [place], [address], 10/29/2024 18:16:15 10/27/20 24 10/28/2024 CBC WITH DIFFE RENTI AL/PL ATELE T MCH 30.9 pg 26.6-3 3.0 normal Not Available [facility] ([facility]) [address] [place], [address], 10/29/2024 18:16:15 10/27/20 24 10/28/2024 CBC WITH DIFFE RENTI AL/PL ATELE T MCHC 32.7 g/dL 31.5-3 5.7 normal Not Available [facility] ([facility]) [address] [place], [address], 10/29/2024 18:16:15 10/27/20 24 10/28/2024 CBC WITH DIFFE RENTI AL/PL ATELE T RDW 13.1 % 11.7-1 5.4 Not Available [facility] ([facility]) [address] [facility], [place], [address], 10/29/2024 18:16:15 10/27/20 24 10/28/2024 CBC WITH DIFFE RENTI AL/PL ATELE T platelets 262 x10e3 /uL 150-45 0 normal Not Available [facility] ([facility]) [address] [facility], [place], [address], 10/29/2024 18:16:15 10/27/20 24 10/28/2024 CBC WITH DIFFE RENTI AL/PL ATELE T neutrophils 58 % not estab. normal Not Available [facility] ([facility]) [address] [facility], [place], [address], 10/29/2024 18:16:15 10/27/20 24 10/28/2024 CBC WITH DIFFE RENTI AL/PL ATELE T lymphs 37 % not estab. normal Not Available [facility] ([facility]) [address] [facility], [place], [address], 10/29/2024 18:16:15 10/27/20 24 10/28/2024 CBC WITH DIFFE RENTI AL/PL ATELE T monocytes 4 % not estab. normal Not Available [facility] ([facility]) [address] [facility], [place], [address], 10/29/2024 18:16:15 10/27/20 24 10/28/2024 CBC WITH DIFFE RENTI AL/PL ATELE T eos 1 % not estab. normal Not Available [facility] ([facility]) [address] [facility], [place], [address], 10/29/2024 18:16:15 10/27/20 24 10/28/2024 CBC WITH DIFFE RENTI AL/PL ATELE T basos 0 % not estab. normal Not Available [facility] ([facility]) [address] [facility], [place], [address], 10/29/2024 18:16:15 10/27/20 24 10/28/2024 CBC WITH DIFFE RENTI AL/PL ATELE T immature cells SECURITY TEAM LEAD Not Available [facility] ([facility]) [address] [place], [address], 10/29/2024 18:16:15 10/27/20 24 10/28/2024 CBC WITH DIFFE RENTI AL/PL ATELE T neutrophils (absolute) 4.3 x10e3 /uL 1.4-7. 0 normal Not Available [facility] ([facility]) [address] [place], [address], 10/29/2024 18:16:15 10/27/20 24 10/28/2024 CBC WITH DIFFE RENTI AL/PL ATELE T lymphs (absolute) 2.7 x10e3 /uL 0.7-3. 1 normal Not Available [facility] ([facility]) [address] [place], [address], 10/29/2024 18:16:15 10/27/20 24 10/28/2024 CBC WITH DIFFE RENTI AL/PL ATELE T monocytes(ab solute) 0.3 x10e3 /uL 0.1-0. 9 normal Not Available [facility] ([facility]) [address] [place], [address], 10/29/2024 18:16:15 10/27/20 24 10/28/2024 CBC WITH DIFFE RENTI AL/PL ATELE T eos (absolute) 0.1 x10e3 /uL 0.0-0. 4 normal Not Available [facility] ([facility]) [address] [place], [address], 10/29/2024 18:16:15 10/27/20 24 10/28/2024 CBC WITH DIFFE RENTI AL/PL ATELE T baso (absolute) 0.0 x10e3 /uL 0.0-0. 2 normal Not Available [facility] ([facility]) [address] [facility], [place], [address], 10/29/2024 18:16:15 10/27/20 24 10/28/2024 CBC WITH DIFFE RENTI AL/PL ATELE T immature granulocytes 0 % not estab. Not Available [facility] ([facility]) [address] [facility], [place], [address], 10/29/2024 18:16:15 10/27/20 24 10/28/2024 CBC WITH DIFFE RENTI AL/PL ATELE T immature grans (abs) 0.0 x10e3 /uL 0.0-0. 1 Not Available [facility] ([facility]) [address] [facility], [place], [address], 10/29/2024 18:16:15 10/27/20 24 10/28/2024 CBC WITH DIFFE RENTI AL/PL ATELE T NRBC SECURITY TEAM LEAD Not Available [facility] ([facility]) [address] [facility], [place], [address], 10/29/2024 18:16:15 10/27/20 24 10/28/2024 CBC WITH DIFFE RENTI AL/PL ATELE T hematology comments: SECURITY TEAM LEAD Not Available [facility] ([facility]) [address] [facility], [place], [address], 10/29/2024 18:16:15 10/27/20 24 10/27/2024 ALLER GENS, ZONE 1 class description Commen t Level s of Speci fic IgE Class Descr iptio n of Class ----- ----- ----- ----- ----- -- ----- ----- ----- ----- ----- < 0.10 0 Negat dylon 0.10 - 0.31 0/I Equiv ocal/ Low 0.32 - 0.55 I Low 0.56 - 1.40 II Moder ate 1.41 - 3.90 III High 3.91 - 19.00 IV Very High 19.01 - 100.0 0 V Very High >100. 00 Very High Not Available [facility] ([facility]) [address] [place], [address], 10/29/2024 18:16:16 10/27/20 24 10/29/2024 ALLER GENS, ZONE 1 J701-VgN D pteronyssinu s <0.10 kU/L class 0 Not Available [facility] ([facility]) [address] [place], [address], 10/29/2024 18:16:16 10/27/20 24 10/29/2024 ALLER GENS, ZONE 1 E746-SlF D farinae <0.10 kU/L class 0 Not Available [facility] ([facility]) [address] [place], [address], 10/29/2024 18:16:16 10/27/20 24 10/29/2024 ALLER GENS, ZONE 1 O193-XaL CAT dander <0.10 kU/L class 0 Not Available [facility] ([facility]) [address] [place], [address], 10/29/2024 18:16:16 10/27/20 24 10/29/2024 ALLER GENS, ZONE 1 J594-AmY dog dander <0.10 kU/L class 0 Not Available [facility] ([facility]) [address] [place], [address], 10/29/2024 18:16:16 10/27/20 24 10/29/2024 ALLER GENS, ZONE 1 f548-WyW bermuda grass <0.10 kU/L class 0 Not Available [facility] ([facility]) [address] [place], [address], 10/29/2024 18:16:16 10/27/20 24 10/29/2024 ALLER GENS, ZONE 1 z270-HqI bluegrass, [place] <0.10 kU/L class 0 Not Available [facility] ([facility]) [address] [place], [address], 10/29/2024 18:16:16 10/27/20 24 10/29/2024 ALLER GENS, ZONE 1 v500-KnZ bahia grass <0.10 kU/L class 0 Not Available [facility] ([facility]) [address] [place], [address], 10/29/2024 18:16:16 10/27/20 24 10/29/2024 ALLER GENS, ZONE 1 Z763-RkZ cockroach, prydeinig <0.10 kU/L class 0 Not Available [facility] ([facility]) [address] [facility], [place], [address], 10/29/2024 18:16:16 10/27/20 24 10/29/2024 ALLER GENS, ZONE 1 C727-UeU penicillium chrysogen <0.10 kU/L class 0 Not Available [facility] ([facility]) [address] [place], [address], 10/29/2024 18:16:16 10/27/20 24 10/29/2024 ALLER GENS, ZONE 1 W432-ZtH cladosporium herbarum <0.10 kU/L class 0 Not Available [facility] ([facility]) [address] [place], [address], 10/29/2024 18:16:16 10/27/20 24 10/29/2024 ALLER GENS, ZONE 1 V553-HvW aspergillus fumigatus <0.10 kU/L class 0 Not Available [facility] ([facility]) [address] [place], [address], 10/29/2024 18:16:16 10/27/20 24 10/29/2024 ALLER GENS, ZONE 1 A319-QiY mucor racemosus <0.10 kU/L class 0 Not Available [facility] ([facility]) [address] [place], [address], 10/29/2024 18:16:16 10/27/20 24 10/29/2024 ALLER GENS, ZONE 1 K826-PpA alternaria alternata <0.10 kU/L class 0 Not Available [facility] ([facility]) [address] [place], [address], 10/29/2024 18:16:16 10/27/20 24 10/29/2024 ALLER GENS, ZONE 1 E780-ToV stemphylium herbarum <0.10 kU/L class 0 Not Available [facility] ([facility]) [address] [place], [address], 10/29/2024 18:16:16 10/27/20 24 10/29/2024 ALLER GENS, ZONE 1 N807-YoU common silver birch <0.10 kU/L class 0 Not Available [facility] ([facility]) [address] [place], [address], 10/29/2024 18:16:16 10/27/20 24 10/29/2024 ALLER GENS, ZONE 1 K947-JuJ oak, white <0.10 kU/L class 0 Not Available [facility] ([facility]) [address] [place], [address], 10/29/2024 18:16:16 10/27/20 24 10/29/2024 ALLER GENS, ZONE 1 L289-AhT elm, prydeinig <0.10 kU/L class 0 Not Available [facility] ([facility]) [address] [place], [address], 10/29/2024 18:16:16 10/27/20 24 10/29/2024 ALLER GENS, ZONE 1 M939-AcO steph, white <0.10 kU/L class 0 Not Available [facility] [address] [facility] [place], [address], 10/29/2024 18:16:16 10/27/20 24 10/29/2024 ALLER GENS, ZONE 1 Y458-NyD maple/box elder <0.10 kU/L class 0 Not Available [facility] ([facility]) [address] [facility], [place], [address], 10/29/2024 18:16:16 10/27/20 24 10/29/2024 ALLER GENS, ZONE 1 B305-JcV hazelnut tree <0.10 kU/L class 0 Not Available [facility] ([facility]) [address] [facility], [place], [address], 10/29/2024 18:16:16 10/27/20 24 10/29/2024 ALLER GENS, ZONE 1 O402-PrG hickory, white <0.10 kU/L class 0 Not Available [facility] ([facility]) [address] [facility], [place], [address], 10/29/2024 18:16:16 10/27/20 24 10/29/2024 ALLER GENS, ZONE 1 W869-HyL white mulberry <0.10 kU/L class 0 Not Available [facility] ([facility]) [address] [facility], [place], [address], 10/29/2024 18:16:16 10/27/20 24 10/29/2024 ALLER GENS, ZONE 1 C768-NyQ cedar, mountain <0.10 kU/L class 0 Not Available [facility] ([facility]) [address] [facility], [place], [address], 10/29/2024 18:16:16 10/27/20 24 10/29/2024 ALLER GENS, ZONE 1 L440-GeQ ragweed, short <0.10 kU/L class 0 Not Available [facility] ([facility]) [address] [facility], [place], [address], 10/29/2024 18:16:16 10/27/20 24 10/29/2024 ALLER GENS, ZONE 1 P403-CoR mugwort <0.10 kU/L class 0 Not Available [facility] ([place]) [address], [place], [address], 10/29/2024 18:16:16 10/27/20 24 10/29/2024 ALLER GENS, ZONE 1 F276-UxM plantain, macedonian <0.10 kU/L class 0 Not Available [facility] ([place]) [address] [facility], [place], [address], 10/29/2024 18:16:16 10/27/20 24 10/29/2024 ALLER GENS, ZONE 1 C594-RgB pigweed, common <0.10 kU/L class 0 Not Available [facility] ([facility]) [address] [facility], [place], [address], 10/29/2024 18:16:16 10/27/20 24 10/29/2024 ALLER GENS, ZONE 1 N773-SnQ sheep sorrel <0.10 kU/L class 0 Not Available [facility] ([facility]) [address] [facility], [place], [address], 10/29/2024 18:16:16 10/27/20 24 10/29/2024 ALLER GENS, ZONE 1 V543-XuD nettle <0.10 kU/L class 0 Not Available [facility] ([facility]) [address] [facility], [place], [address], 10/29/2024 18:16:16 10/27/20 24 10/29/2024 IMMUN OGLOB ULIN E, TOTAL immunoglobul in E, total <2 IU/mL 6-495 below low normal Not Available [facility] ([facility]) [address] [facility], [place], [address], 10/29/2024 18:16:17 04/02/[address], sinus es, w/o contr ast No observ ation record ed. [email or web address] [facility] Of [address], [address], 02/07/2025 13:30:53 Result Notes None recorded. Problems Name Problem SNOMED Code Status Onset Date Resolution Date Notes Provider Name and Address Organization Details Recorded Time Allergic rhinitis 66838022 Active 2023 TERESA JEFFERS MD [address] [place] [address], [facility], [place], [address], [facility] 4 13:34:20 Seasonal allergic rhinitis 358489522 Active 2023 TERESA JEFFERS MD [address] [place] [address], [place], [address], [facility] [place] 4 13:34:20 Hypertrophy of nasal turbinates 12009725 Active 2023 TERESA JEFFERS MD [address] [place] [address], [place], [address], [place] [facility] 4 13:34:38 Moderate persistent asthma 397007897 Active 2023 TERESA JEFFERS MD [address] [place] [address], [place], [address], [facility] 4 13:35:21 Polypoid sinus degeneration 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 Procedures Surgical History Date Name Laterality Status Provider Name and Address Organization Details Recorded Time 5 JMSNasal/Sinus Endoscopy completed TERESA TERRELL MD [address] [place] [address], [phone], [facility] [place] 02/07/2025 13:13:07 JMSNasal/Sinus Endoscopy completed TERESA TERRELL MD [address] [place] [address], [phone], [facility] 10/27/2024 13:36:16 Imaging Results Imaging Date Name Status LastModified by Organiz ation Details LastModified Time 02/07/2025 CT, sinuses, w/o contrast completed jacinda Ents [address], [address], 02/07/2025 13:30:53 Procedure Notes None recorded. Medical Equipment None Reported. Allergies No known drug allergies Medications Name Sig Start Date Stop Date Status Note LastModified by Organization Details LastModified Time celecoxib 200 mg capsule TOME 1 C PSULA POR V A ORAL 2 TIMES A DAY NEEDED FOR PAIN TAKE IT WITH FOOD + FULL GLASS OF WATER 10/27 completed Not Available Not Available Not Available albuterol sulfate 2.5 mg/3 mL (0.083 %) solution for nebulizatio n PLEASE SEE ATTACHED FOR DETAILED DIRECTION S 10/27 completed Not Available Not Available Not Available ibuprofen 800 mg tablet TOME LAYO TABLETA KALEB VECES AL NEREIDA CON ALIMENTO CUANDO SEA NECESARIO PARA EL DOLOR active Not Available Not Available No t Available citalopram 10 mg tablet TOME 1 TABLETA POR V A ORAL TODOS LOS D 10/27 completed Not Available Not Available Not Available phenazopyri dine 200 mg tablet PLEASE SEE ATTACHED FOR DETAILED DIRECTION S 10/27 completed Not Available Not Available Not Available ondansetron HCl 4 mg tablet CADA OCHO HORAS CUANDO SEA NECESARIO NAUSEA AND VOMITING UP TO 7 DAYS 10/27 completed Not Available Not Available Not Available prednisone 20 mg tablet TAKE 3 TABS X 3 DAYS,2 TABS X 3 DAYS,1 TABLET X 3 DAYS THEN TAKE 1/2 TAB X 2 DAYS 10/27 completed Not Available Not Available Not Available fexofenadin e 180 mg tablet TOME LAYO TABLETA (180 MG) POR V A ORAL EN LA MA JER 10/27 completed Not Available Not Available Not Available triamcinolo ne acetonide 0.1 % topical cream APPLY TOPICALLY IF NEEDED IN THE MORNING AND AT BEDTIME FOR RASH. active Not Available Not Available No t Available baclofen 10 mg tablet TAKE 1 TABLET BY MOUTH TWICE A DAY NEEDED MM SPASM/EDILIA N 10/27 completed Not Available Not Available Not Available benzonatate 100 mg capsule TAKE 1 CAPSULE BY MOUTH IF NEEDED IN THE MORNING, AT NOON, & AT BEDTIME FOR COUGH. DO NOT CRUSH/YUKI W 10/27 completed Not Available Not Available Not Available lidocaine 5 % topical patch APPLY 1 PATCH TOPICALLY ONCE PER DAY. REMOVE & DISCARD PATCH WITHIN 12 HOURS OR DIRECTED BY MD. 10/27 completed Not Available Not Available Not Available betamethaso ne, augmented 0.05 % topical ointment APPLY TOPICALLY IF NEEDED IN THE MORNING AND AT BEDTIME (EAR ECZEMA). 10/27 completed Not Available Not Available Not Available omeprazole 20 mg capsule,del ayed release TOME 1 C PSULA POR V A ORAL CADA MA JER BEFORE BREAKFAST 10/27 completed Not Available Not Available Not Available montelukast 10 mg tablet TOME 1 TABLETA POR VIA ORAL TODOS LOS HALE 2024 active Not Available Not Available Not Avai lable azelastine 137 mcg (0.1 %) nasal spray ROCIAR 2 VECES BY INTRANASA L ROUTE DOS VECES AL D A active Not Available Not Available No t Available estradiol 0.01% (0.1 mg/gram) vaginal cream INSERT 1 GRAM INTO THE VAGINA 3 (THREE) TIMES A WEEK. 10/27 completed Not Available Not Available Not Available ipratropium bromide 42 mcg (0.06 %) nasal spray USE 2 SPRAYS IN EACH NOSTRIL 3 TO 4 TIMES A DAY NEEDED FOR ALLERGY SYMPTOMS 10/27 completed Not Available Not Available Not Available bromphenira mine-pseudo ephedrine-D M 2 mg-30 mg-10 mg/5 mL oral syrup PLEASE SEE ATTACHED FOR DETAILED DIRECTION S 10/27 completed Not Available Not Available Not Available fluticasone propionate 50 mcg/actuati on nasal spray,suspe nsion Alexander 1 spray every day by intranasa l route. 2023 active Not Available Not Available Not Avai lable doxycycline hyclate 100 mg tablet 100 MG ORALLY 2 TIMES A DAY FOR 7 DAYS 10/27 completed Not Available Not Available Not Available loratadine 10 mg tablet TOME 1 TABLETA POR V A ORAL TODOS LOS D EN LA MA JER active Not Available Not Available No t Available Ventolin HFA 90 mcg/actuati on aerosol inhaler INHALE 2 PUFFS EVERY 4 TO 6 HOURS NEEDED FOR COUGH, WHEEZE, SHORTNESS OF BREATH active Not Available Not Available No t Available nitrofurant oin monohydrate /macrocryst als 100 mg capsule TOME 1 C PSULA POR V A ORAL DOS VECES AL D A FOR 7 DAYS 10/27 completed Not Available Not Available Not Available Asmanex Twisthaler 220 mcg/actuati on(120 doses) breath activated inhlr INHALE UN SOPLIDO POR V A ORAL DOS VECES AL D A 10/27 completed Not Available Not Available Not Available olopatadine 0.2 % eye drops INSTILL 1 DROP INTO AFFECTED EYE(S) BY OPHTHALMI C ROUTE ONCE DAILY 2023 active Not Available Not Available Not Avai lable Symbicort 160 mcg-4.5 mcg/actuati on HFA aerosol inhaler INHALE 2 PUFFS BY MOUTH TWICE DAILY- RINSE MOUTH AFTER USE DO NOT SWALLOW active Not Available Not Available No t Available diclofenac 1 % topical gel APPLY 2 G TOPICALLY IF NEEDED IN THE MORNING, AT NOON, IN THE EVENING, AND AT BEDTIME (PAIN). active Not Available Not Available No t Available Vitamin D3 50 mcg (2,000 unit) tablet TAKE 1 TABLET BY MOUTH IN THE MORNING active Not Available Not Available No t Available Myrbetriq 25 mg tablet,exte nded release TOME LAYO TABLETA TODOS LOS D 02/07 completed Not Available Not Available Not Available Myrbetriq 50 mg tablet,exte nded release TOME 1 TABLETA POR V A ORAL TODOS LOS D ONCE A DAY, SAME TIME DAILY active Not Available Not Available No t Available Trulicity 1.5 mg/0.5 mL subcutaneou s pen injector INJECT 1.5 MG UNDER THE SKIN 1 (ONE) TIME PER WEEK. 10/27 completed Not Available Not Available Not Available Trulicity 0.75 mg/0.5 mL subcutaneou s pen injector INJECT 0.75 MG UNDER THE SKIN 1 (ONE) TIME PER WEEK. 10/27 completed Not Available Not Available Not Available Asmanex HFA 200 mcg/actuati on aerosol inhaler INHALE 1 PUFF TWICE DAILY. RINSE MOUTH AFTER USING. 10/27 completed Not Available Not Available Not Available Asmanex HFA 100 mcg/actuati on aerosol inhaler INHALE 1 PUFF POR V A ORAL 2 TIMES A DAY 10/27 completed Not Available Not Available Not Available Breo Ellipta 200 mcg-25 mcg/dose powder for inhalation INHALE UN SOPLIDO A DIARIO 10/27 completed Not Available Not Available Not Available Vitals Date Recorded Body height Body mass index (BMI) Body weight Provider Name and Address Organization Details Last Updated DateTime 02/07/2025 162.56 cm 34 kg/m2 39661.29 g Franchesca Pritchard [facility] 02/07/2025 12:54:46 Date Recorded Body height Body mass index (BMI) Body weight Provider Name and Address Organization Details Last Updated DateTime 10/27/2024 162.56 cm 34 kg/m2 74572.29 g Zachary Pritchard [facility] 10/27/2024 13:03:44 Social History None recorded. Functional Status None recorded. Mental Status None recorded. Family History Nothing Reported. Medical History Condition Response Arthritis Y Asthma Y Gynecological HistoryNo gynecological history recorded. Obstetrics History GPAL:G 0 P 0 0 0 0 Past Encounters Encounter ID Performer Location Encounter Start Date Encounter Closed Date Diagnosis/Indication Diagnosis SNOMED-CT Code Diagnosis ICD10 Code Diagnosis Note [id number] TERESA WEEKS MD [facility] [address] [address] 10/27/2024 12:39:39 10/27/2024 14:34:22 Allergic rhinitis 66024719 J30.9 Hypertroph y of nasal turbinates 26063659 J34.3 Moderate p ersistent asthma 767234855 J45.40 [id number] TERESA WEEKS MD [facility] [address] [address] 02/07/2025 12:49:25 02/07/2025 15:15:31 Allergic rhinitis 39204917 J30.9 Polypoid s inus degeneration 33540623 J33.1 Moderate p ersistent asthma 348744293 J45.40 Health Concerns Section Related Observation LastModified by Organization Detai ls LastModified Time None Recorded Concern Status LastModified by Organization Details LastModified Time None Recorded Advance Directives Directive None Recorded Payers Encounter Date Sequence Insurance Name Policy Number Policy [place] Covered Member ID [place] Member ID Guarantor Name 10/27/2024 1 [place] Ele Adan [id number] Justin Adan 02/07/2025 1 [place] Ele Adan [id number] Justin Adan Notes Date Note Type Note Provider Name and Address Organization Details Recorded Time 10/27/2024 text/html Hx of allergy an d sinus congestion. Hx of asthma on symbicort, Atrovent, loratadine and pseudoephedrine. Previously on Asmanex,Trouble with her CPAP machine. Sensitive to smells and perfumesChronic eye and nasal irritation.Significan t allergy hx.--grasses and dustNo hx of ASA or NSAID allergy TERESA TERRELL MD [address] [place] [address], [phone], [facility] 10/27/2024 13:39:28 02/07/2025 text/html Hx of allergy an d sinus congestion. Hx of asthma on symbicort, Atrovent, loratadine and pseudoephedrine. Previously on Asmanex,Trouble with her CPAP machine. Sensitive to smells and perfumesChronic eye and nasal irritation.Significan t allergy hx.--grasses and dustNo hx of ASA or NSAID allergyIgE level and RAST panel were normal she tried the montelukast but felt she had some bad dreams. 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 Feels symptoms controlled with azelastine and fluticasone but still has some congestion TERESA TERRELL MD [address] [place] [address],[address], [phone], [facility] 02/07/2025 13:32:47 OBGyn Episode No OBEpisode recorded.
--- OUTSIDE RECORDS SUMMARY | 2025-02-23 12:53 | XMS_ITS | Encounter Summary ---
Author Organization [employer] Address [address] [facility] [address]t [place] [address] Care Team Providers Care Mud Plant Operator Name Role Phone Lorrie Reyes DO Primary Care Provider [phone] Encounter Details Date Type Department Care Team (Late st Contact Info) Description 02/23/2025 11:00 AM EDT Office Visit [facility] MED[facility] [address] [place] [address] Lorrie Reyes DO [address] [place] [address] Fatty liver (Primary Dx); Prediabetes; Moderate persistent asthma without complication; Chronic allergic rhinitis; Obstructive sleep apnea; Nephrolithiasis; Microscopic hematuria; Chronic GERD; Chronic bilateral low back pain without sciatica; Subcutaneous nodule; Sternum pain; Folliculitis; Healthcare maintenance Social History Tobacco Use Types Packs/Day Years [...] Mass Index 35.57 02/23/2025 11:19 AM EDT documented in this encounter Plan of Treatment Scheduled Orders Name Type Priority Associated Diagnoses Orde r Schedule T4, Free Lab Routine Fatty liver Prediabetes Moderate persistent asthma without complication Chronic allergic rhinitis Obstructive sleep apnea Nephrolithiasis Microscopic hematuria Chronic GERD Chronic bilateral low back pain without sciatica Subcutaneous nodule Sternum pain Healthcare maintenance Expected: 02/23/2025 (Approximate), Expires: 02/23/2026 Lipid Panel, Standard Lab Routine Fatty liver Prediabetes Moderate persistent asthma without complication Chronic allergic rhinitis Obstructive sleep apnea Nephrolithiasis Microscopic hematuria Chronic GERD Chronic bilateral low back pain without sciatica Subcutaneous nodule Sternum pain Healthcare maintenance Expected: 02/23/2025 (Approximate), Expires: 02/23/2026 TSH Lab Routine Fatty liver Prediabetes Moderate persistent asthma without complication Chronic allergic rhinitis Obstructive sleep apnea Nephrolithiasis Microscopic hematuria Chronic GERD Chronic bilateral low back pain without sciatica Subcutaneous nodule Sternum pain Healthcare maintenance Expected: 02/23/2025 (Approximate), Expires: 02/23/2026 Vitamin D, 25-Hydroxy, Total, Immunoassay Lab Routine Fatty liver Prediabetes Moderate persistent asthma without complication Chronic allergic rhinitis Obstructive sleep apnea Nephrolithiasis Microscopic hematuria Chronic GERD Chronic bilateral low back pain without sciatica Subcutaneous nodule Sternum pain Healthcare maintenance Expected: 02/23/2025 (Approximate), Expires: 02/23/2026 Hepatic Function Panel Lab Routine Fatty liver Prediabetes Moderate persistent asthma without complication Chronic allergic rhinitis Obstructive sleep apnea Nephrolithiasis Microscopic hematuria Chronic GERD Chronic bilateral low back pain without sciatica Subcutaneous nodule Sternum pain Healthcare maintenance Expected: 02/23/2025 (Approximate), Expires: 02/23/2026 Hemoglobin A1c Lab Routine Fatty liver Prediabetes Moderate persistent asthma without complication Chronic allergic rhinitis Obstructive sleep apnea Nephrolithiasis Microscopic hematuria Chronic GERD Chronic bilateral low back pain without sciatica Subcutaneous nodule Sternum pain Healthcare maintenance Expected: 02/23/2025 (Approximate), Expires: 02/23/2026 CBC Lab Routine Fatty liver Prediabetes Moderate persistent asthma without complication Chronic allergic rhinitis Obstructive sleep apnea Nephrolithiasis Microscopic hematuria Chronic GERD Chronic bilateral low back pain without sciatica Subcutaneous nodule Sternum pain Healthcare maintenance Expected: 02/23/2025, Expires: 02/23/2026 Basic Metabolic Panel Lab Routine Fatty liver Prediabetes Moderate persistent asthma without complication Chronic allergic rhinitis Obstructive sleep apnea Nephrolithiasis Microscopic hematuria Chronic GERD Chronic bilateral low back pain without sciatica Subcutaneous nodule Sternum pain Healthcare maintenance Expected: 02/23/2025 (Approximate), Expires: 02/23/2026 Alpha-Fetoprotein, Tumor Marker Lab Routine Fatty liver Prediabetes Moderate persistent asthma without complication Chronic allergic rhinitis Obstructive sleep apnea Nephrolithiasis Microscopic hematuria Chronic GERD Chronic bilateral low back pain without sciatica Subcutaneous nodule Sternum pain Healthcare maintenance Expected: 02/23/2025 (Approximate), Expires: 02/23/2026 documented as of this encounter Visit Diagnoses Diagnosis Fatty liver- Primary Other chronic nonalcoholic liver disease Prediabetes Other abnormal glucose Moderate persistent asthma without complication Chronic allergic rhinitis Obstructive sleep apnea Obstructive sleep apnea (adult) (pediatric) Nephrolithiasis Calculus of kidney Microscopic hematuria Chronic GERD Chronic bilateral low back pain without sciatica Subcutaneous nodule Sternum pain Folliculitis Other specified disease of hair and hair follicles Healthcare maintenance documented in this encounter Additional Health Concerns Assessment Noted Time PHQ-9 Depression Total Score: 0 02/24/20 25 11:21 AM EDT documented as of this encounter Care Teams Mud Plant Operator Relationship Specialty Start Date End Date Lorrie Reyes DO [address] [place] [id number] PCP - General Family Medicine 07/19/15 Michi Mahan Corporation OfficerManager Plumbing 04/17/24 documented as of this encounter
[2025-02-23 13:31] LABS: Hematocrit 41.2 % (37.0-47.0); Hemoglobin 13.4 g/dl (12.0-16.0); Mean Corpuscular HGB Conc 32.5 g/dl (31.0-35.0); Mean Corpuscular Hemoglobin 30.8 pg (27.0-33.0); Mean Corpuscular Volume 94.7 fL (80.0-98.0); Mean Platelet Volume 9.9 fL (9.4-12.3); Platelet Count 231 X10*3/uL (160-400); Red Blood Count 4.35 X10*6/uL (4.20-5.50); Red Cell Distribution Width 13.7 % (11.0-16.0); White Blood Count 6.3 X10*3/uL (4.8-10.8)
[2025-02-23 13:41] LABS: Estimated Average Glucose 128 mg/dL; Hemoglobin A1C 147.5669 umol/L; Hemoglobin A1c % 6.1 % (<6.0); Total Hemoglobin (HGBA1C) 3447.9232 umol/L
[2025-02-23 14:25] LABS: Alanine Aminotransferase 19 U/L (0-31); Albumin Level 4.2 g/dL (3.5-5.0); Anion Gap 10 (12-20); Aspartate Amino Transferase 22 U/L (5-31); Bilirubin Direct 0.2 mg/dL (0.0-0.5); Bilirubin Total 0.7 mg/dL (0.0-1.0); Blood Urea Nitrogen 15 mg/dL (9-16); Calcium 9.3 mg/dL (8.4-10.2); Carbon Dioxide 25 mmol/L (22-29); Chloride 109 mmol/L (96-108); Cholesterol 181 mg/dL (<200); Estimated Glomerular Filt Rate > 60; Glucose Random 106 mg/dL (60-115); HDL Cholesterol 45 mg/dL (>40); LDL Cholesterol Calculated 112 mg/dL (<100); Potassium 3.8 mmol/L (3.3-5.1); Sodium 140 mmol/L (135-145); Total Protein 7.2 g/dL (6.5-8.0); Triglycerides 123 mg/dL (<150)
[2025-02-23 14:42] LABS: Free T4 (Free Thyroxine) 0.91 ng/dL (0.71-1.85); Thyroid Stimulating Hormone 0.98 uIU/mL (0.32-4.0); Vitamin D 25-OH Total 58.7 ng/mL (>30)
[2025-02-23 19:08] LABS: Alkaline Phosphatase 84 U/L (39-117)
[2025-02-27 13:19] LABS: Alpha Fetoprotein 2.4 ng/mL
== END 2025-02-23 11:58 | disposition home or self-care (01) ==
LOC: HO.HHCL 11:57
PROVIDERS: Visit Provider Family Medicine
DX: Z00.00 Encounter for general adult medical examination without abnormal findings (principal); R07.89 Other chest pain; R22.9 Localized swelling, mass and lump, unspecified; G89.29 Other chronic pain; M54.50 Low back pain, unspecified; K21.9 Gastro-esophageal reflux disease without esophagitis; R31.29 Other microscopic hematuria; N20.0 Calculus of kidney; G47.33 Obstructive sleep apnea (adult) (pediatric); J30.9 Allergic rhinitis, unspecified; J45.40 Moderate persistent asthma, uncomplicated; R73.03 Prediabetes; K76.0 Fatty (change of) liver, not elsewhere classified
CPT/HCPCS: 36415; 80048; 80061; 80076; 82105; 82306; 83036; 84439; 84443; 85027

== ENCOUNTER 2025-03-26 11:57 | Outpatient (REF) | payer MEDICAID, SELFPAY ==
--- NOTE | ~2025-03-26 | XR_ITS ---
EXAMINATION: XR CHEST CLINICAL INFORMATION: Cough, wheezing and fever x 1 week COMPARISON: 11/08/2023. TECHNIQUE: 2 views of the chest were obtained. FINDINGS: The cardiac, hilar, and mediastinal contours are normal. The lungs are clear bilaterally. There is no pneumothorax or pleural effusion. There is no focal osseous or soft tissue abnormality. XR/XR chest 2V IMPRESSION: No active pulmonary disease. Electronically signed by: Hector Espinoza MD 03/26/2025 01:12 PM EDT
--- OUTSIDE RECORDS SUMMARY | 2025-03-26 12:32 | XMS_ITS | Encounter Summary ---
Author Organization [employer] Address [address] [facility] 7t [place] [address] Care Team Providers Care Sorting Machine Operator Name Role Phone Lorrie Reyes DO Primary Care Provider + [phone] Encounter Details Date Type Department Care Team (Late st Contact Info) Description 02/28/2025 Orders Only [facility] [address] [place] [address] ProviderAbraham MD Social History Tobacco Use Types [...] as of this encounter Plan of Treatment Upcoming Encounters Date Type Department Care Team (Late st Contact Info) Description 05/25/2025 11:45 AM EDT Office Visit [facility] MEDICINE [address] [place] [address] Trenton Aguirre MD [address] [place] [address] documented as of this encounter Procedures Procedure Name Priority Date/Time Associated Diagnosis Comments CT ABDOMEN PELVIS WO CONTRAST Routine 02/26/2025 12:42 PM EDT documented in this encounter Results * CT Abdomen Pelvis w/o Contrast (02/26/2025 12:42 PM EDT) Anatomical Region Laterality Modality Body, Pelvis, Abdomen Computed T omography us Historical Provider MD MARTELL CT PROCEDURES Final R esult documented in this encounter Visit Diagnoses Not on filedocumented in this encounter Additional Health Concerns Assessment Noted Time PHQ-9 Depression Total Score: 0 02/24/20 25 11:21 AM EDT documented as of this encounter Care Teams Sorting Machine Operator Relationship Specialty Start Date End Date Lorrie Reyes DO [address] [place] [address] PCP - General Family Medicine 07/19/15 Michi Mahan Senior Physical TherapistProject Production Engineer 04/17/24 documented as of this encounter
--- OUTSIDE RECORDS SUMMARY | 2025-03-26 12:32 | XMS_ITS | Encounter Summary ---
Author Organization [employer] Address [address] [place] [address] [address]t [address] [address] Care Team Providers Care Social Problems Specialist Name Role Phone Lorrie Reyes DO Primary Care Provider + [phone] Reason for Visit * Reason Comments Cough UTI Encounter Details Date Type Department Care Team ([facility] st Contact Info) Description 03/22/2025 1:20 PM EDT Office Visit [facility] [address] [place] [address] Alcira Hammond NP [address] [place] [address] Acute cough (Primary Dx); Urinary tract infection symptoms Social History Tobacco Use Types Packs/Day Years [...] Sign Reading Time Taken Comments Blood Pressure 122/76 03/22/2025 1:45 PM EDT Man ual Pulse 92 03/22/2025 1:26 PM EDT Temperature 36.9 ??C (98.4 ??F) 03/22/2025 1:26 PM ED T Respiratory Rate 18 03/22/2025 1:26 PM EDT Oxygen Saturation 97% 03/22/2025 1:26 PM EDT Inhaled Oxygen Concentration - - Weight 93.1 kg (205 lb 3.2 oz) 03/22/2025 1:26 P M EDT Height 162.6 cm (5' 4 ) 03/22/2025 1:26 PM EDT Body Mass Index 35.22 03/22/2025 1:26 PM EDT documented in this encounter Progress Notes * Alcira Hammond NP - 03/22/2025 1:20 PM EDT SUBJECTIVE: Ele Adan is a 64 y.o. female who [facility]. Denies recent illness, injury, or hospitalization. Cough Associated symptoms include rhinorrhea and shortness of breath. Pertinent negatives include no chest pain, chills, fever, headaches, myalgias or rash. UTI Associated symptoms: cough, rhinorrhea and shortness of breath Associated symptoms: no abdominal pain, no chest pain, no diarrhea, no fever, no headaches, no myalgias, no nausea and no rash Complains of tickle in throat and cough that started on Wednesday started cough and has progressed. She also reports some shortness of breath, chest tightness, runny nose and watery eyes. States as of this morning, cough is productive of yellowish phlegm. For her symptoms, she's tried robitussin, benzonatate pills tid for 2 days, and home remedies. Also uses symbicort as needed, claritin daily, flonase nightly, and another nasal spray in the mornings which she does not recall the name of at this time. She is out of albuterol neb solution and was not able to use it. Denies fever, but felt cold last night. Noticed slight burning with urination this am only. No other symptoms Review of Systems Constitutional: Negative. Negative for chills and fever. HENT: Positive for rhinorrhea. Eyes: Positive for discharge. Respiratory: Positive for cough, chest tightness and shortness of breath. Cardiovascular: Negative for chest pain. Gastrointestinal: Negative for abdominal pain, constipation, diarrhea and nausea. Genitourinary: Positive for dysuria. Musculoskeletal: Negative for arthralgias, back pain, myalgias and neck pain. Skin: Negative. Negative for rash and wound. Neurological: Negative for weakness, light-headedness and headaches. Psychiatric/Behavioral: Negative for behavioral problems, confusion, decreased concentration and suicidal ideas. OBJECTIVE: Vitals: 03/22/25 1326 03/22/25 1345 BP: (!) 149/85 122/76 BP Location: Left arm Left arm Patient Position: Sitting Sitting BP Cuff Size: Adult Adult Pulse: 92 Resp: 18 Temp: 98.4 ??F (36.9 ??C) TempSrc: Oral SpO2: 97% Weight: 205 lb 3.2 oz (93.1 kg) Height: 5' 4 (1.626 m) Office Visit on 03/22/2025 Component Date Value Ref Range Status Influenza B 03/22/2025 Negative Negative, Indeterminate Final Influenza A 03/22/2025 Negative Negative, Indeterminate Final Rapid COVID Ag 03/22/2025 Negative Final Color, UA 03/22/2025 Yellow Final Clarity, UA 03/22/2025 Clear Final Glucose, UA 03/22/2025 Negative Final Bilirubin, UA 03/22/2025 Negative Final Ketones, UA 03/22/2025 Negative Final Spec Grav, UA 03/22/2025 1.030 Final Blood, UA 03/22/2025 Negative Negative, None Detected Final pH, UA 03/22/2025 5.5 Final Protein, UA 03/22/2025 Negative Final Urobilinogen, UA 03/22/2025 0.2 Final Leukocytes, UA 03/22/2025 Negative Negative, Rare, Trace Final Nitrite, UA 03/22/2025 Negative Negative, None Detected Final Rapid Strep A Screen 03/22/2025 Negative Negative, None Detected Final Physical Exam Vitals reviewed. Constitutional: General: She is not in acute distress. Appearance: Normal appearance. She is not ill-appearing. HENT: Head: Normocephalic and atraumatic. Right Ear: External ear normal. Left Ear: External ear normal. Nose: Nose normal. Eyes: General: No scleral icterus. Extraocular Movements: Extraocular movements intact. Cardiovascular: Rate and Rhythm: Normal rate and regular rhythm. Pulses: Normal pulses. Heart sounds: Normal heart sounds. Pulmonary: Effort: Pulmonary effort is normal. No respiratory distress. Breath sounds: Decreased breath sounds present. No wheezing. Musculoskeletal: General: Normal range of motion. Cervical back: Normal range of motion. Neurological: General: No focal deficit present. Mental Status: She is alert and oriented to person, place, and time. Gait: Gait normal. Psychiatric: Mood and Affect: Mood normal. Behavior: Behavior normal. Assessment/Plan Diagnoses and all orders for this visit: Acute cough Comments: -symptoms suggestive of acute asthma exacerbation alfredito r/t seasonal allergies -POCT viral tests negative -advised BID maintenance use of symbicort inhaler and can take additional 8 puffs as rescue; albuterol neb solution refilled -trial decongestant cough syrup -continue supportive management and allergy treatment -return precautions reviewed Orders: - Influenza B (ID NOW Rapid Molecular) - Influenza A (ID NOW Rapid Molecular) - POCT Rapid COVID Ag - POCT rapid strep A manually resulted - albuterol (2.5 MG/3ML) 0.083% nebulizer solution; Take 3 mL (2.5 mg) by nebulization every 4 (four) hours if needed for wheezing or shortness of breath. - guaiFENesin-dextromethorphan (Robitussin DM) 100-10 MG/5ML syrup; Take 5 mL by mouth every 4 (four) hours if needed for cough for up to 10 days. Urinary tract infection symptoms Comments: -POCT negative for infection -advised increase fluids -feminine hygiene reviewed Orders: - POCT urinalysis dipstick manually resulted Slovenian Translation: Provided by [facility] staff member GERMAN Cazares documented in this encounter Plan of Treatment Upcoming Encounters Date Type Department Care Team (Late st Contact Info) Description 05/25/2025 11:45 AM EDT Office Visit [facility] MEDICINE [address] [place] [address] Trenton Aguirre MD [address] [place] [address] documented as of this encounter Procedures Procedure Name Priority Date/Time Associated Diagnosis Comments POCT INFLUENZA B (ID NOW RAPID MOLECULAR) Routine 03/22/2025 1:32 PM EDT Acute cough POCT INFLUENZA A (ID NOW RAPID MOLECULAR) Routine 03/22/2025 1:32 PM EDT Acute cough POCT RAPID COVID ANTIGEN Routine 03/22/2025 1:32 PM EDT Acute cough POCT RAPID STREP A Routine 03/22/2025 1: 32 PM EDT Acute cough POCT URINALYSIS DIPSTICK Routine 03/22/2025 1:28 PM EDT Urinary tract infection symptoms documented in this encounter Results * POCT rapid strep A manually resulted (03/22/2025 1:32 PM EDT) [facility] Rapid Strep A Screen Negative Negative, None Detected Swab 03/22/2025 1:32 PM EDT us Alcira Appram TEAM LEADER SURGERY POINT OF CARE TEST ENTER/EDIT O RDERABLES Final Result * POCT Rapid COVID Ag (03/22/2025 1:32 PM EDT) [facility] Rapid COVID Ag Negative Swab 03/22/2025 1:32 PM EDT us Eli Appram TEAM LEADER SURGERY POINT OF CARE TEST ENTER/EDIT O RDERABLES Final Result * Influenza A (ID NOW Rapid Molecular) (03/22/2025 1:32 PM EDT) [facility] Influenza A Negative Negative, Indeterminate [facility] Swab 03/22/2025 1:32 PM EDT us Eli Appram TEAM LEADER SURGERY POINT OF CARE TEST ENTER/EDIT O RDERABLES Final Result Performing Organization Address [facility]/ZIP Co de Phone Number [facility] [address] [place] [phone] * Influenza B (ID NOW Rapid Molecular) (03/22/2025 1:32 PM EDT) [facility] Influenza B Negative Negative, Indeterminate [facility] Swab 03/22/2025 1:32 PM EDT us Alcira Blancom TEAM LEADER SURGERY POINT OF CARE TEST ENTER/EDIT O RDERABLES Final Result Performing Organization Address [facility] Co de Phone Number [facility] [address] [place] [phone] * POCT urinalysis dipstick manually resulted (03/22/2025 1:28 PM EDT) Color, UA Yellow Clarity, UA Clear Glucose, UA Negative Bilirubin, UA Negative Ketones, UA Negative Spec Grav, UA 1.030 Blood, UA Negative Negative, None Detected pH, UA 5.5 Protein, UA Negative Urobilinogen, UA 0.2 Leukocytes, UA Negative Negative, Rare, Trace Nitrite, UA Negative Negative, None Detected Urine 03/22/2025 1:[address] [facility] TEAM LEADER SURGERY POINT OF CARE TEST ENTER/EDIT O RDERABLES Final Result documented in this encounter Visit Diagnoses Diagnosis Acute cough- Primary Urinary tract infection symptoms documented in this encounter Additional Health Concerns Assessment Noted Time PHQ-9 Depression Total Score: 0 02/24/20 25 11:21 AM EDT documented as of this encounter Care Teams Social Problems Specialist Relationship Specialty Start Date End Date Lorrie Reyes DO [address] [place] [id number] PCP - General Family Medicine 07/19/15 Michi Mahan Battery LoaderHand Fretted Instrument Maker 04/17/24 documented as of this encounter
--- OUTSIDE RECORDS SUMMARY | 2025-03-26 12:32 | XMS_ITS | Encounter Summary ---
Author Organization [employer] Address [address] [place] [address] 7t [place] [address] Care Team Providers Care Flower Planter Name Role Phone Lorrie Reyes DO Primary Care Provider + [phone] Reason for Visit * Reason Comments Cough Encounter Details Date Type Department Care Team ([facility] Contact Info) Description 03/26/2025 10:20 AM EDT Office Visit [facility] [address] [place] [address] Cough in adult patient Social History Tobacco Use Types Packs/Day Years [...] Sign Reading Time Taken Comments Blood Pressure 133/77 03/26/2025 10:28 AM EDT Pulse 75 03/26/2025 10:28 AM EDT Temperature 36.6 ??C (97.9 ??F) 03/26/2025 10:28 AM E DT Respiratory Rate 18 03/26/2025 10:28 AM EDT Oxygen Saturation 96% 03/26/2025 10:28 AM EDT Inhaled Oxygen Concentration - - Weight 92.1 kg (203 lb) 03/26/2025 10:28 AM EDT Height - - Body Mass Index 34.84 03/22/2025 1:26 PM EDT documented in this encounter Plan of Treatment Upcoming Encounters Date Type Department Care Team (Late st Contact Info) Description 05/25/2025 11:45 AM EDT Office Visit [facility] MEDICINE [address] [place], [place] [phone] Trenton Aguirre MD [address] [place] [address] Scheduled Orders Name Type Priority Associated Diagnoses Orde r Schedule XR Chest 2 Views Imaging STAT Cough in adult patient Expected: 03/26/2025, Expires: 03/26/2026 documented as of this encounter Procedures Procedure Name Priority Date/Time Associated Diagnosis Comments POCT INFLUENZA A (ID NOW RAPID MOLECULAR) Routine 03/26/2025 10:30 AM EDT Cough in adult patient POCT INFLUENZA B (ID NOW RAPID MOLECULAR) Routine 03/26/2025 10:29 AM EDT Cough in adult patient POCT RAPID COVID ANTIGEN Routine 03/26/2025 10:29 AM EDT Cough in adult patient documented in this encounter Results * Influenza A (ID NOW Rapid Molecular) (03/26/2025 10:30 AM EDT) [facility] Influenza A Negative Negative, Indeterminate [facility] Swab 03/26/2025 10:3 0 AM EDT Shannan Guy MD POINT OF CARE TEST ENTER/EDIT ORDERABLES Final Result Performing Organization Address [facility] de Phone Number [facility] [address] [place] [phone] * POCT Rapid COVID Ag (03/26/2025 10:29 AM EDT) [facility] Rapid COVID Ag Negative Swab 03/26/2025 10:2 9 AM EDT Shannan Guy MD POINT OF CARE TEST ENTER/EDIT ORDERABLES Final Result * Influenza B (ID NOW Rapid Molecular) (03/26/2025 10:29 AM EDT) [facility] Influenza B Negative Negative, Indeterminate [facility] Swab 03/26/2025 10:2 9 AM EDT Shannan Guy MD POINT OF CARE TEST ENTER/EDIT ORDERABLES Final Result Performing Organization Address [facility] Co de Phone Number [facility] [address] [place] [phone] documented in this encounter Visit Diagnoses Diagnosis Cough in adult patient documented in this encounter Additional Health Concerns Assessment Noted Time PHQ-9 Depression Total Score: 0 02/24/20 25 11:21 AM EDT documented as of this encounter Care Teams Flower Planter Relationship Specialty Start Date End Date Lorrie Reyes DO [address] [place] [address] PCP - General Family Medicine 07/19/15 Michi Mahan Outpatient Pharmacy ManagerPrinting Plate Setter 04/17/24 documented as of this encounter
--- OUTSIDE RECORDS SUMMARY | 2025-03-26 12:32 | XMS_ITS | Encounter Summary ---
Author Organization [employer] Address [address] [facility] [address] [place] [address] Care Team Providers Care Ingredient Scaler Name Role Phone Lorrie Reyes DO Primary Care Provider + [phone] Encounter Details Date Type Department Care Team ([facility] st Contact Info) Description 02/18/2024 Orders Only [facility] [address] [place] [address] Provider, MD Abraham Social History Tobacco Use Types Packs/Day Years [...] Description 05/25/2025 11:45 AM EDT Office Visit [facility] [address] [place] [address] Trenton Aguirre MD [address] [place] [address] documented as of this encounter Procedures Procedure Name Priority Date/Time Associated Diagnosis Comments HM COLONOSCOPY Routine 02/23/2017 9:54 AM EDT documented in this encounter Results * Hm Colonoscopy (02/23/2017 9:54 AM EDT) us Historical Provider HEALTH MAINTENANCE Final Result documented in this encounter Visit Diagnoses Not on filedocumented in this encounter Additional Health Concerns Assessment Noted Time PHQ-9 Depression Total Score: 0 11/12/19 24 11:26 AM EST documented as of this encounter Care Teams Ingredient Scaler Relationship Specialty Start Date End Date Lorrie Reyes DO [address] [place] [address] PCP - General Family Medicine 07/19/15 Michi Mahan Data Management ManagerSenior Management Consultant 04/17/24 documented as of this encounter
--- OUTSIDE RECORDS SUMMARY | 2025-03-26 12:32 | XMS_ITS | Clinical Summary ---
Author Organization [employer] Address [address] [place] [address] 7 [place] [address] Care Team Providers Care Roper Operator Name Role Phone AmyMarisolLorrie Primary Care Provider + [phone] Allergies Active Allergy Reactions Criticality Noted Date [...] Use 2x/day 100 strip 1 023 Active D3 50 MCG (2000 UT) tablet TAKE 1 TABLET BY MOUTH IN THE MORNING 90 tablet 3 024 Active lidocaine (Lidoderm) 5 % patchIndication s:Acute left-sided low back pain with bilateral sciatica Apply 1 patch topically Once per day. Remove & discard patch within 12 hours or as directed by . 30 patch 2 024 Active Diclofenac Sodium 1 % gelIndications: Acute [...] g 025 Active Blood Glucose Monitoring Suppl (FreeStyle Lite) w/Device kit 1 each by Other [...] per week. 2 mL 3 025 Active citalopram (CeleXA) 10 MG tablet TAKE 1 TABLET BY ORAL ROUTE EVERY DAY 90 tablet 1 Active loratadine (Claritin) 10 MG tabletIndicatio ns:Seasonal allergic rhinitis, unspecified trigger TOME LAYO TABLETA TODOS LOS HALE EN LA 90 tablet 3 025 Active albuterol (2.5 MG/3ML) 0.083% nebulizer solutionIndicat ions:Acute cough Take 3 mL (2.5 mg) by nebulization every 4 (four) hours if needed for wheezing or shortness of breath. 75 mL 2 03/22/ 025 2025 Active guaiFENesin-dex tromethorphan (Robitussin DM) 100-10 MG/5ML syrupIndication s:Acute cough Take 5 mL by mouth every 4 (four) hours if needed for cough for up to 10 days. 118 mL 025 2024 Active predniSONE (Deltasone) 20 MG tablet Take 3 tablets (60 mg) by mouth Once per day for 7 days. 21 tablet 025 2024 Active albuterol (2.5 MG/3ML) 0.083% nebulizer solution Take 3 mL (2.5 mg) by nebulization every 4 (four) hours if needed for wheezing or shortness of breath. 75 mL 1 024 2024 Discontinued(R eorder (will not trigger notification to Pharmacy)) Asmanex HFA 200 MCG/ACT aerosol INHALE 1 PUFF POR VIA ORAL 2 TIMES DAILY 13 g 11 024 2024 Discontinued(D iscontinued by another clinician) citalopram (CeleXA) 10 MG tablet TAKE 1 TABLET BY ORAL ROUTE EVERY DAY 90 tablet 1 024 2024 Discontinued(R eorder (will not trigger notification to Pharmacy)) loratadine (Claritin) 10 MG tabletIndicatio ns:Seasonal allergic rhinitis, unspecified trigger TOME LAYO TABLETA TODOS LOS HALE EN LA 90 tablet 3 024 2024 Discontinued(R eorder (will not trigger notification to Pharmacy)) mupirocin (Bactroban) 2 % ointment Apply topically 3 times daily for 10 days. 22 g 025 2024 albuterol (2.5 MG/3ML) 0.083% nebulizer solution Take 3 mL (2.5 mg) by nebulization every 4 (four) hours if needed for wheezing or shortness of breath. 75 mL 1 025 2024 Discontinued(R eorder (will not trigger notification [...] -consider addition of singulair -consider re-eval with voice over artist if no improvement Degenerative disc disease, lumbar [...] w infec posisble reactive airway -benzonate -cepacol -Pentress nasal spray -tylenol prn -Rest 48 h [...] Encounters Date Type Department Care Team Description 03/26/2025 10:20 AM EDT Office Visit [facility] [address] [place] [phone] Cough in adult patient 03/22/2025 1:20 PM EDT Office Visit [facility] [address] [place] [phone] Alcira Hammond NP Acute cough (Primary Dx); Urinary tract infection symptoms 03/20/2025 Orders Only [facility] [address] [place] [address] [phone] Lorrie Reyes DO Obstructive sleep apnea (Primary Dx) 03/19/2025 Refill [facility] [address] [place] [address] [phone] Lorrie Reyes DO Seasonal allergic rhinitis, unspecified trigger 03/19/2025 Telephone [facility] [address] [place] [address] [phone] Lorrie Reyes DO glucose monitor 02/28/2025 Orders Only [facility] [address] [place] [phone] ProviderAbraham MD 02/23/2025 11:00 AM EDT Office Visit [facility] [address] [place] [phone] Lorrie Reyes DO Fatty liver (Primary Dx); Prediabetes; Moderate persistent asthma without complication; Chronic allergic rhinitis; Obstructive sleep apnea; Nephrolithiasis; Microscopic hematuria; Chronic GERD; Chronic bilateral low back pain without sciatica; Folliculitis; Healthcare maintenance; Colon cancer screening 02/23/2025 Telephone [facility] [address] [place] [address] [phone] Lorrie Reyes DO 02/23/2025 Travel 02/13/2025 Refill [facility] [address] [place] [phone] Lorrie Reyes DO Mild intermittent asthma, unspecified whether complicated 01/19/2025 Population Health Risk Score [facility] () [address] [phone] Provider, Population Health Generic 12/27/2024 Telephone [facility] [address] [place] [phone] Lorrie Reyes DO Recall Appt. 12/27/2024 Travel from Last 3 Months Immunizations Immunization Administration Dates Next Due Hep A, Adult [...] (203 lb) 03/26/2025 10:28 AM EDT Height 162.6 cm (5' 4 ) 03/22/2025 1:26 PM EDT Body Mass Index 34.84 03/22/2025 1:26 PM EDT Plan of Treatment Upcoming Encounters Date Type Department Care Team (Late st Contact Info) Description 05/25/2025 11:45 AM EDT Office Visit [facility] [address] [place] [address] Trenton Aguirre MD [address] [place] [address] Health Maintenance Due Date Last Done Comments CT Colonography 1960 FIT DNA/Cologuard 1960 FIT 1960 FOBT 1960 Sigmoidoscopy 1960 Pap Smear 1983 Colonoscopy 02/23/2022 02/23/2017 Colorectal Cancer Screening 02/23/2022 COVID-19 Vaccine ( season) 2024 11/28/2022 Influenza Vaccine (#1) 2024 3, 08/04/2022, 08/05/2021, Additional history exists Cervical Cancer Screening 07/24/2024 HPV/Cotest 07/24/2024 07/24/2019 Mammogram 12/12/2025 12/12/2024, 02/0 02/2025, 03/15/2024, Additional history exists Alcohol/Substance Use Screening 02/23/2026 02/23/2025 Depression Screening 02/23/2026 02/23/2025, 02/24/20 25 Diabetes: Hemoglobin A1C 02/23/2026 025, 08/16/2024, 01/28/2024, Additional history exists Disability Screening 02/23/2026 02/23/2025 SDOH Screening 02/23/2026 02/23/2025 Tobacco Screening 03/26/2026 03/26/2025 DTaP/Tdap/Td Vaccines (3 - Td or Tdap) [...] patient's age to complete this topic Meningococcal B Vaccine Aged Out No l onger eligible based on patient's age to complete [...] EDT Cough in adult patient POCT RAPID STREP A Routine 03/22/2025 1: 32 PM EDT Acute cough POCT RAPID COVID ANTIGEN Routine 03/22/2025 1:32 PM EDT Acute cough POCT INFLUENZA A (ID NOW RAPID MOLECULAR) Routine 03/22/2025 1:32 PM EDT Acute cough POCT INFLUENZA B (ID NOW RAPID MOLECULAR) Routine 03/22/2025 1:32 PM EDT Acute cough POCT URINALYSIS DIPSTICK Routine 03/22/2025 1:28 PM EDT Urinary tract infection symptoms CT ABDOMEN PELVIS WO CONTRAST Routine 02/26/2025 12:42 PM EDT ALPHA FETOPROTEIN, TUMOR MARKER Routine 02/23/2025 11:59 AM EDT Fatty liver Prediabetes Moderate persistent asthma without complication Chronic allergic rhinitis Obstructive sleep apnea Nephrolithiasis Microscopic hematuria Chronic GERD Chronic bilateral low back pain without sciatica Healthcare maintenance BASIC METABOLIC PANEL Routine 02/23/2025 11:59 AM EDT Fatty liver Prediabetes Moderate persistent asthma without complication Chronic allergic rhinitis Obstructive sleep apnea Nephrolithiasis Microscopic hematuria Chronic GERD Chronic bilateral low back pain without sciatica Healthcare maintenance CBC Routine 02/23/2025 11:59 AM EDT Fatty liver Prediabetes Moderate persistent asthma without complication Chronic allergic rhinitis Obstructive sleep apnea Nephrolithiasis Microscopic hematuria Chronic GERD Chronic bilateral low back pain without sciatica Healthcare maintenance HEMOGLOBIN A1C Routine 02/23/2025 11:59 AM EDT Fatty liver Prediabetes Moderate persistent asthma without complication Chronic allergic rhinitis Obstructive sleep apnea Nephrolithiasis Microscopic hematuria Chronic GERD Chronic bilateral low back pain without sciatica Healthcare maintenance HEPATIC FUNCTION PANEL Routine 02/23/2025 11:59 AM EDT Fatty liver Prediabetes Moderate persistent asthma without complication Chronic allergic rhinitis Obstructive sleep apnea Nephrolithiasis Microscopic hematuria Chronic GERD Chronic bilateral low back pain without sciatica Healthcare maintenance VITAMIN D,25-OH,TOTAL,IA Routine 02/23/2025 11:59 AM EDT Fatty liver Prediabetes Moderate persistent asthma without complication Chronic allergic rhinitis Obstructive sleep apnea Nephrolithiasis Microscopic hematuria Chronic GERD Chronic bilateral low back pain without sciatica Healthcare maintenance TSH Routine 02/23/2025 11:59 AM EDT Fatty liver Prediabetes Moderate persistent asthma without complication Chronic allergic rhinitis Obstructive sleep apnea Nephrolithiasis Microscopic hematuria Chronic GERD Chronic bilateral low back pain without sciatica Healthcare maintenance LIPID PANEL, STANDARD Routine 02/23/2025 11:59 AM EDT Fatty liver Prediabetes Moderate persistent asthma without complication Chronic allergic rhinitis Obstructive sleep apnea Nephrolithiasis Microscopic hematuria Chronic GERD Chronic bilateral low back pain without sciatica Healthcare maintenance T4, FREE Routine 02/23/2025 11:59 AM EDT Fatty liver Prediabetes Moderate persistent asthma without complication Chronic allergic rhinitis Obstructive sleep apnea Nephrolithiasis Microscopic hematuria Chronic GERD Chronic bilateral low back pain without sciatica Healthcare maintenance BI US BREAST LIMITED BILATERAL Routine 12/12/2024 2:45 PM EST HEPATITIS C AB W/REFL TO HCV RNA, [...] Recently Relevant to Health Maintenance Results * Influenza A (ID NOW Rapid Molecular) (03/26/2025 10:30 AM EDT) Only the most recent of2 resultswithin the time period is included. Pathologist [facility] Influenza A Negative Negative, Indeterminate [facility] Swab 03/26/2025 10:3 0 AM EDT Shannan Guy MD POINT OF CARE TEST ENTER/EDIT ORDERABLES Final Result Performing Organization Address [facility] Co de Phone Number [facility] [address] [place] [phone] * Influenza B (ID NOW Rapid Molecular) (03/26/2025 10:29 AM EDT) Only the most recent of2 resultswithin the time period is included. Pathologist [facility] Influenza B Negative Negative, Indeterminate [facility] Swab 03/26/2025 10:2 9 AM EDT Shannan Guy MD POINT OF CARE TEST ENTER/EDIT ORDERABLES Final Result Performing Organization Address [facility]/ZIP Co de Phone Number [facility] [address] [place] [phone] * POCT Rapid COVID Ag (03/26/2025 10:29 AM EDT) Only the most recent of2 resultswithin the time period is included. Rapid COVID Ag Negative Swab 03/26/2025 10:2 9 AM EDT Shannan Guy MD POINT OF CARE TEST ENTER/EDIT ORDERABLES Final Result * POCT rapid strep A manually resulted (03/22/2025 1:32 PM EDT) Pathologist [facility] Rapid Strep A Screen Negative Negative, None Detected Swab 03/22/2025 1:32 PM EDT Alcira [facility] [employer] POINT OF CARE TEST ENTER/EDIT O RDERABLES Final Result * POCT urinalysis dipstick manually resulted (03/22/2025 1:28 PM EDT) Pathologist [facility] Color, UA Yellow Clarity, UA Clear Glucose, UA Negative Bilirubin, UA Negative Ketones, UA Negative Spec Grav, UA 1.030 Blood, UA Negative Negative, None Detected pH, UA 5.5 Protein, UA Negative Urobilinogen, UA 0.2 Leukocytes, UA Negative Negative, Rare, Trace Nitrite, UA Negative Negative, None Detected Urine 03/22/2025 1:28 PM EDT Result [facility] Alcira Blanco NNAMDI POINT OF CARE TEST ENTER/EDIT O RDERABLES Final Result * CT Abdomen Pelvis w/o Contrast (02/26/2025 12:42 PM EDT) Anatomical Region Laterality Modality Body, Pelvis, Abdomen Computed T omography Historical Provider IMG CT PROCEDURES Final R esult * Vitamin D, 25-Hydroxy, Total, Immunoassay (02/23/2025 11:59 AM EDT) Pathologist [facility] Vitamin D 25-OH Total 58.7 >30 ng/mL [facility] Comment: Health Based Reference Values*< 20 ??ng/mL ??Etztcoahb17-97 ng/mL ??Insufficient> 30 ??ng/mL ??Sufficient*Cal BURNETT. N Engl J Med. 2007;357:266-280There is no well-established upper level of normal vitamin Dlevels. Some laboratories use 50 ng/mL as an upper limit ofnormal. However, toxicity is patient-dependent and may occurat any level. Careful correlation with the patient'spresentation is necessary and, if there is concern forvitamin D toxicity, treatment should be consideredirrespective of the serum level.Care must be taken in interpreting Vitamin D results fromdifferent laboratories and methodologies. ??Published datademonstrated that results from patients undergoinghemodialysis may show a negative bias when tested withvarious automated 25-OH vitamin D assays when compared toLC- MS/MS.When testing samples from patients whose predominant form ofVitamin D is Vitamin D2, such as patients receiving VitaminD2 supplementation, results that are subtherapeutic shouldbe confirmed with another method such as LC-MS/MS. Blood Venous blood specimen / Unknown 02/23/2025 11:59 AM EDT 02/23/2025 1:14 PM EDT Lorrie Reyes DO LAB BLOOD ORDERABLES Final R esult [facility] [address] [place] [address] [phone] * Alpha-Fetoprotein, Tumor Marker (02/23/2025 11:59 AM EDT) Pathologist [facility] Alpha Fetoprotein 2.4 ng/mL [facility] Comment:Reference Range: <6. 1The use of AFP as a tumor marker in females is not recommended.This test was performed using the July Coulterchemiluminescent method. Values obtained fromdifferent assay methods cannot be usedinterchangeably. AFP levels, regardless ofvalue, should not be interpreted as absoluteevidence of the presence or absence of disease.THIS TEST WAS PERFORMED AT:[email or web address] [place] [phone] RECINOS MD Blood Venous blood specimen / Unknown 02/23/2025 11:59 AM EDT 02/23/2025 1:14 PM EDT Lorrie Jurcsak DO LAB BLOOD ORDERABLES Final R esult [facility] [address] [place] [phone] * CBC (02/23/2025 11:59 AM EDT) White Blood Count 6.3 4.8 - 10.8 X10*3/uL [facility] Red Blood Count 4.35 4.20 - 5.50 X10*6/uL [facility] Hemoglobin 13.4 12.0 - 16.0 g/dl [facility] Hematocrit 41.2 37.0 - 47.0 % [facility] Mean Corpuscular Volume 94.7 80.0 - 98.0 fL [facility] Mean Corpuscular Hemoglobin 30.8 27.0 - 33.0 pg [facility] Mean Corpuscular HGB Conc 32.5 31.0 - 35.0 g/dl [facility] Red Cell Distribution Width 13.7 11.0 - 16.0 % [facility] Platelet Count 231 160 - 400 X10*3/uL [facility] Mean Platelet Volume 9.9 9.4 - 12.3 fL [facility] NRBC Pct Auto 0.0 0.0 - 0.2 /100WBC [facility] NRBC Abs Auto 0.000 0.0 - 0.012 X10*3/uL [facility] Blood Venous blood specimen / Unknown 02/23/2025 11:59 AM EDT 02/23/2025 1:14 PM EDT us Lorrie Reyes DO LAB BLOOD ORDERABLES Final R esult [facility] [address] [place] [phone] * TSH (02/23/2025 11:59 AM EDT) Thyroid Stimulating Hormone 0.98 0.32 - 4.0 uIU/mL [facility] Comment:TSH 3rd Generation ( [facility]) Blood Venous blood specimen / Unknown 02/23/2025 11:59 AM EDT 02/23/2025 1:14 PM EDT Lorrie Hessemelyncarlyle DO LAB BLOOD ORDERABLES Final R esult Performing Organization Address City/[facility]/ZIP Co de Phone Number [facility] [address] [place] [address] [phone] * T4, Free (02/23/2025 11:59 AM EDT) Free T4 (Free Thyroxine) 0.91 0.71 - 1.85 ng/dL [facility] Blood Venous blood specimen / Unknown 02/23/2025 11:59 AM EDT 02/23/2025 1:14 PM EDT Lorrie Amy DO LAB BLOOD ORDERABLES Final R esult Performing Organization Address City/[facility]/ZIP Co de Phone Number [facility] [address] [place] [address] [phone] * (ABNORMAL) Hemoglobin A1c (02/23/2025 11:59 AM EDT) Hemoglobin A1c 6.1(H) <6.0 % [facility] Comment:Hemoglobin A1C Refer ence Range Adults: 4.8 - 6.0 % Non diabetic: < 6.0 % Goal: < 7.0 %Additional Action Suggested: > 8.0 %Note: Hemoglobin A1c results are invalid for patients with abnormal amounts of HbF. Blood transfusions may impact the HbA1c concentration in the patient sample. Estimated Average Glucose 128 mg/dL [facility] Comment:eAG = Estimated ave rage glucose which is %A1C expressed asaverage glucose, using the formula of the [id number] Glucose study (ADAG), Diabetes Care, Vol.31,#8,2007 Blood Venous blood specimen / Unknown 02/23/2025 11:59 AM EDT 02/23/2025 1:14 PM EDT Lorrie Amy DO LAB BLOOD ORDERABLES Final R esult Performing Organization Address City/[facility]/ZIP Co de Phone Number [facility] [address] [place] [address] [phone] * Hepatic Function Panel (02/23/2025 11:59 AM EDT) Bilirubin, Total 0.7 0.0 - 1.0 mg/dL [facility] Bilirubin, Direct 0.2 0.0 - 0.5 mg/dL [facility] Aspartate Amino Transferase 22 5 - 31 U/L [facility] Alanine Aminotransferase 19 0 - 31 U/L [facility] Total Protein 7.2 6.5 - 8.0 g/dL [facility] Albumin Level 4.2 3.5 - 5.0 g/dL [facility] Alkaline Phosphatase 84 39 - 117 U/L [facility] Blood Venous blood specimen / Unknown 02/23/2025 11:59 AM EDT 02/23/2025 1:14 PM EDT Lorrie Amy DO LAB BLOOD ORDERABLES Final R esult Performing Organization Address [facility] Co de Phone Number [facility] [address] [place] [address] [phone] * (ABNORMAL) Lipid Panel, Standard (02/23/2025 11:59 AM EDT) Triglycerides 123 <150 mg/dL [facility] Comment:Desirable Triglyceri de: less than 150 mg/dLBorderline High Triglyceride 150-199 mg/dLHigh Triglyceride: 200-499 mg/dLVery High Triglyceride: greater than or equal to 5OO mg/dL Cholesterol 181 <200 mg/dL [facility] Comment:Desirable Cholestero l: less than 200 mg/dLBorderline High Cholesterol: 200-239 mg/dLHigh Cholesterol: greater than 239 mg/dL LDL Cholesterol Calculated 112(H) <100 mg/dL [facility] Comment:Desirable LDL: less than 100 mg/dLNear Optimal/Above Optimal LDL: 110- 129 mg/dLBorderline High LDL: 130-159 mg/dLHigh LDL: 160-189 mg/dLVery High LDL: greater than or equal to 190 mg/dL HDL Cholesterol 45 >40 mg/dL [facility] Comment:Desirable HDL: great er than 40 mg/dL Note: This HDL assay may give artificially low results in patients with liver disease. Blood Venous blood specimen / Unknown 02/23/2025 11:59 AM EDT 02/23/2025 1:14 PM EDT us Lorrie Reyes DO LAB BLOOD ORDERABLES Final R esult [facility] [address] [place] [address] [phone] * (ABNORMAL) Basic Metabolic Panel (02/23/2025 11:59 AM EDT) Sodium 140 135 - 145 mmol/L [facility] Potassium 3.8 3.3 - 5.1 mmol/L [facility] Chloride 109(H) 96 - 108 mmol/L [facility] Carbon Dioxide 25 22 - 29 mmol/L [facility] Anion Gap 10(L) 12 - 20 [facility] Urea Nitrogen (BUN) 15 9 - 16 mg/dL [facility] Creatinine, Serum 0.66 0.5 - 1.4 mg/dL [facility] Estimated Glomerular Filt Rate >60 [facility] Comment:Chronic Kidney Disea se: Estimated GFR < 60 mL/min/1.61g4Hdbxjf Kidney Disease: Estimated GFR < 15 mL/min/1.73m2 Glucose 106 60 - 115 mg/dL [facility] Calcium 9.3 8.4 - 10.2 mg/dL [facility] Blood Venous blood specimen / Unknown 02/23/2025 11:59 AM EDT 02/23/2025 1:14 PM EDT us Lorrie Reyes DO LAB BLOOD ORDERABLES Final R esult [facility] [address] [place] [phone] * BI US Breast Limited Bilateral (12/12/2024 2:45 PM EST) Anatomical Region Laterality Modality Breast Bilateral Ultrasound 12/12/2024 2:45 PM EST Narrative 12/12/2024 3:24 PM EST ? [facility] [place] ? [address] ?[place] [address] ? Ultrasound Report ? Signed ? Patient: Adan,Ele ?MR#: [id number] ?? [id number] ? : 1960 ?Acct:[id number] ? Age/Sex: 63 / F ?ADM Date: 12/12/24 ? Loc: HO.MAMMO ? Attending Dr: Girish Washburn NP ? Ordering Physician: GIRISH WASHBURN NP ?? Date of Service: 12/12/24 ?? Procedure(s): US breast BI limited mamm only ?? Accession Number(s): [id number] ? cc: Lorrie Reyes DO; GIRISH WASHBURN [...] ??Latasha Julio DO ??12/12/2024 03:21 PM EST ? Dictated By: ?Latasha Julio DO ? Signed By: ?<Electronically signed by Latasha Julio, DO in OV> ? 12/12/24 1521 ? DD/ 1445 ? TD/TT: 12/12/24 1516 ? Slitting Machine Operator Helper: ? Procedure Note Kiran, Eduardo - 12/12/[address] [facility] [address] [place] [address] Ultrasound Report Signed Patient: Ele AdanMR#: [id number] : 1960Acct:[id number] Age/Sex: 63 / FADM Date: 12/12/24 Loc: HO.MAMMO Attending Dr: Girish Washburn NP Ordering Physician: GIRISH WASHBURN NP Date of Service: 12/12/24 Procedure(s): breast BI limited mamm only Accession Number(s): [id number] cc: Lorrie Reyes DO; GIRISH WASHBURN NP [...] by: Latasha Julio DO 12/12/2024 03:21 PM EST RP Dictated By: Latasha Julio DO Signed By: <Electronically signed by Latasha Julio DO in OV> 12/12/24 1521 DD/ 1445 TD/TT: 12/12/24 1516 Slitting Machine Operator Helper: Girish MARTELL US PROCEDURES Final Result * Hepatitis C Antibody with Reflex to HCV, RNA, Quantitative, Real-Time PCR (11/23/2023 1:26 PM EST) Pathologist [facility] Hepatitis C Antibody Nonreactive Nonreactive [facility] Comment:Antibodies to HCV no t detected; does not exclude early acuteHCV infection. Blood Venous blood specimen / Unknown 11/23/2023 1:26 PM EST 11/23/2023 3:54 PM EST Lorrie Reyes DO LAB BLOOD ORDERABLES Final R esult [facility] [address] [place] [phone] * HIV-1/2 Antigen and Antibodies, Fourth Generation, with Reflexes (11/23/2023 1:26 PM EST) HIV AB/AG Nonreactive Nonreactive [facility] Comment:HIV-1 p24 Ag and/or HIV-1/HIV-2 Ab not detected.A test result that is nonreactive does not exclude thepossibility of exposure to or infection with HIV-1 and/orHIV-2. Nonreactive results in this assay for individualswith prior exposure to HIV-1 and/or HIV-2 may be due toantigen and antibody levels that are below the limit ofdetection of this assay.The [employer] HIV Ag/Ab Combo assay result andsupplemental assay results should be interpreted inconjunction with the patient's clinical presentation,history and other laboratory results. If the results areinconsistent with clinical evidence, additional testing issuggested to confirm the result. Blood Venous blood specimen / Unknown 11/23/2023 1:26 PM EST 11/23/2023 3:54 PM EST us Lorrie Reyes DO LAB BLOOD ORDERABLES Final R esult [facility] [address] [place] [phone] * HPV E6/E7 RFLX DARA 16 18/45 (07/24/2019 10:55 AM EDT) Pathologist [facility] HPV mRNA E6/E7 Not Detected NOT DETECTED [facility] Comment: This test was performed using the APTIMA(R) HPV Assay ([employer] This assay detects E6/E7 viral messenger RNA (mRNA) from 14 high-risk HPV types (16,18,31,33,35,39,45,51, 52,56,58,59,66,68). For additional information please refer to: http://education.[employer].GT Urological/faq/WLY457c0 (This link is being provided for informational/ educational purposes only.) The analytical performance characteristics of this assay have been determined by [facility] [place], [place]. The modifications have not been cleared or approved by the FDA. This assay has been validated pursuant to the CLIA regulations and is used for clinical purposes. Please note: ??Effective 07/20/2016, HPV testing will be performed using [employer]'s APTIMA test which targets mRNA. Detecting mRNA instead of DNA, as in older methods, offers significant improvements in specificity. ADDITIONAL TESTING Not indicated () [facility] Comment: Test Performed by [facility], [facility], [address] [place] [id number] Aamir Lerner M.D., Ph.D., Director of Laboratories , [facility] [id number] HPV 16 RNA Test not performed [facility] HPV 18/45 RNA Test not performed [facility] 07/24/2019 10:5 5 AM EDT Lorrie Reyes DO HISTORICAL/NON ORDERABLE LAB S Final Result [facility] [address] [place] [address], * Hm Colonoscopy (02/23/2017 9:54 AM EDT) Historical Provider MD HEALTH MAINTENANCE Final Result from Last 3 Months or Most Recently Relevant to Health Maintenance [place] [place] [address] C3 Care Teams Roper Operator Relationship Specialty Start Date End Date Lorrie Reyes DO [address] [place] [address] PCP - General Family Medicine 07/19/15 Michi Mahan Animal RescuerPodiatry Assistant 04/17/24
--- OUTSIDE RECORDS SUMMARY | 2025-03-26 12:32 | XMS_ITS | Encounter Summary ---
Author Organization [employer] Address [address] [facility] [address] [place] [address] Care Team Providers Care Mechanical Engineering Manager Name Role Phone Lorrie Reyes DO Primary Care Provider + [phone] Encounter Details Date Type Department Care Team (Late st Contact Info) Description 08/30/2023 Abstract [facility] MEDICINE [address] [place] [address] Lorrie Reyes DO [address] [place] [address] Social History Tobacco Use Types Packs/Day Years [...] Description 05/25/2025 11:45 AM EDT Office Visit [facility] MEDICINE [address] [place] [address] Trenton Aguirre MD [address] [place] [address] documented as of this encounter Visit Diagnoses Not on filedocumented in this encounter Care Teams Mechanical Engineering Manager Relationship Specialty Start Date End Date Lorrie Reyes DO [address] [place], [place] [phone] PCP - General Family Medicine 07/19/15 Michi Mahan Manager Urgent CareAnalysis Mgr 04/17/24 documented as of this encounter
--- OUTSIDE RECORDS SUMMARY | 2025-03-26 12:32 | XMS_ITS | Data Portability ---
Author Organization [place] [facility], Allergy Address [address] [place] [phone] Care Team Providers Care Licensing Court Magistrate Name Role Phone ZHANNA MEZA Primary Care Provider Assessment Encounter Date Assessment Date Assessment LastModified [...] Go To The Location Of Their Choice, [id number] 18:16:16 nettle IgE Ab, serum 2023 024 [email or web address] [facility] (Centralized Electronic Ordering - All Locations), Patient Can Go To The Location Of Their Choice, 5 15:38:24 bahia grass IgE Ab, quanti tative , serum 20[address] [facility] [address] [facility] (Central[facility] Order[facility] - All Locations), Patient Can Go To The Location Of Their Choice, 5 15:38:24 bermud a grass ige, serum 2023 024 [facility] ([facility] - All Locations), Patient Can Go To The Location Of Their Choice, 5 15:38:24 englis h planta in ige, serum 2023 024 [facility] ([facility] Order[facility] - All Locations), Patient Can Go To The Location Of Their Choice, 5 15:38:24 ige, total, serum 2023 FABIAN [facility] (Centralized Electronic Ordering - All Locations), Patient Can Go To The Location Of Their Choice, [address] 4 18:16:17 CBC w/ auto diff 2023 FABIAN [facility] (Centralized Electronic Ordering - All Locations), Patient Can Go To The Location Of Their Choice, [address] 18:16:16 Referral None record ed. Procedures None record ed. Surgeries None record ed. Imaging CT, sinuse s, w/o contra st 2024 025 [facility], [address] [place] [address], [phone], 5 15:15:31 Medication Orders olopat adine 0.2 % eye drops 2023 024 [facility]/Pharmacy #[id number], [address] [place], [address], 4 13:38:07 azelas roberto 137 mcg (0.1 %) nasal spray 2023 024 [facility]/Pharmacy #[id number], [address] [place], [address], 4 13:38:07 flutic asone propio tash 50 mcg/ac tuatio n nasal spray, suspen ho 2023 024 [facility]/Pharmacy #[id number], [address] [place], [address], 4 13:38:06 lazara ukast 10 mg tablet 2023 024 [facility]/Pharmacy #[id number], [address] [place], [address], 4 13:38:07 Patient TargetsNo targets recorded. Patient Instructions Encounter Date Encounter Id Patient Instructions Last Modified By Organization Details Last Modified Time 02/07/2025 [id number] Patient with diagnosis of allergic rhinitis, moderate [...] /uL 3.4-10 .8 normal Not Available [facility] ([facility]) [address] [facility], [place], [address], 10/29/2024 18:16:15 10/27/20 24 10/28/2024 CBC WITH DIFFE RENTI AL/PL ATELE T RBC 4.46 x10e6 /uL 3.77-5 .28 normal Not Available [facility] ([facility]) [address] [facility], [place], [address], 10/29/2024 18:16:15 10/27/20 24 10/28/2024 CBC WITH DIFFE RENTI AL/PL ATELE T hemoglobin 13.8 g/dL 11.1-1 5.9 normal Not Available [facility] ([facility]) [address] [facility], [place], [address], 10/29/2024 18:16:15 10/27/20 24 10/28/2024 CBC WITH DIFFE RENTI AL/PL ATELE T hematocrit 42.2 % 34.0-4 6.6 normal Not Available [facility] ([facility]) [address] [facility], [place], [address], 10/29/2024 18:16:15 10/27/20 24 10/28/2024 CBC WITH DIFFE RENTI AL/PL ATELE T MCV 95 fL 79-97 normal Not Available [facility] ([facility]) [address] [place], [address], 10/29/2024 18:16:15 10/27/20 24 10/28/2024 CBC WITH DIFFE RENTI AL/PL ATELE T MCH 30.9 pg 26.6-3 3.0 normal Not Available [facility] ([facility]) [address] [place], [address], 10/29/2024 18:16:15 10/27/20 24 10/28/2024 CBC WITH DIFFE RENTI AL/PL ATELE T MCHC 32.7 g/dL 31.5-3 5.7 normal Not Available [facility] ([facility]) [address] [place], [address], 10/29/2024 18:16:15 10/27/20 24 10/28/2024 CBC WITH DIFFE RENTI AL/PL ATELE T RDW 13.1 % 11.7-1 5.4 Not Available [facility] ([facility]) [address] [facility], [place], [address], 10/29/2024 18:16:15 10/27/20 24 10/28/2024 CBC WITH DIFFE RENTI AL/PL ATELE T platelets 262 x10e3 /uL 150-45 0 normal Not Available [facility] ([facility]) [address] [facility], [place], [address], 10/29/2024 18:16:15 10/27/20 24 10/28/2024 CBC WITH DIFFE RENTI AL/PL ATELE T neutrophils 58 % not estab. normal Not Available [facility] ([facility]) [address] [facility], [place], [address], 10/29/2024 18:16:15 10/27/20 24 10/28/2024 CBC WITH DIFFE RENTI AL/PL ATELE T lymphs 37 % not estab. normal Not Available [facility] ([facility]) [address] [facility], [place], [address], 10/29/2024 18:16:15 10/27/20 24 10/28/2024 CBC WITH DIFFE RENTI AL/PL ATELE T monocytes 4 % not estab. normal Not Available [facility] ([facility]) [address] [facility], [place], [address], 10/29/2024 18:16:15 10/27/20 24 10/28/2024 CBC WITH DIFFE RENTI AL/PL ATELE T eos 1 % not estab. normal Not Available [facility] ([facility]) [address] [facility], [place], [address], 10/29/2024 18:16:15 10/27/20 24 10/28/2024 CBC WITH DIFFE RENTI AL/PL ATELE T basos 0 % not estab. normal Not Available [facility] ([facility]) [address] [facility], [place], [address], 10/29/2024 18:16:15 10/27/20 24 10/28/2024 CBC WITH DIFFE RENTI AL/PL ATELE T immature cells BURN OUT SCARFING OPERATOR Not Available [facility] ([facility]) [address] [place], [address], 10/29/2024 18:16:15 10/27/20 24 10/28/2024 CBC WITH DIFFE RENTI AL/PL ATELE T neutrophils (absolute) 4.3 x10e3 /uL 1.4-7. 0 normal Not Available [facility] ([facility]) [address] [place], [address], 10/29/2024 18:16:15 10/27/20 24 10/28/2024 CBC WITH DIFFE RENTI AL/PL ATELE T lymphs (absolute) 2.7 x10e3 /uL 0.7-3. 1 normal Not Available [facility] ([facility]) [address] [place], [address], 10/29/2024 18:16:15 10/27/20 24 10/28/2024 CBC WITH DIFFE RENTI AL/PL ATELE T monocytes(ab solute) 0.3 x10e3 /uL 0.1-0. 9 normal Not Available [facility] ([facility]) [address] [place], [address], 10/29/2024 18:16:15 10/27/20 24 10/28/2024 CBC WITH DIFFE RENTI AL/PL ATELE T eos (absolute) 0.1 x10e3 /uL 0.0-0. 4 normal Not Available [facility] ([facility]) [address] [place], [address], 10/29/2024 18:16:15 10/27/20 24 10/28/2024 CBC WITH DIFFE RENTI AL/PL ATELE T baso (absolute) 0.0 x10e3 /uL 0.0-0. 2 normal Not Available [facility] ([facility]) [address] [facility], [place], [address], 10/29/2024 18:16:15 10/27/20 24 10/28/2024 CBC WITH DIFFE RENTI AL/PL ATELE T immature granulocytes 0 % not estab. Not Available [facility] ([facility]) [address] [facility], [place], [address], 10/29/2024 18:16:15 10/27/20 24 10/28/2024 CBC WITH DIFFE RENTI AL/PL ATELE T immature grans (abs) 0.0 x10e3 /uL 0.0-0. 1 Not Available [facility] ([facility]) [address] [facility], [place], [address], 10/29/2024 18:16:15 10/27/20 24 10/28/2024 CBC WITH DIFFE RENTI AL/PL ATELE T NRBC BURN OUT SCARFING OPERATOR Not Available [facility] ([facility]) [address] [facility], [place], [address], 10/29/2024 18:16:15 10/27/20 24 10/28/2024 CBC WITH DIFFE RENTI AL/PL ATELE T hematology comments: BURN OUT SCARFING OPERATOR Not Available [facility] ([facility]) [address] [facility], [place], [address], 10/29/2024 18:16:15 10/27/20 24 10/27/2024 ALLER GENS, [...] >100. 00 Very High Not Available [facility] ([facility]) [address] [place], [address], 10/29/2024 18:16:16 10/27/20 24 10/29/2024 ALLER GENS, ZONE 1 L956-BqL D pteronyssinu s <0.10 kU/L class 0 Not Available [facility] ([facility]) [address] [place], [address], 10/29/2024 18:16:16 10/27/20 24 10/29/2024 ALLER GENS, ZONE 1 C149-SbH D farinae <0.10 kU/L class 0 Not Available [facility] ([facility]) [address] [place], [address], 10/29/2024 18:16:16 10/27/20 24 10/29/2024 ALLER GENS, ZONE 1 A049-SzM CAT dander <0.10 kU/L class 0 Not Available [facility] ([facility]) [address] [place], [address], 10/29/2024 18:16:16 10/27/20 24 10/29/2024 ALLER GENS, ZONE 1 N688-JeL dog dander <0.10 kU/L class 0 Not Available [facility] ([facility]) [address] [place], [address], 10/29/2024 18:16:16 10/27/20 24 10/29/2024 ALLER GENS, ZONE 1 g251-FoE bermuda grass <0.10 kU/L class 0 Not Available [facility] ([facility]) [address] [place], [address], 10/29/2024 18:16:16 10/27/20 24 10/29/2024 ALLER GENS, ZONE 1 a289-WcG bluegrass, [place] <0.10 kU/L class 0 Not Available [facility] ([facility]) [address] [place], [address], 10/29/2024 18:16:16 10/27/20 24 10/29/2024 ALLER GENS, ZONE 1 l413-GiN bahia grass <0.10 kU/L class 0 Not Available [facility] ([facility]) [address] [place], [address], 10/29/2024 18:16:16 10/27/20 24 10/29/2024 ALLER GENS, ZONE 1 L793-TmJ cockroach, libyan <0.10 kU/L class 0 Not Available [facility] ([facility]) [address] [facility], [place], [address], 10/29/2024 18:16:16 10/27/20 24 10/29/2024 ALLER GENS, ZONE 1 S546-RiG penicillium chrysogen <0.10 kU/L class 0 Not Available [facility] ([facility]) [address] [place], [address], 10/29/2024 18:16:16 10/27/20 24 10/29/2024 ALLER GENS, ZONE 1 I600-JrK cladosporium herbarum <0.10 kU/L class 0 Not Available [facility] ([facility]) [address] [place], [address], 10/29/2024 18:16:16 10/27/20 24 10/29/2024 ALLER GENS, ZONE 1 L803-SmG aspergillus fumigatus <0.10 kU/L class 0 Not Available [facility] ([facility]) [address] [place], [address], 10/29/2024 18:16:16 10/27/20 24 10/29/2024 ALLER GENS, ZONE 1 Z132-UcZ mucor racemosus <0.10 kU/L class 0 Not Available [facility] ([facility]) [address] [place], [address], 10/29/2024 18:16:16 10/27/20 24 10/29/2024 ALLER GENS, ZONE 1 N495-CtV alternaria alternata <0.10 kU/L class 0 Not Available [facility] ([facility]) [address] [place], [address], 10/29/2024 18:16:16 10/27/20 24 10/29/2024 ALLER GENS, ZONE 1 L678-WaY stemphylium herbarum <0.10 kU/L class 0 Not Available [facility] ([facility]) [address] [place], [address], 10/29/2024 18:16:16 10/27/20 24 10/29/2024 ALLER GENS, ZONE 1 V466-AyL common silver birch <0.10 kU/L class 0 Not Available [facility] ([facility]) [address] [place], [address], 10/29/2024 18:16:16 10/27/20 24 10/29/2024 ALLER GENS, ZONE 1 I065-TpR oak, white <0.10 kU/L class 0 Not Available [facility] ([facility]) [address] [place], [address], 10/29/2024 18:16:16 10/27/20 24 10/29/2024 ALLER GENS, ZONE 1 F527-WcD elm, libyan <0.10 kU/L class 0 Not Available [facility] ([facility]) [address] [place], [address], 10/29/2024 18:16:16 10/27/20 24 10/29/2024 ALLER GENS, ZONE 1 F935-DkP steph, white <0.10 kU/L class 0 Not Available [facility] ([facility] [address] [facility] [place], [address], 10/29/2024 18:16:16 10/27/20 24 10/29/2024 ALLER GENS, ZONE 1 S669-YeY maple/box elder <0.10 kU/L class 0 Not Available [facility] ([facility] [place]) [address] [facility], [place], [address], 10/29/2024 18:16:16 10/27/20 24 10/29/2024 ALLER GENS, ZONE 1 X516-ApD hazelnut tree <0.10 kU/L class 0 Not Available [facility] ([facility] [place] [facility]) [address] [facility], [place], [address], 10/29/2024 18:16:16 10/27/20 24 10/29/2024 ALLER GENS, ZONE 1 I539-YsN hickory, white <0.10 kU/L class 0 Not Available [facility] ([facility]) [address] [facility], [place], [address], 10/29/2024 18:16:16 10/27/20 24 10/29/2024 ALLER GENS, ZONE 1 D997-ErI white mulberry <0.10 kU/L class 0 Not Available [facility] ([facility] [place] [facility]) [address] [facility], [place], [address], 10/29/2024 18:16:16 10/27/20 24 10/29/2024 ALLER GENS, ZONE 1 T321-VpF cedar, mountain <0.10 kU/L class 0 Not Available [facility] ([facility] [place] [facility]) [address] [facility], [place], [address], 10/29/2024 18:16:16 10/27/20 24 10/29/2024 ALLER GENS, ZONE 1 X516-QbS ragweed, short <0.10 kU/L class 0 Not Available [facility] ([facility]) [address] [facility], [place], [address], 10/29/2024 18:16:16 10/27/20 24 10/29/2024 ALLER GENS, ZONE 1 L483-PqR mugwort <0.10 kU/L class 0 Not Available [facility] ([facility] [place] [facility]) [address], [place], [address], 10/29/2024 18:16:16 10/27/20 24 10/29/2024 ALLER GENS, ZONE 1 S644-XuV plantain, montserratian <0.10 kU/L class 0 Not Available [facility] ([facility] [place] [facility]) [address] [facility], [place], [address], 10/29/2024 18:16:16 10/27/20 24 10/29/2024 ALLER GENS, ZONE 1 O930-WiD pigweed, common <0.10 kU/L class 0 Not Available [facility] ([facility]) [address] [facility], [place], [address], 10/29/2024 18:16:16 10/27/20 24 10/29/2024 ALLER GENS, ZONE 1 L399-OfA sheep sorrel <0.10 kU/L class 0 Not Available [facility] ([facility]) [address] [facility], [place], [address], 10/29/2024 18:16:16 10/27/20 24 10/29/2024 ALLER GENS, ZONE 1 S389-OhM nettle <0.10 kU/L class 0 Not Available [facility] ([facility]) [address] [facility], [place], [address], 10/29/2024 18:16:16 10/27/20 24 10/29/2024 IMMUN OGLOB ULIN E, TOTAL immunoglobul in E, total <2 IU/mL 6-495 below low normal Not Available [facility] ([facility]) [address] [facility], [place], [address], 10/29/2024 18:16:17 04/02/[address], sinus es, w/o contr ast No observ ation record ed. [email or web address] [facility] [address], [address], 02/07/2025 13:30:53 Result Notes None recorded. Problems Name Problem SNOMED Code Status Onset Date Resolution Date Notes Provider Name and Address Organization Details Recorded Time Allergic rhinitis 66396828 Active 2023 TERESA JEFFERS MD [address] [place] [address], [facility], [place], [address], [facility] 4 13:34:20 Seasonal allergic rhinitis 846895806 Active 2023 TERESA JEFFERS MD [address] [place] [address], [place], [address], [facility] 4 13:34:20 Hypertrophy of nasal turbinates 05249155 Active 2023 TERESA JEFFERS MD [address] [place] [address], [place], [address], [place] [facility] 4 13:34:38 Moderate persistent asthma 427677177 Active 2023 TERESA JEFFERS MD [address] [place] [address], [place], [address], [facility] 4 13:35:21 Polypoid sinus degeneration 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 Procedures Surgical History Date Name Laterality Status Provider Name and Address Organization Details Recorded Time 5 JMSNasal/Sinus Endoscopy completed TERESA TERRELL MD [address] [place] [address], [address], [facility] 02/07/2025 13:13:07 JMSNasal/Sinus Endoscopy completed TERESA TERRELL MD [address] [place] [address], [address], [facility] 10/27/2024 13:36:16 Imaging Results Imaging Date Name Status LastModified by Organiz ation Details LastModified Time 02/07/2025 CT, sinuses, w/o contrast completed [email or web address] [facility]ts [address], [address], 02/07/2025 13:30:53 Procedure Notes None recorded. Medical [...] propionate 50 mcg/actuati on nasal spray,suspe nsion Crum 1 spray every day by intranasa l [...] Updated DateTime 02/07/2025 162.56 cm 34 kg/m2 85097.29 g Franchesca Pritchard [facility] 02/07/2025 12:54:46 Date Recorded Body height Body mass index (BMI) Body weight Provider Name and Address Organization Details Last Updated DateTime 10/27/2024 162.56 cm 34 kg/m2 33106.29 g Zachary Pritchard [facility] 10/27/2024 13:03:44 Social History None recorded. Functional Status None recorded. Mental Status None recorded. Family History Nothing Reported. Medical History Condition Response Arthritis Y Asthma Y Gynecological HistoryNo gynecological history recorded. Obstetrics History GPAL:G 0 P 0 0 0 0 Past Encounters Encounter ID Performer Location Encounter Start Date Encounter Closed Date Diagnosis/Indication Diagnosis SNOMED-CT Code Diagnosis ICD10 Code Diagnosis Note [id number] TERESA WEEKS MD [facility] [address] [address] 10/27/2024 12:39:39 10/27/2024 14:34:22 Allergic rhinitis 73053634 J30.9 Hypertroph y of nasal turbinates 89025550 J34.3 Moderate p ersistent asthma 200909918 J45.40 [id number] TERESA WEEKS MD [facility] [address] [address] 02/07/2025 12:49:25 02/07/2025 15:15:31 Allergic rhinitis 81202365 J30.9 Polypoid s inus degeneration 69343001 J33.1 Moderate p ersistent asthma 573413124 J45.40 Health Concerns Section Related Observation LastModified by Organization Detai ls LastModified Time None Recorded Concern Status LastModified by Organization Details LastModified Time None Recorded Advance Directives Directive None Recorded Payers Insurance Date Sequence Insurance Name Policy Number Policy Marin Covered Member ID Marin Member ID Guarantor Name 02/07/2025 1 [place] [facility] Ele Adan [id number] Justin Adan Notes Date Note Type Note Provider Name and Address Organization Details Recorded Time 10/27/2024 text/html Hx of allergy an d sinus congestion. Hx of asthma on symbicort, Atrovent, loratadine and pseudoephedrine. Previously on Asmanex,Trouble with her CPAP machine. Sensitive to smells and perfumesChronic eye and nasal irritation.Significan t allergy hx.--grasses and dustNo hx of ASA or NSAID allergy TERESA TERRELL MD [address] [place] [address], [phone], [facility] 10/27/2024 13:39:28 02/07/2025 text/html Hx of allergy [...] still has some congestion TERESA TERRELL MD [address] [place] [address],[address], [address], [facility] 02/07/2025 13:32:47 OBGyn Episode No OBEpisode recorded.
== END 2025-03-26 11:58 | disposition home or self-care (01) ==
LOC: HO.HHCX 11:57
PROVIDERS: Visit Provider Internal Medicine
DX: R05.9 Cough, unspecified (principal)
CPT/HCPCS: 71046

== ENCOUNTER → 2025-03-26 11:57 | Outpatient (BNV) | payer MEDICAID, SELFPAY | PROVIDERS: Visit Provider Radiology Diagnostic Radiology | DX: R05.3 Chronic cough (principal) | CPT/HCPCS: 71046 ==

== ENCOUNTER → 2025-04-08 20:30 | Outpatient (BNV) | payer MEDICAID, SELFPAY | PROVIDERS: PCP Family Medicine; Visit Provider Internal Medicine | DX: G47.33 Obstructive sleep apnea (adult) (pediatric) (principal) | CPT/HCPCS: 95810 ==

== ENCOUNTER → 2025-04-08 20:30 | Outpatient (REF) | payer MEDICAID, SELFPAY ==
--- OUTSIDE RECORDS SUMMARY | 2025-04-08 20:51 | XMS_ITS | Data Portability ---
Author Organization [place] - [facility], Allergy Address [address] [place] [phone] Care Team Providers Care Store Specialist Name Role Phone ZHANNA MEZA Primary Care Provider [phone] Assessment Encounter Date Assessment Date Assessment LastModified [...] Go To The Location Of Their Choice, [address] 18:16:16 nettle IgE Ab, serum 2023 024 [email or web address] [facility] ([facility] Ordering - All Locations), Patient Can Go To The Location Of Their Choice, 5 15:38:24 bahia grass IgE Ab, quanti tative , serum 2023 024 [facility] ([facility] - All Locations), Patient Can Go To The Location Of Their Choice, 5 15:38:24 bermud a grass ige, serum 2023 024 [facility] Communications[facility] ([facility] Order[facility] - All Locations), Patient Can Go To The Location Of Their Choice, 5 15:38:24 englis h planta in ige, serum 2023 024 [facility] ([facility] Order[facility] - All Locations), Patient Can Go To The Location Of Their Choice, 5 15:38:24 ige, total, serum 2023 FABIAN [facility] ([facility] Ordering - All Locations), Patient Can Go To The Location Of Their Choice, [address] 4 18:16:17 CBC w/ auto diff 2023 FABIAN [facility] ([facility] Ordering - All Locations), Patient Can Go To The Location Of Their Choice, [address] 18:16:16 Referral None record ed. Procedures None record ed. Surgeries None record ed. Imaging CT, sinuse s, w/o contra st 2024 025 [facility], [address] [place] [address], [id number], 5 15:15:31 Medication Orders olopat adine 0.2 % eye drops 2023 024 LUMO [id number], [address] [place], [address], 4 13:38:07 azelas roberto 137 mcg (0.1 %) nasal spray 2023 024 [facility] #[id number], [address] [place], [address], 4 13:38:07 flutic asone propio tash 50 mcg/ac tuatio n nasal spray, suspen ho 2023 024 [facility]acy #[id number], [address] [place], [address], 4 13:38:06 lazara ukast 10 mg tablet 2023 024 [facility]acy #[id number], [address] [place], [address], 4 13:38:07 Patient TargetsNo targets recorded. Patient Instructions Encounter Date Encounter Id Patient Instructions Last Modified By Organization Details Last Modified Time 02/07/2025 [id number] Patient with diagnosis of allergic rhinitis, moderate [...] /uL 3.4-10 .8 normal Not Available [facility] ([facility]) [address] [facility], [place], [address], 10/29/2024 18:16:15 10/27/20 24 10/28/2024 CBC WITH DIFFE RENTI AL/PL ATELE T RBC 4.46 x10e6 /uL 3.77-5 .28 normal Not Available [facility] ([facility]) [address] [facility], [place], [address], 10/29/2024 18:16:15 10/27/20 24 10/28/2024 CBC WITH DIFFE RENTI AL/PL ATELE T hemoglobin 13.8 g/dL 11.1-1 5.9 normal Not Available [facility] ([facility]) [address] [facility], [place], [address], 10/29/2024 18:16:15 10/27/20 24 10/28/2024 CBC WITH DIFFE RENTI AL/PL ATELE T hematocrit 42.2 % 34.0-4 6.6 normal Not Available [facility] ([facility]) [address] [facility], [place], [address], 10/29/2024 18:16:15 10/27/20 24 10/28/2024 CBC WITH DIFFE RENTI AL/PL ATELE T MCV 95 fL 79-97 normal Not Available [facility] ([facility]) [address] [place], [address], 10/29/2024 18:16:15 10/27/20 24 10/28/2024 CBC WITH DIFFE RENTI AL/PL ATELE T MCH 30.9 pg 26.6-3 3.0 normal Not Available [facility] ([facility]) [address] [place], [address], 10/29/2024 18:16:15 10/27/20 24 10/28/2024 CBC WITH DIFFE RENTI AL/PL ATELE T MCHC 32.7 g/dL 31.5-3 5.7 normal Not Available [facility] ([facility]) [address] [place], [address], 10/29/2024 18:16:15 10/27/20 24 10/28/2024 CBC WITH DIFFE RENTI AL/PL ATELE T RDW 13.1 % 11.7-1 5.4 Not Available [facility] ([facility]) [address] [facility], [place], [address], 10/29/2024 18:16:15 10/27/20 24 10/28/2024 CBC WITH DIFFE RENTI AL/PL ATELE T platelets 262 x10e3 /uL 150-45 0 normal Not Available [facility] ([facility]) [address] [facility], [place], [address], 10/29/2024 18:16:15 10/27/20 24 10/28/2024 CBC WITH DIFFE RENTI AL/PL ATELE T neutrophils 58 % not estab. normal Not Available [facility] ([facility]) [address] [facility], [place], [address], 10/29/2024 18:16:15 10/27/20 24 10/28/2024 CBC WITH DIFFE RENTI AL/PL ATELE T lymphs 37 % not estab. normal Not Available [facility] ([facility]) [address] [facility], [place], [address], 10/29/2024 18:16:15 10/27/20 24 10/28/2024 CBC WITH DIFFE RENTI AL/PL ATELE T monocytes 4 % not estab. normal Not Available [facility] ([facility]) [address] [facility], [place], [address], 10/29/2024 18:16:15 10/27/20 24 10/28/2024 CBC WITH DIFFE RENTI AL/PL ATELE T eos 1 % not estab. normal Not Available [facility] ([facility]) [address] [facility], [place], [address], 10/29/2024 18:16:15 10/27/20 24 10/28/2024 CBC WITH DIFFE RENTI AL/PL ATELE T basos 0 % not estab. normal Not Available [facility] ([facility]) [address] [facility], [place], [address], 10/29/2024 18:16:15 10/27/20 24 10/28/2024 CBC WITH DIFFE RENTI AL/PL ATELE T immature cells CARDIOVASCULAR DISEASE SPECIALIST Not Available [facility] ([facility]) [address] [place], [address], 10/29/2024 18:16:15 10/27/20 24 10/28/2024 CBC WITH DIFFE RENTI AL/PL ATELE T neutrophils (absolute) 4.3 x10e3 /uL 1.4-7. 0 normal Not Available [facility] ([facility]) [address] [place], [address], 10/29/2024 18:16:15 10/27/20 24 10/28/2024 CBC WITH DIFFE RENTI AL/PL ATELE T lymphs (absolute) 2.7 x10e3 /uL 0.7-3. 1 normal Not Available [facility] ([facility]) [address] [place], [address], 10/29/2024 18:16:15 10/27/20 24 10/28/2024 CBC WITH DIFFE RENTI AL/PL ATELE T monocytes(ab solute) 0.3 x10e3 /uL 0.1-0. 9 normal Not Available [facility] ([facility]) [address] [place], [address], 10/29/2024 18:16:15 10/27/20 24 10/28/2024 CBC WITH DIFFE RENTI AL/PL ATELE T eos (absolute) 0.1 x10e3 /uL 0.0-0. 4 normal Not Available [facility] ([facility]) [address] [place], [address], 10/29/2024 18:16:15 10/27/20 24 10/28/2024 CBC WITH DIFFE RENTI AL/PL ATELE T baso (absolute) 0.0 x10e3 /uL 0.0-0. 2 normal Not Available [facility] ([facility]) [address] [facility], [place], [address], 10/29/2024 18:16:15 10/27/20 24 10/28/2024 CBC WITH DIFFE RENTI AL/PL ATELE T immature granulocytes 0 % not estab. Not Available [facility] ([facility]) [address] [facility], [place], [address], 10/29/2024 18:16:15 10/27/20 24 10/28/2024 CBC WITH DIFFE RENTI AL/PL ATELE T immature grans (abs) 0.0 x10e3 /uL 0.0-0. 1 Not Available [facility] ([facility]) [address] [facility], [place], [address], 10/29/2024 18:16:15 10/27/20 24 10/28/2024 CBC WITH DIFFE RENTI AL/PL ATELE T NRBC CARDIOVASCULAR DISEASE SPECIALIST Not Available [facility] ([facility]) [address] [facility], [place], [address], 10/29/2024 18:16:15 10/27/20 24 10/28/2024 CBC WITH DIFFE RENTI AL/PL ATELE T hematology comments: CARDIOVASCULAR DISEASE SPECIALIST Not Available [facility] ([facility]) [address] [facility], [place], [address], 10/29/2024 18:16:15 10/27/20 24 10/27/2024 ALLER GENS, [...] >100. 00 Very High Not Available [facility] ([facility]) [address] [place], [address], 10/29/2024 18:16:16 10/27/20 24 10/29/2024 ALLER GENS, ZONE 1 S686-ByZ D pteronyssinu s <0.10 kU/L class 0 Not Available [facility] ([facility]) [address] [place], [address], 10/29/2024 18:16:16 10/27/20 24 10/29/2024 ALLER GENS, ZONE 1 M391-FjS D farinae <0.10 kU/L class 0 Not Available [facility] ([facility]) [address] [place], [address], 10/29/2024 18:16:16 10/27/20 24 10/29/2024 ALLER GENS, ZONE 1 Z104-AoW CAT dander <0.10 kU/L class 0 Not Available [facility] ([facility]) [address] [place], [address], 10/29/2024 18:16:16 10/27/20 24 10/29/2024 ALLER GENS, ZONE 1 K341-ExN dog dander <0.10 kU/L class 0 Not Available [facility] ([facility]) [address] [place], [address], 10/29/2024 18:16:16 10/27/20 24 10/29/2024 ALLER GENS, ZONE 1 t593-ZbJ bermuda grass <0.10 kU/L class 0 Not Available [facility] ([facility]) [address] [place], [address], 10/29/2024 18:16:16 10/27/20 24 10/29/2024 ALLER GENS, ZONE 1 c079-GlJ bluegrass, [place] <0.10 kU/L class 0 Not Available [facility] ([facility]) [address] [place], [address], 10/29/2024 18:16:16 10/27/20 24 10/29/2024 ALLER GENS, ZONE 1 b698-LwE bahia grass <0.10 kU/L class 0 Not Available [facility] ([facility]) [address] [place], [address], 10/29/2024 18:16:16 10/27/20 24 10/29/2024 ALLER GENS, ZONE 1 Q379-SrG cockroach, south sudan[place] <0.10 kU/L class 0 Not Available [facility] ([facility]) [address] [facility], [place], [address], 10/29/2024 18:16:16 10/27/20 24 10/29/2024 ALLER GENS, ZONE 1 B938-OuZ penicillium chrysogen <0.10 kU/L class 0 Not Available [facility] ([facility]) [address] [place], [address], 10/29/2024 18:16:16 10/27/20 24 10/29/2024 ALLER GENS, ZONE 1 P144-HiK cladosporium herbarum <0.10 kU/L class 0 Not Available [facility] ([facility]) [address] [place], [address], 10/29/2024 18:16:16 10/27/20 24 10/29/2024 ALLER GENS, ZONE 1 Q048-EuM aspergillus fumigatus <0.10 kU/L class 0 Not Available [facility] ([facility]) [address] [place], [address], 10/29/2024 18:16:16 10/27/20 24 10/29/2024 ALLER GENS, ZONE 1 M266-NnJ mucor racemosus <0.10 kU/L class 0 Not Available [facility] ([facility]) [address] [place], [address], 10/29/2024 18:16:16 10/27/20 24 10/29/2024 ALLER GENS, ZONE 1 L571-JbS alternaria alternata <0.10 kU/L class 0 Not Available [facility] ([facility]) [address] [place], [address], 10/29/2024 18:16:16 10/27/20 24 10/29/2024 ALLER GENS, ZONE 1 V769-KjQ stemphylium herbarum <0.10 kU/L class 0 Not Available [facility] ([facility]) [address] [place], [address], 10/29/2024 18:16:16 10/27/20 24 10/29/2024 ALLER GENS, ZONE 1 Q036-RfI common silver birch <0.10 kU/L class 0 Not Available [facility] ([facility]) [address] [place], [address], 10/29/2024 18:16:16 10/27/20 24 10/29/2024 ALLER GENS, ZONE 1 Y862-PhE oak, white <0.10 kU/L class 0 Not Available [facility] ([facility]) [address] [place], [address], 10/29/2024 18:16:16 10/27/20 24 10/29/2024 ALLER GENS, ZONE 1 V381-QkK elm, south sudanese <0.10 kU/L class 0 Not Available [facility] ([facility]) [address] [place], [address], 10/29/2024 18:16:16 10/27/20 24 10/29/2024 ALLER GENS, ZONE 1 E564-KiY steph, white <0.10 kU/L class 0 Not Available [facility] ([facility] [address] [place], [address], 10/29/2024 18:16:16 10/27/20 24 10/29/2024 ALLER GENS, ZONE 1 Q788-OuO maple/box elder <0.10 kU/L class 0 Not Available [facility] ([facility]) [address] [facility], [place], [address], 10/29/2024 18:16:16 10/27/20 24 10/29/2024 ALLER GENS, ZONE 1 U122-NnN hazelnut tree <0.10 kU/L class 0 Not Available [facility] ([facility]) [address] [facility], [place], [address], 10/29/2024 18:16:16 10/27/20 24 10/29/2024 ALLER GENS, ZONE 1 F865-GoX hickory, white <0.10 kU/L class 0 Not Available [facility] ([facility]) [address] [facility], [place], [address], 10/29/2024 18:16:16 10/27/20 24 10/29/2024 ALLER GENS, ZONE 1 U174-ZdR white mulberry <0.10 kU/L class 0 Not Available [facility] ([facility]) [address] [facility], [place], [address], 10/29/2024 18:16:16 10/27/20 24 10/29/2024 ALLER GENS, ZONE 1 I608-LdZ cedar, mountain <0.10 kU/L class 0 Not Available [facility] ([facility]) [address] [facility], [place], [address], 10/29/2024 18:16:16 10/27/20 24 10/29/2024 ALLER GENS, ZONE 1 X128-WwU ragweed, short <0.10 kU/L class 0 Not Available [facility] ([facility]) [address] [facility], [place], [address], 10/29/2024 18:16:16 10/27/20 24 10/29/2024 ALLER GENS, ZONE 1 T316-MtH mugwort <0.10 kU/L class 0 Not Available [facility] ([facility]) [address], [place], [address], 10/29/2024 18:16:16 10/27/20 24 10/29/2024 ALLER GENS, ZONE 1 Y696-TpB plantain, irish <0.10 kU/L class 0 Not Available [facility] ([facility]) [address] [facility], [place], [address], 10/29/2024 18:16:16 10/27/20 24 10/29/2024 ALLER GENS, ZONE 1 Q805-VeW pigweed, common <0.10 kU/L class 0 Not Available [facility] ([facility]) [address] [facility], [place], [address], 10/29/2024 18:16:16 10/27/20 24 10/29/2024 ALLER GENS, ZONE 1 E513-JiC sheep sorrel <0.10 kU/L class 0 Not Available [facility] ([facility]) [address] [facility], [place], [address], 10/29/2024 18:16:16 10/27/20 24 10/29/2024 ALLER GENS, ZONE 1 X763-GcX nettle <0.10 kU/L class 0 Not Available [facility] ([facility]) [address] [facility], [place], [address], 10/29/2024 18:16:16 10/27/20 24 10/29/2024 IMMUN OGLOB ULIN E, TOTAL immunoglobul in E, total <2 IU/mL 6-495 below low normal Not Available [facility] ([facility]) [address] [facility], [place], [address], 10/29/2024 18:16:17 04/02/[address], sinus es, w/o contr ast No observ ation record ed. [email or web address] [facility] [address], [address], 02/07/2025 13:30:53 Result Notes None recorded. Problems Name Problem SNOMED Code Status Onset Date Resolution Date Notes Provider Name and Address Organization Details Recorded Time Allergic rhinitis 28311535 Active 2023 TERESA JEFFERS MD [address] [place] [address], E [facility], [place], [address], [facility] - [facility] 4 13:34:20 Seasonal allergic rhinitis 470281166 Active 2023 TERESA JEFFERS MD [address] [place] [address], [place], [address], [facility] - [facility] [place] 4 13:34:20 Hypertrophy of nasal turbinates 84513573 Active 2023 TERESA JEFFERS MD [address] [place] [address], [place], [address], [place] - [facility] 4 13:34:38 Moderate persistent asthma 373276348 Active 2023 TERESA JEFFERS MD [address] [place] [address], [place], [address], [facility] - [facility] 4 13:35:21 Polypoid sinus degeneration 10850976 Active 2024 TERESA JEFFERS MD [address] [place] [address], [place], [address], [facility] - [facility] 5 13:13:34 Problem Notes None recorded. Procedures Surgical History Date Name Laterality Status Provider Name and Address Organization Details Recorded Time 5 JMSNasal/Sinus Endoscopy completed TERESA TERRELL MD [address] [place] [address], [address], [facility] - [facility] [place] 02/07/2025 13:13:07 JMSNasal/Sinus Endoscopy completed TERESA TERRELL MD [address] [place] [address], [place], [address], [facility] - [facility] 10/27/2024 13:36:16 Imaging Results None recorded. Procedure Notes None recorded. Medical Equipment None [...] C PSULA POR V A ORAL CADA ELISEO RANDLE BEFORE BREAKFAST 10/27 completed Not Available Not [...] propionate 50 mcg/actuati on nasal spray,suspe nsion [place] 1 spray every day by intranasa l [...] Updated DateTime 02/07/2025 162.56 cm 34 kg/m2 89997.29 g Franchesca Pritchard [facility] 02/07/2025 12:54:46 Date Recorded Body height Body mass index (BMI) Body weight Provider Name and Address Organization Details Last Updated DateTime 10/27/2024 162.56 cm 34 kg/m2 44893.29 g Zachary Patricia [place] Kyree Pritchard [facility] 10/27/2024 13:03:44 Social History None recorded. Functional Status None recorded. Mental Status None recorded. Family History Nothing Reported. Medical History Condition Response Arthritis Y Asthma Y Gynecological HistoryNo gynecological history recorded. Obstetrics History GPAL:G 0 P 0 0 0 0 Past Encounters Encounter ID Performer Location Encounter Start Date Encounter Closed Date Diagnosis/Indication Diagnosis SNOMED-CT Code Diagnosis ICD10 Code Diagnosis Note [id number] TERESA WEEKS MD [facility] [address] [address] 10/27/2024 12:39:39 10/27/2024 14:34:22 Allergic rhinitis 46105535 J30.9 Hypertroph y of nasal turbinates 45949598 J34.3 Moderate p ersistent asthma 898980921 J45.40 [id number] TERESA WEEKS MD [facility] [address] [address] 02/07/2025 12:49:25 02/07/2025 15:15:31 Allergic rhinitis 88748943 J30.9 Polypoid s inus degeneration 12470629 J33.1 Moderate p ersistent asthma 814328397 J45.40 Health Concerns Section Related Observation LastModified by Organization Detai ls LastModified Time None Recorded Concern Status LastModified by Organization Details LastModified Time None Recorded Advance Directives Directive None Recorded Payers Insurance Date Sequence Insurance Name Policy Number Policy Marin Covered Member ID Marin Member ID Guarantor Name 02/07/2025 1 [place] [facility] Ele Adan [id number] Justin Adan Notes Date Note Type Note Provider Name and Address Organization Details Recorded Time 10/27/2024 text/html Hx of allergy an d sinus congestion. Hx of asthma on symbicort, Atrovent, loratadine and pseudoephedrine. Previously on Asmanex,Trouble with her CPAP machine. Sensitive to smells and perfumesChronic eye and nasal irritation.Significan t allergy hx.--grasses and dustNo hx of ASA or NSAID allergy TERESA TERRELL MD [address] [place] [address], [phone], [facility] 10/27/2024 13:39:28 02/07/2025 text/html Hx of [...] still has some congestion TERESA TERRELL MD [address] [place] [address], [address], [facility] - [facility] 02/07/2025 13:32:47 OBGyn Episode No OBEpisode recorded.
== END ==
LOC: HO.SL 20:30
PROVIDERS: PCP Family Medicine; Visit Provider Family Medicine
DX: G47.33 Obstructive sleep apnea (adult) (pediatric) (principal); Z99.89 Dependence on other enabling machines and devices
CPT/HCPCS: 95810

== ENCOUNTER 2025-07-25 14:24 | Emergency (ER) | payer MEDICAID, SELFPAY ==
--- NOTE | ~2025-07-25 | XR_ITS ---
EXAMINATION: XR ANKLE 3 OR MORE VIEWS LEFT, XR FOOT 3 OR MORE VIEWS LEFT HISTORY: fracture? COMPARISON: Comparison is made with the prior examination of the left foot dated 08/04/2023. FINDINGS: Six views of the left foot and ankle are submitted. Osseous mineralization is normal. There is no fracture or dislocation. The joint spaces are preserved. Again seen are calcaneal spurs at the plantar aspect and at the insertion of the Achilles tendon. The soft tissues are unremarkable. XR/XR foot LT min 3V IMPRESSION: Plantar calcaneal spurs as described. Otherwise unremarkable examination of the left foot and ankle. Electronically signed by: Syed Vivar MD 07/25/2025 03:04 PM EDT
--- NOTE | ~2025-07-25 | XR_ITS ---
EXAMINATION: XR ANKLE 3 OR MORE VIEWS LEFT, XR FOOT 3 OR MORE VIEWS LEFT HISTORY: fracture? COMPARISON: Comparison is made with the prior examination of the left foot dated 08/04/2023. FINDINGS: Six views of the left foot and ankle are submitted. Osseous mineralization is normal. There is no fracture or dislocation. The joint spaces are preserved. Again seen are calcaneal spurs at the plantar aspect and at the insertion of the Achilles tendon. The soft tissues are unremarkable. XR/XR ankle LT min 3V IMPRESSION: Plantar calcaneal spurs as described. Otherwise unremarkable examination of the left foot and ankle. Electronically signed by: Syed Vivar MD 07/25/2025 03:04 PM EDT
[2025-07-25 14:34] VITALS: BP 134/63; PULSE 84; RESP 16; TEMP 36.4; O2SAT 98; BMI 26.6
--- NOTE | 2025-07-25 14:41 | ED.GENADULT ---
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 Patient denies any redness, fever, chills, leg/foot swelling, calf pain, chest pain, shorntess of breath, or recent trauma. patient on heel when she walks Related Data Home Medications ?Medication ?Instructions ?Recorded ?Confirmed baclofen 10 mg tablet 10 mg PO DAILY 05/01/24 07/17/25 cholecalciferol (vitamin D3) 50 50 mcg PO QAM 05/01/24 07/17/25 mcg (2,000 unit) tablet (Vitamin D3) citalopram 10 mg tablet 10 mg PO DAILY 05/01/24 07/17/25 diclofenac sodium 1 % topical gel 2 g topical DAILY PRN pain 05/01/24 07/17/25 dulaglutide 0.75 mg/0.5 mL 0.75 mg subcut QWEEK 05/01/24 07/17/25 subcutaneous pen injector (Trulicity) fexofenadine 180 mg tablet 180 mg PO QAM 05/01/24 07/17/25 lidocaine 5 % topical patch 1 patch topical DAILY 05/01/24 07/17/25 loratadine 10 mg tablet 10 mg PO QAM 05/01/24 07/17/25 mirabegron 50 mg tablet,extended 50 mg PO DAILY 05/01/24 07/17/25 release 24 hr (Myrbetriq) Previous Rx's ?Medication ?Instructions ?Recorded ipratropium bromide 42 mcg (0.06 2 spray intranasal TID-QID PRN 05/02/24 %) nasal spray allergy symptoms #15 mL naproxen 500 mg tablet 500 mg PO BID PRN pain #14 tabs 07/25/25 prednisone 20 mg tablet 40 mg (2 x 20 mg) PO DAILY 5 days 07/25/25 #10 tabs Allergies Allergy/AdvReac Type Severity Reaction Status Date / Time No Known Allergies Allergy Verified 07/25/25 14:38 Review of Systems Review of Systems: left ankle/heel spur Yes all other systems are reviewed and are negative PMFSH Past Medical History Medical History Bilateral knee pain Acute left-sided low back pain with bilateral sciatica Frequent UTI Chronic cough Microscopic hematuria Mild intermittent asthma Chronic back pain Chronic GERD Fatty liver Nephrolithiasis Osteoarthritis Prediabetes Obstructive sleep apnea Degenerative disc disease, lumbar Chronic allergic rhinitis Surgical History History of carpal tunnel release History of cholecystectomy Social History Social History Alcohol intake: current Alcohol intake frequency: holidays/special occasions only Patient Tobacco Use Status: Former Tobacco user Tobacco use type: Cigarette Advance Directives: No Advance Directives Information Provided: Yes Physical Exam ED Vital Signs: Vital Signs - 24 hr 07/25/25 14:34 07/25/25 16:30 Temperature 97.6 F 97.6 F Pulse Rate 84 84 Respiratory Rate 16 16 Blood Pressure 134/63 134/63 Pulse Oximetry 98 98 Oxygen Delivery Method Room Air Room Air BMI result Body Mass Index 26.6 Const General: cooperative, healthy appearing, comfortable, no acute distress, well developed, alert, awake and Physically active Orientation/consciousness: patient oriented x3 HENMT Head: Yes normal to inspection, Yes No palpable skull fracture present and Yes normocephalic Ears: hearing grossly normal bilaterally, external ears normal, TM's normal bilaterally, TM normal on the right, TM normal on the left, EAC's normal, mastoids normal and no periauricular adenopathy Eyes General: appearance normal, both eyes and all related structures Neck Neck: Yes normal visual inspection, Yes full ROM, Yes no lymphadenopathy, Yes no meningeal signs, Yes trachea midline, Yes supple, No anterior neck swelling and No tender Chest Chest palpation & inspection: normal inspection of the chest and normal palpation of entire chest wall Resp Effort & Inspection: normal respiratory effort and able to speak in complete sentences Auscultation: clear to auscultation bilaterally Cardio Jugular venous distension: no JVD Heart sounds: S1 normal heart sound present and S2 normal heart sound present GI Inspection: Yes normal to inspection Palpation (GI): Soft to palpation, not firm, nontender, no guarding and not rigid General: Yes no CVA tenderness Back/Spine/Pelvis Back: no CVA tenderness and No back tenderness Skin General skin exam: no rashes or lesions noted, elasticity normal and turgor normal Neuro General: patient oriented x3, gait normal, tone normal, moves all extremities, Normal light touch and pain sensation, no meningeal signs, no focal motor deficits and CN's II-XI intact bilaterally Extrem General: Yes normal to inspection, Yes full ROM and Yes capillary refill normal Ankle/foot/toe images:  1. positive for tenderness and slight swelling on palpation. negative for erythema, wound, pus discharge, deformities, ulcer, ecchymosis, or red streaks. rest of extremity is normal. motor, neuro, and vascular exam is intact. Psych Appearance: grossly normal, well kempt and not disheveled Course Course Course Narrative: RME: 64-year-old female presents to ED for left posterior heel pain and slight swelling. Patient is unknown if there was any injury. Patient denies any chest pain or shortness of breath Medical Decision Making Medical Decision Making MDM Narrative: 64-year-old female presents to ED for posterior left ankle heel pain and slight swelling that is tenderness on palpation. Patient denies any leg swelling, calf pain, chest pain, shortness of breath, fever, chills or history of blood clots. Not suspecting DVT, osteomyelitis, PE, necrotizing fasciitis, compartment syndrome, arterial occlusion, or any other life-threatening etiology. Differential Diagnosis Differential Diagnoses: The differential diagnosis associated with the presentation includes Admission/Observation Consideration of admission/observation: Escalation of care including admission/observation considered Independent Interpretation I performed an independent interpretation of an: Plain X-Ray Radiology Impression Discussion of test interpretation with radiology: I have reviewed the radiologist's reading. Independent Historian Clinical information obtained from an independent historian. History obtained from or confirmed by: Other (patient) Prescription Management I considered prescription management with: Pain Medication Discharge Plan Discharge Clinical Impression: Heel spur Patient Disposition: Home, Self-Care Instructions: Heel Spur (ED) Additional Instructions: Recommend follow-up with your primary care provider. Return to the ED immediately for any swelling, redness, bluish black discoloration, calf pain, chest pain, shortness of breath, fever, chills, numbness/tingling, red streaks, or any other concerning symptoms. Ordering Physician: Jose Roberto Chaudhry Date of Service: 07/25/25 Procedure(s): XR ankle LT min 3V Accession Number(s): [id number] cc: Jose Roberto Chaudhry; Lorrie Reyes DO~ Reason for Exam: fracture? EXAMINATION: XR ANKLE 3 OR MORE VIEWS LEFT, XR FOOT 3 OR MORE VIEWS LEFT HISTORY: fracture? COMPARISON: Comparison is made with the prior examination of the left foot dated 08/04/2023. FINDINGS: Six views of the left foot and ankle are submitted. Osseous mineralization is normal. There is no fracture or dislocation. The joint spaces are preserved. Again seen are calcaneal spurs at the plantar aspect and at the insertion of the Achilles tendon. The soft tissues are unremarkable. XR/XR ankle LT min 3V IMPRESSION: Plantar calcaneal spurs as described. Otherwise unremarkable examination of the left foot and ankle. Electronically signed by: Syed Vivar MD 07/25/2025 03:04 PM EDT RP Ordering Physician: Jose Roberto Chaudhry Date of Service: 07/25/25 Procedure(s): XR foot LT min 3V Accession Number(s): [id number] cc: Jose Roberto Chaudhry; Lorrie Reyes DO~ Reason for Exam: posterior heel pain EXAMINATION: XR ANKLE 3 OR MORE VIEWS LEFT, XR FOOT 3 OR MORE VIEWS LEFT HISTORY: fracture? COMPARISON: Comparison is made with the prior examination of the left foot dated 08/04/2023. FINDINGS: Six views of the left foot and ankle are submitted. Osseous mineralization is normal. There is no fracture or dislocation. The joint spaces are preserved. Again seen are calcaneal spurs at the plantar aspect and at the insertion of the Achilles tendon. The soft tissues are unremarkable. XR/XR foot LT min 3V IMPRESSION: Plantar calcaneal spurs as described. Otherwise unremarkable examination of the left foot and ankle. Electronically signed by: Syed Vivar MD 07/25/2025 03:04 PM EDT RP Prescriptions: New naproxen 500 mg tablet 500 mg PO BID PRN (Reason: pain) Qty: 14 0RF prednisone 20 mg tablet 40 mg PO DAILY 5 Days Qty: 10 0RF No Action ipratropium bromide 42 mcg (0.06 %) spray,non-aerosol 2 spray intranasal TID-QID PRN (Reason: allergy symptoms) Qty: 15 2RF Rx Instructions: administer into each nostril Trulicity 0.75 mg/0.5 mL pen injector 0.75 mg subcut QWEEK diclofenac sodium 1 % gel 2 g topical DAILY PRN (Reason: pain) loratadine 10 mg tablet 10 mg PO QAM lidocaine 5 % adhesive patch,medicated 1 patch topical DAILY Myrbetriq 50 mg tablet extended release 24 hr 50 mg PO DAILY cholecalciferol (vitamin D3) [Vitamin D3] 50 mcg (2,000 unit) tablet 50 mcg PO QAM citalopram 10 mg tablet 10 mg PO DAILY fexofenadine 180 mg tablet 180 mg PO QAM baclofen 10 mg tablet 10 mg PO DAILY Referrals: [facility] [Provider Group, Orthopedics] - 2 days Referral Note: Heel spur Clinical Impression: Heel spur Lorrie Reyes DO [Primary Care Provider, Internal Medicine] - 2 days Referral Note: Heel spur Clinical Impression: Heel spur Stand Alone Forms: Work/School Release Interventions: ED Discharge Assessment Last Done: 07/25/25 16:30 Discharge Date/Time: 07/25/25 16:30 Print Language: Latvian
[2025-07-25 16:30] VITALS: BP 134/63; PULSE 84; RESP 16; TEMP 36.4; O2SAT 98
--- OUTSIDE RECORDS SUMMARY | 2025-07-25 18:56 | XMS_ITS | Encounter Summary ---
Author Organization [employer] Address [address] [facility] [address] [place] [address] Care Team Providers Care Accounting Methods Analyst Name Role Phone Lorrie Reyes DO Primary Care Provider + [phone] Encounter Details Date Type Department Care Team (Late st Contact Info) Description 07/25/2025 Orders Only [facility] External Provider, [facility] Social History Tobacco Use Types Packs/Day Years [...] Care Team (Late st Contact Info) Description 07/27/2025 1:30 PM EDT Office Visit [facility] [address] [place] [address] Trenton Aguirre MD [address] [place] [address] documented as of this encounter Procedures Procedure Name Priority Date/Time Associated Diagnosis Comments XR ANKLE 3+ VIEWS LEFT Routine 07/25/2025 2:49 PM EDT XR FOOT 3+ VIEWS LEFT Routine 07/25/2025 2:40 PM EDT documented in this encounter Results * XR Ankle 3+ Views Left (07/25/2025 2:49 PM EDT) Anatomical Region Laterality Modality Lower Extremities, Ankle Left Radiogr aphic Imaging 07/25/2025 2:49 PM EDT Narrative 07/25/2025 3:07 PM EDT [address] [address] XRay Report Signed Patient: Ele Adan MR#: [id number] : 1960 Acct:[id number] Age/Sex: 64 / F ADM Date: 07/25/25 Loc: HO.ED Attending Dr: Ordering Physician: Jose Roberto Chaudhry Date of Service: 07/25/25 Procedure(s): XR ankle LT min 3V Accession Number(s): [id number] cc: Jose Roberto Chaudhry; Lorrie Reyes DO Reason for Exam: fracture? EXAMINATION: XR ANKLE 3 OR MORE VIEWS LEFT, XR FOOT 3 OR MORE VIEWS LEFT HISTORY: fracture? COMPARISON: Comparison is made with the prior examination of the left foot dated 08/04/2023. FINDINGS: Six views of the left foot and ankle are submitted. Osseous mineralization is normal. There is no fracture or dislocation. The joint spaces are preserved. Again seen are calcaneal spurs at the plantar aspect and at the insertion of the Achilles tendon. The soft tissues are unremarkable. XR/XR ankle LT min 3V IMPRESSION: Plantar calcaneal spurs as described. Otherwise unremarkable examination of the left foot and ankle. Electronically signed by: Syed Vivar MD 07/25/2025 03:04 PM EDT RP Dictated By: Syed Vivar MD Signed By: <Electronically signed by Syed Vivar MD in OV> 07/25/25 1504 DD/ 1449 TD/TT: 07/25/25 1450 Assembly Line Robot Operator: Procedure Note Donotuseinterpreter, Image - 07/25/2025 [place] [address] XRay Report Signed Patient: Ele AdanMR#: [id number] : 1960Acct:[id number] Age/Sex: 64 / FADM Date: 07/25/25 Loc: HO.ED Attending Dr: Ordering Physician: Jose Roberto Chaudhry Date of Service: 07/25/25 Procedure(s): XR ankle LT min 3V Accession Number(s): [id number] cc: Jose Roberto Chaudhry; Lorrie Reyes DO Reason for Exam: fracture? EXAMINATION: XR ANKLE 3 OR MORE VIEWS LEFT, XR FOOT 3 OR MORE VIEWS LEFT HISTORY: fracture? COMPARISON: Comparison is made with the prior examination of the left foot dated 08/04/2023. FINDINGS: Six views of the left foot and ankle are submitted. Osseous mineralization is normal. There is no fracture or dislocation. The joint spaces are preserved. Again seen are calcaneal spurs at the plantar aspect and at the insertion of the Achilles tendon. The soft tissues are unremarkable. XR/XR ankle LT min 3V IMPRESSION: Plantar calcaneal spurs as described. Otherwise unremarkable examination of the left foot and ankle. Electronically signed by: Syed Vivar MD 07/25/2025 03:04 PM EDT Dictated By: Syed Vivar MD Signed By: <Electronically signed by Syed Vivar MD in OV> 07/25/25 1504 DD/ 1449 TD/TT: 07/25/25 1450 Assembly Line Robot Operator: [facility] External Provider IMG XR PROCEDURES Edited Result - Final * XR Foot 3+ Views Left (07/25/2025 2:40 PM EDT) Anatomical Region Laterality Modality Lower Extremities, Foot Left Radiogra phic Imaging 07/25/2025 2:40 PM EDT Narrative 07/25/2025 3:07 PM EDT [address] [address] XRay Report Signed Patient: Ele Adan MR#: [id number] : 1960 Acct:[id number] Age/Sex: 64 / F ADM Date: 07/25/25 Loc: HO.ED Attending Dr: Ordering Physician: Jose Roberto Chaudhry Date of Service: 07/25/25 Procedure(s): XR foot LT min 3V Accession Number(s): [id number] cc: Jose Roberto Chaudhry; Lorrie Reyes DO Reason for Exam: posterior heel pain EXAMINATION: XR ANKLE 3 OR MORE VIEWS LEFT, XR FOOT 3 OR MORE VIEWS LEFT HISTORY: fracture? COMPARISON: Comparison is made with the prior examination of the left foot dated 08/04/2023. FINDINGS: Six views of the left foot and ankle are submitted. Osseous mineralization is normal. There is no fracture or dislocation. The joint spaces are preserved. Again seen are calcaneal spurs at the plantar aspect and at the insertion of the Achilles tendon. The soft tissues are unremarkable. XR/XR foot LT min 3V IMPRESSION: Plantar calcaneal spurs as described. Otherwise unremarkable examination of the left foot and ankle. Electronically signed by: Syed Vivar MD 07/25/2025 03:04 PM EDT RP Dictated By: Syed Vivar MD Signed By: <Electronically signed by Syed Vivar MD in OV> 07/25/25 1504 DD/ 1440 TD/TT: 07/25/25 1450 Assembly Line Robot Operator: Procedure Note Donotuseinterpreter, Image - 07/25/2025 [place] [address] XRay Report Signed Patient: Ele AdanMR#: [id number] : 1960Acct:[id number] Age/Sex: 64 / FADM Date: 07/25/25 Loc: HO.ED Attending Dr: Ordering Physician: Jose Roberto Cahudhry Date of Service: 07/25/25 Procedure(s): XR foot LT min 3V Accession Number(s): [id number] cc: Jose Roberto Chaudhry; Lorrie Reyes DO Reason for Exam: posterior heel pain EXAMINATION: XR ANKLE 3 OR MORE VIEWS LEFT, XR FOOT 3 OR MORE VIEWS LEFT HISTORY: fracture? COMPARISON: Comparison is made with the prior examination of the left foot dated 08/04/2023. FINDINGS: Six views of the left foot and ankle are submitted. Osseous mineralization is normal. There is no fracture or dislocation. The joint spaces are preserved. Again seen are calcaneal spurs at the plantar aspect and at the insertion of the Achilles tendon. The soft tissues are unremarkable. XR/XR foot LT min 3V IMPRESSION: Plantar calcaneal spurs as described. Otherwise unremarkable examination of the left foot and ankle. Electronically signed by: Syed Vivar MD 07/25/2025 03:04 PM EDT RP Dictated By: Syed Vivar MD Signed By: <Electronically signed by Syed Vivar MD in OV> 07/25/25 1504 DD/ 1440 TD/TT: 07/25/25 1450 Assembly Line Robot Operator: [facility] External Provider IMG XR PROCEDURES Edited Result - Final documented in this encounter Visit Diagnoses Not on filedocumented in this encounter Additional Health Concerns Assessment Noted Time PHQ-9 Depression Total Score: 0 02/24/20 25 11:21 AM EDT documented as of this encounter Care Teams Accounting Methods Analyst Relationship Specialty Start Date End Date Lorrie Reyes DO [address] [place] [address] PCP - General Family Medicine 07/19/15 Michi Mahan Hotel HousemanJunior Account Executive 04/17/24 documented as of this encounter
--- OUTSIDE RECORDS SUMMARY | 2025-07-25 18:56 | XMS_ITS | Encounter Summary ---
Author Organization [employer] Address [address] [place] [address] [address] [place] [address] Care Team Providers Care Automotive Parts Counter Associate Name Role Phone Lorrie Reyes DO Primary Care Provider + [phone] Encounter Details Date Type Department Care Team ([facility] st Contact Info) Description 02/18/2024 Orders Only [facility] [address] [place] [address] Provider, MD Abraham Social History Tobacco Use [...] Description 07/27/2025 1:30 PM EDT Office Visit [facility] [address] [place] [address] Trenton Aguirre MD [address] [place] [address] documented as of this encounter Procedures Procedure [...] documented as of this encounter Care Teams Automotive Parts Counter Associate Relationship Specialty Start Date End Date Lorrie Reyes DO [address] [place], [place] [phone] PCP - General Family Medicine 07/19/15 Michi Mahan BlackenerAnthropology Professor 04/17/24 documented as of this encounter
--- OUTSIDE RECORDS SUMMARY | 2025-07-25 18:56 | XMS_ITS | Encounter Summary ---
Author Organization [employer] Address [address] [facility] [address] [place] [address] Care Team Providers Care Steeplechase Jockey Name Role Phone Lorrie Reyes DO Primary Care Provider + [phone] Encounter Details Date Type Department Care Team (Late st Contact Info) Description 08/30/2023 Abstract [facility]INE [address] [place] [address] Lorrie Reyes DO [address] [place] [address] Social History Tobacco Use Types Packs/Day Years [...] Description 07/27/2025 1:30 PM EDT Office Visit [facility] [address] [place] [address] Trenton Aguirre MD [address] [place], [place] [phone] documented as of this encounter Visit Diagnoses Not on filedocumented in this encounter Care Teams Steeplechase Jockey Relationship Specialty Start Date End Date Lorrie Reyes DO [address] [place], [place] [phone] PCP - General Family Medicine 07/19/15 Michi Mahan Manufacturing Quality EngineerTelemetry Technician 04/17/24 documented as of this encounter
--- OUTSIDE RECORDS SUMMARY | 2025-07-25 18:56 | XMS_ITS | Clinical Summary ---
Author Organization [employer] Address [address] [place] [address] 7 [place] [address] Care Team Providers Care Rn Acls Name Role Phone Estephania Reyesfer Primary Care Provider + [phone] Allergies Active Allergy Reactions Criticality Noted Date Comments Gramineae Pollens 11/11/2022 Other reaction(s): congestion Medications Elastic Bandages & Supports (Wrist Splint) misc UAD-LEFT 7 Active Elastic Bandages & Supports (Wrist Splint) misc UAD-RIGHT 7 Active melatonin 5 MG tablet TAKE 1-2 TABLETS BY ORAL ROUTE AT BEDTIME PRN INSOMNIA Active Denta 5000 Plus 1.1 % cream BRUSH KALEB VECES AL D A DO NOT RINSE 3 Active Alcohol Swabs (Alcohol Prep) pads 1 each 2 times daily. 60 each 1 3 Active Lancets Ultra Thin 30G misc 1 each 3 times daily. 100 each 1 3 Active glucose blood (FREESTYLE LITE) test strip Use 2x/day 100 strip 1 3 Active lidocaine (Lidoderm) 5 % patchIndications :Acute left-sided low back pain with bilateral sciatica Apply 1 patch topically Once per day. Remove & discard patch within 12 hours or as directed by MD. 30 patch 2 4 Active Myrbetriq 50 MG 24 hr tablet TOME 1 TABLETA POR V A ORAL TODOS LOS D ONCE A DAY, SAME TIME DAILY 4 Active omeprazole (PriLOSEC) [address] capsule Take 1 capsule (20 mg) by mouth before breakfast. TAKE 1 CAPSULE BY ORAL ROUTE DAILY BEFORE A MEAL 90 capsule 3 4 025 Active budesonide-formo terol (Symbicort) 160-4.5 MCG/ACT inhaler Inhale 2 puffs in the morning and at bedtime. Rinse mouth with water after use to reduce aftertaste and incidence of candidiasis. Do not swallow. 1 each 11 4 025 Active baclofen (Lioresal) 10 MG tablet TAKE 1 TABLET BY MOUTH TWICE A DAY NEEDED MM SPASM/PAIN 60 tablet 3 4 Active pseudoephedrine (Sudafed) 30 MG tabletIndication s:Nasal congestion Take 1 tablet (30 mg) by mouth every 4 (four) hours if needed for congestion for up to 10 days. 30 tablet 4 Active ibuprofen 800 MG tablet TOME LAYO TABLETA KALEB VECES AL NEREIDA CON ALIMENTO CUANDO SEA NECESARIO PARA EL DOLOR 60 tablet 1 5 Active triamcinolone (Kenalog) 0.1 % creamIndications :Rash Apply topically if needed in the morning and at bedtime for rash. 45 g 5 Active Blood Glucose Monitoring Suppl (KetchupppStyle Lite) w/Device kit 1 each by Other route 2 times daily. USE TO TEST BLOOD SUGAR TWICE A DAY 1 kit 5 Active albuterol (Ventolin HFA) 108 (90 Base) MCG/ACT inhalerIndicatio ns:Mild intermittent asthma, unspecified whether complicated INHALE 2 PUFFS EVERY 4 TO 6 HOURS NEEDED FOR COUGH, WHEEZE, SHORTNESS OF BREATH 18 g 1 5 Active Dulaglutide (Trulicity) 3 MG/0.5ML solution auto-injector Inject 3 mg under the skin 1 (one) time per week. 2 mL 3 5 Active citalopram (CeleXA) 10 MG tablet TAKE 1 TABLET BY ORAL ROUTE EVERY DAY 90 tablet 1 5 Active loratadine (Claritin) 10 MG tabletIndication s:Seasonal allergic rhinitis, unspecified trigger TOME LAYO TABLETA TODOS LOS HALE EN LA MANANA 90 tablet 3 5 Active albuterol (2.5 MG/3ML) 0.083% nebulizer solutionIndicati ons:Acute cough Take 3 mL (2.5 mg) by nebulization every 4 (four) hours if needed for wheezing or shortness of breath. 75 mL 2 5 026 Active D3 50 MCG (2000 UT) tablet TAKE 1 TABLET BY MOUTH IN THE MORNING 90 tablet 3 5 Active Diclofenac Sodium 1 % gelIndications:L eft foot pain,Acute pain of right shoulder Apply 4 g topically if needed in the morning, at noon, in the evening, and at bedtime (pain). 100 g 5 Active acetaminophen (Tylenol) 500 MG tabletIndication s:Left foot pain,Acute pain of right shoulder Take 2 tablets (1,000 mg) by mouth every 6 (six) hours if needed for moderate pain or fever for up to 25 doses. 50 tablet 5 Active Active Problems Problem Noted Date Diagnosed Date [...] -consider addition of singulair -consider re-eval with health care manager if no improvement Degenerative disc disease, lumbar [...] w infec posisble reactive airway -benzonate -cepacol -Antelope nasal spray -tylenol prn -Rest 48 h [...] Encounters Date Type Department Care Team Description 07/25/2025 Orders Only [facility] External Provider, [facility] 07/11/2025 Telephone [facility] [address] [place] [phone] Lorrie Reyes DO Referral; Referral-Ortho 07/04/2025 3:20 PM EDT Office Visit [facility] [address] [place] [phone] Edwar Wilson MD Left foot pain (Primary Dx); Acute pain of right shoulder 07/04/2025 Telephone [facility] [address] [place] [phone] Lorrie Reyes DO telephone call 07/04/2025 Travel 05/16/2025 Refill [facility] [address] [place] [phone] Lorrie Reyes DO 04/30/[address] [address] Lorrie Reyes DO Results; Durable Medical Equipment (DME: CPAP Order) from Last 3 Months Immunizations Immunization Administration [...] Sign Reading Time Taken Comments Blood Pressure 143/80 07/04/2025 2:52 PM EDT Pulse 76 07/04/2025 2:52 PM EDT Temperature 36.3 C (97.3 F) 07/04/2025 2:52 PM EDT Respiratory Rate 18 07/04/2025 2:52 PM EDT Oxygen Saturation 96% 07/04/2025 2:52 PM EDT Inhaled Oxygen Concentration - - Weight 92.4 kg (203 lb 9.6 oz) 07/04/2025 2:52 P M EDT Height 162.6 cm (5' 4 ) 03/22/2025 1:26 PM EDT Body Mass Index 34.95 03/22/2025 1:26 PM EDT Plan of Treatment Upcoming Encounters Date Type Department Care Team (Late st Contact Info) Description 07/27/2025 1:30 PM EDT Office Visit [facility] [address] [place] [address] Trenton Aguirre MD [address] [place], [place] [phone] Health Maintenance Due Date Last Done Comments CT Colonography 1960 FIT DNA/Cologuard 1960 FIT 1960 FOBT 1960 Sigmoidoscopy 1962 Pap Smear 1983 Colonoscopy 02/23/2022 02/23/2017 Colorectal Cancer Screening 02/23/2022 Cervical Cancer Screening 07/24/2024 HPV/Cotest 07/24/2024 07/24/2019 COVID-19 Vaccine ( season) 2025 11/28/2022 Influenza Vaccine (#1) 2025 , 08/04/2022, 08/05/2021, Additional history exists Mammogram 12/12/2025 12/12/2024, 02/0 02/2025, 03/15/2024, Additional history exists Alcohol/Substance Use Screening 02/23/2026 02/23/2025 Depression Screening 02/23/2026 02/23/2025, 02/24/20 25 Diabetes: Hemoglobin A1C 02/23/2026 025, 08/16/2024, 01/28/2024, Additional history exists Disability Screening 02/23/2026 02/23/2025 SDOH Screening 02/23/2026 02/23/2025 Tobacco Screening 07/04/2026 07/04/2025 DTaP/Tdap/Td Vaccines (3 - Td or Tdap) [...] VIEWS LEFT Routine 07/25/2025 2:40 PM EDT HEMOGLOBIN A1C Routine 02/23/2025 11:59 AM EDT [...] Recently Relevant to Health Maintenance Results * XR Ankle 3+ Views Left (07/25/2025 2:49 PM EDT) Anatomical Region Laterality Modality Lower Extremities, Ankle Left Radiogr aphic Imaging 07/25/2025 2:49 PM EDT Narrative 07/25/2025 3:07 PM EDT [place] [address] XRay Report Signed Patient: Ele Adan MR#: [id number] : 1960 Acct:[id number] Age/Sex: 64 / F ADM Date: 07/25/25 Loc: .ED Attending Dr: Ordering Physician: Jose Roberto Chaudhry Date of Service: 07/25/25 Procedure(s): XR ankle LT min 3V Accession Number(s): [id number] cc: Jose Roberto Chaudhry; Lorrie Reyes DO [...] 07/25/25 1504 DD/ 1449 TD/TT: 07/25/25 1450 Recycling Technician: Procedure Note Donotuseinterpreter, Image - 07/25/[address] [address] XRay Report Signed Patient: Ele AdanMR#: [id number] : 1960Acct:[id number] Age/Sex: 64 / FADM Date: 07/25/25 Loc: HO.ED Attending Dr: Ordering Physician: Jose Roberto Chaudhry Date of Service: 07/25/25 Procedure(s): XR ankle LT min 3V Accession Number(s): [id number] cc: Jose Roberto Chaudhry; Lorrie Reyes DO [...] 07/25/25 1504 DD/ 1449 TD/TT: 07/25/25 1450 Recycling Technician: us [facility] External Provider IMG XR PROCEDURES Edited Result - Final * XR Foot 3+ Views Left (07/25/2025 2:40 PM EDT) Anatomical Region Laterality Modality Lower Extremities, Foot Left Radiogra phic Imaging 07/25/2025 2:40 PM EDT Narrative 07/25/2025 3:07 PM EDT [address] [address] XRay Report Signed Patient: Ele Adan MR#: [id number] : 1960 Acct:[id number] Age/Sex: 64 / F ADM Date: 07/25/25 Loc: HO.ED Attending Dr: Ordering Physician: Jose Roberto Chaudhry Date of Service: 07/25/25 Procedure(s): XR foot LT min 3V Accession Number(s): [id number] cc: Jose Roberto Chaudhry; Lorrie Reyes DO [...] 07/25/25 1504 DD/ 1440 TD/TT: 07/25/25 1450 Recycling Technician: Procedure Note Donotjenninterpreter, Image - 07/25/[address] [address] XRay Report Signed Patient: Ele AdanMR#: [id number] : 1960Acct:[id number] Age/Sex: 64 / FADM Date: 07/25/25 Loc: .ED Attending Dr: Ordering Physician: Jose Roberto Chaudhry Date of Service: 07/25/25 Procedure(s): XR foot LT min 3V Accession Number(s): [id number] cc: Jose Roberto Chaudhry; Lorrie Reyes DO [...] 07/25/25 1504 DD/ 1440 TD/TT: 07/25/25 1450 Recycling Technician: us [facility] External Provider IMG XR PROCEDURES Edited Result - Final * (ABNORMAL) Hemoglobin A1c (02/23/2025 11:59 AM EDT) Hemoglobin A1c 6.1(H) <6.0 % [facility] Comment:Hemoglobin A1C Refer ence Range Adults: 4.8 - 6.0 % Non diabetic: < 6.0 % Goal: < 7.0 %Additional Action Suggested: > 8.0 %Note: Hemoglobin A1c results are invalid for patients with abnormal amounts of HbF. Blood transfusions may impact the HbA1c concentration in the patient sample. Estimated Average Glucose 128 mg/dL [facility] Comment:eAG = Estimated ave rage glucose which is %A1C expressed asaverage glucose, using the formula of the S3C-WutuzuuDxojlft Glucose study (ADAG), Diabetes Care, Vol.31,#8,2007 Blood Venous blood specimen / Unknown 02/23/2025 11:59 AM EDT 02/23/2025 1:14 PM EDT us Lorrie Reyes DO LAB BLOOD ORDERABLES Final R esult [facility] [address] [place] [phone] * BI US Breast Limited Bilateral (12/12/2024 2:45 PM EST) Anatomical Region Laterality Modality Breast Bilateral Ultrasound 12/12/2024 2:45 PM EST Narrative 12/12/2024 3:24 PM EST [address] [place] [address] Ultrasound Report Signed Patient: Ele Adan MR#: [id number] : 1960 Acct:[id number] Age/Sex: 63 / F ADM Date: 12/12/24 Loc: HO.MAMMO Attending Dr: Girish Washburn NP Ordering Physician: GIRISH WASHBURN NP Date of Service: 12/12/24 Procedure(s): US breast BI limited mamm only Accession Number(s): [id number] cc: Lorrie Reyes DO; GIRISH WASHBURN NP [...] by: Latasha Julio DO 12/12/2024 03:21 PM [facility] Dictated By: Latasha Julio DO Signed By: <Electronically signed by Latasha Julio DO in OV> 12/12/24 1521 DD/ 1445 TD/TT: 12/12/24 1516 Recycling Technician: Procedure Note Donotuseinterpreter, Image - 12/12/20[facility] [address] [place] [address] Ultrasound Report Signed Patient: Ele AdanMR#: [id number] : 1960Acct:[id number] Age/Sex: 63 / FADM Date: 12/12/24 Loc: HO.SAFIAO Attending Dr: Girish Washburn NP Ordering Physician: GIRISH WASHBURN NP Date of Service: 12/12/24 Procedure(s): US breast BI limited mamm only Accession Number(s): [id number] cc: Lorrie Reyes DO; GIRISH WASHBURN NP [...] Latasha Julio DO 12/12/2024 03:21 PM EST Dictated By: Latasha Julio DO Signed By: <Electronically signed by Latasha Julio DO in OV> 12/12/24 1521 DD/ 1445 TD/TT: 12/12/24 1516 Recycling Technician: us Girish MARTELL US PROCEDURES Final Result * Hepatitis C Antibody with Reflex to HCV, RNA, Quantitative, Real-Time PCR (11/23/2023 1:26 PM EST) Hepatitis C Antibody Nonreactive Nonreactive [facility] Comment:Antibodies to HCV no t detected; does not exclude early acuteHCV infection. Blood Venous blood specimen / Unknown 11/23/2023 1:26 PM EST 11/23/2023 3:54 PM EST us Lorrie Reyes DO LAB BLOOD ORDERABLES Final R esult [facility] [address] [place] [phone] * HIV-1/2 Antigen and Antibodies, Fourth Generation, with Reflexes (11/23/2023 1:26 PM EST) HIV AB/AG Nonreactive Nonreactive [facility] Comment:HIV-1 p24 Ag and/or HIV-1/HIV-2 Ab not detected.A test result that is nonreactive does not exclude thepossibility of exposure to or infection with HIV-1 and/orHIV-2. Nonreactive results in this assay for individualswith prior exposure to HIV-1 and/or HIV-2 may be due toantigen and antibody levels that are below the limit ofdetection of this assay.[employer] HIV Ag/Ab Combo assay result andsupplemental assay results should be interpreted inconjunction with the patient's clinical presentation,history and other laboratory results. If the results areinconsistent with clinical evidence, additional testing issuggested to confirm the result. Blood Venous blood specimen / Unknown 11/23/2023 1:26 PM EST 11/23/2023 3:54 PM EST us Lorrie Reyes DO LAB BLOOD ORDERABLES Final R esult [facility] [address] [place] [phone] * HPV E6/E7 RFLX DARA 16 18/45 (07/24/2019 10:55 AM EDT) HPV mRNA E6/E7 Not Detected NOT DETECTED [facility] Comment: This test was performed using the APTIMA(R) HPV Assay ([employer] This assay detects E6/E7 viral messenger RNA (mRNA) from 14 high-risk HPV types (16,18,31,33,35,39,45,51, 52,56,58,59,66,68). For additional information please refer to: http://education.Fritter/faq/QOC349i4 (This link is being provided for informational/ educational purposes only.) The analytical performance characteristics of this assay have been determined by [employer] [place], [place]. The modifications have not been cleared or approved by the FDA. This assay has been validated pursuant to the CLIA regulations and is used for clinical purposes. Please note: Effective 07/20/2016, HPV testing will be performed using [employer]'s APTIMA test which targets mRNA. Detecting mRNA instead of DNA, as in older methods, offers significant improvements in specificity. ADDITIONAL TESTING Not indicated () [facility] Comment: Test Performed by [employer], [employer] [facility], [address] [place] [phone] Aamir Lerner M.D., Ph.D., Director of Laboratories , CLIA [id number] HPV 16 RNA Test not performed [facility] HPV 18/45 RNA Test not performed [facility] 07/24/2019 10:5 5 AM EDT Lorrie Reyes DO HISTORICAL/NON ORDERABLE LAB S Final Result Performing Organization Address City/State/[facility] Co de Phone Number [facility] [address] * Hm Colonoscopy (02/23/2017 9:54 AM EDT) Historical Provider HEALTH MAINTENANCE Final Result from Last 3 Months or Most Recently Relevant to Health Maintenance [facility] [employer] C3 Care Teams Rn Acls Relationship Specialty Start Date End Date Lorrie Reyes DO [address] [place] [phone] PCP - General Family Medicine 07/19/15 Michi Mahan Cutting InspectorCollege Counselor 04/17/24
--- OUTSIDE RECORDS SUMMARY | 2025-07-25 18:56 | XMS_ITS | Encounter Summary ---
Author Organization [employer] Address [address] [place] [address] 7t [place] [address] Care Team Providers Care Bench Repair Technician Name Role Phone Lorrie Reyes DO Primary Care Provider + [phone] Encounter Details Date Type Department Care Team (Late st Contact Info) Description 02/28/2025 Orders Only [facility] [address] [place] [address] ProviderAbraham MD Social History Tobacco Use Types [...] Description 07/27/2025 1:30 PM EDT Office Visit [facility] [address] [place] [address] Trenton Aguirre MD [address] [place] [address] documented as of this encounter Procedures Procedure [...] documented as of this encounter Care Teams Bench Repair Technician Relationship Specialty Start Date End Date Lorrie Reyes DO [address] [place] [address] PCP - General Family Medicine 07/19/15 Michi Mahan Remedial MasseurAssociate Professor Of Church Music 04/17/24 documented as of this encounter
== END 2025-07-25 16:30 | disposition home or self-care (01) ==
PROVIDERS: Emergency Provider Emergency Medicine; PCP Family Medicine
DX: M77.32 Calcaneal spur, left foot (principal); M25.572 Pain in left ankle and joints of left foot
CPT/HCPCS: 73610; 73630; 99282; 99283

== ENCOUNTER → 2025-07-25 14:37 | Outpatient (BNV) | payer MEDICAID, SELFPAY | PROVIDERS: Emergency Provider Emergency Medicine; PCP Family Medicine; Visit Provider Radiology Diagnostic Radiology | DX: M25.572 Pain in left ankle and joints of left foot (principal); M77.32 Calcaneal spur, left foot | CPT/HCPCS: 73610; 73630 ==

== ENCOUNTER 2025-09-04 09:46 | Outpatient (AMB) | payer MEDICAID, SELFPAY ==
--- NOTE | 2025-09-04 10:00 | MHC.OFFVIS ---
Vital Signs 09/04/25 10:01 Height 5 ft 5 in Weight 206 lb BMI 34.3 BP 120/66 Blood Pressure Location Lt brachial Position Sitting Pulse 78 Pulse Source Pulse Oximeter Pulse Oximetry (%) 97 Oxygen Delivery Method Room Air Intake Visit Reasons: Cough Public Health Service Officer Required: Yes Public Health Service Officer Name: Lorrie Springer Soniya Information Interpreted: non-clinical & clinical Allergies No Known Allergies Allergy (Verified 09/04/25 10:04) HPI HPI Cough: Details: 64-year-old lady, nonsmoker followed for asthma and KIMMY on CPAP. Patient has been using with reasonable control of his symptoms until recent exacerbation with what appears to be upper respiratory infection, now still symptomatic with mild wheezing, but no cough. She continues to use CPAP with good control of her underlying obstructive sleep apnea. [facility] Medical History Bilateral knee pain Acute left-sided low back pain with bilateral sciatica Frequent UTI Chronic cough Microscopic hematuria Mild intermittent asthma Chronic back pain Chronic GERD Fatty liver Nephrolithiasis Osteoarthritis Prediabetes Obstructive sleep apnea Degenerative disc disease, lumbar Chronic allergic rhinitis Surgical History History of carpal tunnel release History of cholecystectomy Social History Alcohol intake: current Alcohol intake frequency: holidays/special occasions only Patient Tobacco Use Status: Former Tobacco user Tobacco use type: Cigarette Review of Systems Const Denies daytime sleepiness, Denies excessive sweating, Denies fatigue, Denies fever(s), Denies lethargy, Denies malaise, Denies night sweats, Denies snoring and Denies weight loss Eyes Denies blurry vision and Denies itchy eyes ENT Denies nasal congestion, Denies post nasal drip, Denies sinus pain, Denies sinus pressure and Denies other ( Thrush) Card Denies chest pain, Denies pedal edema, Denies dyspnea, Denies orthopnea and Denies paroxysmal nocturnal dyspnea Resp Denies cough, Denies hemoptysis, Denies excessive phlegm production, Denies dyspnea, Denies snoring and Reports wheezing GI Denies abdominal pain and Denies heartburn Musc Denies myalgias, Denies arthralgias and Denies joint swelling Skin/Breast Denies rash Neuro Denies memory loss and Denies seizure-like activity Psych Denies abnormal sleep pattern, Denies anxiety and Denies memory loss Endo Denies excessive sweating, Denies fatigue and Denies heat intolerance Simone/Lymph Denies easy bruising Aller/Immun Denies itchy eyes, Denies seasonal rhinorrhea and Reports wheezing Physical Exam Vital Signs: Last Vital Signs Pulse 78 09/04/25 10:01 BP 120/66 09/04/25 10:01 Pulse Ox 97 09/04/25 10:01 Oxygen Delivery Method Room Air 09/04/25 10:01 BMI result Body Mass Index 34.3 Const General: no acute distress and alert Nutritional Appearance: obese Orientation/consciousness: Other orientation findings ( oriented) HEENT Head: Yes atraumatic Eyes General: appearance normal, both eyes and all related structures Sclerae: sclerae normal EOM: EOMs intact bilaterally Neck Neck: Yes supple Lymphatic: no lymphadenopathy noted Resp Effort & Inspection: normal respiratory effort and no use of accessory muscles Auscultation: clear to auscultation bilaterally Cardio Rate: regular rate Rhythm: regular rhythm Heart sounds: no gallops, no murmurs and no rubs Skin General skin exam: other ( warm) Extrem General: No clubbing, No cyanosis and No edema Assessment & Plan Assessment & Plan (1) Asthma: Code(s): J45.909 - Unspecified asthma, uncomplicated Category: Medical Plan: Baseline controlled on Symbicort and albuterol MDI. Continue current regimen. Now with mild exacerbation, will treat with a course of prednisone. (2) Obstructive sleep apnea: Code(s): G47.33 - Obstructive sleep apnea (adult) (pediatric) Category: Medical Plan: Well controlled on CPAP therapy. Continue CPAP therapy. Medications: New albuterol sulfate 90 mcg/actuation (Ventolin HFA) 2 puffs inhalation Q4-6H PRN 1 ea 6RF shortness of breath or wheezing prednisone 40 mg (2 x 20 mg) PO DAILY 10 tabs 0RF Coding Level of Care Code Est Pt Level 4 (77849) Diagnoses Asthma J45.909 Obstructive sleep apnea G47.33
[2025-09-04 10:01] VITALS: BP 120/66; PULSE 78; O2SAT 97; BMI 34.3
--- OUTSIDE RECORDS SUMMARY | 2025-09-04 11:23 | XMS_ITS | Encounter Summary ---
Author Organization [facility] Address [address] [place] [address] [address]t [place] [address] Care Team Providers Care Reel Cart Operator Name Role Phone Lorrie Reyes DO Primary Care Provider + [phone] Encounter Details Date Type Department Care Team ([facility] st Contact Info) Description 02/18/2024 Orders Only [facility] [address] [place] [address] Provider, MD Abraham Social History Tobacco Use [...] Time PHQ-9 Depression Total Score: 0 11/12/19 11:26 AM EST documented as of this encounter Care Teams Reel Cart Operator Relationship Specialty Start Date End Date Lorrie Reyes DO [address] [place] [phone] PCP - General Family Medicine 07/19/15 Michi Mahan Direct Support Professional CaregiverComputer Patternmaker 04/17/24 documented as of this encounter
--- OUTSIDE RECORDS SUMMARY | 2025-09-04 11:23 | XMS_ITS | Encounter Summary ---
Author Organization [employer] Address [address] [place] [address] 7[address] [place] [address] Care Team Providers Care Immigration Attorney Name Role Phone Lorrie Reyes DO Primary Care Provider + [phone] Encounter Details Date Type Department Care Team (Late st Contact Info) Description 02/28/2025 Orders Only [facility] [address] [place] [address] ProviderAbraham MD Social History Tobacco Use Types [...] Pelvis, Abdomen Computed T omography Historical Provider MD MARTELL CT PROCEDURES Final R esult documented in this encounter Visit Diagnoses Not on filedocumented in this encounter Additional Health Concerns Assessment Noted Time PHQ-9 Depression Total Score: 0 02/24/20 25 11:21 AM EDT documented as of this encounter Care Teams Immigration Attorney Relationship Specialty Start Date End Date Lorrie Reyes DO [address] [place] [address] PCP - General Family Medicine 07/19/15 Michi Mahan Field SeismologistHousing Relocation 04/17/24 documented as of this encounter
--- OUTSIDE RECORDS SUMMARY | 2025-09-04 11:23 | XMS_ITS | Encounter Summary ---
Author Organization [employer] Address [address] [facility] [address] [place] [address] Care Team Providers Care Plant Safety Engineer Name Role Phone Lorrie Reyes DO Primary Care Provider + [phone] Encounter Details Date Type Department Care Team (Late st Contact Info) Description 08/30/2023 Abstract [facility] MEDICINE [address] [place] [address] Lorrie Reyes DO [address] [place] [address] Social History Tobacco Use Types Packs/Day Years [...] on filedocumented in this encounter Care Teams Plant Safety Engineer Relationship Specialty Start Date End Date Lorrie Reyes DO [address] [place] [address] PCP - General Family Medicine 07/19/15 Michi Mahan Yolk Spray DrierSurgery Consultant 04/17/24 documented as of this encounter
--- OUTSIDE RECORDS SUMMARY | 2025-09-04 11:23 | XMS_ITS | Clinical Summary ---
Author Organization [employer] Address [address] [place] [address] 7 [place] [address] Care Team Providers Care Circus Hand Name Role Phone Estephania Reyesfer Primary Care Provider + [phone] Allergies Active Allergy Reactions Criticality Noted Date [...] Use 2x/day 100 strip 1 023 Active lidocaine (Lidoderm) 5 % patchIndication s:Acute left-sided low back pain with bilateral sciatica Apply 1 patch topically Once per day. Remove & discard patch within 12 hours or as directed by MD. 30 patch 2 024 Active Myrbetriq 50 MG 24 hr tablet TOME 1 TABLETA POR V A ORAL TODOS LOS D ONCE A DAY, SAME TIME DAILY 024 Active omeprazole (PriLOSEC) [address] capsule Take 1 capsule (20 mg) by mouth before breakfast. TAKE 1 CAPSULE BY ORAL ROUTE DAILY BEFORE A MEAL 90 capsule 3 024 Active budesonide-form oterol (Symbicort) 160-4.5 MCG/ACT inhaler Inhale 2 puffs in the morning and at bedtime. Rinse mouth with water after use to reduce aftertaste and incidence of candidiasis. Do not swallow. 1 each 11 024 Active baclofen (Lioresal) 10 MG tablet TAKE [...] g 025 Active Blood Glucose Monitoring Suppl (KlatcherStyle Lite) w/Device kit 1 each by Other [...] ORAL ROUTE EVERY DAY 90 tablet 1 025 Active loratadine (Claritin) 10 MG tabletIndicatio ns:Seasonal allergic rhinitis, unspecified trigger TOME LAYO TABLETA TODOS LOS HALE EN LA MANANA 90 tablet 3 025 Active albuterol (2.5 MG/3ML) 0.083% nebulizer solutionIndicat ions:Acute cough Take 3 mL (2.5 mg) by nebulization every 4 (four) hours if needed for wheezing or shortness of breath. 75 mL 2 025 2025 Active D3 50 MCG (2000 UT) tablet TAKE 1 TABLET BY MOUTH IN THE MORNING 90 tablet 3 Active acetaminophen (Tylenol) 500 MG tabletIndicatio ns:Left foot pain,Acute pain of right shoulder Take 2 tablets (1,000 mg) by mouth every 6 (six) hours if needed for moderate pain or fever for up to 25 doses. 50 tablet 025 Active hydrocortisone 2.5 % creamIndication s:Seborrheic dermatitis Apply topically 2 times daily. 28 g 1 025 Active ketoconazole (NIZOral) 2 % shampooIndicati ons:Seborrheic dermatitis Apply topically 2 (two) times a week. 120 mL 025 Active Diclofenac Sodium 1 % gelIndications: Left foot pain,Acute pain of right shoulder Apply 4 g topically if needed in the morning, at noon, in the evening, and at bedtime (pain). 100 g 025 Active Diclofenac Sodium 1 % gelIndications: Left foot pain,Acute pain of right shoulder Apply 4 g topically if needed in the morning, at noon, in the evening, and at bedtime (pain). 100 g 025 2024 Discontinued(R eorder (will not trigger [...] -consider addition of singulair -consider re-eval with police inspector if no improvement Degenerative disc disease, lumbar [...] w infec posisble reactive airway -benzonate -cepacol -[place] nasal spray -tylenol prn -Rest 48 h [...] Encounters Date Type Department Care Team Description 08/22/2025 Refill [facility] MEDICINE [address] [place] [phone] Lorrie Reyes DO Left foot pain; Acute pain of right shoulder 07/27/2025 1:30 PM EDT Office Visit [address] [address] Trenton Aguirre MD Seborrheic dermatitis (Primary Dx) 07/27/2025 Travel 07/25/2025 Orders Only [facility] External Provider, [facility] 07/11/[address] [address] Lorrie Reyes DO Referral; Referral-Ortho 07/04/2025 3:20 PM EDT Office Visit [facility] [address] [place] [phone] Edwar Wilson MD Left foot pain (Primary Dx); Acute pain of right shoulder 07/04/[address] [address] Lorrie Reyes DO telephone call 07/04/2025 Travel from Last 3 Months Immunizations Immunization [...] Sign Reading Time Taken Comments Blood Pressure 130/80 07/27/2025 1:27 PM EDT Pulse 80 07/27/2025 1:27 PM EDT Temperature 36 C (96.8 F) 07/27/2025 1:27 PM EDT Respiratory Rate 17 07/27/2025 1:27 PM EDT Oxygen Saturation 96% 07/04/2025 2:52 PM EDT Inhaled Oxygen Concentration - - Weight 94 kg (207 lb 3.2 oz) 07/27/2025 1:27 PM EDT Height 162.6 cm (5' 4 ) 07/27/2025 1:27 PM EDT Body Mass Index 35.57 07/27/2025 1:27 PM EDT Plan of Treatment Health Maintenance Due Date Last Done Comments CT Colonography 1960 FIT DNA/Cologuard 1962 FIT 1962 FOBT 1960 Sigmoidoscopy 1962 Pap Smear 1983 Colonoscopy 02/23/2022 02/23/2017 Colorectal Cancer Screening 02/23/2022 Cervical Cancer Screening 07/24/2024 HPV/Cotest 07/24/2024 07/24/2019 COVID-19 Vaccine ( season) 2025 11/28/2022 Influenza Vaccine (#1) 2025 , 08/04/2022, 08/05/2021, Additional history exists Mammogram 12/12/2025 12/12/2024, 0202/2025, 03/15/2024, Additional history exists Alcohol/Substance Use Screening 02/23/2026 02/23/2025 Depression Screening 02/23/2026 02/23/2025, 02/24/20 25 Diabetes: Hemoglobin A1C 02/23/2026 025, 08/16/2024, 01/28/2024, Additional history exists Disability Screening 02/23/2026 02/23/2025 SDOH Screening 02/23/2026 02/23/2025 Tobacco Screening 07/27/2026 07/27/2025 DTaP/Tdap/Td Vaccines (3 - Td or Tdap) [...] Procedure Name Priority Date/Time Associated Diagnosis Comments AMB REFERRAL TO ORTHOPAEDIC SURGERY Routine 08/02/2025 Left foot pain Acute pain of right shoulder XR ANKLE 3+ VIEWS LEFT Routine 07/25/2025 [...] Recently Relevant to Health Maintenance Results * Referral to Orthopaedic Surgery (08/02/2025) Edwar Wilson MD OUTPATIENT REFERRAL ORDERABLES F inal Result * XR Ankle 3+ Views Left (07/25/2025 2:49 PM EDT) Anatomical Region Laterality Modality Lower Extremities, Ankle Left Radiogr aphic Imaging 07/25/2025 2:49 PM EDT Narrative 07/25/2025 3:07 PM EDT [address] [address] XRay Report Signed Patient: Ele Adan MR#: [id number] : 1960 Acct:[id number] Age/Sex: 64 / F ADM Date: 07/25/25 Loc: HO.ED Attending Dr: Ordering Physician: Jose Roberto Chaudhry Date of Service: 07/25/25 Procedure(s): XR ankle LT min 3V Accession Number(s): [id number] cc: Jose Roberto Chaudhry; Lorrie Reyes DO [...] 07/25/25 1504 DD/ 1449 TD/TT: 07/25/25 1450 Javascript Ui Developer: Procedure Note Donotuseinterpreter, Image - 07/25/2025 [place] [address] XRay Report Signed Patient: Ele AdanMR#: [id number] : 1960Acct:[id number] Age/Sex: 64 / FADM Date: 07/25/25 Loc: HO.ED Attending Dr: Ordering Physician: Jose Roberto Chaudhry Date of Service: 07/25/25 Procedure(s): XR ankle LT min 3V Accession Number(s): [id number] cc: Jose Roberto Chaudhry; Lorrie Reyes DO [...] 07/25/25 1504 DD/ 1449 TD/TT: 07/25/25 1450 Javascript Ui Developer: [facility] External Provider IMG XR PROCEDURES Edited Result - Final * XR Foot 3+ Views Left (07/25/2025 2:40 PM EDT) Anatomical Region Laterality Modality Lower Extremities, Foot Left Radiogra phic Imaging 07/25/2025 2:40 PM EDT Narrative 07/25/2025 3:07 PM EDT [address] [address] XRay Report Signed Patient: Ele Adan MR#: [id number] : 1960 Acct:[id number] Age/Sex: 64 / F ADM Date: 07/25/25 Loc: .ED Attending Dr: Ordering Physician: Jose Roberto Chaudhry Date of Service: 07/25/25 Procedure(s): XR foot LT min 3V Accession Number(s): [id number] cc: Jose Roberto Chaudhry; Lorrie Reyes DO [...] 07/25/25 1504 DD/ 1440 TD/TT: 07/25/25 1450 Javascript Ui Developer: Procedure Note Donotuseinterpreter, Image - 07/25/[address] [address] XRay Report Signed Patient: Ele AdanMR#: [id number] : 1960Acct:[id number] Age/Sex: 64 / FADM Date: 07/25/25 Loc: HO.ED Attending Dr: Ordering Physician: Jose Roberto Chaudhry Date of Service: 07/25/25 Procedure(s): XR foot LT min 3V Accession Number(s): [id number] cc: Jose Roberto Chaduhry; Lorrie Reyes DO Reason for Exam: posterior [...] 07/25/25 1504 DD/ 1440 TD/TT: 07/25/25 1450 Javascript Ui Developer: us [facility] External Provider IMG XR PROCEDURES Edited Result - Final * (ABNORMAL) Hemoglobin A1c (02/23/2025 11:59 AM EDT) Hemoglobin A1c 6.1(H) <6.0 % [facility] Comment:Hemoglobin A1C Refer ence Range Adults: 4.8 - 6.0 % Non diabetic: < 6.0 % Goal: < 7.0 %Additional Action Suggested: > 8.0 %Note: Hemoglobin A1c results are invalid for patients with abnormal amounts of HbF. Blood transfusions may impact the HbA1c concentration in the patient sample. Estimated Average Glucose 128 mg/dL [facility] Comment:eAG = Estimated ave rage glucose which is %A1C expressed asaverage glucose, using the formula of the W8R-IdwmngcTsxnagp Glucose study (ADAG), Diabetes Care, Vol.31,#8,Jun. 2007 Blood Venous blood specimen / Unknown 02/23/2025 11:59 AM EDT 02/23/2025 1:14 PM EDT Lorrie Reyes DO LAB BLOOD ORDERABLES Final R esult Performing Organization Address City/State/[facility] Co de Phone Number [facility] [address] [place] [phone] * BI US Breast Limited Bilateral (12/12/2024 2:45 PM EST) Anatomical Region Laterality Modality Breast Bilateral Ultrasound 12/12/2024 2:45 PM EST Narrative 12/12/2024 3:24 PM EST [facility] [address] [place] [address] Ultrasound Report Signed Patient: Ele Adan MR#: [id number] : 1960 Acct:[id number] Age/Sex: 63 / F ADM Date: 12/12/24 Loc: HO.MAMMO Attending Dr: Girish Washburn NP Ordering Physician: GIRISH WASHBURN NP Date of Service: 12/12/24 Procedure(s): US breast BI limited mamm only Accession Number(s): [id number] cc: Lorrie Reyes DO; GIRISH WASHBURN NP [...] by: Latasha Julio DO 12/12/2024 03:21 PM [facility] Dictated By: Latasha Julio DO Signed By: <Electronically signed by Latasha Julio DO in OV> 12/12/24 1521 DD/ 1445 TD/TT: 12/12/24 1516 Javascript Ui Developer: Procedure Note Donotuseinterpreter, Image - 12/12/2024 [facility] [address] [place] [address] Ultrasound Report Signed Patient: Ele AdanMR#: [id number] : 1960Acct:[id number] Age/Sex: 63 / FADM Date: 12/12/24 Loc: HO.MAMMO Attending Dr: Girish Washburn NP Ordering Physician: GIRISH WASHBURN NP Date of Service: 12/12/24 Procedure(s): US breast BI limited mamm only Accession Number(s): [id number] cc: Lorrie Reyes DO; GIRISH WASHBURN NP [...] 12/12/24 1521 DD/ 1445 TD/TT: 12/12/24 1516 Javascript Ui Developer: us Girish Washburn ANP IMG US PROCEDURES Final Result * Hepatitis C Antibody with Reflex to HCV, RNA, Quantitative, Real-Time PCR (11/23/2023 1:26 PM EST) Hepatitis C Antibody Nonreactive Nonreactive [facility] Comment:Antibodies to HCV no t detected; does not exclude early acuteHCV infection. Blood Venous blood specimen / Unknown 11/23/2023 1:26 PM EST 11/23/2023 3:54 PM EST Lorrie Reyes LAB BLOOD ORDERABLES Final R esult Performing Organization Address City/[facility]/ZIP Co de Phone Number [facility] [address] [place] [address] [phone] * HIV-1/2 Antigen and Antibodies, Fourth Generation, with Reflexes (11/23/2023 1:26 PM EST) HIV AB/AG Nonreactive Nonreactive [facility] Comment:HIV-1 p24 Ag and/or HIV-1/HIV-2 Ab not detected.A test result that is nonreactive does not exclude thepossibility of exposure to or infection with HIV-1 and/orHIV-2. Nonreactive results in this assay for individualswith prior exposure to HIV-1 and/or HIV-2 may be due toantigen and antibody levels that are below the limit ofdetection of this assay.The Cell[employer] HIV Ag/Ab Combo assay result andsupplemental assay results should be interpreted inconjunction with the patient's clinical presentation,history and other laboratory results. If the results areinconsistent with clinical evidence, additional testing issuggested to confirm the result. Blood Venous blood specimen / Unknown 11/23/2023 1:26 PM EST 11/23/2023 3:54 PM EST Lorrie Hessjessica DO LAB BLOOD ORDERABLES Final R esult Performing Organization Address City/[facility]/ZIP Co de Phone Number [facility] [address] [place] [address] [phone] * HPV E6/E7 RFLX DARA 16 18/45 (07/24/2019 10:55 AM EDT) HPV mRNA E6/E7 Not Detected NOT DETECTED [facility] Comment: This test was performed using the APTIMA(R) HPV Assay ([employer] This assay detects E6/E7 viral messenger RNA (mRNA) from 14 high-risk HPV types (16,18,31,33,35,39,45,51, 52,56,58,59,66,68). For additional information please refer to: http://[employer].ADCentricity/faq/GAZ894m3 (This link is being provided for informational/ educational purposes only.) The analytical performance characteristics of this assay have been determined by [employer] [place], [place]. The modifications have not been cleared or approved by the FDA. This assay has been validated pursuant to the CLIA regulations and is used for clinical purposes. Please note: Effective 07/20/2016, HPV testing will be performed using [facility]'s APTIMA test which targets mRNA. Detecting mRNA instead of DNA, as in older methods, offers significant improvements in specificity. ADDITIONAL TESTING Not indicated () [facility] Comment: Test Performed by [facility], [facility], [address] [place] [address] Aamir Lerner M.D., Ph.D., Director of Laboratories , CLIA [id number] HPV 16 RNA Test not performed [facility] HPV 18/45 RNA Test not performed [facility] 07/24/2019 10:5 5 AM EDT Lorrie Reyes DO HISTORICAL/NON ORDERABLE LAB S Final Result [facility] [address] * Hm Colonoscopy (02/23/2017 9:54 AM EDT) Historical Provider HEALTH MAINTENANCE Final Result from Last 3 Months or Most Recently Relevant to Health Maintenance Insurance [employer] C3 Care Teams Circus Hand Relationship Specialty Start Date End Date Lorrie Reyes DO [address] [place] [address] PCP - General Family Medicine 07/19/15 Michi Mahan Manager PortableCarpentry Foreman 04/17/24
== END 2025-09-04 10:14 | disposition home or self-care (01) ==
LOC: HO.HPS 09:47
PROVIDERS: PCP Family Medicine; Visit Provider Internal Medicine Pulmonary Disease
DX: J45.909 Unspecified asthma, uncomplicated (principal); G47.33 Obstructive sleep apnea (adult) (pediatric)
CPT/HCPCS: 99214

== ENCOUNTER → 2025-09-04 09:46 | Outpatient (BNVA) | payer MEDICAID, SELFPAY | PROVIDERS: PCP Family Medicine; Visit Provider Internal Medicine Pulmonary Disease | DX: J45.21 Mild intermittent asthma with (acute) exacerbation (principal); G47.33 Obstructive sleep apnea (adult) (pediatric); Z99.89 Dependence on other enabling machines and devices | CPT/HCPCS: 99212 ==